=== PATIENT | female | born 1945 | race Caucasian/White ===

== ENCOUNTER → 2019-06-10 | Outpatient (CLI) | payer MEDICARE, OTHER, SELFPAY | PROVIDERS: Family Provider Internal Medicine; Visit Provider Internal Medicine Hematology & Oncology | DX: C50.112 Malignant neoplasm of central portion of left female breast (principal); Z17.1 Estrogen receptor negative status [ER-] | CPT/HCPCS: 99214 ==

== ENCOUNTER 2019-06-20 07:37 | Day surgery (SDC) | payer MEDICARE, OTHER, SELFPAY ==
[2019-06-19 15:01] VITALS: BMI 28.0
--- NOTE | 2019-06-20 | SCC_ITS ---
Procedure Done: Port-A-Cath placement into the right subclavian vein with intraoperative fluoroscopy interpretation. 2.3 seconds of fluoroscopic guidance, for a cumulative dose of 0.40 mGy, was provided to Dr. Harding by the radiology department. C-arm images of the chest were saved for the patient's permanent record. SHAVONNE
[2019-06-20 07:57] VITALS: BP 154/69; PULSE 70; RESP 18; TEMP 36.2; O2SAT 96
[2019-06-20] MEDS: sodium chloride 0.9% 1,000 ML 30 ML IV (08:36)
--- NOTE | 2019-06-20 08:41 | ANES.PREANES ---
Pre-Anesthetic Assessment Pre-Anesthetic Assessment: Height/Weight: Height 1.54 m Weight 66.224 kg Temp Pulse Resp BP Pulse Ox 97.2 F L 70 18 154/69 96 06/20/19 07:57 06/20/19 07:57 06/20/19 07:57 06/20/19 07:57 06/20/19 07:57 Proposed Procedure: Operation Date: 06/20/19 09:15 Proposed Procedures p Portacath Placement(Not Applicable) - Mahesh Harding MD Was Beta Tyler taken within 24 hours: N/A Last intake: Intake Last Liquid Date 06/19/19 Last Liquid Time 22:00 Last Solid Date 06/19/19 Last Solid Time 22:00 Social: Social History: No alcohol and No tobacco Exam: Pre-Anes Outpt Exam: alert, oriented x 3, clear to auscultation bilaterally and regular rate & rhythm Airway: Submandibular: WNL Cervical ROM: WNL MP: 2 Dentition: Full Additional comments: SMALL mouth opening Pulmonary: Pulmonary: Sleep apnea (cpap) Comments: denies sob/mcpherson CV/HEM: CV/HEM: None reported : : None reported Hepatic: Hepatic: None reported GI: GI: GERD Comments: controlled with meds Metabolic: Metabolic: DM and Thyroid Comments: hypo Musc/skel: Musc/skel: None reported Neuropsych: Neuropsych: None reported Anesthetic Plan: ASA status: II Anesthesia: MAC Risk of > 500 ml blood loss (7ml/kg in children): No Meds/Allergies Current Medications: Current Medications Generic Name Dose Route Start Last Admin Trade Name Freq PRN Reason Stop Dose Admin Sodium Chloride 1,000 mls @ 30 ml s/hr 06/20/19 06:15 06/20/19 08:36 Sodium Chloride 0.9% IV 06/21/19 06:14 30 mls/hr .Q24H PEDRO Administration PFSH Anesthesia PFSH: Medical History (Updated 06/20/19 @ 08:42 by Wayne Murillo MD) History of depression (Acute) History of gastroesophageal reflux (GERD) (Acute) History of skin cancer (Acute) History of sleep apnea (Acute) Hx of breast cancer (Acute) Hx of irritable bowel syndrome (Acute) Hx of osteoporosis (Acute) Hx of thyroid disease (Acute) Left ear hearing loss (Acute) Surgical History (Updated 06/20/19 @ 08:42 by Wayne Murillo MD) History of 2 sections (Acute) History of bladder suspension procedure (Acute) History of lobectomy of thyroid (Acute) Hx of breast biopsy (Acute) Hx of elbow surgery (Acute) Hx of hand surgery (Acute) Hx of thyroidectomy (Acute) Hx of tonsillectomy (Acute) Social History (Updated 06/19/19 @ 14:50 by Jillian Balbuena) Smoking and tobacco status: never smoked Substance/Drug Use: never Data Anesthesia Cardiac Studies: No Data to Display
--- NOTE | 2019-06-20 08:41 | PM.HPUD ---
H&P update H&P Update: DATE OF SURGERY/PROCEDURE: 06/20/19 DATE H&P PERFORMED: 06/20/19 PLANNED PROCEDURE: Operation Date: 06/20/19 09:15 Proposed Procedures p Portacath Placement(Not Applicable) - Mahesh Harding MD Full H&P Medications/Allergies: Current Medications: Current Medications Generic Name Dose Route Start Last Admin Trade Name Freq PRN Reason Stop Dose Admin Sodium Chloride 1,000 mls @ 30 ml s/hr 06/20/19 06:15 06/20/19 08:36 Sodium Chloride 0.9% IV 06/21/19 06:14 30 mls/hr .Q24H PEDRO Administration Perinent History: Family History: Family History (Updated 06/19/19 @ 08:46 by Isadora Bennett RN) Mother Colon cancer Other IBS (irritable bowel syndrome) Social History: Social History Smoking and tobacco status: never smoked Substance/Drug Use: never
[2019-06-20] MEDS: clindamycin 900 MG/50 ML PREMIX 100 MG IV (08:55)
[2019-06-20] MEDS: cetylpyridinium Lozenge 1 EACH MUCOUS MEM (09:08)
--- NOTE | 2019-06-20 09:11 | SC_ITS ---
WS: [id number] INTRAOPERATIVE TECHNIQUE: 2 Spot fluoroscopic images for intraoperative purposes. FLUOROSCOPY TIME: 2.3 seconds CLINICAL INFORMATION: surgery COMPARISON: None. FINDINGS: Right Port-A-Cath with tip in the SVC. No pneumothorax. SC/C-arm FL for CVA [id number] IMPRESSION: Images obtained for intraoperative purposes.
[2019-06-20] MEDS: heparin, porcine 1,000 unit/mL INJ 10 mL 10000 UNIT INJECTION (09:15)
[2019-06-20] MEDS: sodium chloride 0.9% SDV 10 mL 20 ML IVP (09:15)
--- NOTE | 2019-06-20 09:24 | P.OP_ITS ---
Operative Report Post-Operative Note: Date of procedure: 06/20/19 Preop Diagnosis: Left breast cancer. Post-op diagnosis: same Procedure Done: Port-A-Cath placement into the right subclavian vein with intraoperative fluoroscopy interpretation. Pathology: none sent Surgeon: Mahesh Harding Anesthesia: MAC Estimated blood loss (mL): 5 Complications: None. Condition: stable Disposition: same day Operative Report: Procedure: The patient was brought to the Operating Room and was placed in a supine position on the operating room table. A monitored anesthetic was induced. The shoulders were extended by means of a posterior shoulder roll. The anterior surface of the chest and neck were prepped and draped in a sterile fashion. 1% lidocaine was used to anesthetize a small area underneath the right clavicle. The subclavian vein was accessed on the first pass with a needle and syringe as evidenced by the return of dark nonpulsatile blood. The J-wire was passed down the needle and the needle was removed. The C-arm was positioned and showed the wire extending down the vena cava. A site just inferiorly on the chest wall was anesthetized using a combination of 1% lidocaine and 0.5% bupivacaine with 1:200,000 parts of epinephrine. A transverse incision was made and an inferior pocket was created in the subcutaneous layer using cautery in preparation for port placement. The Port-A-Cath tubing was passed from the incision through the subcutaneous layer to the exit point of the J-wire. The tubing was attached to the port and was cut to an appropriate length. The introducer and sheath were passed over the J-wire, and the introducer and J-wire were removed. The Port-A-Cath tubing was passed down the sheath, which was torn away. The C-arm was positioned and showed good placement of the Port-A-Cath tubing tip in the superior vena cava. The port aspirated easily and flushed well with hep flush solution. The port was sewn in place with some interrupted sutures of 3-0 PDS. The transverse incision was closed at the dermis using a single inverted suture of 3-0 Vicryl and the skin was approximated using a running subcuticular suture of 4-0 Vicryl. The small incision under the clavicle at the previous insertion site of the J wire was closed using a single inverted suture of 4-0 Vicryl. Benzoin and Steri-Strips were placed over the incisions and a sterile bandage followed. The patient was taken to the recovery area in stable condition postoperatively. INTRAOPERATIVE FLUOROSCOPY FINDINGS: Intraoperative fluoroscopic images of a Port-A-Cath placement were reviewed. An initial image reveals a J-wire entering the right subclavian vein and extending down the vena cava. Subsequent images reveal a Port-A-Cath on t hat side of the chest with its tubing tip in good location in the superior vena cava. No obvious pneumothorax is identified. 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
[2019-06-20 09:31] VITALS: BP 125/62; PULSE 78; RESP 18; TEMP 36.1; O2SAT 93
[2019-06-20 10:01] VITALS: BP 126/60; PULSE 67; RESP 18; O2SAT 96
--- NOTE | 2019-06-20 14:26 | P.PCN_ITS ---
PACU note Post-Anesthesia Exam: awake Disposition: discharged
--- NOTE | 2019-06-20 14:26 | PM.PACU ---
PACU note Post-Anesthesia Exam: awake Disposition: discharged
== END 2019-06-20 10:16 | disposition home or self-care (01) ==
PROVIDERS: Family Provider Internal Medicine; PCP Internal Medicine; Visit Provider Surgery
PROC: (CPT 36561; principal; 2019-06-20 08:45)
DX: C50.112 Malignant neoplasm of central portion of left female breast (principal); E11.9 Type 2 diabetes mellitus without complications; E03.9 Hypothyroidism, unspecified; K21.9 Gastro-esophageal reflux disease without esophagitis; G47.30 Sleep apnea, unspecified; M81.0 Age-related osteoporosis without current pathological fracture
CPT/HCPCS: 36561; 76000; 77001; 99221; C1788; J1644; J2001; J2704; J3010; J3490; J7030

== ENCOUNTER 2019-07-09 05:45 | Outpatient (RCR) | payer MEDICARE, OTHER, SELFPAY ==
[2019-06-24 13:35] LABS: Basophils # 0.1 10^3/uL (0.0-0.1); Basophils % 0.6 %; Eosinophils # 0.1 10^3/uL (0.0-0.8); Eosinophils % 0.7 %; Hematocrit 40.2 % (37.0-47.0); Hemoglobin 13.1 g/dL (11.5-15.3); Lymphocytes % 11.1 %; Mean Corpuscular HGB Conc 32.6 g/dL (30.0-36.0); Mean Corpuscular Volume 85.9 fL (81-99); Mean Platelet Volume 10.1 fL (7.4-10.4); Monocytes # 0.3 10^3/uL (0.2-0.9); Neutrophils # 7.4 10^3/uL (1.8-7.7); Neutrophils % 84.5 %; Nucleated Red Blood Cells % 0 %; Platelet Count 369 10^3/cmm (130-400); Red Blood Count 4.68 10^6/uL (4.1-5.3); Red Cell Distribution Width 12.4 % (12.1-15.1); White Blood Count 8.7 10^3/uL (4.0-10.0)
[2019-06-24 13:49] LABS: Alanine Aminotransferase 19 U/L (0-33); Albumin Level 4.4 g/dL (3.5-5.2); Alkaline Phosphatase 118 IU/L (35-105); Aspartate Amino Transferase 24 U/L (0-32); Blood Urea Nitrogen 15 mg/dL (8-23); Calcium 10.5 mg/Dl (8.8-10.2); Carbon Dioxide 30 mmol/L (22-29); Chloride 99 mmol/L (98-107); Globulin 2.5 g/dL (1.3-4.6); Glucose 118 mg/dL (74-106); Sodium 139 mmol/L (136-145); Total Bilirubin 0.3 mg/dL (0.15-1.2); Total Protein 6.9 g/dL (6.6-8.7)
[2019-06-25] MEDS: sodium chloride 0.9% 500 ML 999 ML IV (10:15)
[2019-07-02 12:13] LABS: Basophils % 2.1 %; Eosinophils % 4.1 %; Hematocrit 35.2 % (37.0-47.0); Hemoglobin 11.6 g/dL (11.5-15.3); Lymphocytes # 0.8 10^3/uL (0.8-4.8); Lymphocytes % 78.4 %; Mean Corpuscular Hemoglobin 28.9 pg (28.0-34.0); Mean Corpuscular Volume 87.8 fL (81-99); Mean Platelet Volume 10.6 fL (7.4-10.4); Monocytes % 4.1 %; Neutrophils % 11.3 %; Nucleated Red Blood Cells % 0 %; Platelet Count 312 10^3/cmm (130-400); Red Blood Count 4.01 10^6/uL (4.1-5.3); Red Cell Distribution Width 11.9 % (12.1-15.1)
[2019-07-02 12:17] LABS: Alanine Aminotransferase 56 U/L (0-33); Albumin Level 3.4 g/dL (3.5-5.2); Alkaline Phosphatase 135 IU/L (35-105); Aspartate Amino Transferase 40 U/L (0-32); Blood Urea Nitrogen 10 mg/dL (8-23); Calcium 9.9 mg/Dl (8.8-10.2); Carbon Dioxide 29 mmol/L (22-29); Chloride 98 mmol/L (98-107); Globulin 3.1 g/dL (1.3-4.6); Glucose 153 mg/dL (74-106); Sodium 138 mmol/L (136-145); Total Bilirubin 0.4 mg/dL (0.15-1.2); Total Protein 6.5 g/dL (6.6-8.7)
[2019-07-02 12:41] LABS: Urine Appearance Clear (CLEAR); Urine Color Orange (Yellow); pH Urine 5 (5-7)
[2019-07-02 12:42] LABS: Add Urine Microscopic? YES; Bilirubin Urine 2+ (NEGATIVE); Blood Urine Neg (Negative); Glucose Urine UA Norm (Normal); Ketones Urine Negative (Negative); Leukocyte Esterase Urine Negative (Negative); Nitrate Urine Positive (Negative); Protein Urine 2+ (Negative); Urobilinogen Urine 4 mg/dL (Negative)
[2019-07-02 12:45] LABS: Bacteria Urine TRACE; Calcium Oxalate Crystals Urine 0-4 /hpf; Squamous Epithelial Cell Urine 0-4 (0-5)
[2019-07-02 12:46] LABS: Add Urine Culture? No
[2019-07-02 13:37] LABS: Slide Review Slide Review Perform
[2019-07-02 13:39] LABS: Neutrophils # 0.1 10^3/uL (1.8-7.7)
--- NOTE | 2019-07-02 16:42 | ONC FU_ITS ---
Dr. Randolph follow up note Patient: Anita Tyler Unit #: [id number]: [id number] Dicatated By: Radhika Randolph M.D.Date of Visit:Jul 02, 2019 Onc Med Follow-up/Prog Note History of Present Illness: Mrs. Anita Harmon, is a 73-year-old female, with a short history of left breast mass for which she underwent mammogram which confirmed a mass in left breast subsequently underwent sonogram guided biopsy on 04/07/2019 which confirmed infiltrating ductal carcinoma, ER/AL negative, HER-2/michael negative patient was referred to surgery and on 04/25/2019 underwent left breast lumpectomy and sentinel lymph node biopsy which showed infiltrating ductal carcinoma, 2 x 1.6 cm, grade 2, with positive surgical margins and sentinel lymph node was negative for metastatic disease. Patient underwent reexcision of positive surgical margins on 05/16/2019 and pathology confirmed clear margins. Pathological stage TIc, N0, grade 2, triple negative stage IB.Started on adjuvant chemotherapy with Cytoxan/Taxotere ???4 on 06/25/2019 Patient denies any nipple discharge, denies any bony pains, denies any weight loss, denies any poor appetite, denies any other significant medical illness. Came for follow-up denies any specific complaint except occasionally lower abdominal cramps but no fever or chills, no nausea or vomiting, no mouth sores, no diarrhea constipation, no shortness of breath, no lightheadedness or dizziness. No dysuria or hematuria. Tolerated first cycle of chemotherapy with Cytoxan/Taxotere well. Medications: Apple Cider Vinegar 1 Capsule Oral daily, [place] 1 Capsule (of 3 mg) Oral daily, Calcium 1 Tablet (of 600 mg) Oral daily, Cranberry 1 Tablet Oral daily, Dicyclomine HCl 1 Tablet (of 20 mg) Oral four times a day PRN, Glucosamine Chondr Complex 1 Capsule (of 500-400 mg) Oral b.i.d., HYDROcodone-Acetaminophen 1 Tablet (of 5-325 mg) Oral q 5 hours PRN, Levothyroxine Sodium 1 Tablet (of 100 mg) Oral daily, Magnesium 1 Tablet (of 400 mg) Oral daily, Multivitamin Adult 1 Tablet Oral daily, Omeprazole 1 Capsule (of 20 mg) Capsule Delayed Release Oral daily, Potassium 1 Tablet (of 99 mg) Oral daily, Sertraline HCl 1 Tablet (of 50 mg) Oral daily, super strength water pills 1 Capsule daily, Turmeric 1 Tablet (of 500 mg) Oral daily, Vision Formula 2 1 Capsule Oral daily, Vitamin C 1 Capsule Oral daily, Vitamin D3 1 Tablet Oral daily, Vitamin E 1 Capsule Oral daily Allergies: Cephalexin, Ibuprofen, Nitrofurantoin Macrocrystal, Penicillins, red dye, and Sulfa Antibiotics. Review of Systems: Review of Systems is not available for this patient. Vital Signs: Performed on Jul 02, 2019 13:08 Height - 66.00 in Weight - 151.4 lbs (LOW) BSA - 1.78 sq.m BMI - 24.44 Temperature - 97.9 F (LOW) Pulse - 86 /min Respiration - 18 /min BP - 140/66 mm(hg) O2 Sat - 95 % (LOW) Pain - 0 Performance Status: 1 - No physically strenuous activity, but ambulatory and able to carry out light or sedentary work (e.g. office work, light house work). (ECOG) Physical Examination: Respiratory - Lungs are clear to auscultation without rhonchi or wheezing, Cardiovascular - Regular rate and rhythm of heart, Extremities - no edema. Lab/Imaging: Test performed on Jun 24, 2019 12:50 Glucose 118 mg/dL BUN 15 mg/dL Creatinine 0.5 mg/dL Cr Clearance (Est) 105.68 mL/min Sodium 139 mmol/L Potassium 4.0 mmol/L Chloride 99 mmol/L CO2 30 mmol/L Calcium 10.5 mg/dL Protein, Total 6.9 g/dL Albumin 4.4 g/dL Globulin 2.5 g/dL Bilirubin, Total 0.3 mg/dL Alkaline Phosphatase 118 IU/L AST (SGOT) 24 IU/L ALT (SGPT) 19 IU/L WBC 8.7 10^9/L RBC 4.68 10^12/L HGB 13.1 g/dL HCT 40.2 % MCV 85.9 fl MCH 28.0 pg MCHC 32.6 g/dL RDW 12.4 % Platelet Count 369 10^9/L MPV 10.1 fL Neutrophils (Gran) 7.4 10^9/L Lymphocytes 1.0 10^9/L Monocytes 0.3 10^9/L Eosinophils 0.1 10^9/L Basophils 0.1 10^9/L Neutrophil % 0.7 % Manual Lymphocytes 11.1 % Manual Monocytes 3.0 % Manual Eosinophils 0.7 % Manual Basophils 0.6 % NRBCs 0.0 /100 WBC Impression: Invasive ductal carcinoma involving left breast status post left breast lumpectomy with sentinel lymph node done on 04/25/2019, final pathology report showed, grade 2, 2 x 1.6 cm invasive tumor with positive surgical margins subsequently patient underwent reexcision on 05/16/2019 and obtain clear margins, pT1c, sentinel lymph node negative for metastatic disease pN0 ER/AL negative, HER-2/michael negative Stage IB ( pT1c, N0, grade 2, ER/AL negative, HER-2/michael negative) Started on adjuvant therapy with Cytoxan/Taxotere every 3 weeks ???4 on 06/25/2019 Plan: Discussed with patient regarding her labs white blood count 1000, hemoglobin 11.6 hematocrit 35.2 platelets 312,000 CMP within normal limits except ALT 56 AST 40 compared to on 06/24/2019. Clinically, patient is doing well tolerating her first cycle of adjuvant chemotherapy with Cytoxan/Taxotere well but with expected side effects e.g. now with progressive leukopenia/neutropenia. Patient has history of recurrent UTI in the past and now with occasionally abdominal cramps, and being neutropenic we will consider starting on ciprofloxacin 500 mg by mouth twice a day as prophylactic. Patient was advised in case she has any fever or mental status changes are denies weakness or fatigue or sweating, she needed to go to emergency room immediately otherwise avoid public places and fresh vegetable and fruits. And we'll see her back in 1 week with CBC CMP and also consider Neulasta support with next and subsequent cycles of chemotherapy to prevent chemotherapy-induced leukopenia/neutropenia. Signed By: Radhika Randolph M.D. <<Signature on File>>
[2019-07-09 11:27] LABS: Basophils % 0.6 %; Eosinophils % 0.3 %; Hematocrit 35.6 % (37.0-47.0); Hemoglobin 11.7 g/dL (11.5-15.3); Lymphocytes # 1.4 10^3/uL (0.8-4.8); Lymphocytes % 38.9 %; Mean Corpuscular HGB Conc 32.9 g/dL (30.0-36.0); Mean Corpuscular Volume 88.3 fL (81-99); Mean Platelet Volume 9.4 fL (7.4-10.4); Monocytes # 0.9 10^3/uL (0.2-0.9); Monocytes % 26.5 %; Neutrophils # 1.1 10^3/uL (1.8-7.7); Neutrophils % 31.1 %; Nucleated Red Blood Cells % 0.6 %; Platelet Count 412 10^3/cmm (130-400); Red Blood Count 4.03 10^6/uL (4.1-5.3); White Blood Count 3.5 10^3/uL (4.0-10.0)
[2019-07-09 11:41] LABS: Alanine Aminotransferase 38 U/L (0-33); Alkaline Phosphatase 156 IU/L (35-105); Aspartate Amino Transferase 31 U/L (0-32); Blood Urea Nitrogen 14 mg/dL (8-23); Calcium 10.3 mg/dL (8.5-10.5); Carbon Dioxide 28 mmol/L (22-29); Chloride 102 mmol/L (98-107); Globulin 2.9 g/dL (1.3-4.6); Glucose 96 mg/dL (74-106); Sodium 141 mmol/L (136-145); Total Bilirubin 0.2 mg/dL (0.15-1.2); Total Protein 6.9 g/dL (6.6-8.7)
--- NOTE | 2019-07-09 16:45 | ONC FU_ITS ---
Dr. Randolph follow up note Patient: Anita Tyler Unit #: [id number]: 1945 Dicatated By: Radhika Randolph M.D.Date of Visit:Jul 09, 2019 Onc Med Follow-up/Prog Note History of Present Illness: Mrs. Anita Harmon, is a 73-year-old female, with a short history of left breast mass for which she underwent mammogram which confirmed a mass in left breast subsequently underwent sonogram guided biopsy on 04/07/2019 which confirmed infiltrating ductal carcinoma, ER/MS negative, HER-2/michael negative patient was referred to surgery and on 04/25/2019 underwent left breast lumpectomy and sentinel lymph node biopsy which showed infiltrating ductal carcinoma, 2 x 1.6 cm, grade 2, with positive surgical margins and sentinel lymph node was negative for metastatic disease. Patient underwent reexcision of positive surgical margins on 05/16/2019 and pathology confirmed clear margins. Pathological stage TIc, N0, grade 2, triple negative stage IB.Started on adjuvant chemotherapy with Cytoxan/Taxotere ???4 on 06/25/2019 Patient denies any nipple discharge, denies any bony pains, denies any weight loss, denies any poor appetite, denies any other significant medical illness came for follow-up, denies any specific complaints, no fever or chills, no nausea vomiting, no diarrhea constipation, no mouth sores, no dysuria or hematuria, no abdominal pain. Medications: Apple Cider Vinegar 1 Capsule Oral daily, [place] 1 Capsule (of 3 mg) Oral daily, Calcium 1 Tablet (of 600 mg) Oral daily, Cranberry 1 Tablet Oral daily, Dicyclomine HCl 1 Tablet (of 20 mg) Oral four times a day PRN, Glucosamine Chondr Complex 1 Capsule (of 500-400 mg) Oral b.i.d., HYDROcodone-Acetaminophen 1 Tablet (of 5-325 mg) Oral q 5 hours PRN, Levothyroxine Sodium 1 Tablet (of 100 mg) Oral daily, Magnesium 1 Tablet (of 400 mg) Oral daily, Multivitamin Adult 1 Tablet Oral daily, Omeprazole 1 Capsule (of 20 mg) Capsule Delayed Release Oral daily, Potassium 1 Tablet (of 99 mg) Oral daily, Sertraline HCl 1 Tablet (of 50 mg) Oral daily, super strength water pills 1 Capsule daily, Turmeric 1 Tablet (of 500 mg) Oral daily, Vision Formula 2 1 Capsule Oral daily, Vitamin C 1 Capsule Oral daily, Vitamin D3 1 Tablet Oral daily, Vitamin E 1 Capsule Oral daily Allergies: Cephalexin, Ibuprofen, Nitrofurantoin Macrocrystal, Penicillins, red dye, and Sulfa Antibiotics. Review of Systems: Constitutional - Appetite is good and weight is stable. No fever, chills, hot flashes, or night sweats. Energy level is fair, ENMT - No sinus congestion/drainage. No mouth sores. No sore throat or difficulty swallowing, Hematologic/Lymphatic - No abnormal bruising or bleeding, Respiratory - No shortness of breath. No cough. No pleuritic pain or hemoptysis, Cardiovascular - No angina pain. No palpitations, Gastrointestinal - No nausea or vomiting. No heartburn or acid reflux. No diarrhea or constipation. No blood in the stool or black stools, Genitourinary (F) - No dysuria or hematuria. No urinary frequency. No urgency or incontinence, Musculoskeletal - No joint or bone pain, Neurologic - No headache or dizziness. No numbness/paresthesias or other focal neurologic symptoms, Psychiatric - No anxiety or depression. No insomnia. Vital Signs: Performed on Jul 09, 2019 12:42 Height - 66.00 in Weight - 152.4 lbs (HIGH) BSA - 1.78 sq.m BMI - 24.60 Temperature - 97.7 F (LOW) Pulse - 82 /min Respiration - 18 /min BP - 141/59 mm(hg) (HIGH) O2 Sat - 98 % Pain - 0 Performance Status: 1 - No physically strenuous activity, but ambulatory and able to carry out light or sedentary work (e.g. office work, light house work). (ECOG) Physical Examination: Respiratory - Lungs are clear to auscultation without rhonchi or wheezing, Cardiovascular - Regular rate and rhythm of heart, Extremities - no edema. Lab/Imaging: Test performed on Jul 02, 2019 11:28 Sodium 138 mmol/L Potassium 4.0 mmol/L Chloride 98 mmol/L CO2 29 mmol/L Anion Gap 15.0 BUN 10 mg/dL Creatinine 0.4 mg/dL Cr Clearance (Est) 132.0900 mL/min Glucose 153 mg/dL Calcium 9.9 mg/Dl Protein, Total 6.5 g/dL Albumin 3.4 g/dL Globulin 3.1 g/dL Bilirubin, Total 0.4 mg/dL ALT (SGPT) 56 U/L AST (SGOT) 40 U/L WBC 1.0 10 3/uL RBC 4.01 10 6/uL HGB 11.6 g/dL HCT 35.2 % MCV 87.8 fL MCH 28.9 pg MCHC 33.0 g/dL RDW 11.9 % Platelet Count 312 10 3/cmm MPV 10.6 fL Neutrophils 0.1 10 3/uL Lymphocytes 0.8 10 3/uL Monocytes 0.0 10 3/uL Eosinophils 0.0 10 3/uL Basophils 0.0 10 3/uL Neutrophil % 11.3 % Lymphocyte % 78.4 % Monocyte % 4.1 % Eosinophil % 4.1 % Basophils % 2.1 % CBC Slide Review Slide Review Perform SLIDE REVIEW AGREES WITH AUTOMATED RESULTS ST Test performed on Jul 01, 2019 11:44 Ua Micro: Ca Oxalate Crystals 0-4 /hpf Ua Micro: WBC 10-15 /hpf Ua Micro: RBC NONE /hpf Ua Micro: Squam Epith Cells 0-4 Ua Micro: Bacteria TRACE Test performed on Jun 24, 2019 12:50 Alkaline Phosphatase 118 IU/L Manual Lymphocytes 11.1 % Manual Monocytes 3.0 % Manual Eosinophils 0.7 % Manual Basophils 0.6 % NRBCs 0.0 /100 WBC Impression: Invasive ductal carcinoma involving left breast status post left breast lumpectomy with sentinel lymph node done on 04/25/2019, final pathology report showed, grade 2, 2 x 1.6 cm invasive tumor with positive surgical margins subsequently patient underwent reexcision on 05/16/2019 and obtain clear margins, pT1c, sentinel lymph node negative for metastatic disease pN0 ER/MS negative, HER-2/michael negative Stage IB ( pT1c, N0, grade 2, ER/MS negative, HER-2/michael negative) Started on adjuvant therapy with Cytoxan/Taxotere every 3 weeks ???4 on 06/25/2019 Plan: Discussed with patient regarding her labs white blood count 3.5 hemoglobin 11.7 crit 35.6 platelets 412,000 ANC 1100, CMP within normal limits Clinically, patient is doing well, now recovering from neutropenia/UTI. On oral antibiotics ciprofloxacin. Return to clinic in 1 week with CBC CMP if it shows further recovery we'll consider next cycle #2/4 of chemotherapy with Cytoxan/Taxotere with Neulasta support to prevent chemotherapy-induced neutropenia and to maintain chemotherapy schedule. Signed By: Radhika Randolph M.D. <<Signature on File>>
== END 2019-07-12 23:59 | disposition home or self-care (01) ==
LOC: ONCMED 05:45
PROVIDERS: Family Provider Internal Medicine; PCP Internal Medicine; Visit Provider Internal Medicine Hematology & Oncology
DX: Z51.11 Encounter for antineoplastic chemotherapy (principal); C50.112 Malignant neoplasm of central portion of left female breast; Z17.1 Estrogen receptor negative status [ER-]; D70.1 Agranulocytosis secondary to cancer chemotherapy; T45.1X5A Adverse effect of antineoplastic and immunosuppressive drugs, initial encounter; N39.0 Urinary tract infection, site not specified; Z79.899 Other long term (current) drug therapy; Z87.440 Personal history of urinary (tract) infections
CPT/HCPCS: 36591; 80053; 81003; 85025; 86300; 96361; 96367; 96413; 96417; 99214; J1100; J1200; J2469; J3490; J7040; J7050; J9070; J9171

== ENCOUNTER 2019-08-06 05:35 | Outpatient (RCR) | payer MEDICARE, OTHER, SELFPAY ==
[2019-07-16 11:17] LABS: Basophils % 0.1 %; Hematocrit 34.8 % (37.0-47.0); Hemoglobin 11.5 g/dL (11.5-15.3); Lymphocytes # 1.5 10^3/uL (0.8-4.8); Lymphocytes % 7.3 %; Mean Corpuscular Volume 87.9 fL (81-99); Mean Platelet Volume 9.8 fL (7.4-10.4); Monocytes # 1.5 10^3/uL (0.2-0.9); Neutrophils # 17.8 10^3/uL (1.8-7.7); Neutrophils % 84.4 %; Nucleated Red Blood Cells % 0 %; Platelet Count 494 10^3/cmm (130-400); Red Blood Count 3.96 10^6/uL (4.1-5.3); Red Cell Distribution Width 13.4 % (12.1-15.1); White Blood Count 21.1 10^3/uL (4.0-10.0)
[2019-07-16 11:30] LABS: Alanine Aminotransferase 26 U/L (0-33); Albumin Level 3.9 g/dL (3.5-5.2); Alkaline Phosphatase 132 IU/L (35-105); Anion Gap 16.1 (5-19); Aspartate Amino Transferase 18 U/L (0-32); Blood Urea Nitrogen 15 mg/dL (8-23); Calcium 10.2 mg/dL (8.5-10.5); Carbon Dioxide 27 mmol/L (22-29); Chloride 101 mmol/L (98-107); Globulin 3.5 g/dL (1.3-4.6); Glucose 137 mg/dL (74-106); Potassium 4.1 mmol/L (3.5-5.1); Sodium 140 mmol/L (136-145); Total Bilirubin 0.2 mg/dL (0.15-1.2); Total Protein 7.4 g/dL (6.6-8.7)
--- NOTE | 2019-07-16 13:08 | ONC FU_ITS ---
Dr. Randolph follow up note Patient: Anita Tyler Unit #: [id number]: 1945 Dicatated By: Radhika Randolph M.D.Date of Visit:Jul 16, 2019 Onc Med Follow-up/Prog Note History of Present Illness: Mrs. Anita Harmon, is a 73-year-old female, with a short history of left breast mass for which she underwent mammogram which confirmed a mass in left breast subsequently underwent sonogram guided biopsy on 04/07/2019 which confirmed infiltrating ductal carcinoma, ER/PA negative, HER-2/michael negative patient was referred to surgery and on 04/25/2019 underwent left breast lumpectomy and sentinel lymph node biopsy which showed infiltrating ductal carcinoma, 2 x 1.6 cm, grade 2, with positive surgical margins and sentinel lymph node was negative for metastatic disease. Patient underwent reexcision of positive surgical margins on 05/16/2019 and pathology confirmed clear margins. Pathological stage TIc, N0, grade 2, triple negative stage IB.Started on adjuvant chemotherapy with Cytoxan/Taxotere ???4 on 06/25/2019 Patient denies any nipple discharge, denies any bony pains, denies any weight loss, denies any poor appetite, denies any other significant medical illness Came for follow-up, denies any specific complaints, no fever no chills no nausea vomiting no diarrhea constipation, no burning micturition or dysuria, tolerated first cycle of chemotherapy reasonably well but complicated by progressive severe neutropenia/leukopenia, now Neulasta support is under consideration to prevent chemotherapy-induced neutropenia and leukopenia as patient has history of chronic cystitis and to maintain chemotherapy scheduled. Medications: Apple Cider Vinegar 1 Capsule Oral daily, [place] 1 Capsule (of 3 mg) Oral daily, Calcium 1 Tablet (of 600 mg) Oral daily, Cranberry 1 Tablet Oral daily, Dicyclomine HCl 1 Tablet (of 20 mg) Oral four times a day PRN, Glucosamine Chondr Complex 1 Capsule (of 500-400 mg) Oral b.i.d., HYDROcodone-Acetaminophen 1 Tablet (of 5-325 mg) Oral q 5 hours PRN, Levothyroxine Sodium 1 Tablet (of 100 mg) Oral daily, Magnesium 1 Tablet (of 400 mg) Oral daily, Multivitamin Adult 1 Tablet Oral daily, Omeprazole 1 Capsule (of 20 mg) Capsule Delayed Release Oral daily, Potassium 1 Tablet (of 99 mg) Oral daily, Sertraline HCl 1 Tablet (of 50 mg) Oral daily, super strength water pills 1 Capsule daily, Turmeric 1 Tablet (of 500 mg) Oral daily, Vision Formula 2 1 Capsule Oral daily, Vitamin C 1 Capsule Oral daily, Vitamin D3 1 Tablet Oral daily, Vitamin E 1 Capsule Oral daily Allergies: Cephalexin, Ibuprofen, Nitrofurantoin Macrocrystal, Penicillins, red dye, and Sulfa Antibiotics. Review of Systems: Constitutional - Appetite is good and weight is stable. No fever, chills, hot flashes, or night sweats. Energy level is fair, ENMT - No sinus congestion/drainage. No mouth sores. No sore throat or difficulty swallowing, Hematologic/Lymphatic - No abnormal bruising or bleeding, Respiratory - No shortness of breath. No cough. No pleuritic pain or hemoptysis, Cardiovascular - No angina pain. No palpitations, Gastrointestinal - No nausea or vomiting. No heartburn or acid reflux. No diarrhea or constipation. No blood in the stool or black stools, Genitourinary (F) - No dysuria or hematuria. No urinary frequency. No urgency or incontinence, Musculoskeletal - No joint or bone pain, Neurologic - No headache or dizziness. No numbness/paresthesias or other focal neurologic symptoms, Psychiatric - No anxiety or depression. Positive for insomnia. Vital Signs: Performed on Jul 16, 2019 12:36 Height - 66.00 in Weight - 154.2 lbs (HIGH) BSA - 1.79 sq.m BMI - 24.89 Temperature - 97.0 F (LOW) Pulse - 85 /min Respiration - 18 /min BP - 138/69 mm(hg) O2 Sat - 95 % (LOW) Pain - 0 Performance Status: 0 - Fully active, able to carry on all predisease activities without restrictions. (ECOG) Physical Examination: Respiratory - Lungs are clear to auscultation, Cardiovascular - Regular rate and rhythm of heart, Extremities - No edema . Lab/Imaging: Test performed on Jul 02, 2019 11:28 Sodium 138 mmol/L Potassium 4.0 mmol/L Chloride 98 mmol/L CO2 29 mmol/L Anion Gap 15.0 BUN 10 mg/dL Creatinine 0.4 mg/dL Cr Clearance (Est) 132.0900 mL/min Glucose 153 mg/dL Calcium 9.9 mg/Dl Protein, Total 6.5 g/dL Albumin 3.4 g/dL Globulin 3.1 g/dL Bilirubin, Total 0.4 mg/dL ALT (SGPT) 56 U/L AST (SGOT) 40 U/L WBC 1.0 10 3/uL RBC 4.01 10 6/uL HGB 11.6 g/dL HCT 35.2 % MCV 87.8 fL MCH 28.9 pg MCHC 33.0 g/dL RDW 11.9 % Platelet Count 312 10 3/cmm MPV 10.6 fL Neutrophils 0.1 10 3/uL Lymphocytes 0.8 10 3/uL Monocytes 0.0 10 3/uL Eosinophils 0.0 10 3/uL Basophils 0.0 10 3/uL Neutrophil % 11.3 % Lymphocyte % 78.4 % Monocyte % 4.1 % Eosinophil % 4.1 % Basophils % 2.1 % CBC Slide Review Slide Review Perform SLIDE REVIEW AGREES WITH AUTOMATED RESULTS ST Test performed on Jul 01, 2019 11:44 Ua Micro: Ca Oxalate Crystals 0-4 /hpf Ua Micro: WBC 10-15 /hpf Ua Micro: RBC NONE /hpf Ua Micro: Squam Epith Cells 0-4 Ua Micro: Bacteria TRACE Test performed on Jun 24, 2019 12:50 Alkaline Phosphatase 118 IU/L Manual Lymphocytes 11.1 % Manual Monocytes 3.0 % Manual Eosinophils 0.7 % Manual Basophils 0.6 % NRBCs 0.0 /100 WBC Impression: Invasive ductal carcinoma involving left breast status post left breast lumpectomy with sentinel lymph node done on 04/25/2019, final pathology report showed, grade 2, 2 x 1.6 cm invasive tumor with positive surgical margins subsequently patient underwent reexcision on 05/16/2019 and obtain clear margins, pT1c, sentinel lymph node negative for metastatic disease pN0 ER/PA negative, HER-2/michael negative Stage IB ( pT1c, N0, grade 2, ER/PA negative, HER-2/michael negative) Started on adjuvant therapy with Cytoxan/Taxotere every 3 weeks ???4 on 06/25/2019 Plan: Discussed with patient regarding her labs white blood count 21.1 hemoglobin 11.5 hematocrit 34.8 platelets 494,000 CMP within normal limits Clinically, patient is doing well tolerated first cycle of chemotherapy with Cytoxan/docetaxel well but with expected side effects e.g. progressive leukopenia/neutropenia and mild anemia We'll proceed with cycle #2/4 with Cytoxan/docetaxel but this time with Neulasta support to prevent chemotherapy-induced leukopenia/neutropenia and to maintain chemotherapy schedule. She will return to clinic in 10 days with CBC CMP. Signed By: Radhika Randolph M.D. <<Signature on File>>
[2019-07-16] MEDS: sodium chloride 0.9% 500 ML 800 ML IV (15:59)
[2019-07-16] MEDS: pegfilgrastim 6 mg/0.6 mL Kit (onpro) SUBCUT (16:35)
[2019-07-25 12:20] LABS: Basophils % 0.1 %; Eosinophils # 0.2 10^3/uL (0.0-0.8); Eosinophils % 0.4 %; Hematocrit 34.4 % (37.0-47.0); Hemoglobin 11.1 g/dL (11.5-15.3); Lymphocytes # 2.3 10^3/uL (0.8-4.8); Lymphocytes % 5.7 %; Mean Corpuscular HGB Conc 32.3 g/dL (30.0-36.0); Mean Corpuscular Hemoglobin 27.8 pg (28.0-34.0); Mean Platelet Volume 10.5 fL (7.4-10.4); Monocytes # 2.6 10^3/uL (0.2-0.9); Monocytes % 6.5 %; Neutrophils # 28.3 10^3/uL (1.8-7.7); Neutrophils % 71.1 %; Nucleated Red Blood Cells # 0.4 /100WBC; Nucleated Red Blood Cells % 0.9 %; Platelet Count 338 10^3/cmm (130-400); Red Cell Distribution Width 13.7 % (12.1-15.1)
[2019-07-25 12:33] LABS: Albumin Level 3.6 g/dL (3.5-5.2); Alkaline Phosphatase 255 IU/L (35-105); Anion Gap 17.3 (5-19); Aspartate Amino Transferase 40 U/L (0-32); Blood Urea Nitrogen 9 mg/dL (8-23); Carbon Dioxide 26 mmol/L (22-29); Chloride 100 mmol/L (98-107); Globulin 3.5 g/dL (1.3-4.6); Glucose 127 mg/dL (65-115); Potassium 4.3 mmol/L (3.5-5.1); Sodium 139 mmol/L (136-145); Total Bilirubin 0.2 mg/dL (0.15-1.2); Total Protein 7.1 g/dL (6.6-8.7)
[2019-07-25 12:49] LABS: Alanine Aminotransferase 37 U/L (0-33)
[2019-07-25 13:17] LABS: Slide Review Slide Review Perform; White Blood Count 39.9 10^3/uL (4.0-10.0)
--- NOTE | 2019-07-28 21:39 | ONC FU_ITS ---
[facility] Patient Note Patient: Anita Renae Unit #: [id number]: 1945 Dictated By: Maurice JamaDate of Visit: Jul 25, 2019 Onc MED Follow-Up/Prog Note Chief Complaint: Left breast cancer History of Present Illness: Mrs. Harmon is a 73-year-old female with a short history of left breast mass. She underwent mammogram which confirmed a mass in left breast and she subsequently underwent sonogram guided biopsy on 04/07/2019. The biopsy confirmed infiltrating ductal carcinoma, ER/LA negative, HER-2/michael negative. She was referred to Dr Harding for possible surgery and on 04/25/2019 underwent left breast lumpectomy and sentinel lymph node biopsy. The biopsy reported infiltrating ductal carcinoma, 2 x 1.6 cm, grade 2, with positive surgical margins. The sentinel lymph node was negative for metastatic disease. Mrs Rneae underwent reexcision of positive surgical margins on 05/16/2019. This pathology confirmed clear margins. Pathological stage TIc, N0, grade 2, triple negative, stage IB. Her other medical illnesses include a history of thyroid disease, sleep apnea, osteoporosis, irritable bowel syndrome, history of basal cell carcinoma, GERD and depression. Mrs Renae was offered further treatment with chemotherapy. She started on adjuvant chemotherapy with Cytoxan/Taxotere ???4 on 06/25/2019. She is tolerated chemotherapy well thus far. She did have chemotherapy-induced neutropenia with cycle 1 with an ANC of 100 on day 8. She was authorized for Neulasta with cycle 2. She is tolerated it well. She did have a slight bone pain but states that Tylenol took care of her pain. She had no other complaints. Mrs Renae is here today for followup 10 days post cycle 2. She denies any fever or chills. She denies any nausea or vomiting. She states she is eating good. Energy is good. She is only concern is that she has had slight rash that has come up since her last treatment. She states that slightly itchy but not dramatic. She has not tried any over the counter antihistamines. She did try little cortisone on the rash and that seemed to help. She denies any fever or chills. She is had no diarrhea or constipation. She denies any neuropathy symptoms. She states her energy is good and her appetite is good. She states she has had some fatigue but overall it resolves well with rest. Other than the rash, she has no new concerns today. Her ECOG is 1. Past Medical History: Depression Gastroesophageal reflux disease History of basal cell carcinoma Irritable bowel syndrome Osteoporosis Sleep apnea Thyroid disease Past Surgical History: Bladder suspension Breast biopsy - left Cataract excision - x2 Excision of basal cell carcinoma from chin Left breast lumpectomy Repair of right elbow fracture Right ring finger trigger finger release Allergies: Cephalexin, Ibuprofen, Nitrofurantoin Macrocrystal, Penicillins, red dye, and Sulfa Antibiotics. Medications: Apple Cider Vinegar 1 Capsule Oral daily [place] 1 Capsule (of 3 mg) Oral daily Calcium 1 Tablet (of 600 mg) Oral daily Cranberry 1 Tablet Oral daily Dicyclomine HCl 1 Tablet (of 20 mg) Oral four times a day PRN Glucosamine Chondr Complex 1 Capsule (of 500-400 mg) Oral b.i.d. HYDROcodone-Acetaminophen 1 Tablet (of 5-325 mg) Oral q 5 hours PRN Levothyroxine Sodium 1 Tablet (of 100 mg) Oral daily Magnesium 1 Tablet (of 400 mg) Oral daily Multivitamin Adult 1 Tablet Oral daily Omeprazole 1 Capsule (of 20 mg) Capsule Delayed Release Oral daily Potassium 1 Tablet (of 99 mg) Oral daily Sertraline HCl 1 Tablet (of 50 mg) Oral daily super strength water pills 1 Capsule daily Turmeric 1 Tablet (of 500 mg) Oral daily Vision Formula 2 1 Capsule Oral daily Vitamin C 1 Capsule Oral daily Vitamin D3 1 Tablet Oral daily Vitamin E 1 Capsule Oral daily Family History: Ms. Renae's mother at age 86: gallbladder cancer. Ms. Renae's father at age 75: bladder cancer. Social History: Ms. Renae is and she is retired. Ms. Renae has never smoked. She is a former drinker. Ms. Renae reports the following support systems: lives with spouse, significant other, family, or friends, lives in own house, and supportive family/friends willing to assist with needs. Her diet consists of regular meals. She indicates her activity level as: regular exercise. Review Of Symptoms: Constitutional Denies fevers, chills, night sweats, excessive fatigue or weight loss. Allergic/Immunologic No reactions. Eyes Denies significant visual changes. No diplopia. No amaurosis. ENMT Denies changes in hearing, sore throat, mouth sores, difficulty or changes in swallowing ability, and/or sinus drainage. Endocrine No diabetes, thyroid disease or hormone replacement. Denies hot flashes or night sweats. Hematologic/Lymphatic Denies easy bruising or bleeding. The patient denies any tender or palpable lymph nodes. Breasts Respiratory Denies dyspnea on exertion, chest pain, cough or hemoptysis. Denies orthopnea. Cardiovascular Denies anginal chest pain, palpitations or orthopnea. Gastrointestinal Denies nausea, vomiting, diarrhea, GI bleeding, or constipation. Denies change in bowel habits and/or stool color, no heartburn or early satiety. Genitourinary (F) No hematuria, hesitancy, incontinence, vaginal bleeding, discharge or other problems with urination. Musculoskeletal Denies joint pain, swelling or redness. No decreased range of motion. Some bone pain with Neulasta but did not need to take pain medication for it. Integumentary Denies chronic rashes, inflammation, ulcerations or skin changes. Has new rash on neck, arms and upper chest since last treatment. It is itchy but not bad . Has not tried antihistamine. Neurologic Denies headache, blurred vision, and no areas of focal weakness or numbness. Normal gait. No sensory problems. Psychiatric Denies insomnia, depression, shaheen or mood swings. Vital Signs: Performed on Jul 25, 2019 13:29 Height - 66.00 in Weight - 154.4 lbs (HIGH) BSA - 1.79 sq.m BMI - 24.92 Temperature - 98.9 F (HIGH) Pulse - 96 /min Respiration - 20 /min BP - 139/74 mm(hg) O2 Sat - 98 % Pain - 1,1 - No physically strenuous activity, but ambulatory and able to carry out light or sedentary work (e.g. office work, light house work). (ECOG) Physical Examination: Constitutional Alert, oriented, no acute distress. Skin pink, warm and dry. Head Normocephalic; atraumatic. Eyes Conjunctivae and sclerae are clear and without icterus. Pupils are reactive and equal. ENMT No oral exudates, ulcers, masses, thrush or mucositis. Oropharynx clear. Tongue normal. Neck Supple without masses or thyromegaly. No jugular venous distension. Hematologic/Lymphatic No petechiae or purpura. No tender or palpable lymph nodes in the cervical or supraclavicular areas. Respiratory Lungs are clear to auscultation without rhonchi or wheezing. Cardiovascular Regular rate and rhythm of heart without murmurs,clicks, gallops or rubs. Abdomen Non-tender, non-distended, no masses or ascites. Good bowel sounds noted in all quads. No guarding or rebound tenderness. No pulsatile masses. Back/Spine Non-tender to palpation. Extremities No visible deformities, no cyanosis, clubbing or edema. Musculoskeletal No tenderness or swelling, normal range of motion without obvious weakness. Integumentary Scattered faint, red, raised lesions on scalp, chest, neck and forearms-no pustules. Neurologic No sensory or motor deficits, normal cerebellar function, normal gait. Psychiatric Alert and oriented times three. Coherent speech. Verbalizes understanding of our discussions today. Laboratory:Test performed on Jul 25, 2019 11:52 Sodium 139 mmol/L Potassium 4.3 mmol/L Chloride 100 mmol/L CO2 26 mmol/L Anion Gap 17.3 BUN 9 mg/dL Creatinine 0.5 mg/dL Cr Clearance (Est) 105.6800 mL/min Glucose 127 mg/dL Calcium 10.0 mg/dL Protein, Total 7.1 g/dL Albumin 3.6 g/dL Globulin 3.5 g/dL Bilirubin, Total 0.2 mg/dL ALT (SGPT) 37 U/L AST (SGOT) 40 U/L Alkaline Phosphatase 255 IU/L WBC 39.9 10 3/uL RBC 4.00 10 6/uL HGB 11.1 g/dL HCT 34.4 % MCV 86.0 fL MCH 27.8 pg MCHC 32.3 g/dL RDW 13.7 % Platelet Count 338 10 3/cmm MPV 10.5 fL Neutrophils 28.3 10 3/uL Lymphocytes 2.3 10 3/uL Monocytes 2.6 10 3/uL Eosinophils 0.2 10 3/uL Basophils 0.0 10 3/uL Neutrophil % 71.1 % Lymphocyte % 5.7 % Monocyte % 6.5 % Eosinophil % 0.4 % Basophils % 0.1 % CBC Slide Review Slide Review Perform Impression: Invasive ductal carcinoma involving left breast status post left breast lumpectomy with sentinel lymph node done on 04/25/2019, final pathology report showed, grade 2, 2 x 1.6 cm invasive tumor with positive surgical margins subsequently patient underwent reexcision on 05/16/2019 and obtain clear margins, pT1c, sentinel lymph node negative for metastatic disease pN0 ER/LA negative, HER-2/michael negative Stage IB ( pT1c, N0, grade 2, ER/LA negative, HER-2/michael negative) Mrs Renae started on adjuvant therapy with Cytoxan/Taxotere every 3 weeks ???4 on 06/25/2019. She is tolerating it well but did have chemotherapy induced neutropenia with cycle 1 and was supported with Neulasta with cycle 2. Plan: 1. Continue with cycle 2-this is day 10. 2. She may try fluocinonide 0.05% (she has this at home) for the rash or triamcinolone cream-which she also has at home. I suspect the rash is related to the Taxotere but not a typical drug allergy rash. 3. Encourage Claritin for itching and for bone pain as needed for Neulasta. 4. Today's labs reviewed in detail and discussed with and Mrs. renae and a copy was given to her. WBC is 39.9 hemoglobin 11.1 platelets 338,000 ANC is 28,000 (Neulasta was given 10 days ago). Potassium 4.3 creatinine 0.5 LFTs are normal alk phos is elevated at 255 presumably due to the Neulasta 5. We will plan to see Mrs. Renae in 11 days for her next cycle of docetaxel Cytoxan. She will be due for CBC, CMP and follow-up at that time. 6. Mrs. Renae was instructed to contact us in the interim should questions or problems arise. Signed By: Crystal Jama.Channing.Amanda-, AOCNP Radhika Randolph MD <<Signature on File>>
[2019-08-06 12:14] LABS: Basophils % 0.1 %; Hematocrit 32.9 % (37.0-47.0); Hemoglobin 10.8 g/dL (11.5-15.3); Lymphocytes # 0.9 10^3/uL (0.8-4.8); Lymphocytes % 6.5 %; Mean Corpuscular HGB Conc 32.8 g/dL (30.0-36.0); Mean Corpuscular Hemoglobin 29.6 pg (28.0-34.0); Mean Corpuscular Volume 90.1 fL (81-99); Mean Platelet Volume 9.5 fL (7.4-10.4); Monocytes # 0.7 10^3/uL (0.2-0.9); Monocytes % 5.3 %; Neutrophils # 11.9 10^3/uL (1.8-7.7); Neutrophils % 87.5 %; Nucleated Red Blood Cells % 0 %; Platelet Count 712 10^3/cmm (130-400); Red Blood Count 3.65 10^6/uL (4.1-5.3); Red Cell Distribution Width 14.8 % (12.1-15.1); White Blood Count 13.6 10^3/uL (4.0-10.0)
[2019-08-06 12:25] LABS: Alanine Aminotransferase 18 U/L (0-33); Albumin Level 4.1 g/dL (3.5-5.2); Alkaline Phosphatase 154 IU/L (35-105); Anion Gap 17.1 (5-19); Aspartate Amino Transferase 18 U/L (0-32); Blood Urea Nitrogen 18 mg/dL (8-23); Carbon Dioxide 25 mmol/L (22-29); Chloride 100 mmol/L (98-107); Globulin 2.9 g/dL (1.3-4.6); Glucose 146 mg/dL (65-115); Potassium 4.1 mmol/L (3.5-5.1); Sodium 138 mmol/L (136-145); Total Bilirubin 0.2 mg/dL (0.15-1.2)
[2019-08-06] MEDS: sodium chloride 0.9% 500 ML 999 ML IV (14:08)
[2019-08-06] MEDS: palonosetron 0.25 MG in sodium chloride 0.9% 50 ML 187 MG IV (15:00)
[2019-08-06] MEDS: pegfilgrastim 6 mg/0.6 mL Kit (onpro) SUBCUT (17:34)
--- NOTE | 2019-08-10 15:33 | ONC FU_ITS ---
[facility] Patient Note Patient: Anita Renae Unit #: [id number]: 1945 Dictated By: Maurice JamaDate of Visit: Aug 06, 2019 Onc MED Follow-Up/Prog Note Chief Complaint: Left breast cancer History of Present Illness: Mrs. Harmon is a 73-year-old female with a short history of left breast mass. She underwent mammogram which confirmed a mass in left breast and she subsequently underwent sonogram guided biopsy on 04/07/2019. The biopsy confirmed infiltrating ductal carcinoma, ER/PA negative, HER-2/michael negative. She was referred to Dr Harding for possible surgery and on 04/25/2019 underwent left breast lumpectomy and sentinel lymph node biopsy. The biopsy reported infiltrating ductal carcinoma, 2 x 1.6 cm, grade 2, with positive surgical margins. The sentinel lymph node was negative for metastatic disease. Mrs Renae underwent reexcision of positive surgical margins on 05/16/2019. This pathology confirmed clear margins. Pathological stage TIc, N0, grade 2, triple negative, stage IB. Her other medical illnesses include a history of thyroid disease, sleep apnea, osteoporosis, irritable bowel syndrome, history of basal cell carcinoma, GERD and depression. Mrs Renae was offered further treatment with chemotherapy. She started on adjuvant chemotherapy with Cytoxan/Taxotere ???4 on 06/25/2019. She is tolerated chemotherapy well thus far. She did have chemotherapy-induced neutropenia with cycle 1 with an ANC of 100 on day 8. She was authorized for Neulasta with cycle 2. She is tolerated it well. She did have a slight bone pain but states that Tylenol took care of her pain. She had no other complaints. Mrs Renae is here today for followup. She is due for cycle 3 day 1 treatment. When ask about her steroid compliance for premedication, she states she did take the eveing dose but forgot the am dose. She denies any fever or chills. She denies any nausea or vomiting. She states she is eating good. Energy is good. Bret zepeda had slight rash that has come up since her last treatment. She states that slightly itchy but not dramatic. She has not tried any over the counter antihistamines. She did try little cortisone on the rash and that seemed to help. She denies any fever or chills. She is had no diarrhea or constipation. She denies any neuropathy symptoms. She states her energy is good and her appetite is good. She states she has had some fatigue but overall it resolves well with rest. Other than the rash, she has no new concerns today. Her ECOG is 1. Past Medical History: Depression Gastroesophageal reflux disease History of basal cell carcinoma Irritable bowel syndrome Osteoporosis Sleep apnea Thyroid disease Past Surgical History: Bladder suspension Breast biopsy - left Cataract excision - x2 Excision of basal cell carcinoma from chin Left breast lumpectomy Repair of right elbow fracture Right ring finger trigger finger release Allergies: Cephalexin, Ibuprofen, Nitrofurantoin Macrocrystal, Penicillins, red dye, and Sulfa Antibiotics. Medications: Apple Cider Vinegar 1 Capsule Oral daily [place] 1 Capsule (of 3 mg) Oral daily Calcium 1 Tablet (of 600 mg) Oral daily Cranberry 1 Tablet Oral daily Dicyclomine HCl 1 Tablet (of 20 mg) Oral four times a day PRN Glucosamine Chondr Complex 1 Capsule (of 500-400 mg) Oral b.i.d. HYDROcodone-Acetaminophen 1 Tablet (of 5-325 mg) Oral q 5 hours PRN Levothyroxine Sodium 1 Tablet (of 100 mg) Oral daily Magnesium 1 Tablet (of 400 mg) Oral daily Multivitamin Adult 1 Tablet Oral daily Omeprazole 1 Capsule (of 20 mg) Capsule Delayed Release Oral daily Potassium 1 Tablet (of 99 mg) Oral daily Sertraline HCl 1 Tablet (of 50 mg) Oral daily super strength water pills 1 Capsule daily Turmeric 1 Tablet (of 500 mg) Oral daily Vision Formula 2 1 Capsule Oral daily Vitamin C 1 Capsule Oral daily Vitamin D3 1 Tablet Oral daily Vitamin E 1 Capsule Oral daily Family History: Ms. Renae's mother at age 86: gallbladder cancer. Ms. Renae's father at age 75: bladder cancer. Social History: Ms. Renae is and she is retired. Ms. Renae has never smoked. She is a former drinker. Ms. Renae reports the following support systems: lives with spouse, significant other, family, or friends, lives in own house, and supportive family/friends willing to assist with needs. Her diet consists of regular meals. She indicates her activity level as: regular exercise. Review Of Symptoms: Constitutional Denies fevers, chills, night sweats, excessive fatigue or weight loss. Allergic/Immunologic No reactions. Eyes Denies significant visual changes. No diplopia. No amaurosis. ENMT Denies changes in hearing, sore throat, mouth sores, difficulty or changes in swallowing ability, and/or sinus drainage. Endocrine No diabetes, thyroid disease or hormone replacement. Denies hot flashes or night sweats. Hematologic/Lymphatic Denies easy bruising or bleeding. The patient denies any tender or palpable lymph nodes. Respiratory Denies dyspnea on exertion, chest pain, cough or hemoptysis. Denies orthopnea. Cardiovascular Denies anginal chest pain, palpitations or orthopnea. Gastrointestinal Denies nausea, vomiting, diarrhea, GI bleeding, or constipation. Denies change in bowel habits and/or stool color, no heartburn or early satiety. Genitourinary (F) No hematuria, hesitancy, incontinence, vaginal bleeding, discharge or other problems with urination. Musculoskeletal Denies joint pain, swelling or redness. No decreased range of motion. Integumentary Denies chronic rashes, inflammation, ulcerations or skin changes. Neurologic Denies headache, blurred vision, and no areas of focal weakness or numbness. Normal gait. No sensory problems. Psychiatric Denies insomnia, depression, shaheen or mood swings. Vital Signs: Performed on Aug 06, 2019 13:14 Height - 66.00 in Weight - 154.4 lbs BSA - 1.79 sq.m BMI - 24.92 Temperature - 98.5 F Pulse - 89 /min Respiration - 18 /min BP - 143/65 mm(hg) (HIGH) O2 Sat - 96 % Pain - 0,1 - No physically strenuous activity, but ambulatory and able to carry out light or sedentary work (e.g. office work, light house work). (ECOG) Physical Examination: Constitutional Alert, oriented, no acute distress. Skin pink, warm and dry. Head Normocephalic; atraumatic. Eyes Conjunctivae and sclerae are clear and without icterus. Pupils are reactive and equal. ENMT No oral exudates, ulcers, masses, thrush or mucositis. Oropharynx clear. Tongue normal. Neck Supple without masses or thyromegaly. No jugular venous distension. Hematologic/Lymphatic No petechiae or purpura. No tender or palpable lymph nodes in the cervical or supraclavicular areas. Respiratory Lungs are clear to auscultation without rhonchi or wheezing. Cardiovascular Regular rate and rhythm of heart without murmurs,clicks, gallops or rubs. Abdomen Non-tender, non-distended, no masses or ascites. Good bowel sounds noted in all quads. No guarding or rebound tenderness. No pulsatile masses. Back/Spine Non-tender to palpation. Extremities No visible deformities, no cyanosis, clubbing or edema. Musculoskeletal No tenderness or swelling, normal range of motion without obvious weakness. Integumentary Scattered faint, red, raised lesions on scalp, chest, neck and forearms-no pustules. Neurologic No sensory or motor deficits, normal cerebellar function, normal gait. Psychiatric Alert and oriented times three. Coherent speech. Verbalizes understanding of our discussions today. Laboratory:Test performed on Aug 06, 2019 11:35 Sodium 138 mmol/L Potassium 4.1 mmol/L Chloride 100 mmol/L CO2 25 mmol/L Anion Gap 17.1 BUN 18 mg/dL Creatinine 0.5 mg/dL Cr Clearance (Est) 105.6800 mL/min Glucose 146 mg/dL Calcium 10.0 mg/dL Protein, Total 7.0 g/dL Albumin 4.1 g/dL Globulin 2.9 g/dL Bilirubin, Total 0.2 mg/dL ALT (SGPT) 18 U/L AST (SGOT) 18 U/L Alkaline Phosphatase 154 IU/L WBC 13.6 10 3/uL RBC 3.65 10 6/uL HGB 10.8 g/dL HCT 32.9 % MCV 90.1 fL MCH 29.6 pg MCHC 32.8 g/dL RDW 14.8 % Platelet Count 712 10 3/cmm MPV 9.5 fL Neutrophils 11.9 10 3/uL Lymphocytes 0.9 10 3/uL Monocytes 0.7 10 3/uL Eosinophils 0.0 10 3/uL Basophils 0.0 10 3/uL Neutrophil % 87.5 % Lymphocyte % 6.5 % Monocyte % 5.3 % Eosinophil % 0.0 % Basophils % 0.1 % Test performed on Jul 25, 2019 11:52 CBC Slide Review Slide Review Perform Test performed on Jul 01, 2019 11:44 Ua Micro: Ca Oxalate Crystals 0-4 /hpf Ua Micro: WBC 10-15 /hpf Ua Micro: RBC NONE /hpf Ua Micro: Squam Epith Cells 0-4 Ua Micro: Bacteria TRACE Test performed on Jun 24, 2019 12:50 Manual Lymphocytes 11.1 % Manual Monocytes 3.0 % Manual Eosinophils 0.7 % Manual Basophils 0.6 % NRBCs 0.0 /100 WBC Impression: Invasive ductal carcinoma involving left breast status post left breast lumpectomy with sentinel lymph node done on 04/25/2019, final pathology report showed, grade 2, 2 x 1.6 cm invasive tumor with positive surgical margins subsequently patient underwent reexcision on 05/16/2019 and obtain clear margins, pT1c, sentinel lymph node negative for metastatic disease pN0 ER/PA negative, HER-2/michael negative Stage IB ( pT1c, N0, grade 2, ER/PA negative, HER-2/michael negative) Started on adjuvant therapy with Cytoxan/Taxotere every 3 weeks ???4 on 06/25/2019. She is tolerating it well but did have chemotherapy induced neutropenia with cycle 1 and was supported with Neulasta with cycle 2. Plan: 1. Continue with cycle 3-this is day 1. 2. Premedication with steroids confirmed for pm dose. She did not take her am dose today. We will premedicated her with Solumderol. 3. Encourage Claritin for itching and for bone pain as needed for Neulasta. 4. Today's labs reviewed in detail and discussed with and Mrs. renae and a copy was given to her. WBC is 13.6 hemoglobin 10.8 platelets 714,000 ANC is 11,900 (Neulasta was given 21 days ago). Potassium 4.1 creatinine 0.5 LFTs are normal; alk phos is normal at 154. 5. We will plan to see Mrs. Renae in 3 weeks for her next cycle of docetaxel Cytoxan. She will be due for CBC, CMP and follow-up at that time. She will be due for cycle 4 day 1 at that time. 6. Mrs. Renae was instructed to contact us in the interim should questions or problems arise. Signed By: Maurice Jama_BC, AOCNP Radhika Randolph MD <<Signature on File>>
== END 2019-08-10 23:59 | disposition home or self-care (01) ==
LOC: ONCMED 05:35
PROVIDERS: Internal Medicine Hematology & Oncology; Family Provider Internal Medicine; PCP Internal Medicine; Visit Provider Nurse Practitioner
DX: Z51.11 Encounter for antineoplastic chemotherapy (principal); C50.112 Malignant neoplasm of central portion of left female breast; D70.1 Agranulocytosis secondary to cancer chemotherapy; T45.1X5A Adverse effect of antineoplastic and immunosuppressive drugs, initial encounter; Z17.1 Estrogen receptor negative status [ER-]; N30.20 Other chronic cystitis without hematuria; G47.00 Insomnia, unspecified; E03.9 Hypothyroidism, unspecified; M81.0 Age-related osteoporosis without current pathological fracture; K58.9 Irritable bowel syndrome, unspecified; K21.9 Gastro-esophageal reflux disease without esophagitis; F32.9 Major depressive disorder, single episode, unspecified; Z79.891 Long term (current) use of opiate analgesic; Z85.828 Personal history of other malignant neoplasm of skin; Z87.891 Personal history of nicotine dependence
CPT/HCPCS: 36591; 80053; 85025; 96361; 96367; 96372; 96375; 96413; 96417; 99214; J1100; J1200; J2469; J2505; J2920; J3490; J7040; J7050; J9070; J9171

== ENCOUNTER 2019-08-28 08:13 | Outpatient (RCR) | payer MEDICARE, OTHER, SELFPAY ==
[2019-08-13 11:14] LABS: Basophils # 0.1 10^3/uL (0.0-0.1); Basophils % 0.9 %; Eosinophils # 0.3 10^3/uL (0.0-0.8); Eosinophils % 3.6 %; Hematocrit 31.4 % (37.0-47.0); Hemoglobin 10.1 g/dL (11.5-15.3); Lymphocytes % 13.7 %; Mean Corpuscular HGB Conc 32.2 g/dL (30.0-36.0); Mean Corpuscular Hemoglobin 28.9 pg (28.0-34.0); Mean Platelet Volume 10.5 fL (7.4-10.4); Monocytes # 1.4 10^3/uL (0.2-0.9); Neutrophils # 3.8 10^3/uL (1.8-7.7); Neutrophils % 50.2 %; Nucleated Red Blood Cells % 0.4 %; Platelet Count 329 10^3/cmm (130-400); Red Blood Count 3.49 10^6/uL (4.1-5.3); Red Cell Distribution Width 14.6 % (12.1-15.1); White Blood Count 7.5 10^3/uL (4.0-10.0)
[2019-08-13 11:26] LABS: Alanine Aminotransferase 18 U/L (0-33); Albumin Level 3.6 g/dL (3.5-5.2); Alkaline Phosphatase 149 IU/L (35-105); Anion Gap 14.8 (5-19); Aspartate Amino Transferase 20 U/L (0-32); Blood Urea Nitrogen 12 mg/dL (8-23); Calcium 10.1 mg/dL (8.5-10.5); Carbon Dioxide 28 mmol/L (22-29); Chloride 100 mmol/L (98-107); Globulin 2.7 g/dL (1.3-4.6); Glucose 158 mg/dL (65-115); Potassium 3.8 mmol/L (3.5-5.1); Sodium 139 mmol/L (136-145); Total Bilirubin 0.3 mg/dL (0.15-1.2); Total Protein 6.3 g/dL (6.6-8.7)
[2019-08-13 11:35] LABS: Slide Review Slide Review Perform
[2019-08-20 11:38] LABS: Basophils # 0.1 10^3/uL (0.0-0.1); Basophils % 0.5 %; Eosinophils # 0.1 10^3/uL (0.0-0.8); Eosinophils % 0.7 %; Hematocrit 31.9 % (37.0-47.0); Hemoglobin 10.2 g/dL (11.5-15.3); Lymphocytes # 1.1 10^3/uL (0.8-4.8); Lymphocytes % 9.8 %; Mean Corpuscular Hemoglobin 29.7 pg (28.0-34.0); Mean Corpuscular Volume 92.7 fL (81-99); Mean Platelet Volume 9.8 fL (7.4-10.4); Monocytes # 0.7 10^3/uL (0.2-0.9); Monocytes % 6.5 %; Neutrophils # 8.7 10^3/uL (1.8-7.7); Neutrophils % 81.8 %; Nucleated Red Blood Cells % 0 %; Platelet Count 317 10^3/cmm (130-400); Red Blood Count 3.44 10^6/uL (4.1-5.3); Red Cell Distribution Width 16.6 % (12.1-15.1); White Blood Count 10.7 10^3/uL (4.0-10.0)
[2019-08-20 11:48] LABS: Alanine Aminotransferase 16 U/L (0-33); Albumin Level 3.8 g/dL (3.5-5.2); Alkaline Phosphatase 137 IU/L (35-105); Anion Gap 15.8 (5-19); Aspartate Amino Transferase 20 U/L (0-32); Blood Urea Nitrogen 16 mg/dL (8-23); Calcium 9.7 mg/dL (8.5-10.5); Carbon Dioxide 28 mmol/L (22-29); Chloride 102 mmol/L (98-107); Globulin 2.6 g/dL (1.3-4.6); Glucose 128 mg/dL (65-115); Osmolality Calculated 292 mOsm/kg (285-295); Potassium 3.8 mmol/L (3.5-5.1); Sodium 142 mmol/L (136-145); Total Bilirubin 0.3 mg/dL (0.15-1.2); Total Protein 6.4 g/dL (6.6-8.7)
[2019-08-20 13:35] LABS: Thyroid Stimulating Hormone 1.59 uIU/mL (0.27-4.20)
[2019-08-27 08:55] LABS: Basophils % 0.2 %; Hematocrit 31.6 % (37.0-47.0); Hemoglobin 10.3 g/dL (11.5-15.3); Lymphocytes # 0.7 10^3/uL (0.8-4.8); Lymphocytes % 5.8 %; Mean Corpuscular HGB Conc 32.6 g/dL (30.0-36.0); Mean Corpuscular Hemoglobin 29.9 pg (28.0-34.0); Mean Corpuscular Volume 91.6 fL (81-99); Mean Platelet Volume 9.4 fL (7.4-10.4); Monocytes # 0.3 10^3/uL (0.2-0.9); Monocytes % 2.6 %; Neutrophils # 11.1 10^3/uL (1.8-7.7); Neutrophils % 91.1 %; Nucleated Red Blood Cells % 0 %; Platelet Count 560 10^3/cmm (130-400); Red Blood Count 3.45 10^6/uL (4.1-5.3); Red Cell Distribution Width 17.2 % (12.1-15.1); White Blood Count 12.1 10^3/uL (4.0-10.0)
[2019-08-27 09:08] LABS: Alanine Aminotransferase 19 U/L (0-33); Albumin Level 3.7 g/dL (3.5-5.2); Alkaline Phosphatase 93 IU/L (35-105); Aspartate Amino Transferase 25 U/L (0-32); Blood Urea Nitrogen 15 mg/dL (8-23); Calcium 9.3 mg/dL (8.5-10.5); Carbon Dioxide 27 mmol/L (22-29); Chloride 105 mmol/L (98-107); Globulin 3.1 g/dL (1.3-4.6); Glucose 160 mg/dL (65-115); Osmolality Calculated 294 mOsm/kg (285-295); Sodium 142 mmol/L (136-145); Total Bilirubin 0.3 mg/dL (0.15-1.2); Total Protein 6.8 g/dL (6.6-8.7)
[2019-08-27] MEDS: sodium chloride 0.9% 500 ML 100 ML IV (11:10)
[2019-08-27] MEDS: palonosetron 0.25 MG in sodium chloride 0.9% 50 ML 187 MG IV (11:47)
[2019-08-27] MEDS: pegfilgrastim 6 mg/0.6 mL Kit (onpro) SUBCUT (14:09)
--- NOTE | 2019-08-29 14:36 | ONC FU_ITS ---
Dr. Randolph follow up note Patient: Anita Tyler Unit #: [id number]: 1945 Dicatated By: Radhika Randolph M.D.Date of Visit:Aug 27, 2019 Onc Med Follow-up/Prog Note History of Present Illness: Mrs. Harmon is a 73-year-old female with a short history of left breast mass. She underwent mammogram which confirmed a mass in left breast and she subsequently underwent sonogram guided biopsy on 04/07/2019. The biopsy confirmed infiltrating ductal carcinoma, ER/NJ negative, HER-2/michael negative. She was referred to Dr Harding for possible surgery and on 04/25/2019 underwent left breast lumpectomy and sentinel lymph node biopsy. The biopsy reported infiltrating ductal carcinoma, 2 x 1.6 cm, grade 2, with positive surgical margins. The sentinel lymph node was negative for metastatic disease. Mrs Tyler underwent reexcision of positive surgical margins on 05/16/2019. This pathology confirmed clear margins. Pathological stage TIc, N0, grade 2, triple negative, stage IB. Her other medical illnesses include a history of thyroid disease, sleep apnea, osteoporosis, irritable bowel syndrome, history of basal cell carcinoma, GERD and depression. Mrs Tyler was offered further treatment with chemotherapy. She started on adjuvant chemotherapy with Cytoxan/Taxotere ???4 on 06/25/2019. Came for follow-up, denies any specific complaint except generalized weakness and fatigue but no nausea or vomiting no diarrhea constipation, no fever or chills . Mild peripheral numbness otherwise tolerating systemic chemotherapy with docetaxel/cyclophosphamide well Medications: Apple Cider Vinegar 1 Capsule Oral daily, [place] 1 Capsule (of 3 mg) Oral daily, Calcium 1 Tablet (of 600 mg) Oral daily, Cranberry 1 Tablet Oral daily, Dicyclomine HCl 1 Tablet (of 20 mg) Oral four times a day PRN, Glucosamine Chondr Complex 1 Capsule (of 500-400 mg) Oral b.i.d., HYDROcodone-Acetaminophen 1 Tablet (of 5-325 mg) Oral q 5 hours PRN, Levothyroxine Sodium 1 Tablet (of 100 mg) Oral daily, Magnesium 1 Tablet (of 400 mg) Oral daily, Multivitamin Adult 1 Tablet Oral daily, Omeprazole 1 Capsule (of 20 mg) Capsule Delayed Release Oral daily, Potassium 1 Tablet (of 99 mg) Oral daily, Sertraline HCl 1 Tablet (of 50 mg) Oral daily, super strength water pills 1 Capsule daily, Turmeric 1 Tablet (of 500 mg) Oral daily, Vision Formula 2 1 Capsule Oral daily, Vitamin C 1 Capsule Oral daily, Vitamin D3 1 Tablet Oral daily, Vitamin E 1 Capsule Oral daily Allergies: Cephalexin, Ibuprofen, Nitrofurantoin Macrocrystal, Penicillins, red dye, and Sulfa Antibiotics. Review of Systems: Constitutional - Appetite is good and weight is stable. No fever, chills, hot flashes, or night sweats. Energy level is fair, ENMT - No sinus congestion/drainage. No mouth sores. No sore throat or difficulty swallowing, Hematologic/Lymphatic - No abnormal bruising or bleeding, Respiratory - No shortness of breath. No cough. No pleuritic pain or hemoptysis, Cardiovascular - No angina pain. No palpitations, Gastrointestinal - No nausea or vomiting. No heartburn or acid reflux. No diarrhea or constipation. No blood in the stool or black stools, Genitourinary (F) - No dysuria or hematuria. No urinary frequency. No urgency or incontinence, Musculoskeletal - No joint or bone pain, Neurologic - No headache or dizziness. No numbness/paresthesias or other focal neurologic symptoms, Psychiatric - No anxiety or depression. Positive for insomnia. Vital Signs: Performed on Aug 27, 2019 10:23 Height - 66.00 in Weight - 153.6 lbs (LOW) BSA - 1.79 sq.m BMI - 24.79 Temperature - 98.6 F Pulse - 96 /min Respiration - 22 /min BP - 150/68 mm(hg) (HIGH) O2 Sat - 97 % Pain - 0 Performance Status: 0 - Fully active, able to carry on all predisease activities without restrictions. (ECOG) Physical Examination: Respiratory - Lungs are clear to auscultation without rhonchi or wheezing, Cardiovascular - Regular rate and rhythm of heart, Extremities - no edema. Lab/Imaging: Test performed on Aug 06, 2019 11:35 Sodium 138 mmol/L Potassium 4.1 mmol/L Chloride 100 mmol/L CO2 25 mmol/L Anion Gap 17.1 BUN 18 mg/dL Creatinine 0.5 mg/dL Cr Clearance (Est) 105.6800 mL/min Glucose 146 mg/dL Calcium 10.0 mg/dL Protein, Total 7.0 g/dL Albumin 4.1 g/dL Globulin 2.9 g/dL Bilirubin, Total 0.2 mg/dL ALT (SGPT) 18 U/L AST (SGOT) 18 U/L Alkaline Phosphatase 154 IU/L WBC 13.6 10 3/uL RBC 3.65 10 6/uL HGB 10.8 g/dL HCT 32.9 % MCV 90.1 fL MCH 29.6 pg MCHC 32.8 g/dL RDW 14.8 % Platelet Count 712 10 3/cmm MPV 9.5 fL Neutrophils 11.9 10 3/uL Lymphocytes 0.9 10 3/uL Monocytes 0.7 10 3/uL Eosinophils 0.0 10 3/uL Basophils 0.0 10 3/uL Neutrophil % 87.5 % Lymphocyte % 6.5 % Monocyte % 5.3 % Eosinophil % 0.0 % Basophils % 0.1 % Test performed on Jul 25, 2019 11:52 CBC Slide Review Slide Review Perform Test performed on Jul 01, 2019 11:44 Ua Micro: Ca Oxalate Crystals 0-4 /hpf Ua Micro: WBC 10-15 /hpf Ua Micro: RBC NONE /hpf Ua Micro: Squam Epith Cells 0-4 Ua Micro: Bacteria TRACE Test performed on Jun 24, 2019 12:50 Manual Lymphocytes 11.1 % Manual Monocytes 3.0 % Manual Eosinophils 0.7 % Manual Basophils 0.6 % NRBCs 0.0 /100 WBC Impression: Invasive ductal carcinoma involving left breast status post left breast lumpectomy with sentinel lymph node done on 04/25/2019, final pathology report showed, grade 2, 2 x 1.6 cm invasive tumor with positive surgical margins subsequently patient underwent reexcision on 05/16/2019 and obtain clear margins, pT1c, sentinel lymph node negative for metastatic disease pN0 ER/NJ negative, HER-2/michael negative Stage IB ( pT1c, N0, grade 2, ER/NJ negative, HER-2/michael negative) Started on adjuvant therapy with Cytoxan/Taxotere every 3 weeks ???4 on 06/25/2019. She is tolerating it well but did have chemotherapy induced neutropenia with cycle 1 and was supported with Neulasta with cycle 2. Plan: Discussed with patient regarding her labs white blood count 12.1 hemoglobin 10.3 crit 31.6 platelets 5 60,000 CMP within normal limits Clinically, patient is doing well, tolerating adjuvant chemotherapy with docetaxel/Cytoxan well but with expected side effects e.g. generalized weakness and fatigue [id number] anemia. At this point we'll proceed with cycle #4/final dose of docetaxel/cyclophosphamide with Neulasta support with that she will conclude her adjuvant chemotherapy and then she will return to clinic in 2 weeks with CBC CMP at that time we'll refer her to radiation for postlumpectomy radiation therapy. Signed By: Radhika Randolph M.D. <<Signature on File>>
--- NOTE | 2019-09-02 13:31 | N.ONRAD NP_ITS ---
Radiation Oncology New Patient Visit Patient: Anita Tyler MR#: [id number] : 1945> Age: 73> Sex: Female> Dictated by: Dr. Genaro Cabrales Date of Service: 09/02/2019 Referring Physician(s) : Dr. Mahesh Harding Diagnosis: Z17.1 - estrogen receptor negative status [er-], Diagnosed 05/29/2019 (active) and C50.112 - malignant neoplasm of central portion of left female breast, Diagnosed 05/29/2019 (active). Radiotherapy to date: Summary > No prior radiation therapy. Chief Complaint / History of Present Illness: Mrs. Tyler is a 73-year-old lady who underwent screening mammography in mid-February 2019.. The study showed increasing tissue density, asymmetry, and calcifications in the central left breast posterior and slightly superior to the nipple. Additional views were obtained and the findings revealed suspicious calcifications in the area. On needle biopsy, she was found to have atriple negative invasive ductal carcinoma. She chose breast conservation. She had a negative sentinel node. The lumpectomy specimen revealed positive margins. A reexcision was done. Residual carcinoma was present, but negative margins were obtained. The final diagnosis is infiltrating ductal carcinoma, grade 2, stage T1c N0, triple negative. Mrs. tyler received postoperative chemotherapy. She tolerated that well except for some fatigue and low white blood cell counts. She did not experience any serious complications. She completed chemotherapy 1 week ago and is referred for evaluation and preparation for radiation as part of breast conservation. Current Medications: Alox[place], apple Cider Vinegar, boron, calcium, cranberry, cyclophosphamide, dexamethasone, dexamethasone Sodium Phosphate, dicyclomine HCl, diphenhydrAMINE HCl, dOCEtaxel, famotidine, fluocinonide, glucosamine Chondr Complex, hYDROcodone-Acetaminophen, levothyroxine Sodium, magnesium, mometasone Furoate, multivitamin Adult, omeprazole, potassium, prochlorperazine Maleate, sertraline HCl, super strength water pills, turmeric, vision Formula 2, vitamin C, vitamin D3, vitamin E. Allergies: Penicillins, Cephalexin, Nitrofurantoin Macrocrystal, Ibuprofen, red dye and Sulfa Antibiotics. Medical History: - Depression, - gastroesophageal reflux disease, - history of basal cell carcinoma, - irritable bowel syndrome, - osteoporosis, - sleep apnea, - thyroid disease. No history of collagen vascular disease. No previous radiation therapy. Surgical History: Bladder suspension, breast biopsy (left), cataract excision (x2), colonoscopy, excision of basal cell carcinoma from chin, left breast lumpectomy, repair of right elbow fracture and right ring finger trigger finger release. Family History: Father is at age 75 having experienced bladder cancer. Mother is at age 86 having experienced gallbladder cancer. Social History: Last screened on 09/02/2019 - Never smoked. Last screened on 09/02/2019 - Past drinker. Patient indicated access to the following support systems: Lives in own house, Lives with spouse, significant other, family, or friends, and Supportive family/friends willing to assist with needs. Patient indicated the following nutritional habits: Regular meals. Patient indicated participation in the following forms of activity: Regular exercise. Current Complaints / Review of Systems: . Vital Signs: Performed on 09/02/2019 11:30 AM BMI - 24.34 kg/m2 (high), Height - 66.00 in, Weight - 150.8 lbs, Temperature - 97.7 f, Pulse - 88, Respiration - 18, O2 Sat - 96 %, Pain - 0 and BP - 127/ 57 mm(hg)(/low). Physical Exam: Alert, oriented, no acute distress. No cervical, supraclavicular, or axillary lymphadenopathy. Lungs clear to percussion. On auscultation no rales, rhonchi, or wheezes. Heart rhythm regular. No murmur, gallop, or rub. The right breast is normal in appearance. No masses or tenderness noted. On the left the patient has a good cosmetic result. She does have some volume loss from undergoing 2 operations. There is some dimpling of the lumpectomy scar. There is mild induration in the tumor bed. No masses detected in the tumor bed area or elsewhere in the breast. The abdomen is without distention. No organomegaly, mass, or tenderness. Musculoskeletal: Normal gait. Good range of motion at the left shoulder. No lymphedema. No bone tenderness. Performance Status: 1 - No physically strenuous activity, but ambulatory and able to carry out light or sedentary work (e.g. office work, light house work). (ECOG) Pathology: Primary, z17.1 - estrogen receptor negative status [er-], Diagnosed 05/29/2019 (active) and Primary, c50.112 - malignant neoplasm of central portion of left female breast, Diagnosed 05/29/2019 (active). Lab: Test performed on 06/24/2019 12:50 PM Manual Lymphocytes - 11.1 % (low), Manual Monocytes - 3.0 % (low), Test performed on 08/06/2019 11:35 AM WBC - 13.6 10 3/ul (high), RBC - 3.65 10 6/ul (low), HGB - 10.8 g/dl (low), HCT - 32.9 % (low), Platelet Count - 712 10 3/cmm (high), Neutrophils - 11.9 10 3/ul (high), Glucose - 146 mg/dl (high) and Alkaline Phosphatase - 154 iu/l (high). Imaging: See HPI Impression: Mrs. tyler has undergone a lumpectomy with negative margins and postoperative chemotherapy. She is now a candidate for postoperative radiation to complete her course of treatment. She finished chemotherapy 1 week ago. She has a good cosmetic result at this time. She is a candidate for hypo-fractionation. I discussed the recommended course of treatment delivering a 3-week course of radiation to the whole breast followed by a 1 week boost to the tumor bed. I discussed the day-to-day aspect of radiation. I reviewed the side effects and possible complications. I discussed the low but real risk of rib fracture, pneumonitis, and severe skin reaction. I discussed that we do our best to block the heart but that it is likely to receive some radiation. I also discussed she may experience further volume loss of the breast. She has small breasts and I do not feel that she would be a good candidate for prone technique. Plan: Simulation will be planned in the next 1 to 2 weeks. Signed by: 09/02/2019 1:28:55 PM <<Signature on File>> Time spent with patient: CPT Code: CPT Code:
== END 2019-09-10 23:59 | disposition home or self-care (01) ==
LOC: ONCMED 08:13
PROVIDERS: Nurse Practitioner; Family Provider Internal Medicine; PCP Internal Medicine; Visit Provider Internal Medicine Hematology & Oncology
DX: Z51.11 Encounter for antineoplastic chemotherapy (principal); C50.112 Malignant neoplasm of central portion of left female breast; D70.1 Agranulocytosis secondary to cancer chemotherapy; G62.0 Drug-induced polyneuropathy; R53.83 Other fatigue; D64.9 Anemia, unspecified; T45.1X5A Adverse effect of antineoplastic and immunosuppressive drugs, initial encounter; Z17.1 Estrogen receptor negative status [ER-]; E07.9 Disorder of thyroid, unspecified; G47.33 Obstructive sleep apnea (adult) (pediatric); M81.0 Age-related osteoporosis without current pathological fracture; K58.9 Irritable bowel syndrome, unspecified; F32.9 Major depressive disorder, single episode, unspecified; K21.9 Gastro-esophageal reflux disease without esophagitis; Z79.899 Other long term (current) drug therapy; Z79.891 Long term (current) use of opiate analgesic; Z85.828 Personal history of other malignant neoplasm of skin
CPT/HCPCS: 36415; 36591; 80053; 84443; 85025; 96367; 96372; 96375; 96413; 96417; 99204; 99214; J1200; J2469; J2505; J2920; J3490; J7040; J7050; J9070; J9171

== ENCOUNTER 2019-10-03 09:49 | Day surgery (SDC) | payer MEDICARE, OTHER, SELFPAY ==
[2019-10-02 14:12] VITALS: BMI 24.2
[2019-10-03 10:08] VITALS: BP 138/79; PULSE 85; RESP 16; TEMP 36.8; O2SAT 96
--- NOTE | 2019-10-03 10:18 | W.PM.OPSUD ---
Surgery/Procedure H&P Update DATE OF PROCEDURE: October 03, 2019 DATE H&P PERFORMED: 09/30/19 H&P UPDATE INFORMATION: I have examined patient prior to procedure and No changes to prior documentation PREOP DIAGNOSIS: Left breast cancer. PLANNED PROCEDURE: Operation Date: 10/03/19 11:10 Proposed Procedures p Portacath Removal(Not Applicable) - Mahesh Harding MD
[2019-10-03] MEDS: sodium chloride 0.9% 1,000 ML 30 ML IV (10:20)
--- NOTE | 2019-10-03 10:28 | P.ANESASSM_ITS ---
Pre-Anesthetic Assessment Pre-Anesthetic Assessment: Height/Weight: Height 1.68 m Weight 68.039 kg Temp Pulse Resp BP Pulse Ox 98.3 F 85 16 138/79 96 10/03/19 10:08 10/03/19 10:08 10/03/19 10:08 10/03/19 10:08 10/03/19 10:08 Preop Diagnosis: Left breast cancer. Proposed Procedure: Operation Date: 10/03/19 11:10 Proposed Procedures p Portacath Removal(Not Applicable) - Mahesh Harding MD Last intake: Intake Last Liquid Date 10/03/19 Last Liquid Time 07:15 Last Solid Date 10/02/19 Last Solid Time 22:30 Social: Social History: No alcohol and No tobacco Exam: Pre-Anes Outpt Exam: alert, oriented x 3, clear to auscultation bilatera lly and regular rate & rhythm Airway: Submandibular: WNL Cervical ROM: WNL MP: 2 Dentition: Other (poor dentation) History/ROS: No significant history except as noted Pulmonary: Pulmonary: Sleep apnea CV/HEM: CV/HEM: None reported : : None reported Hepatic: Hepatic: None reported GI: GI: GERD Comments: IBS Metabolic: Metabolic: Thyroid Musc/skel: Musc/skel: None reported Neuropsych: Neuropsych: Depression Anesthetic Plan: ASA status: 2 Anesthesia: Anesthesia Evaluation and MAC Risk of > 500 ml blood loss (7ml/kg in children): No PFSH Anesthesia PFSH: Medical History History of depression History of gastroesophageal reflux (GERD) History of skin cancer History of sleep apnea Hx of breast cancer Hx of irritable bowel syndrome Hx of osteoporosis Hx of thyroid disease Left ear hearing loss Surgical History History of 2 sections History of bladder suspension procedure History of lobectomy of thyroid Hx of breast biopsy Hx of elbow surgery Hx of hand surgery Hx of thyroidectomy Hx of tonsillectomy Family History Mother Colon cancer Other IBS (irritable bowel syndrome) Social History Smoking and tobacco status: never smoked Data Anesthesia Cardiac Studies: No Data to Display
[2019-10-03] MEDS: clindamycin 900 MG/50 ML PREMIX 100 MG IV (10:37)
--- NOTE | 2019-10-03 11:00 | PM.OP ---
Operative Report Date of procedure: October 03, 2019 Pre-op Diagnosis: Status post treatment for left breast cancer, erythema and induration at Port-A-Cath site. Post-op diagnosis: same Procedure Done: Removal of Port-A-Cath. Specimens removed/disposition: Aerobic culture swab from Port-A-Cath wound. Surgeon: Mahesh Harding Anesthesia: MAC Estimated blood loss (mL): 5 Complications: None. Condition: stable Disposition: same day Brief History: This is a 73-year-old white female who had a Port-A-Cath placed in June for treatment of left breast cancer. After a chemotherapy treatment about 3 weeks ago, she developed redness and induration along the port and tubing tract. It was difficult to know if this was an infection versus a reaction secondary to extravasation of chemotherapy, but the patient never did run any fevers and the redness and induration remained about the same for 3 weeks. The patient was on a couple courses of different antibiotics during that timeframe, however. Given the fact that the port is now done being used, the decision was made to remove the port expeditiously. Procedure: The patient was brought to the operating room and was placed in a supine position on the operating room table. A monitored anesthetic was induced. The port site in the right subclavian area was prepped and draped in a sterile fashion. A combination of 1% lidocaine with 1 to 100,000 parts epinephrine and 0.5% bupivacaine was used for local anesthesia throughout the procedure. The previous transverse scar at the port site was opened using a scalpel. The Port-A-Cath was mobilized from the surrounding subcutaneous tissue. There did not appear to be any purulent material anywhere along the Port-A-Cath tract, but the patient did have a capsule surrounding the port that appear to be composed of some inflammatory tissue as opposed to just a fibrous capsule. An aerobic culture swab was used to swab the port cavity and the tubing tract. The port was removed intact with his tubing as a yocghy-cm-prhvo suture of 3-0 Vicryl was tied along the tract superiorly. The posterior portion of the inflammatory tissue at the port site was removed using sharp dissection. The wound was extensively irrigated with saline. Given the erythema and induration at the previous site of the port and along the previous site of the tubing, the wound was loosely closed in the center transversely with a vertical mattress suture of 4-0 nylon. The wound was then packed on either side of the suture with a strip of quarter inch Nu Gauze. An absorptive dressing was placed over the wound and the patient was taken to the outpatient area in stable condition postoperatively.
[2019-10-03 11:06] VITALS: BP 119/50; PULSE 95; RESP 16; TEMP 36.1; O2SAT 95
[2019-10-03 11:27] VITALS: BP 116/55; PULSE 87; RESP 18; O2SAT 94
== END 2019-10-03 11:50 | disposition home or self-care (01) ==
PROVIDERS: Family Provider Internal Medicine; PCP Internal Medicine; Visit Provider Surgery
PROC: (CPT 36589; principal; 2019-10-03 11:00)
DX: C50.112 Malignant neoplasm of central portion of left female breast (principal); G47.30 Sleep apnea, unspecified; K21.9 Gastro-esophageal reflux disease without esophagitis; E03.9 Hypothyroidism, unspecified
CPT/HCPCS: 36590; 12345; 87070; 87205; J2001; J2250; J2704; J3490; J7030

== ENCOUNTER 2019-10-10 06:48 | Outpatient (RCR) | payer MEDICARE, OTHER, SELFPAY ==
[2019-09-11 13:11] LABS: Alanine Aminotransferase 14 U/L (0-33); Albumin Level 3.7 g/dL (3.5-5.2); Alkaline Phosphatase 101 IU/L (35-105); Anion Gap 14.4 (5-19); Aspartate Amino Transferase 20 U/L (0-32); Blood Urea Nitrogen 12 mg/dL (8-23); Calcium 9.3 mg/dL (8.5-10.5); Carbon Dioxide 26 mmol/L (22-29); Chloride 105 mmol/L (98-107); Globulin 1.8 g/dL (1.3-4.6); Glucose 132 mg/dL (65-115); Osmolality Calculated 290 mOsm/kg (285-295); Potassium 4.4 mmol/L (3.5-5.1); Sodium 141 mmol/L (136-145); Total Bilirubin 0.2 mg/dL (0.15-1.2); Total Protein 5.5 g/dL (6.6-8.7)
[2019-09-11 13:16] LABS: Basophils # 0.1 10^3/uL (0.0-0.1); Basophils % 0.6 %; Eosinophils % 0.2 %; Hematocrit 30.8 % (37.0-47.0); Hemoglobin 9.6 g/dL (11.5-15.3); Lymphocytes % 9.7 %; Mean Corpuscular HGB Conc 31.2 g/dL (30.0-36.0); Mean Corpuscular Hemoglobin 30.3 pg (28.0-34.0); Mean Corpuscular Volume 97.2 fL (81-99); Monocytes # 0.7 10^3/uL (0.2-0.9); Monocytes % 6.1 %; Neutrophils # 8.9 10^3/uL (1.8-7.7); Neutrophils % 82.9 %; Nucleated Red Blood Cells % 0 %; Platelet Count 306 10^3/cmm (130-400); Red Blood Count 3.17 10^6/uL (4.1-5.3); Red Cell Distribution Width 17.3 % (12.1-15.1); White Blood Count 10.7 10^3/uL (4.0-10.0)
--- NOTE | 2019-09-11 14:05 | ONC FU_ITS ---
Dr. Randolph follow up note Patient: Anita Tyler Unit #: [id number]: 1945 Dicatated By: Radhika Randolph M.D.Date of Visit:Sep 11, 2019 Onc Med Follow-up/Prog Note History of Present Illness: Mrs. Harmon is a 73-year-old female with a short history of left breast mass. She underwent mammogram which confirmed a mass in left breast and she subsequently underwent sonogram guided biopsy on 04/07/2019. The biopsy confirmed infiltrating ductal carcinoma, ER/NV negative, HER-2/michael negative. She was referred to Dr Harding for possible surgery and on 04/25/2019 underwent left breast lumpectomy and sentinel lymph node biopsy. The biopsy reported infiltrating ductal carcinoma, 2 x 1.6 cm, grade 2, with positive surgical margins. The sentinel lymph node was negative for metastatic disease. Mrs Tyler underwent reexcision of positive surgical margins on 05/16/2019. This pathology confirmed clear margins. Pathological stage TIc, N0, grade 2, triple negative, stage IB. Her other medical illnesses include a history of thyroid disease, sleep apnea, osteoporosis, irritable bowel syndrome, history of basal cell carcinoma, GERD and depression. Mrs Tyler was offered further treatment with chemotherapy. She started on adjuvant chemotherapy with Cytoxan/Taxotere ???4 on 06/25/2019 and completed 4 cycles on 08/27/2019. Came for follow-up, denies any specific complaints, no fever or chills, no nausea or vomiting, no diarrhea constipation, no sore throat no cough, no palpitation or shortness of breath at rest. Medications: Apple Cider Vinegar 1 Capsule Oral daily, [place] 1 Capsule (of 3 mg) Oral daily, Calcium 1 Tablet (of 600 mg) Oral daily, Cranberry 1 Tablet Oral daily, Dicyclomine HCl 1 Tablet (of 20 mg) Oral four times a day PRN, Glucosamine Chondr Complex 1 Capsule (of 500-400 mg) Oral b.i.d., HYDROcodone-Acetaminophen 1 Tablet (of 5-325 mg) Oral q 5 hours PRN, Levothyroxine Sodium 1 Tablet (of 100 mg) Oral daily, Magnesium 1 Tablet (of 400 mg) Oral daily, Multivitamin Adult 1 Tablet Oral daily, Omeprazole 1 Capsule (of 20 mg) Capsule Delayed Release Oral daily, Potassium 1 Tablet (of 99 mg) Oral daily, Sertraline HCl 1 Tablet (of 50 mg) Oral daily, super strength water pills 1 Capsule daily, Turmeric 1 Tablet (of 500 mg) Oral daily, Vision Formula 2 1 Capsule Oral daily, Vitamin C 1 Capsule Oral daily, Vitamin D3 1 Tablet Oral daily, Vitamin E 1 Capsule Oral daily Allergies: Cephalexin, Ibuprofen, Nitrofurantoin Macrocrystal, Penicillins, red dye, and Sulfa Antibiotics. Review of Systems: Constitutional - Appetite is good and weight is stable. No fever, chills, hot flashes, or night sweats. Energy level is fair, ENMT - No sinus congestion/drainage. No mouth sores. No sore throat or difficulty swallowing, Hematologic/Lymphatic - No abnormal bruising or bleeding, Respiratory - No shortness of breath. No cough. No pleuritic pain or hemoptysis, Cardiovascular - No angina pain. No palpitations, Gastrointestinal - No nausea or vomiting. No heartburn or acid reflux. No diarrhea or constipation. No blood in the stool or black stools, Genitourinary (F) - No dysuria or hematuria. No urinary frequency. No urgency or incontinence, Musculoskeletal - No joint or bone pain, Neurologic - No headache or dizziness. No numbness/paresthesias or other focal neurologic symptoms, Psychiatric - No anxiety or depression. Positive for insomnia. Vital Signs: Performed on Sep 11, 2019 13:42 Height - 66.00 in Weight - 155.6 lbs (HIGH) BSA - 1.80 sq.m BMI - 25.11 Temperature - 98.2 F (LOW) Pulse - 84 /min Respiration - 22 /min BP - 146/61 mm(hg) (HIGH) O2 Sat - 99 % Pain - 0 Performance Status: 0 - Fully active, able to carry on all predisease activities without restrictions. (ECOG) Physical Examination: Respiratory - Lungs are clear to auscultation without rhonchi or wheezing, Cardiovascular - Regular rate and rhythm of heart, Extremities - no edema. Lab/Imaging: Test performed on Aug 27, 2019 08:42 Sodium 142 mmol/L Potassium 4.0 mmol/L Chloride 105 mmol/L CO2 27 mmol/L Anion Gap 14.0 BUN 15 mg/dL Creatinine 0.4 mg/dL Cr Clearance (Est) 132.0900 mL/min Glucose 160 mg/dL Calcium 9.3 mg/dL Protein, Total 6.8 g/dL Albumin 3.7 g/dL Globulin 3.1 g/dL Bilirubin, Total 0.3 mg/dL ALT (SGPT) 19 U/L AST (SGOT) 25 U/L Alkaline Phosphatase 93 IU/L WBC 12.1 10 3/uL RBC 3.45 10 6/uL HGB 10.3 g/dL HCT 31.6 % MCV 91.6 fL MCH 29.9 pg MCHC 32.6 g/dL RDW 17.2 % Platelet Count 560 10 3/cmm MPV 9.4 fL Neutrophils 11.1 10 3/uL Lymphocytes 0.7 10 3/uL Monocytes 0.3 10 3/uL Eosinophils 0.0 10 3/uL Basophils 0.0 10 3/uL Neutrophil % 91.1 % Lymphocyte % 5.8 % Monocyte % 2.6 % Eosinophil % 0.0 % Basophils % 0.2 % Test performed on Jul 25, 2019 11:52 CBC Slide Review Slide Review Perform Test performed on Jul 01, 2019 11:44 Ua Micro: Ca Oxalate Crystals 0-4 /hpf Ua Micro: WBC 10-15 /hpf Ua Micro: RBC NONE /hpf Ua Micro: Squam Epith Cells 0-4 Ua Micro: Bacteria TRACE Test performed on Jun 24, 2019 12:50 Manual Lymphocytes 11.1 % Manual Monocytes 3.0 % Manual Eosinophils 0.7 % Manual Basophils 0.6 % NRBCs 0.0 /100 WBC Impression: Invasive ductal carcinoma involving left breast status post left breast lumpectomy with sentinel lymph node done on 04/25/2019, final pathology report showed, grade 2, 2 x 1.6 cm invasive tumor with positive surgical margins subsequently patient underwent reexcision on 05/16/2019 and obtain clear margins, pT1c, sentinel lymph node negative for metastatic disease pN0 ER/NV negative, HER-2/michael negative Stage IB ( pT1c, N0, grade 2, ER/NV negative, HER-2/michael negative) Started on adjuvant therapy with Cytoxan/Taxotere every 3 weeks ???4 on 06/25/2019. and completed her adjuvant chemotherapy on 08/27/2019. Plan: Discussed with patient regarding her labs white blood count 10.7 hemoglobin 9.6 hematocrit 30.8 platelets 306,000 CMP within normal limits Clinically, patient is doing well, now recovering from adjuvant chemotherapy with Cytoxan/Taxotere which she completed on 08/27/2019. Patient has already seen radiation oncology for postlumpectomy radiation therapy. As far as mild/moderate anemia is concerned probably multifactorial including due to chemotherapy or iron/B12 deficiency or considering her age underlying myelodysplasia cannot be ruled out. We will check her iron studies B12 folic acid level if low, we'll consider supplement otherwise repeat CBC in one month and she will continue with monthly port maintenance. Signed By: Radhika Randolph M.D. <<Signature on File>>
[2019-09-11 14:18] LABS: Ferritin 255 ng/mL (15-150); Iron 98 ug/dL (37-145); Percent Saturation 37.2 % (20-50); Total Iron Binding Capacity 263 mcg/dl; Unsaturated Iron Binding 165 ug/dL (112-347)
[2019-09-11 15:04] LABS: Folate Level 17.4 ng/mL (4.8-37.3)
[2019-09-11 15:11] LABS: Vitamin B12 > 2000 pg/mL (232-1245)
--- NOTE | 2019-09-17 | CT_ITS ---
Radiation Therapy Planning CT images; total exam DLP: 462.18 mGy-cm MTDD
--- NOTE | 2019-09-24 14:00 | ONCRAD TMN_ITS ---
Radiation Oncology Weekly Treatment Management Patient: Anita Tyler MR#: [id number] : 1945> Age: 73> Sex: Female Dictated by: Dr. Idris Borja Date of Service: 09/24/2019 Referring Physician(s) : Dr. Mahesh Harding Primary Diagnosis: Z17.1 - Estrogen receptor negative status [ER-], Diagnosed 05/29/2019 (Active) C50.112 - Malignant neoplasm of central portion of left female breast, Diagnosed 05/29/2019 (Active) Radiotherapy to date: Course: LT Breast Treatment Site: LT [id number], Ref. ID: [id number], Energy: 15X/6X, Dose/Fx (cGy): 266, #Fx: , Dose Correction (cGy): 0, Total Dose (cGy): 532, Start Date: 09/23/2019, Elapsed Days: 1 Current Complaints/Interval History: Constitutional Denies lack of appetite, fatigue, fever, night sweats and change in weight. Breasts Denies pain. Cardiovascular Denies chest pain. Respiratory Complains of dyspnea associated with normal activity. Denies cough and wheezing. Current Medications: Aloxi, apple Cider Vinegar, boron, calcium, cranberry, cyclophosphamide, dexamethasone, dexamethasone Sodium Phosphate, dicyclomine HCl, diphenhydrAMINE HCl, dOCEtaxel, doxycycline Monohydrate, famotidine, fluocinonide, glucosamine Chondr Complex, hYDROcodone-Acetaminophen, levothyroxine Sodium, magnesium, mometasone Furoate, multivitamin Adult, omeprazole, potassium, prochlorperazine Maleate, sertraline HCl, super strength water pills, turmeric, vision Formula 2, vitamin C, vitamin D3, vitamin E. Allergies: Penicillins, Cephalexin, Nitrofurantoin Macrocrystal, Ibuprofen, red dye and Sulfa Antibiotics. Vital Signs: Performed on 09/24/2019 1:32 PM BMI - 25.308 kg/m2 (high), Height - 66.00 in, Weight - 156.8 lbs, Temperature - 98.1 f, Pulse - 73, Respiration - 18, O2 Sat - 96 %, Pain - 0 and BP - 150/ 74 mm(hg)(high/). Physical Exam: Appears stable, no skin erythema or desquamation. Performance Status: 1 - No physically strenuous activity, but ambulatory and able to carry out light or sedentary work (e.g. office work, light house work). (ECOG) Lab: None pending in Radiation Oncology. Test performed on 06/24/2019 12:50 PM Manual Lymphocytes - 11.1 % (low), Manual Monocytes - 3.0 % (low), Test performed on 09/11/2019 12:27 PM WBC - 10.7 10 3/ul (high), RBC - 3.17 10 6/ul (low), HGB - 9.6 g/dl (low), HCT - 30.8 % (low), RDW - 17.3 % (high), Neutrophils - 8.9 10 3/ul (high), Creatinine - 0.4 mg/dl (low), Glucose - 132 mg/dl (high), Protein, Total - 5.5 g/dl (low), Ferritin - 255 ng/ml (high) and Vitamin B12 - 2000 pg/ml (high). Imaging: No new diagnostic imaging was performed since the last weekly treatment visit. All radiation therapy related imaging (including but not limited to kV, MV, and CBCT generated images) was reviewed. Appropriate changes, if any, were made to assure accurate target localization. Impression/Plan: Tolerating treatment well with expected side effects. Continue treatment as planned. CPT: 74635 Signed by: Dr. Idris Borja>09/24/2019 1:58:27 PM <<Signature on File>>
--- NOTE | 2019-10-02 16:54 | ONCRAD TMN_ITS ---
Radiation Oncology Weekly Treatment Management Patient: Anita Tyler MR#: [id number] : 1945> Age: 73> Sex: Female Dictated by: Dr. Austen Mendoza Date of Service: 10/02/2019 Referring Physician(s) : Dr. Mahesh Harding Primary Diagnosis: Z17.1 - Estrogen receptor negative status [ER-], Diagnosed 05/29/2019 (Active) C50.112 - Malignant neoplasm of central portion of left female breast, Diagnosed 05/29/2019 (Active) Radiotherapy to date: Course: LT Breast, Treatment Site: LT [id number], Ref. ID: [id number], Energy: 15X/6X, Dose/Fx (cGy): 266, #Fx: , Dose Correction (cGy): 0, Total Dose (cGy): 2,128, Start Date: 09/23/2019, End Date: 10/02/2019, Elapsed Days: 9 Current Complaints/Interval History: Minimal fatigue, less than when on chemo. No breast symptoms. Using Aquaphor. Port site red and tender x two weeks. On two cycles of antibiotics. Port removal scheduled tomorrow. No N.V. F or C. PE brisk erythema around and below ashwini cath site in right chest. Constitutional Complains of fatigue off and on. Denies lack of appetite, fever, night sweats and change in weight. ENMT Complains of altered taste. Integumentary Has redness on the right side related to an infection in the port Breasts Denies pain. Cardiovascular Denies chest pain. Respiratory Denies cough, dyspnea and wheezing. Current Medications: Aloxi, apple Cider Vinegar, boron, calcium, cranberry, cyclophosphamide, dexamethasone, dexamethasone Sodium Phosphate, dicyclomine HCl, diphenhydrAMINE HCl, dOCEtaxel, doxycycline Monohydrate, famotidine, fluocinonide, glucosamine Chondr Complex, hYDROcodone-Acetaminophen, levothyroxine Sodium, magnesium, mometasone Furoate, multivitamin Adult, omeprazole, potassium, prochlorperazine Maleate, sertraline HCl, super strength water pills, turmeric, vision Formula 2, vitamin C, vitamin D3, vitamin E. Allergies: Penicillins, Cephalexin, Nitrofurantoin Macrocrystal, Ibuprofen, red dye and Sulfa Antibiotics. Vital Signs: Performed on 10/02/2019 1:17 PM BMI - 24.953 kg/m2 (high), Height - 66.00 in, Weight - 154.6 lbs, Temperature - 97.9 f, Pulse - 77, Respiration - 18, O2 Sat - 97 %, Pain - 0 and BP - 134/ 75 mm(hg). Physical Exam: Appears stable, no skin erythema or desquamation. Performance Status: 1 - No physically strenuous activity, but ambulatory and able to carry out light or sedentary work (e.g. office work, light house work). (ECOG) Lab: None pending in Radiation Oncology. Test performed on 06/24/2019 12:50 PM Manual Lymphocytes - 11.1 % (low), Manual Monocytes - 3.0 % (low), Test performed on 09/11/2019 12:27 PM WBC - 10.7 10 3/ul (high), RBC - 3.17 10 6/ul (low), HGB - 9.6 g/dl (low), HCT - 30.8 % (low), RDW - 17.3 % (high), Neutrophils - 8.9 10 3/ul (high), Creatinine - 0.4 mg/dl (low), Glucose - 132 mg/dl (high), Protein, Total - 5.5 g/dl (low), Ferritin - 255 ng/ml (high) and Vitamin B12 - 2000 pg/ml (high). Imaging: No new diagnostic imaging was performed since the last weekly treatment visit. All radiation therapy related imaging (including but not limited to kV, MV, and CBCT generated images) was reviewed. Appropriate changes, if any, were made to assure accurate target localization. Impression/Plan: Tolerating treatment well with expected side effects. Continue treatment as planned. Portacath removal planned for 10/02/2019 CPT: 87483 Signed by: Dr. Austen Mendoza>10/02/2019 4:53:40 PM <<Signature on File>>
--- NOTE | 2019-10-08 14:04 | ONCRAD TMN_ITS ---
Radiation Oncology Weekly Treatment Management Patient: Anita Tyler MR#: [id number] : 1945> Age: 73> Sex: Female Dictated by: Dr. Austen Mendoza Date of Service: 10/08/2019 Referring Physician(s) : Dr. Mahesh Harding Primary Diagnosis: Z17.1 - Estrogen receptor negative status [ER-], Diagnosed 05/29/2019 (Active) C50.112 - Malignant neoplasm of central portion of left female breast, Diagnosed 05/29/2019 (Active) Radiotherapy to date: Course: LT Breast, Treatment Site: LT [id number], Ref. ID: [id number], Energy: 15X/6X, Dose/Fx (cGy): 266, #Fx: , Dose Correction (cGy): 0, Total Dose (cGy): 3,192, Start Date: 09/23/2019, Elapsed Days: 15 Current Complaints/Interval History: Fatigue from chemo now a bit better. Eating ok. Right port removed and now on Cipro. Pain around port site is better. Using Auquaphor. Constitutional Complains of mild fatigue but is improving. Denies lack of appetite, fever and night sweats. ENMT Denies dysphagia. Integumentary Has redness to the left breast Breasts Denies pain but has tenderness to the left breast. Cardiovascular Denies arrhythmias and chest pain. Respiratory Denies dyspnea and wheezing. Current Medications: Aloxi, apple Cider Vinegar, boron, calcium, cranberry, cyclophosphamide, dexamethasone, dexamethasone Sodium Phosphate, dicyclomine HCl, diphenhydrAMINE HCl, dOCEtaxel, famotidine, fluocinonide, glucosamine Chondr Complex, hYDROcodone-Acetaminophen, levothyroxine Sodium, magnesium, mometasone Furoate, multivitamin Adult, omeprazole, potassium, prochlorperazine Maleate, sertraline HCl, super strength water pills, turmeric, vision Formula 2, vitamin C, vitamin D3, vitamin E. Allergies: Penicillins, Cephalexin, Nitrofurantoin Macrocrystal, Ibuprofen, red dye and Sulfa Antibiotics. Vital Signs: Performed on 10/08/2019 1:21 PM BMI - 25.534 kg/m2 (high), Height - 66.00 in, Weight - 158.2 lbs, Temperature - 97.6 f, Pulse - 80, Respiration - 18, O2 Sat - 96 %, Pain - 0 and BP - 132/ 74 mm(hg). Physical Exam: Right breast erythema, mild with no desquamation Performance Status: 1 - No physically strenuous activity, but ambulatory and able to carry out light or sedentary work (e.g. office work, light house work). (ECOG) Lab: None pending in Radiation Oncology. Test performed on 06/24/2019 12:50 PM Manual Lymphocytes - 11.1 % (low), Manual Monocytes - 3.0 % (low), Test performed on 09/11/2019 12:27 PM WBC - 10.7 10 3/ul (high), RBC - 3.17 10 6/ul (low), HGB - 9.6 g/dl (low), HCT - 30.8 % (low), RDW - 17.3 % (high), Neutrophils - 8.9 10 3/ul (high), Creatinine - 0.4 mg/dl (low), Glucose - 132 mg/dl (high), Protein, Total - 5.5 g/dl (low), Ferritin - 255 ng/ml (high) and Vitamin B12 - 2000 pg/ml (high). Imaging: No new diagnostic imaging was performed since the last weekly treatment visit. All radiation therapy related imaging (including but not limited to kV, MV, and CBCT generated images) was reviewed. Appropriate changes, if any, were made to assure accurate target localization. Impression/Plan: Tolerating treatment well with expected side effects. Continue treatment as planned. CPT: 05038 Signed by: Dr. Austen Mendoza>10/08/2019 2:02:27 PM <<Signature on File>>
[2019-10-10 13:28] LABS: Basophils # 0.1 10^3/uL (0.0-0.1); Basophils % 0.6 %; Eosinophils # 0.2 10^3/uL (0.0-0.8); Eosinophils % 2.3 %; Hematocrit 35.4 % (37.0-47.0); Hemoglobin 11.2 g/dL (11.5-15.3); Lymphocytes # 1.1 10^3/uL (0.8-4.8); Lymphocytes % 14.5 %; Mean Corpuscular HGB Conc 31.6 g/dL (30.0-36.0); Mean Corpuscular Hemoglobin 29.6 pg (28.0-34.0); Mean Corpuscular Volume 93.4 fL (81-99); Mean Platelet Volume 9.5 fL (7.4-10.4); Monocytes # 0.6 10^3/uL (0.2-0.9); Neutrophils # 5.8 10^3/uL (1.8-7.7); Neutrophils % 74.5 %; Nucleated Red Blood Cells % 0 %; Platelet Count 426 10^3/cmm (130-400); Red Blood Count 3.79 10^6/uL (4.1-5.3); Red Cell Distribution Width 13.6 % (12.1-15.1); White Blood Count 7.8 10^3/uL (4.0-10.0)
== END 2019-10-10 23:59 | disposition home or self-care (01) ==
LOC: ONCMED 06:48
PROVIDERS: Absent Provider Radiology Radiation Oncology; Family Provider Internal Medicine; PCP Internal Medicine; Visit Provider Internal Medicine Hematology & Oncology
DX: Z51.0 Encounter for antineoplastic radiation therapy (principal); C50.112 Malignant neoplasm of central portion of left female breast; Z17.1 Estrogen receptor negative status [ER-]; D70.1 Agranulocytosis secondary to cancer chemotherapy; T45.1X5A Adverse effect of antineoplastic and immunosuppressive drugs, initial encounter; Z90.12 Acquired absence of left breast and nipple; Z92.21 Personal history of antineoplastic chemotherapy; Z79.899 Other long term (current) drug therapy
CPT/HCPCS: 36415; 36591; 77290; 77295; 77300; 77307; 77334; 77336; 77412; 77417; 80053; 82607; 82728; 82746; 83540; 83550; 85025; 99214

== ENCOUNTER 2019-10-18 06:49 | Outpatient (RCR) | payer MEDICARE, OTHER, SELFPAY ==
--- NOTE | 2019-10-11 12:24 | ONC FU_ITS ---
Dr. Randolph follow up note Patient: Anita Tyler Unit #: [id number]: 1945 Dicatated By: Radhika Randolph M.D.Date of Visit:October 11, 2019 Onc Med Follow-up/Prog Note History of Present Illness: Mrs. Harmon is a 73-year-old female with a short history of left breast mass. She underwent mammogram which confirmed a mass in left breast and she subsequently underwent sonogram guided biopsy on 04/07/2019. The biopsy confirmed infiltrating ductal carcinoma, ER/MD negative, HER-2/michael negative. She was referred to Dr Harding for possible surgery and on 04/25/2019 underwent left breast lumpectomy and sentinel lymph node biopsy. The biopsy reported infiltrating ductal carcinoma, 2 x 1.6 cm, grade 2, with positive surgical margins. The sentinel lymph node was negative for metastatic disease. Mrs Tyler underwent reexcision of positive surgical margins on 05/16/2019. This pathology confirmed clear margins. Pathological stage TIc, N0, grade 2, triple negative, stage IB. Her other medical illnesses include a history of thyroid disease, sleep apnea, osteoporosis, irritable bowel syndrome, history of basal cell carcinoma, GERD and depression. Mrs Tyler was offered further treatment with chemotherapy. She started on adjuvant chemotherapy with Cytoxan/Taxotere ???4 on 06/25/2019 and completed 4 cycles on 08/27/2019. Now being treated with postlumpectomy radiation therapy Due to port infection, Port-A-Cath was taken out on 10/04/2019 Came for follow-up, denies any specific complaints, no fever or chills, no nausea or vomiting, no diarrhea constipation, more energetic, no palpitation. Port-A-Cath was removed recently due to infection and now with minimum drainage, Dr. Harding is following. Also tolerating postlumpectomy radiation therapy, as per patient she will conclude her radiation therapy on 10/18/2019 Medications: Apple Cider Vinegar 1 Capsule Oral daily, [place] 1 Capsule (of 3 mg) Oral daily, Calcium 1 Tablet (of 600 mg) Oral daily, Cranberry 1 Tablet Oral daily, Dicyclomine HCl 1 Tablet (of 20 mg) Oral four times a day PRN, Glucosamine Chondr Complex 1 Capsule (of 500-400 mg) Oral b.i.d., HYDROcodone-Acetaminophen 1 Tablet (of 5-325 mg) Oral q 5 hours PRN, Levothyroxine Sodium 1 Tablet (of 100 mg) Oral daily, Magnesium 1 Tablet (of 400 mg) Oral daily, Multivitamin Adult 1 Tablet Oral daily, Omeprazole 1 Capsule (of 20 mg) Capsule Delayed Release Oral daily, Potassium 1 Tablet (of 99 mg) Oral daily, Sertraline HCl 1 Tablet (of 50 mg) Oral daily, super strength water pills 1 Capsule daily, Turmeric 1 Tablet (of 500 mg) Oral daily, Vision Formula 2 1 Capsule Oral daily, Vitamin C 1 Capsule Oral daily, Vitamin D3 1 Tablet Oral daily, Vitamin E 1 Capsule Oral daily Allergies: Cephalexin, Nitrofurantoin Macrocrystal, Penicillins, red dye, and Sulfa Antibiotics. Review of Systems: Review of Systems is not available for this patient. Vital Signs: Performed on October 11, 2019 11:39 Height - 66.00 in Weight - 152.6 lbs (LOW) BSA - 1.78 sq.m BMI - 24.63 Temperature - 98.6 F Pulse - 82 /min Respiration - 17 /min BP - 130/65 mm(hg) O2 Sat - 96 % Pain - 0 Performance Status: 0 - Fully active, able to carry on all predisease activities without restrictions. (ECOG) Physical Examination: Respiratory - Lungs are clear, Cardiovascular - Regular rate and rhythm of heart, Extremities - no visible edema or rash. Lab/Imaging: Test performed on Sep 11, 2019 12:27 Ferritin 255 ng/mL Iron 98 mcg/dL Sodium 141 mmol/L Vitamin B12 > 2000 pg/mL Iron Binding Capacity (TIBC) 263 mcg/dl Potassium 4.4 mmol/L % Iron Saturation 37.2 % Chloride 105 mmol/L CO2 26 mmol/L UIBC 165 mcg/dL Anion Gap 14.4 BUN 12 mg/dL Creatinine 0.4 mg/dL Cr Clearance (Est) 132.0900 mL/min Glucose 132 mg/dL Calcium 9.3 mg/dL Protein, Total 5.5 g/dL Albumin 3.7 g/dL Globulin 1.8 g/dL Bilirubin, Total 0.2 mg/dL ALT (SGPT) 14 U/L AST (SGOT) 20 U/L Alkaline Phosphatase 101 IU/L WBC 10.7 10 3/uL RBC 3.17 10 6/uL HGB 9.6 g/dL HCT 30.8 % MCV 97.2 fL MCH 30.3 pg MCHC 31.2 g/dL RDW 17.3 % Platelet Count 306 10 3/cmm MPV 10.0 fL Neutrophils 8.9 10 3/uL Lymphocytes 1.0 10 3/uL Monocytes 0.7 10 3/uL Eosinophils 0.0 10 3/uL Basophils 0.1 10 3/uL Neutrophil % 82.9 % Lymphocyte % 9.7 % Monocyte % 6.1 % Eosinophil % 0.2 % Basophils % 0.6 % Test performed on Jul 25, 2019 11:52 CBC Slide Review Slide Review Perform Test performed on Jul 01, 2019 11:44 Ua Micro: Ca Oxalate Crystals 0-4 /hpf Ua Micro: WBC 10-15 /hpf Ua Micro: RBC NONE /hpf Ua Micro: Squam Epith Cells 0-4 Ua Micro: Bacteria TRACE Test performed on Jun 24, 2019 12:50 Manual Lymphocytes 11.1 % Manual Monocytes 3.0 % Manual Eosinophils 0.7 % Manual Basophils 0.6 % NRBCs 0.0 /100 WBC Impression: Invasive ductal carcinoma involving left breast status post left breast lumpectomy with sentinel lymph node done on 04/25/2019, final pathology report showed, grade 2, 2 x 1.6 cm invasive tumor with positive surgical margins subsequently patient underwent reexcision on 05/16/2019 and obtain clear margins, pT1c, sentinel lymph node negative for metastatic disease pN0 ER/MD negative, HER-2/michael negative Stage IB ( pT1c, N0, grade 2, ER/MD negative, HER-2/michael negative) Started on adjuvant therapy with Cytoxan/Taxotere every 3 weeks ???4 on 06/25/2019. She is tolerating it well but did have chemotherapy induced neutropenia with cycle 1 and was supported with Neulasta with cycle 2. Plan: Discussed with patient regarding her labs white blood count 7.8 hemoglobin 11.2 hematocrit 35.4 platelets 426,000 and iron studies done on 09/11/2019 shows ferritin was 255, iron 98, TIBC 253, B12 more than 2000 Clinically, patient is doing well, no signs symptoms suggestive of recurrence of disease, now recovering from adjuvant chemotherapy, her anemia is improving, hemoglobin 11.2 g today compared to 9.6 g on 09/11/2019. Her anemia workup was inconclusive, so anemia could be due to chemotherapy or considering her age underlying myelodysplasia cannot be ruled out but less likely. Patient is undergoing postlumpectomy radiation therapy, tolerating well, as per patient she will conclude her radiation therapy next week, in the meantime we'll continue to monitor and She will return to clinic in 3 months with CBC CMP Signed By: Radhika Randolph M.D. <<Signature on File>>
--- NOTE | 2019-10-16 15:55 | ONCRAD TMN_ITS ---
Radiation Oncology Weekly Treatment Management Patient: Anita Tyler MR#: [id number] : 1945> Age: 73> Sex: Female Dictated by: Dr. Austen Mendoza Date of Service: 10/16/2019 Referring Physician(s) : Dr. Mahesh Harding Primary Diagnosis: Z17.1 - Estrogen receptor negative status [ER-], Diagnosed 05/29/2019 (Active) C50.112 - Malignant neoplasm of central portion of left female breast, Diagnosed 05/29/2019 (Active) Radiotherapy to date: Course: LT Breast, Treatment Site: Boost 10Gy, Ref. ID: [id number], Energy: 15X/6X, Dose/Fx (cGy): 250, #Fx: 2 / 4, Dose Correction (cGy): 0, Total Dose (cGy): 500, Start Date: 10/15/2019, End Date: 10/16/2019, Elapsed Days: 1 Treatment Site: LT [id number], Ref. ID: [id number], Energy: 15X/6X, Dose/Fx (cGy): 266, #Fx: , Dose Correction (cGy): 0, Total Dose (cGy): 4,256, Start Date: 09/23/2019, Elapsed Days: 21 Current Complaints/Interval History: Some fatigue. Less fatigue than experienced with chemo. Eating ok. Some breast tenderness. Constitutional Denies lack of appetite, fatigue, fever, night sweats and change in weight. ENMT Denies dysphagia. Integumentary Has redness and a rash on the left breast Breasts Denies pain. Cardiovascular Denies chest pain. Respiratory Denies cough, dyspnea and wheezing. Current Medications: [place], apple Cider Vinegar, boron, calcium, cranberry, cyclophosphamide, dexamethasone, dexamethasone Sodium Phosphate, dicyclomine HCl, diphenhydrAMINE HCl, dOCEtaxel, famotidine, fluocinonide, glucosamine Chondr Complex, hYDROcodone-Acetaminophen, levothyroxine Sodium, magnesium, mometasone Furoate, multivitamin Adult, omeprazole, potassium, prochlorperazine Maleate, sertraline HCl, super strength water pills, turmeric, vision Formula 2, vitamin C, vitamin D3, vitamin E. Allergies: Penicillins, Cephalexin, Nitrofurantoin Macrocrystal, red dye and Sulfa Antibiotics. Vital Signs: Performed on 10/16/2019 1:28 PM BMI - 24.76 kg/m2 (high), Height - 66.00 in, Weight - 153.4 lbs, Temperature - 97.8 f, Pulse - 79, Respiration - 20, O2 Sat - 97 %, Pain - 0 and BP - 124/ 70 mm(hg). Physical Exam: Brisk erythema over breast with no desquamation seen Performance Status: 0 - Fully active, able to carry on all predisease activities without restrictions. (ECOG) Lab: None pending in Radiation Oncology. Test performed on 06/24/2019 12:50 PM Manual Lymphocytes - 11.1 % (low), Manual Monocytes - 3.0 % (low), Test performed on 09/11/2019 12:27 PM Creatinine - 0.4 mg/dl (low), Glucose - 132 mg/dl (high), Protein, Total - 5.5 g/dl (low), Ferritin - 255 ng/ml (high), Vitamin B12 - 2000 pg/ml (high), Test performed on 10/10/2019 1:17 PM RBC - 3.79 10 6/ul (low), HGB - 11.2 g/dl (low), HCT - 35.4 % (low) and Platelet Count - 426 10 3/cmm (high). Imaging: No new diagnostic imaging was performed since the last weekly treatment visit. All radiation therapy related imaging (including but not limited to kV, MV, and CBCT generated images) was reviewed. Appropriate changes, if any, were made to assure accurate target localization. Impression/Plan: Tolerating treatment well with expected side effects. Continue treatment as planned. CPT: 97092 Signed by: Dr. Austen Mendoza>10/16/2019 3:53:56 PM <<Signature on File>>
== END 2019-11-10 23:59 | disposition home or self-care (01) ==
LOC: ONCMED 06:49
PROVIDERS: Family Provider Internal Medicine; PCP Internal Medicine; Visit Provider Radiology Radiation Oncology
DX: Z51.0 Encounter for antineoplastic radiation therapy (principal); C50.112 Malignant neoplasm of central portion of left female breast; Z17.1 Estrogen receptor negative status [ER-]; D70.1 Agranulocytosis secondary to cancer chemotherapy; T45.1X5A Adverse effect of antineoplastic and immunosuppressive drugs, initial encounter; Z92.21 Personal history of antineoplastic chemotherapy
CPT/HCPCS: 77336; 77412; 77417; G0463

== ENCOUNTER 2019-10-19 09:32 | Emergency (ER) | payer MEDICARE, OTHER, SELFPAY ==
[2019-10-19 09:41] VITALS: BP 136/90; PULSE 77; RESP 18; TEMP 36.8; O2SAT 99; BMI 25.0
--- NOTE | 2019-10-19 10:14 | CT_ITS ---
WS: [id number] CT chest w con* [id number] REASON FOR EXAM: chest wall infection IV CONTRAST ADMINISTERED: Omnipaque 300 95 mL TOTAL EXAM DLP: 638.[address] scans at [facility] use at least one of these dose optimization techniques: automat ed exposure control; mA and/or kV adjustment per patient size (includes targeted exams where dose is matched to clinical indication); or iterative reconstruction. FINDINGS: A hypodense areas noted along the left breast area which appears to be a postop hematoma me asured 3.89 cm. The left breast this appears to show a round configuration lesion thickened wall suggesting an area o f infected port solid configuration extends to the periphery is noted. Soft tissue inflammatory oseguera es are noted extends down to the muscle but not through the muscularis area. The remaining chest show normal appearance the mediastinum was normal normal appearance of the aorta is seen. The peripheral lungs show no inflammatory changes. The port appears to be in infected near the entrance superior to the distal aspects of the port in th e subcutaneous area. CT/CT chest w con* [id number] IMPRESSION: Inflammatory changes are noted on the right side along the skin surface consist ent with the port infection. There is evidence of a hematoma in the operative site of the left breast. The remaining chest appear to be essentially normal.
[2019-10-19 10:46] VITALS: BP 142/78; PULSE 77; RESP 18; O2SAT 93
[2019-10-19 11:24] LABS: Basophils % 0.6 %; Eosinophils # 0.2 10^3/uL (0.0-0.8); Eosinophils % 2.1 %; Hematocrit 37.8 % (37.0-47.0); Hemoglobin 11.9 g/dL (11.5-15.3); Lymphocytes # 0.9 10^3/uL (0.8-4.8); Lymphocytes % 12.8 %; Mean Corpuscular HGB Conc 31.5 g/dL (30.0-36.0); Mean Corpuscular Volume 92.2 fL (81-99); Mean Platelet Volume 9.5 fL (7.4-10.4); Monocytes # 0.5 10^3/uL (0.2-0.9); Monocytes % 6.7 %; Neutrophils # 5.6 10^3/uL (1.8-7.7); Neutrophils % 77.5 %; Nucleated Red Blood Cells % 0 %; Platelet Count 416 10^3/cmm (130-400); White Blood Count 7.2 10^3/uL (4.0-10.0)
--- NOTE | 2019-10-19 11:35 | ED_ITS ---
HPI - Skin/Abscess/Foreign Bdy General: Chief complaint: Skin/Abscess/Foreign Body Stated complaint: INFECTED PORT SITE Time Seen by Provider: 10/19/19 09:42 History of Present Illness: HPI narrative: 69-year-old female presents to the emergency room with complaint of redness and swelling around a previous port site. She has a history of triple negative breast cancer which is stage I she had a lumpectomy and then underwent for cycles of chemotherapy and also underwent radiation there is no extension to the lymph nodes per the patient's report. After she completed her course of chemo and radiation she had some swelling and erythema around the port they are concerned about being infected she was started on doxycycline for 7 days it did not improve she was then changed to Cipro for 10 days it still did not improve and ultimately Dr. Harding removed to the port. He then she was placed on another course of doxycycline for 10 more days which she finished last weekend. Despite this there is still redness and erythema around the port. She denies any fever sweats or chills recently the area is tender to the touch she had followed up with Dr. Harding after his last round of antibiotics and he had thought it was possible that somebody with was localized irritation from extravasated chemotherapeutic agents. It is persisting and seems to have increased in size a little bit lately. MD complaint: lesion and discoloration Onset (ago): week(s) Location: chest (Right upper chest at the incision site of the port) Severity: mild Quality: dull Pain Consistency: intermittent Relieving factors: none Context: other (See history of present illness) Associated symptoms: Reports no associated symptoms; Deny chills, fever(s), nausea or vomiting Review of Systems Const: Denies: fever, chills, body aches, change in appetite, fatigue or malaise ENMT: Denies: throat pain, ear pain, nasal discharge or nasal congestion Card: Denies: chest pain, edema, shortness of breath on exertion or shortness of breath when lying down Resp: Denies: shortness of breath, productive cough or non-productive cough GI: Denies: abdominal pain, nausea, vomiting, vomiting blood, coffee grounds in vomit, diarrhea, constipation, bloating, blood in stool or black tarry stool : Denies: flank pain, difficulty urinating, painful urination, urinary frequency or urinary urgency Skin/Breast: Reports: redness, skin tenderness and skin swelling; Denies: rash PFSH ED PFSH: Social History Smoking and tobacco status: never smoked Physical Exam Const: COMMON NORMALS: no apparent distress GENERAL APPEARANCE: cooperative and comfortable ORIENTATION/CONSCIOUSNESS: Yes awake, Yes oriented to person, Yes oriented to place and Yes oriented to time HENMT: COMMON NORMALS: normocephalic, head/scalp atraumatic, hearing grossly normal bilaterally, external ears normal, EAC's normal, TM's normal bilaterally, nasal mucous membranes and turbinates normal, moist oral mucous membranes and oropharynx normal HEAD & SCALP: normocephalic and atraumatic NOSE: nasal mucous membranes and turbinates normal EXTERNAL EAR: Yes external ears normal EXTERNAL AUDITORY CANAL: EAC's normal TYMPANIC MEMBRANE: TM's normal bilaterally Eye: COMMON NORMALS: PERRL, EOMs intact bilaterally, conjunctivae normal and no scleral icterus CONJUNCTIVA: Yes conjunctivae normal PUPIL: Yes PERRL Neck/C-Spine: COMMON NORMALS: full ROM, no lymphadenopathy, supple and no JVD Lymph: LYMPHATIC: no lymphadenopathy noted and no lymphedema noted Resp: COMMON NORMALS: normal respiratory effort, no retractions, no use of accessory muscles and clear to auscultation bilaterally AUSCULTATION: clear to auscultation bilaterally Cardio: COMMON NORMALS: no JVD, regular rate, regular rhythm and no murmurs RATE: regular rate RHYTHM: regular rhythm GI: COMMON NORMALS: soft to palpation and no hepatosplenomegaly AUSCULTATION: Yes normoactive bowel sounds PALPATION: Yes soft, No tender, No guarding and Yes no hepatosplenomegaly Extremity: COMMON NORMALS: normal to inspection, normal capillary refill, no clubbing, cyanosis or edema, no calf tenderness and no pedal edema Neuro: SENSORIUM/ORIENTATION: Yes oriented to person, Yes oriented to place and Yes oriented to time Skin: NARRATIVE SKIN EXAM: Reddened erythematous irregular area about the port in the right upper chest there is mild induration there is no fluctuation. No drainage. Course Vital Signs: Vital signs: Vital Signs Temperature 98.2 F 10/19/19 09:41 Pulse Rate 81 10/19/19 12:27 Respiratory Rate 18 10/19/19 12:27 Blood Pressure 141/67 10/19/19 12:27 Pulse Oximetry 93 10/19/19 12:27 MDM - Skin/Abscess/Foreign Bdy MDM Narrative: Medical decision making narrative: No signs on imaging of any abscess. She previously had tissue biopsy done which was negative for any bacteria. Discussed Dr. medel both in agreement is most likely extravasation from chemotherapeutic agent we will go ahead and start her on some steroid she can apply moist heat follow-up with Dr. Harding this coming week in the office. Return to the ER if worsens. Lab Data: Labs: Lab Results 10/19/19 10/19/19 Range/Units 11:12 11:12 WBC 7.2 (4.0-10.0) 10^3/ uL RBC 4.10 (4.1-5.3) 10^6/u L Hgb 11.9 (11.5-15.3) g/dL Hct 37.8 (37.0-47.0) % MCV 92.2 (81-99) fL MCH 29.0 (28.0-34.0) pg MCHC 31.5 (30.0-36.0) g/dL RDW 13.0 (12.1-15.1) % Plt Count 416 H (130-400) 10^3/c mm MPV 9.5 (7.4-10.4) fL Neut % (Auto) 77.5 % Lymph % (Auto) 12.8 % [place] % (Auto) 6.7 % Eos % (Auto) 2.1 % Baso % (Auto) 0.6 % Neut # (Auto) 5.6 (1.8-7.7) 10^3/u L Lymph # (Auto) 0.9 (0.8-4.8) 10^3/u L [place] # (Auto) 0.5 (0.2-0.9) 10^3/u L Eos # (Auto) 0.2 (0.0-0.8) 10^3/u L Baso # (Auto) 0.0 (0.0-0.1) 10^3/u L Nucleated RBC % (a uto) 0 % Nucleated RBCs # 0.0 /100WBC Sodium 141 (136-145) mmol/L Potassium 4.1 (3.5-5.1) mmol/L Chloride 102 (98-107) mmol/L Carbon Dioxide 27 (22-29) mmol/L Anion Gap 16.1 (5-19) BUN 13 (8-23) mg/dL Creatinine 0.5 (0.5-0.9) mg/dL Glucose 107 (65-115) mg/dL Calculated Osmolal ity 289 (285-295) mOsm/k g Calcium 9.8 (8.5-10.5) mg/dL Total Bilirubin 0.3 (0.15-1.2) mg/dL AST 23 (0-32) U/L ALT 15 (0-33) U/L Alkaline Phosphata se 113 H (35-105) IU/L Total Protein 7.1 (6.6-8.7) g/dL Albumin 4.3 (3.5-5.2) g/dL Globulin 2.8 (1.3-4.6) g/dL Discharge Plan Discharge Patient Disposition: Home, Self-Care Clinical Impression: Extravasation, infusion or chemotherapeutic agent Condition: Stable Prescriptions: New hydrocodone-acetaminophen 5-325 mg tablet 1 tab PO Q6H PRN (Reason: pain) Qty: 15 RF: 0 Medrol (Jeremias) 4 mg tablets,dose pack See Rx Instructions .ROUTE .COMPLEX Qty: 21 RF: 0 No Action potassium chloride 99 mg PO BID RF: 0 Tylenol 325 mg Tablet 325 mg PO QID PRN (Reason: Pain) RF: 0 Multiple Vitamin, Womens Tablet 1 tab PO DAILY RF: 0 sertraline 100 mg tablet 50 mg PO DAILY RF: 0 levothyroxine 100 mcg tablet 100 mcg PO DAILY RF: 0 magnesium oxide 400 mg magnesium Capsule 400 mg PO DAILY RF: 0 Glucosamine Chondroitin 250 mg tablet 5,000 mg PO DAILY RF: 0 calcium carbonate [Calcium 600] 600 mg calcium (1,500 mg) Tablet 600 mg PO DAILY RF: 0 dicyclomine 20 mg Tablet 20 mg PO QID PRN (Reason: Diarrhea) RF: 0 omeprazole 20 mg capsule,delayed release(DR/EC) 20 mg PO DAILY RF: 0 Discharge Orders: Discharge Order (Routine); Ordered 10/19/19 Ordered By: Prosper Juarez Referrals: Manuel Andrews DO [Primary Care Provider] - Discharge Diet: Usual diet Discharge Activity: Increase activity as tolerated Activity Restrictions/Additional Instructions: Follow-up with Dr. 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
[2019-10-19 11:41] LABS: Alanine Aminotransferase 15 U/L (0-33); Albumin Level 4.3 g/dL (3.5-5.2); Alkaline Phosphatase 113 IU/L (35-105); Anion Gap 16.1 (5-19); Aspartate Amino Transferase 23 U/L (0-32); Blood Urea Nitrogen 13 mg/dL (8-23); Calcium 9.8 mg/dL (8.5-10.5); Carbon Dioxide 27 mmol/L (22-29); Chloride 102 mmol/L (98-107); Globulin 2.8 g/dL (1.3-4.6); Glucose 107 mg/dL (65-115); Osmolality Calculated 289 mOsm/kg (285-295); Potassium 4.1 mmol/L (3.5-5.1); Sodium 141 mmol/L (136-145); Total Bilirubin 0.3 mg/dL (0.15-1.2); Total Protein 7.1 g/dL (6.6-8.7)
[2019-10-19] MEDS: iohexol 300 mg/mL 100 mL Btl IV (11:50)
[2019-10-19 12:27] VITALS: BP 141/67; PULSE 81; RESP 18; O2SAT 93
== END 2019-10-19 12:28 | disposition home or self-care (01) ==
PROVIDERS: Emergency Provider Family Medicine; Family Provider Internal Medicine; PCP Internal Medicine
DX: T80.89XA Other complications following infusion, transfusion and therapeutic injection, initial encounter (principal)
CPT/HCPCS: 12345; 36415; 71260; 80053; 85025; 87040; 99282; 99283; Q9967

== ENCOUNTER 2020-01-22 08:30 | Outpatient (RCR) | payer MEDICARE, OTHER, SELFPAY ==
[2020-01-15 14:17] LABS: Basophils # 0.1 10^3/uL (0.0-0.1); Basophils % 0.8 %; Eosinophils # 0.1 10^3/uL (0.0-0.8); Hematocrit 40.9 % (37.0-47.0); Hemoglobin 13.1 g/dL (11.5-15.3); Lymphocytes # 1.3 10^3/uL (0.8-4.8); Lymphocytes % 21.5 %; Mean Corpuscular Hemoglobin 27.9 pg (28.0-34.0); Mean Corpuscular Volume 87.2 fL (81-99); Mean Platelet Volume 10.4 fL (7.4-10.4); Monocytes # 0.5 10^3/uL (0.2-0.9); Monocytes % 8.3 %; Neutrophils # 3.97 10^3/uL (1.8-7.7); Neutrophils % 67.2 %; Nucleated Red Blood Cells % 0 %; Platelet Count 356 10^3/cmm (130-400); Red Blood Count 4.69 10^6/uL (4.1-5.3); Red Cell Distribution Width 13.6 % (12.1-15.1); White Blood Count 5.9 10^3/uL (4.0-10.0)
[2020-01-15 19:16] LABS: Alanine Aminotransferase 20 U/L (0-33); Albumin Level 4.3 g/dL (3.5-5.2); Alkaline Phosphatase 97 IU/L (35-105); Aspartate Amino Transferase 23 U/L (0-32); Blood Urea Nitrogen 13 mg/dL (8-23); Calcium 9.5 mg/dL (8.5-10.5); Carbon Dioxide 30 mmol/L (22-29); Chloride 101 mmol/L (98-107); Globulin 2.1 g/dL (1.3-4.6); Glucose 58 mg/dL (65-115); Osmolality Calculated 290 mOsm/kg (285-295); Sodium 143 mmol/L (136-145); Total Bilirubin 0.2 mg/dL (0.15-1.2); Total Protein 6.4 g/dL (6.6-8.7)
--- NOTE | 2020-01-16 14:54 | ONC FU_ITS ---
Dr. Randolph follow up note Patient: Anita Tyler Unit #: [id number]: 1945 Dicatated By: Radhika Randolph M.D.Date of Visit:Jan 16, 2020 Onc Med Follow-up/Prog Note History of Present Illness: Mrs. Harmon is a 74-year-old female with a short history of left breast mass. She underwent mammogram which confirmed a mass in left breast and she subsequently underwent sonogram guided biopsy on 04/07/2019. The biopsy confirmed infiltrating ductal carcinoma, ER/PA negative, HER-2/michael negative. She was referred to Dr Harding for possible surgery and on 04/25/2019 underwent left breast lumpectomy and sentinel lymph node biopsy. The biopsy reported infiltrating ductal carcinoma, 2 x 1.6 cm, grade 2, with positive surgical margins. The sentinel lymph node was negative for metastatic disease. Mrs Tyler underwent reexcision of positive surgical margins on 05/16/2019. This pathology confirmed clear margins. Pathological stage TIc, N0, grade 2, triple negative, stage IB. Her other medical illnesses include a history of thyroid disease, sleep apnea, osteoporosis, irritable bowel syndrome, history of basal cell carcinoma, GERD and depression. Mrs Tyler was offered further treatment with chemotherapy. She started on adjuvant chemotherapy with Cytoxan/Taxotere ???4 on 06/25/2019 and completed 4 cycles on 08/27/2019. Completed postlumpectomy radiation therapy On October 14, 2019 Due to port infection, Port-A-Cath was taken out on 10/04/2019 Came for follow-up, denies any specific complaint except off and on trace edema involving left leg/ankle patient said she used to take diurex [id number] diuretic for left ear water' but recently stopped taking it and noted swelling around her left ankle, denies any left calf tenderness, denies any trauma to left foot. As per patient she also noted firmness around her left breast lumpectomy site. But no discharge no overlying skin changes no nipple discharge no tenderness. Otherwise no fever chills no nausea or vomiting no diarrhea constipation. Medications: Apple Cider Vinegar 1 Capsule Oral daily, Drew 1 Capsule (of 3 mg) Oral daily, Calcium 1 Tablet (of 600 mg) Oral daily, Cranberry 1 Tablet Oral daily, Dicyclomine HCl 1 Tablet (of 20 mg) Oral four times a day PRN, Glucosamine Chondr Complex 1 Capsule (of 500-400 mg) Oral b.i.d., HYDROcodone-Acetaminophen 1 Tablet (of 5-325 mg) Oral q 5 hours PRN, Levothyroxine Sodium 1 Tablet (of 100 mg) Oral daily, Magnesium 1 Tablet (of 400 mg) Oral daily, Multivitamin Adult 1 Tablet Oral daily, Omeprazole 1 Capsule (of 20 mg) Capsule Delayed Release Oral daily, Potassium 1 Tablet (of 99 mg) Oral daily, Sertraline HCl 1 Tablet (of 50 mg) Oral daily, super strength water pills 1 Capsule daily, Turmeric 1 Tablet (of 500 mg) Oral daily, Vision Formula 2 1 Capsule Oral daily, Vitamin C 1 Capsule Oral daily, Vitamin D3 1 Tablet Oral daily, Vitamin E 1 Capsule Oral daily Allergies: Cephalexin, Nitrofurantoin Macrocrystal, Penicillins, red dye, and Sulfa Antibiotics. Review of Systems: Constitutional - Appetite is good and weight is stable. No fever, chills, hot flashes, or night sweats. Energy level is fair, ENMT - No sinus congestion/drainage. No mouth sores. No sore throat or difficulty swallowing, Hematologic/Lymphatic - No abnormal bruising or bleeding, Respiratory - No shortness of breath. No cough. No pleuritic pain or hemoptysis, Cardiovascular - No angina pain. No palpitations, Gastrointestinal - No nausea or vomiting. No heartburn or acid reflux. No diarrhea or constipation. No blood in the stool or black stools, Genitourinary (F) - No dysuria or hematuria. No urinary frequency. No urgency or incontinence, Musculoskeletal - No joint or bone pain, Neurologic - No headache or dizziness. No numbness/paresthesias or other focal neurologic symptoms, Psychiatric - No anxiety or depression. Positive for insomnia. Vital Signs: Performed on Jan 16, 2020 13:57 Height - 66.00 in Weight - 151.4 lbs (HIGH) BSA - 1.78 sq.m BMI - 24.44 Temperature - 97.8 F (LOW) Pulse - 75 /min Respiration - 20 /min BP - 129/64 mm(hg) O2 Sat - 100 % Pain - 0 Performance Status: 0 - Fully active, able to carry on all predisease activities without restrictions. (ECOG) Physical Examination: Respiratory - Lungs are clear, Cardiovascular - Regular rate and rhythm of heart, Breasts - Pain less firmness noted under left breast lumpectomy scar but no overlying skin changes, no nipple discharge, no left axillary lymphadenopathy, Gastrointestinal - Soft, bowel sounds present, Extremities - Trace edema around left ankle, no left calf tenderness. Lab/Imaging: Test performed on Jan 15, 2020 09:00 Glucose 58 mg/dL BUN 13 mg/dL Creatinine 0.5 mg/dL Cr Clearance (Est) 104.05 mL/min Sodium 143 mmol/L Potassium 4.0 mmol/L Chloride 101 mmol/L CO2 30 mmol/L Calcium 9.5 mg/dL Protein, Total 6.4 g/dL Albumin 4.3 g/dL Globulin 2.1 g/dL Bilirubin, Total 0.2 mg/dL Alkaline Phosphatase 97 IU/L AST (SGOT) 23 IU/L ALT (SGPT) 20 IU/L WBC 5.9 10^9/L RBC 4.69 10^12/L HGB 13.1 g/dL HCT 40.9 % MCV 87.2 fl MCH 27.9 pg MCHC 32.0 g/dL RDW 13.6 % Platelet Count 356 10^9/L MPV 10.4 fL Neutrophils (Gran) 3.97 10^9/L Lymphocytes 1.3 10^9/L Monocytes 0.5 10^9/L Eosinophils 0.1 10^9/L Basophils 0.1 10^9/L Manual Lymphocytes 21.5 % Manual Monocytes 8.3 % Manual Eosinophils 2.0 % Manual Basophils 0.8 % Test performed on Oct 10, 2019 13:17 Neutrophil % 74.5 % Lymphocyte % 14.5 % Monocyte % 8.0 % Eosinophil % 2.3 % Basophils % 0.6 % Test performed on Sep 11, 2019 12:27 Ferritin 255 ng/mL Iron 98 mcg/dL Vitamin B12 > 2000 pg/mL Iron Binding Capacity (TIBC) 263 mcg/dl % Iron Saturation 37.2 % UIBC 165 mcg/dL Anion Gap 14.4 Test performed on Jul 25, 2019 11:52 CBC Slide Review Slide Review Perform Impression: Invasive ductal carcinoma involving left breast status post left breast lumpectomy with sentinel lymph node done on 04/25/2019, final pathology report showed, grade 2, 2 x 1.6 cm invasive tumor with positive surgical margins subsequently patient underwent reexcision on 05/16/2019 and obtain clear margins, pT1c, sentinel lymph node negative for metastatic disease pN0 ER/PA negative, HER-2/michael negative Stage IB ( pT1c, N0, grade 2, ER/PA negative, HER-2/michael negative) Started on adjuvant therapy with Cytoxan/Taxotere every 3 weeks ???4 on 06/25/2019. Completed on August 27, 2019, followed by postlumpectomy radiation therapy starting October 10, 2019 through October 14, 2019 Plan: Discussed with patient regarding her labs white blood count 5.9 hemoglobin 13.1 hematocrit 40.9 platelets 356,000 CMP within normal limits Clinically, patient is doing well with no signs symptom suggestive of recurrence of disease, her lab work-up is within normal range. But patient is concerned about firmness around her left breast postlumpectomy scar. Patient finished her postlumpectomy radiation therapy in October 2019, it could be due to fibrosis but we will get mammogram and if it shows any abnormality may confirm further investigation. As far as left ankle swelling is concerned, etiology unclear but will get a left venous Doppler study to rule out DVT. Patient return to clinic after these tests done for further discussion. Also complaining of mild numbness in the right index finger, as per patient earlier during and after chemotherapy she did experience numbness and all the fingertips but most of them resolved except right index finger, could be due to carpal tunnel syndrome, further investigations were suggested but patient patient wants to wait, if there is no improvement may consider in the future. Signed By: Radhika Randolph M.D. <<Signature on File>>
--- NOTE | 2020-01-17 14:56 | MM_ITS ---
WS: [id number] DIAGNOSTIC LEFT DIGITAL MAMMOGRAM WITH CAD LEFT breast ultrasound, limited HISTORY: HX OF BREAST CA, prior lumpectomy. COMPARISON: 04/25/2019, 03/18/2019 and 02/28/2019 Technique: CC, MLO and ML views. Spot compression LEFT CC Breast composition: There are scattered areas of fibroglandular density. Well-circumscribed high den sity mass in the central portion of the LEFT breast measures 3.5 x 3.3 cm. This is at the site of the prior surgery. LEFT breast ultrasound. Palpable area at 12:00 corresponds to a complex mass with cystic and solid components with nonvascula rity. Mass has greater solid component than liquefication. Mass in its entirety measures 2.9 x 3.3 x 3.4 cm. This is at the site of the prior surgery. MM/[id number] IMPRESSION: BI-RADS: 3-Probably Benign FOLLOW UP: See Report Complex cystic mass at the surgical site corresponds to a large retracting and partially liquefying hematoma. There is no increased vascularity to suggest thi s is a neoplasm. Expected mass to resolve slowly. If mass does not resolve follow-up with surgeo n. BI-RADS 3 -- probably benign, 6-month follow-up
--- NOTE | 2020-01-17 15:27 | US_ITS ---
WS: [id number] DIAGNOSTIC LEFT DIGITAL MAMMOGRAM WITH CAD LEFT breast ultrasound, limited HISTORY: HX OF BREAST CA, prior lumpectomy. COMPARISON: 04/25/2019, 03/18/2019 and 02/28/2019 Technique: CC, MLO and ML views. Spot compression LEFT CC Breast composition: There are scattered areas of fibroglandular density. Well-circumscribed high den sity mass in the central portion of the LEFT breast measures 3.5 x 3.3 cm. This is at the site of the prior surgery. LEFT breast ultrasound. Palpable area at 12:00 corresponds to a complex mass with cystic and solid components with nonvascula rity. Mass has greater solid component than liquefication. Mass in its entirety measures 2.9 x 3.3 x 3.4 cm. This is at the site of the prior surgery. US/US breast LT limited* [id number] IMPRESSION: BI-RADS: 3-Probably Benign FOLLOW UP: See Report Complex cystic mass at the surgical site corresponds to a large retracting and partially liquefying hematoma. There is no increased vascularity to suggest thi s is a neoplasm. Expected mass to resolve slowly. If mass does not resolve follow-up with stas handy. BI-RADS 3 -- probably benign, 6-month follow-up
--- NOTE | 2020-01-22 08:39 | USCV_ITS ---
Anita Tyler Age: 74 Gender: F : 1945 Exam Date: 01/22/2020 08:34 Ordering Phys: Radhika Randolph MD Technologist: Ghada Jackson [place] [facility] [place]: LT LEG PAIN AND EDEMA HX OF BREAST CA HISTORY: Lower extremity edema. PROCEDURES: Venous duplex imaging was performed in only the left lower extremity. The following venous structures were evaluated: common femoral vein, profunda vein, proximal portion of the greater saphenous vein, superficial femoral vein, and the popliteal vein. In addition, the posterior tibial and peroneal trunk were evaluated. Serial compression, augmentation maneuvers, and spectral Doppler flow evaluation were performed. FINDINGS: Normal 2-D Doppler and augmentation and compressibility throughout the lower extremity venous structures. Additional imaging through the proximal calf veins also reveals no thrombus. Limited evaluation of the greater saphenous vein is patent with no thrombus.. CONCLUSIONS No evidence of left lower extremity DVT. Gregorio Lauren MD (Electronically Signed) Final Date: 22 January 2020 09:52 S
== END 2020-02-10 23:59 | disposition home or self-care (01) ==
LOC: ONCMED 08:30
PROVIDERS: Radiology Radiation Oncology; PCP Internal Medicine; Visit Provider Internal Medicine Hematology & Oncology
DX: C50.112 Malignant neoplasm of central portion of left female breast (principal); D70.1 Agranulocytosis secondary to cancer chemotherapy; Z17.1 Estrogen receptor negative status [ER-]; M79.605 Pain in left leg; R60.9 Edema, unspecified
CPT/HCPCS: 36415; 76642; 77065; 80053; 85025; 93971; 99214

== ENCOUNTER → 2020-02-08 15:00 | Outpatient (BNVA) | payer MEDICARE, OTHER, SELFPAY | PROVIDERS: PCP Internal Medicine; Visit Provider Nurse Practitioner Family | DX: R39.9 Unspecified symptoms and signs involving the genitourinary system (principal); N39.0 Urinary tract infection, site not specified | CPT/HCPCS: 80053; 81000; 87077; 87086; 87186 ==

== ENCOUNTER → 2020-03-02 09:51 | Outpatient (BNVA) | payer MEDICARE, OTHER, SELFPAY | PROVIDERS: PCP Internal Medicine; Referring Provider Dermatology; Visit Provider Dermatology | DX: Z85.828 Personal history of other malignant neoplasm of skin (principal); Z12.83 Encounter for screening for malignant neoplasm of skin; L70.0 Acne vulgaris; L66.1 Lichen planopilaris; S30.860A Insect bite (nonvenomous) of lower back and pelvis, initial encounter; W57.XXXA Bitten or stung by nonvenomous insect and other nonvenomous arthropods, initial encounter; X58.XXXA Exposure to other specified factors, initial encounter; L82.1 Other seborrheic keratosis | CPT/HCPCS: 99203; 99204 ==

== ENCOUNTER 2020-03-03 05:59 | Outpatient (RCR) | payer MEDICARE, OTHER, SELFPAY ==
[2020-03-03 14:11] LABS: Basophils # 0.1 10^3/uL (0.0-0.1); Basophils % 0.9 %; Eosinophils # 0.1 10^3/uL (0.0-0.8); Eosinophils % 1.8 %; Hematocrit 38.3 % (37.0-47.0); Hemoglobin 12.2 g/dL (11.5-15.3); Lymphocytes # 1.5 10^3/uL (0.8-4.8); Lymphocytes % 26.2 %; Mean Corpuscular HGB Conc 31.9 g/dL (30.0-36.0); Mean Corpuscular Hemoglobin 28.3 pg (28.0-34.0); Mean Corpuscular Volume 88.9 fL (81-99); Mean Platelet Volume 9.3 fL (7.4-10.4); Monocytes # 0.5 10^3/uL (0.2-0.9); Monocytes % 8.9 %; Neutrophils # 3.43 10^3/uL (1.8-7.7); Nucleated Red Blood Cells % 0 %; Platelet Count 350 10^3/cmm (130-400); Red Blood Count 4.31 10^6/uL (4.1-5.3); Red Cell Distribution Width 13.2 % (12.1-15.1); White Blood Count 5.5 10^3/uL (4.0-10.0)
[2020-03-03 14:32] LABS: Alanine Aminotransferase 21 U/L (0-33); Albumin Level 4.3 g/dL (3.5-5.2); Alkaline Phosphatase 103 IU/L (35-105); Anion Gap 14.4 (5-19); Aspartate Amino Transferase 25 U/L (0-32); Blood Urea Nitrogen 13 mg/dL (8-23); Calcium 10.2 mg/dL (8.5-10.5); Carbon Dioxide 29 mmol/L (22-29); Chloride 101 mmol/L (98-107); Globulin 2.7 g/dL (1.3-4.6); Glucose 123 mg/dL (65-115); Osmolality Calculated 291 mOsm/kg (285-295); Potassium 4.4 mmol/L (3.5-5.1); Sodium 140 mmol/L (136-145); Total Bilirubin 0.3 mg/dL (0.15-1.2)
--- NOTE | 2020-03-03 17:04 | ONC FU_ITS ---
Dr. Randolph follow up note Patient: Anita Tyler Unit #: [id number]: 1945 Dicatated By: Radhika Randolph M.D.Date of Visit:Mar 03, 2020 Onc Med Follow-up/Prog Note History of Present Illness: Mrs. Harmon is a 74-year-old female with a short history of left breast mass. She underwent mammogram which confirmed a mass in left breast and she subsequently underwent sonogram guided biopsy on 04/07/2019. The biopsy confirmed infiltrating ductal carcinoma, ER/VA negative, HER-2/michael negative. She was referred to Dr Harding for possible surgery and on 04/25/2019 underwent left breast lumpectomy and sentinel lymph node biopsy. The biopsy reported infiltrating ductal carcinoma, 2 x 1.6 cm, grade 2, with positive surgical margins. The sentinel lymph node was negative for metastatic disease. Mrs Tyler underwent reexcision of positive surgical margins on 05/16/2019. This pathology confirmed clear margins. Pathological stage TIc, N0, grade 2, triple negative, stage IB. Her other medical illnesses include a history of thyroid disease, sleep apnea, osteoporosis, irritable bowel syndrome, history of basal cell carcinoma, GERD and depression. Mrs Tyler was offered further treatment with chemotherapy. She started on adjuvant chemotherapy with Cytoxan/Taxotere ???4 on 06/25/2019 and completed 4 cycles on 08/27/2019. Completed postlumpectomy radiation therapy On October 14, 2019 Due to port infection, Port-A-Cath was taken out on 10/04/2019 Left breast mammogram/sonogram done on January 17, 2020 showed complex cystic mass at surgical site corresponds to large retracting and partially liquefying hematoma. There is no increased vascularity to suggest neoplasm. Venous Doppler study of left leg done on January 22, 2020 showed no evidence of lower extremity DVT .Came for follow-up, denies any specific complaint except generalized weakness and fatigue and mild left leg trace edema otherwise no pain in the leg no calf tenderness. And also has persistent left breast mass no pain, no nipple discharge., No fever chills, no nausea or vomiting, no diarrhea or constipation Medications: Apple Cider Vinegar 1 Capsule Oral daily, Aurora 1 Capsule (of 3 mg) Oral daily, Calcium 1 Tablet (of 600 mg) Oral daily, Cranberry 1 Tablet Oral daily, Dicyclomine HCl 1 Tablet (of 20 mg) Oral four times a day PRN, Glucosamine Chondr Complex 1 Capsule (of 500-400 mg) Oral b.i.d., HYDROcodone-Acetaminophen 1 Tablet (of 5-325 mg) Oral q 5 hours PRN, Levothyroxine Sodium 1 Tablet (of 100 mg) Oral daily, Magnesium 1 Tablet (of 400 mg) Oral daily, Multivitamin Adult 1 Tablet Oral daily, Omeprazole 1 Capsule (of 20 mg) Capsule Delayed Release Oral daily, Potassium 1 Tablet (of 99 mg) Oral daily, Sertraline HCl 1 Tablet (of 50 mg) Oral daily, super strength water pills 1 Capsule daily, Turmeric 1 Tablet (of 500 mg) Oral daily, Vision Formula 2 1 Capsule Oral daily, Vitamin C 1 Capsule Oral daily, Vitamin D3 1 Tablet Oral daily, Vitamin E 1 Capsule Oral daily Allergies: Cefdinir, Cephalexin, Nitrofurantoin Macrocrystal, Penicillins, red dye, and Sulfa Antibiotics. Review of Systems: Review of Systems is not available for this patient. Vital Signs: Performed on Mar 03, 2020 15:50 Height - 66.00 in Weight - 150.8 lbs (LOW) BSA - 1.77 sq.m BMI - 24.34 Temperature - 97.4 F (LOW) Pulse - 73 /min Respiration - 18 /min BP - 120/60 mm(hg) O2 Sat - 97 % Pain - 0 Performance Status: 0 - Fully active, able to carry on all predisease activities without restrictions. (ECOG) Physical Examination: Respiratory - Lungs are clear to auscultation, Cardiovascular - Regular rate and rhythm of heart, Gastrointestinal - Soft, bowel sounds present, Extremities - Trace edema left leg. Lab/Imaging: Test performed on Jan 15, 2020 09:00 Glucose 58 mg/dL BUN 13 mg/dL Creatinine 0.5 mg/dL Cr Clearance (Est) 104.05 mL/min Sodium 143 mmol/L Potassium 4.0 mmol/L Chloride 101 mmol/L CO2 30 mmol/L Calcium 9.5 mg/dL Protein, Total 6.4 g/dL Albumin 4.3 g/dL Globulin 2.1 g/dL Bilirubin, Total 0.2 mg/dL Alkaline Phosphatase 97 IU/L AST (SGOT) 23 IU/L ALT (SGPT) 20 IU/L WBC 5.9 10^9/L RBC 4.69 10^12/L HGB 13.1 g/dL HCT 40.9 % MCV 87.2 fl MCH 27.9 pg MCHC 32.0 g/dL RDW 13.6 % Platelet Count 356 10^9/L MPV 10.4 fL Neutrophils (Gran) 3.97 10^9/L Lymphocytes 1.3 10^9/L Monocytes 0.5 10^9/L Eosinophils 0.1 10^9/L Basophils 0.1 10^9/L Manual Lymphocytes 21.5 % Manual Monocytes 8.3 % Manual Eosinophils 2.0 % Manual Basophils 0.8 % Test performed on Oct 10, 2019 13:17 Neutrophil % 74.5 % Lymphocyte % 14.5 % Monocyte % 8.0 % Eosinophil % 2.3 % Basophils % 0.6 % Test performed on Sep 11, 2019 12:27 Ferritin 255 ng/mL Iron 98 mcg/dL Vitamin B12 > 2000 pg/mL Iron Binding Capacity (TIBC) 263 mcg/dl % Iron Saturation 37.2 % UIBC 165 mcg/dL Anion Gap 14.4 Impression: Invasive ductal carcinoma involving left breast status post left breast lumpectomy with sentinel lymph node done on 04/25/2019, final pathology report showed, grade 2, 2 x 1.6 cm invasive tumor with positive surgical margins subsequently patient underwent reexcision on 05/16/2019 and obtain clear margins, pT1c, sentinel lymph node negative for metastatic disease pN0 ER/VA negative, HER-2/michael negative Stage IB ( pT1c, N0, grade 2, ER/VA negative, HER-2/michael negative) Started on adjuvant therapy with Cytoxan/Taxotere every 3 weeks ???4 on 06/25/2019. Completed on August 27, 2019, followed by postlumpectomy radiation therapy starting October 10, 2019 through October 14, 2019 Plan: Discussed with patient regarding her labs white blood count 5.5 hemoglobin 12.2 hematocrit 38.3 platelets 350,000 CMP within normal limits Left breast mammogram/sonogram done on January 17, 2020 showed complex mass at surgical site in the left breast consistent with resolving hematoma. And left leg venous Doppler study done on January 22, 2020 showed no evidence of DVT Clinically, patient is doing well with no new signs symptom suggestive of recurrence of disease her lab work-up is within normal range and her follow-up mammogram with special attention to left breast mass at surgical site is consistent with hematoma and follow-up mammogram/sonogram of left breast is recommended in 6 months. And venous Doppler study of left leg showed no evidence of DVT. Patient was reassured and lab work-up and mammogram/sonogram/venous Doppler study was discussed in detail and we will consider repeating her mammogram/sonogram of left breast in 6 months and plan accordingly. Signed By: Radhika Randolph M.D. <<Signature on File>>
== END 2020-03-11 23:59 | disposition home or self-care (01) ==
LOC: ONCMED 05:59
PROVIDERS: PCP Internal Medicine; Visit Provider Internal Medicine Hematology & Oncology
DX: C50.112 Malignant neoplasm of central portion of left female breast (principal); Z17.1 Estrogen receptor negative status [ER-]; D70.1 Agranulocytosis secondary to cancer chemotherapy; T45.1X5A Adverse effect of antineoplastic and immunosuppressive drugs, initial encounter
CPT/HCPCS: 36415; 80053; 85025; G0463

== ENCOUNTER 2020-07-15 09:04 | Outpatient (CLI) | payer MEDICARE, OTHER, SELFPAY ==
--- NOTE | 2020-07-15 09:38 | MM_ITS ---
WS: [id number] BILATERAL DIGITAL DIAGNOSTIC MAMMOGRAM MAMMOGRAPHY WITH CAD CLINICAL INFORMATION: HX OF INTRADUCT CA INSITU. LEFT BREAST LUMP. COMPARISON: January 17, 2020 and 2018 TECHNIQUE: Bilateral CC, MLO, and ML views. FINDINGS: Scattered fibroglandular densities bilaterally. Again seen is the well-circumscribed increased densit y ovoid lesion in the central left breast measuring approximately 3.3 x 3.0 cm unchanged in appearanc e from previous. This in the setting of prior surgery. Ultrasound is pending. Benign punctate calcifications right breast. Right breast is otherwise unremarkable. ULTRASOUND BREAST LEFT TECHNIQUE: Ultrasound left breast focused area of concern. CLINICAL INFORMATION: HX OF INTRADUCT CA INSITU FINDINGS: Again seen is the complex cystic mass at the surgical resection site similar in appearance to the dominique or examination. This is essentially unchanged in size. No internal vascularity. This most likely repr esents postoperative seroma/complex hematoma. This is probably benign and recommend 6 month follow-up imaging. However, also consider breast surgical consultation for resection in the interim el david the lack of improvement MM/[place] [id number] IMPRESSION: BI-RADS: 3-Probably Benign FOLLOW UP: 6 Month Follow-up Recommend breast surgery consultation for surgical consideration considering th e lack of resolution Otherwise, Recommend 6 month follow-up left diagnostic mammography and ultrasou nd
--- NOTE | 2020-07-15 10:00 | US_ITS ---
WS: [id number] BILATERAL DIGITAL DIAGNOSTIC MAMMOGRAM MAMMOGRAPHY WITH CAD CLINICAL INFORMATION: HX OF INTRADUCT CA INSITU. LEFT BREAST LUMP. COMPARISON: January 17, 2020 and 2018 TECHNIQUE: Bilateral CC, MLO, and ML views. FINDINGS: Scattered fibroglandular densities bilaterally. Again seen is the well-circumscribed increased densit y ovoid lesion in the central left breast measuring approximately 3.3 x 3.0 cm unchanged in appearanc e from previous. This in the setting of prior surgery. Ultrasound is pending. Benign punctate calcifications right breast. Right breast is otherwise unremarkable. ULTRASOUND BREAST LEFT TECHNIQUE: Ultrasound left breast focused area of concern. CLINICAL INFORMATION: HX OF INTRADUCT CA INSITU FINDINGS: Again seen is the complex cystic mass at the surgical resection site similar in appearance to the dominique or examination. This is essentially unchanged in size. No internal vascularity. This most likely repr esents postoperative seroma/complex hematoma. This is probably benign and recommend 6 month follow-up imaging. However, also consider breast surgical consultation for resection in the interim el david the lack of improvement US/US breast LT limited* [id number] IMPRESSION: BI-RADS: 3-Probably Benign FOLLOW UP: 6 Month Follow-up Recommend breast surgery consultation for surgical consideration considering th e lack of resolution Otherwise, Recommend 6 month follow-up left diagnostic mammography and ultrasou nd
== END 2020-07-15 09:05 | disposition home or self-care (01) ==
PROVIDERS: PCP Internal Medicine; Visit Provider Internal Medicine
DX: Z85.3 Personal history of malignant neoplasm of breast (principal); N63.20 Unspecified lump in the left breast, unspecified quadrant
CPT/HCPCS: 76642; 77066

== ENCOUNTER 2020-08-27 08:30 | Outpatient (CLI) | payer MEDICARE, OTHER, SELFPAY ==
[2020-08-27 09:17] LABS: Basophils # 0.1 10^3/uL (0.0-0.1); Eosinophils # 0.1 10^3/uL (0.0-0.8); Eosinophils % 2.3 %; Hematocrit 39.3 % (37.0-47.0); Hemoglobin 12.8 g/dL (11.5-15.3); Lymphocytes # 1.4 10^3/uL (0.8-4.8); Lymphocytes % 29.6 %; Mean Corpuscular HGB Conc 32.6 g/dL (30.0-36.0); Mean Corpuscular Volume 89.1 fL (81-99); Monocytes # 0.5 10^3/uL (0.2-0.9); Monocytes % 9.2 %; Neutrophils # 2.81 10^3/uL (1.8-7.7); Neutrophils % 57.7 %; Nucleated Red Blood Cells % 0 %; Platelet Count 293 10^3/cmm (130-400); Red Blood Count 4.41 10^6/uL (4.1-5.3); Red Cell Distribution Width 12.6 % (12.1-15.1); White Blood Count 4.9 10^3/uL (4.0-10.0)
[2020-08-27 09:32] LABS: Alanine Aminotransferase 13 U/L (0-33); Albumin Level 4.1 g/dL (3.5-5.2); Alkaline Phosphatase 86 IU/L (35-105); Anion Gap 11.1 (5-19); Aspartate Amino Transferase 17 U/L (0-32); Blood Urea Nitrogen 16 mg/dL (8-23); Calcium 9.5 mg/dL (8.5-10.5); Carbon Dioxide 29 mmol/L (22-29); Chloride 103 mmol/L (98-107); Globulin 2.5 g/dL (1.3-4.6); Glucose 90 mg/dL (65-115); Osmolality Calculated 289 mOsm/kg (285-295); Potassium 4.1 mmol/L (3.5-5.1); Sodium 139 mmol/L (136-145); Total Bilirubin 0.4 mg/dL (0.15-1.2); Total Protein 6.6 g/dL (6.6-8.7)
== END 2020-08-27 08:31 | disposition home or self-care (01) ==
LOC: ONCMED 08:33
PROVIDERS: PCP Internal Medicine; Visit Provider Internal Medicine Hematology & Oncology
DX: C50.112 Malignant neoplasm of central portion of left female breast (principal); Z17.1 Estrogen receptor negative status [ER-]; D70.1 Agranulocytosis secondary to cancer chemotherapy; T45.1X5A Adverse effect of antineoplastic and immunosuppressive drugs, initial encounter
CPT/HCPCS: 36415; 80053; 85025

== ENCOUNTER 2020-08-28 05:40 | Outpatient (CLI) | payer MEDICARE, OTHER, SELFPAY ==
--- NOTE | 2020-08-28 09:38 | ONC FU_ITS ---
Dr. Randolph follow up note Patient: Anita Tyler Unit #: [id number]: 1945 Dicatated By: Radhika Randolph M.D.Date of Visit:Aug 28, 2020 Onc Med Follow-up/Prog Note History of Present Illness: Mrs. Harmon is a 74-year-old female with a short history of left breast mass. She underwent mammogram which confirmed a mass in left breast and she subsequently underwent sonogram guided biopsy on 04/07/2019. The biopsy confirmed infiltrating ductal carcinoma, ER/GA negative, HER-2/michael negative. She was referred to Dr Harding for possible surgery and on 04/25/2019 underwent left breast lumpectomy and sentinel lymph node biopsy. The biopsy reported infiltrating ductal carcinoma, 2 x 1.6 cm, grade 2, with positive surgical margins. The sentinel lymph node was negative for metastatic disease. Mrs Tyler underwent reexcision of positive surgical margins on 05/16/2019. This pathology confirmed clear margins. Pathological stage TIc, N0, grade 2, triple negative, stage IB. Her other medical illnesses include a history of thyroid disease, sleep apnea, osteoporosis, irritable bowel syndrome, history of basal cell carcinoma, GERD and depression. Mrs Tyler was offered further treatment with chemotherapy. She started on adjuvant chemotherapy with Cytoxan/Taxotere ???4 on 06/25/2019 and completed 4 cycles on 08/27/2019. Completed postlumpectomy radiation therapy On October 14, 2019 Due to port infection, Port-A-Cath was taken out on 10/04/2019 Left breast mammogram/sonogram done on January 17, 2020 showed complex cystic mass at surgical site corresponds to large retracting and partially liquefying hematoma. There is no increased vascularity to suggest neoplasm. Venous Doppler study of left leg done on January 22, 2020 showed no evidence of lower extremity DVT Repeat mammogram done on August 12, 2020 showed persistent complex cystic mass at the surgical resection site similar in appearance to the prior examination. Essentially unchanged in size. Most likely represents postoperative seroma/complex hematoma, follow-up mammogram in 6-month was recommended. Came for follow-up, denies any specific complaints, no fever chills, no nausea or vomiting, no diarrhea constipation, no nipple discharge, no new bony pains, no pain or discomfort in left breast. As per patient she has seen Dr. Harding about 3 weeks ago regarding this left breast swelling, patient said he was not too concerned and told her intervention at this time will not be helpful unless until she has symptoms especially pain or discomfort or increase in size. Medications: Apple Cider Vinegar 1 Capsule Oral daily, [place] 1 Capsule (of 3 mg) Oral daily, Calcium 1 Tablet (of 600 mg) Oral daily, Cranberry 1 Tablet Oral daily, Dicyclomine HCl 1 Tablet (of 20 mg) Oral four times a day PRN, Glucosamine Chondr Complex 1 Capsule (of 500-400 mg) Oral b.i.d., HYDROcodone-Acetaminophen 1 Tablet (of 5-325 mg) Oral q 5 hours PRN, Levothyroxine Sodium 1 Tablet (of 100 mg) Oral daily, Magnesium 1 Tablet (of 400 mg) Oral daily, Multivitamin Adult 1 Tablet Oral daily, Omeprazole 1 Capsule (of 20 mg) Capsule Delayed Release Oral daily, Potassium 1 Tablet (of 99 mg) Oral daily, Sertraline HCl 1 Tablet (of 50 mg) Oral daily, super strength water pills 1 Capsule daily, Turmeric 1 Tablet (of 500 mg) Oral daily, Vision Formula 2 1 Capsule Oral daily, Vitamin C 1 Capsule Oral daily, Vitamin D3 1 Tablet Oral daily, Vitamin E 1 Capsule Oral daily Allergies: Cefdinir, Cephalexin, Nitrofurantoin Macrocrystal, Penicillins, red dye, and Sulfa Antibiotics. Review of Systems: Review of Systems is not available for this patient. Vital Signs: Performed on Aug 28, 2020 09:01 Height - 66.00 in Weight - 151.8 lbs (HIGH) BSA - 1.78 sq.m BMI - 24.50 Temperature - 97.3 F (LOW) Pulse - 72 /min Respiration - 18 /min BP - 155/72 mm(hg) (HIGH) O2 Sat - 99 % Pain - 0 Performance Status: 0 - Fully active, able to carry on all predisease activities without restrictions. (ECOG) Physical Examination: Respiratory - Lungs are clear to auscultation, Cardiovascular - Regular rate and rhythm of heart, Gastrointestinal - Soft, bowel sounds present, Extremities - No visible edema. Lab/Imaging: Test performed on Mar 03, 2020 14:02 Sodium 140 mmol/L Potassium 4.4 mmol/L Chloride 101 mmol/L CO2 29 mmol/L Anion Gap 14.4 BUN 13 mg/dL Creatinine 0.6 mg/dL Cr Clearance (Est) 86.7100 mL/min Glucose 123 mg/dL Osmolality - Calculated 291 mOsm/kg Calcium 10.2 mg/dL Protein, Total 7.0 g/dL Albumin 4.3 g/dL Globulin 2.7 g/dL Bilirubin, Total 0.3 mg/dL ALT (SGPT) 21 U/L AST (SGOT) 25 U/L Alkaline Phosphatase 103 IU/L WBC 5.5 10 3/uL RBC 4.31 10 6/uL HGB 12.2 g/dL HCT 38.3 % MCV 88.9 fL MCH 28.3 pg MCHC 31.9 g/dL RDW 13.2 % Platelet Count 350 10 3/cmm MPV 9.3 fL Neutrophils 3.43 10 3/uL Lymphocytes 1.5 10 3/uL Monocytes 0.5 10 3/uL Eosinophils 0.1 10 3/uL Basophils 0.1 10 3/uL Neutrophil % 62.0 % Lymphocyte % 26.2 % Monocyte % 8.9 % Eosinophil % 1.8 % Basophils % 0.9 % NRBC % 0 % Impression: Invasive ductal carcinoma involving left breast status post left breast lumpectomy with sentinel lymph node done on 04/25/2019, final pathology report showed, grade 2, 2 x 1.6 cm invasive tumor with positive surgical margins subsequently patient underwent reexcision on 05/16/2019 and obtain clear margins, pT1c, sentinel lymph node negative for metastatic disease pN0 ER/GA negative, HER-2/michael negative Stage IB ( pT1c, N0, grade 2, ER/GA negative, HER-2/michael negative) Started on adjuvant therapy with Cytoxan/Taxotere every 3 weeks ???4 on 06/25/2019. Completed on August 27, 2019, followed by postlumpectomy radiation therapy starting October 10, 2019 through October 14, 2019 Mammogram done on July 15, 2020 showed persistent complex cystic mass at the surgical resection site similar in appearance to previous mammogram, essentially unchanged. Most likely represents postoperative seroma/complex hematoma, follow-up mammogram in 6 months recommended Plan: Discussed with patient regarding her mammogram done on July 15, 2020 which showed persistent complex cystic mass, unchanged, most likely represent postoperative seroma/complex hematoma Her labs shows white blood count 4.9 hemoglobin 12.8 hematocrit 39.3 platelets 293k CMP within normal limits Clinically, patient is doing well with no new signs symptom suggestive of disease progression, her follow-up mammogram shows persistent left breast cystic mass probably due to postop seroma or hematoma, now being followed by Dr. Harding. As per recommendations we will repeat mammogram in 6 months and patient return to clinic after mammogram. Signed By: Radhika Randolph M.D. <<Signature on File>>
== END 2020-08-28 05:41 | disposition home or self-care (01) ==
LOC: ONCMED 05:44
PROVIDERS: PCP Internal Medicine; Visit Provider Internal Medicine Hematology & Oncology
DX: C50.112 Malignant neoplasm of central portion of left female breast (principal); Z17.1 Estrogen receptor negative status [ER-]; N60.02 Solitary cyst of left breast; Z92.3 Personal history of irradiation; Z92.21 Personal history of antineoplastic chemotherapy
CPT/HCPCS: G0463

== ENCOUNTER 2020-10-09 13:55 | Outpatient (CLI) | payer MEDICARE, OTHER, SELFPAY ==
--- NOTE | 2020-10-09 14:05 | XR_ITS ---
WS: [id number] SCREENING DEXA SCAN eSNF CLINICAL INFORMATION: OSTEOPOROSIS COMPARISON: None. FINDINGS: The L1-L4 bone mineral density measures 0.945 g/cm2. This corresponds to a T score score of -2.0 and Z score of -0.2. Left femoral neck bone mineral density measures 0.744. This corresponds to a T score of -2.1 and Z sc ore of -0.3. XR/XR DEXA axial skeleton* 13354 IMPRESSION: Osteopenia Patient's FRAX calculated 10 year probability for major osteoporotic fracture i s 17.1 % and osteoporotic hip fracture is 5.5%.
== END 2020-10-09 13:56 | disposition home or self-care (01) ==
LOC: RADWPI 14:02
PROVIDERS: PCP Internal Medicine; Visit Provider Internal Medicine
DX: M81.0 Age-related osteoporosis without current pathological fracture (principal); M85.89 Other specified disorders of bone density and structure, multiple sites
CPT/HCPCS: 77080

== ENCOUNTER 2020-10-27 12:55 | Outpatient (CLI) | payer MEDICARE, OTHER, SELFPAY ==
[2020-10-27 13:14] VITALS: BP 145/72; PULSE 79; RESP 18; TEMP 36.3; O2SAT 97
[2020-10-27] MEDS: denosumab 60 mg SDV SUBCUT (13:22)
== END 2020-10-27 12:56 | disposition home or self-care (01) ==
LOC: ONCMED 13:00
PROVIDERS: PCP Internal Medicine; Visit Provider Internal Medicine
DX: M81.0 Age-related osteoporosis without current pathological fracture (principal)
CPT/HCPCS: 96372; J0897

== ENCOUNTER 2021-03-05 14:16 | Outpatient (CLI) | payer MEDICARE, OTHER, SELFPAY ==
--- NOTE | 2021-03-05 14:29 | MM_ITS ---
WS: [id number] LEFT DIGITAL MAMMOGRAPHY WITH CAD CLINICAL INFORMATION: 6 MO F/U ABNORMAL MAMMOGRAM LT BREAST HISTORY: Six-month follow-up COMPARISON: July 15, 2020 TECHNIQUE: 5 views of the left breast were obtained. FINDINGS: Scattered fibroglandular densities of the left breast. Again seen is the well-circumscribed increased density ovoid lesion in the central left breast measur ing approximately 2.8 x 2.8 cm compared to 2.9 x 3.3 cm previous. This in the setting of prior surger y. Ultrasound is pending. Benign punctate calcifications right breast. Right breast is otherwise unremarkable. ULTRASOUND BREAST LEFT TECHNIQUE: Ultrasound left breast focused area of concern. CLINICAL INFORMATION: 6 MO F/U ABNORMAL MAMMOGRAM LT BREAST COMPARISON: None. FINDINGS: Ultrasound left breast just beneath the surgical scar. Ultrasound performed at the 1:00 position. Aga in seen is the complex cystic mass in the surgical resection site similar in appearance the prior exa mination. Today's measures 3.0 x 2.3 x 3.0 cm compared 3.6 x 3.0 x 3.2 cm. This is slightly smaller c ompared to previous. Considering persistence and overall lack of improvement recommend further evalua tion with breast surgery versus ultrasound-guided biopsy to exclude recurrent neoplasm. No internal v ascularity. MM/[place] [id number] IMPRESSION: BI-RADS: 4-Suspicious Finding-Biopsy Should Be Considered FOLLOW UP: See Report RECOMMEND SURGICAL RESECTION OR ULTRASOUND-GUIDED BIOPSY LEFT BREAST COMPLEX CY STIC MASS CONSIDERING RELATIVE LACK OF IMPROVEMENT OVER THE PRIOR 6 MONTHS.
== END 2021-03-05 14:17 | disposition home or self-care (01) ==
PROVIDERS: PCP Internal Medicine; Visit Provider Internal Medicine
DX: R92.8 Other abnormal and inconclusive findings on diagnostic imaging of breast (principal); N63.21 Unspecified lump in the left breast, upper outer quadrant
CPT/HCPCS: 76642; 77065

== ENCOUNTER 2021-03-16 13:53 | Outpatient (CLI) | payer MEDICARE, OTHER, SELFPAY ==
--- NOTE | 2021-03-16 14:53 | ONC FU_ITS ---
Dr. Randolph follow up note Patient: Anita Tyler Unit #: [id number]: 1945 Dicatated By: Radhika Randolph M.D.Date of Visit:Mar 16, 2021 Onc Med Follow-up/Prog Note History of Present Illness: Mrs. Harmon is a 75-year-old female with a short history of left breast mass. She underwent mammogram which confirmed a mass in left breast and she subsequently underwent sonogram guided biopsy on 04/07/2019. The biopsy confirmed infiltrating ductal carcinoma, ER/[place] negative, HER-2/michael negative. She was referred to Dr Harding for possible surgery and on 04/25/2019 underwent left breast lumpectomy and sentinel lymph node biopsy. The biopsy reported infiltrating ductal carcinoma, 2 x 1.6 cm, grade 2, with positive surgical margins. The sentinel lymph node was negative for metastatic disease. Mrs Tyler underwent reexcision of positive surgical margins on 05/16/2019. This pathology confirmed clear margins. Pathological stage TIc, N0, grade 2, triple negative, stage IB. Her other medical illnesses include a history of thyroid disease, sleep apnea, osteoporosis, irritable bowel syndrome, history of basal cell carcinoma, GERD and depression. Mrs Tyler was offered further treatment with chemotherapy. She started on adjuvant chemotherapy with Cytoxan/Taxotere ???4 on 06/25/2019 and completed 4 cycles on 08/27/2019. Completed postlumpectomy radiation therapy On October 14, 2019 Due to port infection, Port-A-Cath was taken out on 10/04/2019 Left breast mammogram/sonogram done on January 17, 2020 showed complex cystic mass at surgical site corresponds to large retracting and partially liquefying hematoma. There is no increased vascularity to suggest neoplasm. Venous Doppler study of left leg done on January 22, 2020 showed no evidence of lower extremity DVT Repeat mammogram done on jul 15, 2020 showed persistent complex cystic mass at the surgical resection site similar in appearance to the prior examination. Essentially unchanged in size. Most likely represents postoperative seroma/complex hematoma, follow-up mammogram in 6-month was recommended.Follow-up mammogram done on 03/05/2021 shows persistent, well circumscribed increased density ovoid lesion in the central left breast measuring about 2.8 x 2.8 cm compared to 2.9 x 3.3 previously on 07/15/2020. Benign punctate calcifications right breast otherwise unremarkable Came for follow-up, denies any specific complaints, no new bony pains, no nipple discharge from left side, no fever chills, no nausea or vomiting, no new bony pains but persistent mass in her left breast, recently underwent mammogram showed persistent mass in her left breast, BI-RADS 4 suspicious finding, biopsy recommended Medications: Apple Cider Vinegar 1 Capsule Oral daily, [place] 1 Capsule (of 3 mg) Oral daily, Calcium 1 Tablet (of 600 mg) Oral daily, Cranberry 1 Tablet Oral daily, Dicyclomine HCl 1 Tablet (of 20 mg) Oral four times a day PRN, Glucosamine Chondr Complex 1 Capsule (of 500-400 mg) Oral b.i.d., HYDROcodone-Acetaminophen 1 Tablet (of 5-325 mg) Oral q 5 hours PRN, Levothyroxine Sodium 1 Tablet (of 100 mg) Oral daily, Magnesium 1 Tablet (of 400 mg) Oral daily, Multivitamin Adult 1 Tablet Oral daily, Omeprazole 1 Capsule (of 20 mg) Capsule Delayed Release Oral daily, Potassium 1 Tablet (of 99 mg) Oral daily, Sertraline HCl 1 Tablet (of 50 mg) Oral daily, super strength water pills 1 Capsule daily, Turmeric 1 Tablet (of 500 mg) Oral daily, Vision Formula 2 1 Capsule Oral daily, Vitamin C 1 Capsule Oral daily, Vitamin D3 1 Tablet Oral daily, Vitamin E 1 Capsule Oral daily Allergies: Cefdinir, Cephalexin, Nitrofurantoin Macrocrystal, Penicillins, red dye, and Sulfa Antibiotics. Review of Systems: Review of Systems is not available for this patient. Vital Signs: Performed on Mar 16, 2021 14:37 Height - 66.00 in Weight - 148.8 lbs (LOW) BSA - 1.76 sq.m BMI - 24.02 Temperature - 97.9 F (LOW) Pulse - 70 /min Respiration - 18 /min BP - 138/81 mm(hg) O2 Sat - 95 % (LOW) Pain - 0 Fatigue - 5 Performance Status: 0 - Fully active, able to carry on all predisease activities without restrictions. (ECOG) Physical Examination: Respiratory - Lungs are clear to auscultation, Cardiovascular - Regular rate and rhythm of heart, Breasts - Left breast exam shows no nipple retraction well-healed surgical scar in the center part with fullness underneath, nontender no overlying skin changes no left axillary lymphadenopathy, Extremities - No visible edema. Lab/Imaging: Most recent lab results are not available for this patient. Impression: Invasive ductal carcinoma involving left breast status post left breast lumpectomy with sentinel lymph node done on 04/25/2019, final pathology report showed, grade 2, 2 x 1.6 cm invasive tumor with positive surgical margins subsequently patient underwent reexcision on 05/16/2019 and obtain clear margins, pT1c, sentinel lymph node negative for metastatic disease pN0 ER/OH negative, HER-2/michael negative Stage IB ( pT1c, N0, grade 2, ER/[place] negative, HER-2/michael negative) Started on adjuvant therapy with Cytoxan/Taxotere every 3 weeks ???4 on 06/25/2019. Completed on August 27, 2019, followed by postlumpectomy radiation therapy starting October 10, 2019 through October 14, 2019 Mammogram done on July 15, 2020 showed persistent complex cystic mass at the surgical resection site similar in appearance to previous mammogram, essentially unchanged. Most likely represents postoperative seroma/complex hematoma, follow-up mammogram in 6 months recommended Plan: Discussed with patient regarding her 6 monthly follow-up mammogram which was done on 03/05/2021 which showed persistent left breast central, well-circumscribed increased density size about 2.8 x 2.8 cm compared to 2.9 x 3.3 cm previously, ultrasound-guided biopsy is recommended considering lack of improvement over the period of 6 months. We will discuss with Dr. Harding regarding further intervention eg ultrasound-guided biopsy or observation Signed By: Radhika Randolph M.D. <<Signature on File>>
--- NOTE | 2021-04-15 08:57 | PC.NURSE ---
Called Dr. Harding's office about consult for surgical resection. Taya, confirmed patient was to continue to monitor breast lump. Will follow up in 6 months. Lenard SAMPSON
== END 2021-03-16 13:54 | disposition home or self-care (01) ==
LOC: ONCMED 13:59
PROVIDERS: PCP Internal Medicine; Visit Provider Internal Medicine Hematology & Oncology
DX: C50.812 Malignant neoplasm of overlapping sites of left female breast (principal); Z17.1 Estrogen receptor negative status [ER-]; Z92.3 Personal history of irradiation; Z79.811 Long term (current) use of aromatase inhibitors; Z79.899 Other long term (current) drug therapy
CPT/HCPCS: 99214

== ENCOUNTER 2021-05-11 11:09 | Outpatient (CLI) | payer MEDICARE, OTHER, SELFPAY ==
[2021-05-11 11:23] VITALS: BP 135/68; PULSE 75; RESP 18; TEMP 36.1; O2SAT 97
[2021-05-11] MEDS: denosumab 60 mg SDV SUBCUT (11:45)
[2021-05-11 11:50] VITALS: BP 138/68; PULSE 70; RESP 18; TEMP 36.4; O2SAT 94
== END 2021-05-11 11:10 | disposition home or self-care (01) ==
LOC: ONCMED 11:16
PROVIDERS: PCP Internal Medicine; Referring Provider Internal Medicine; Visit Provider Internal Medicine
DX: M81.0 Age-related osteoporosis without current pathological fracture (principal)
CPT/HCPCS: 96372; J0897

== ENCOUNTER → 2021-09-06 10:32 | Outpatient (BNVA) | payer MEDICARE, OTHER, SELFPAY | PROVIDERS: PCP Internal Medicine; Visit Provider Nurse Practitioner | DX: R05.9 Cough, unspecified (principal) | CPT/HCPCS: 87400 ==

== ENCOUNTER 2021-11-10 10:51 | Outpatient (CLI) | payer MEDICARE, OTHER, SELFPAY ==
[2021-11-10 11:14] VITALS: BP 129/61; PULSE 76; RESP 18; TEMP 36.7; O2SAT 97
[2021-11-10] MEDS: denosumab 60 mg SDV SUBCUT (11:22)
[2021-11-10 11:38] VITALS: BP 123/59; PULSE 70; RESP 18; TEMP 36.3; O2SAT 97
== END 2021-11-10 10:52 | disposition home or self-care (01) ==
LOC: ONCMED 10:51
PROVIDERS: PCP Internal Medicine; Referring Provider Internal Medicine; Visit Provider Internal Medicine
DX: M81.0 Age-related osteoporosis without current pathological fracture (principal)
CPT/HCPCS: 96372; J0897

== ENCOUNTER 2021-11-18 15:21 | Outpatient (CLI) | payer MEDICARE, OTHER, SELFPAY ==
--- NOTE | 2021-11-18 15:24 | MM_ITS ---
WS: [id number] BILATERAL 3D TOMOSYNTHESIS DIGITAL DIAGNOSTIC MAMMOGRAPHY WITH CAD CLINICAL INFORMATION: HX OF BREAST CANCER COMPARISON: March 05, 2021 TECHNIQUE: Bilateral CC, MLO, and ML views. FINDINGS: Scattered fibroglandular densities bilaterally. Previously described ovoid lesion LEFT breast though t to represent postoperative hematoma is a few millimeters smaller today. No other significant changes compared to previous. A few punctate calcifications. Postoperative oseguera es LEFT breast with parenchymal volume loss and lumpectomy. MM/[place] [id number] IMPRESSION: BI-RADS: 2-Benign FOLLOW UP: 1 Year Follow-up Recommend return to annual diagnostic mammography.
== END 2021-11-18 15:22 | disposition home or self-care (01) ==
PROVIDERS: PCP Internal Medicine; Visit Provider Internal Medicine
DX: Z85.3 Personal history of malignant neoplasm of breast (principal)
CPT/HCPCS: 77062

== ENCOUNTER 2021-12-07 11:58 | Outpatient (CLI) | payer MEDICARE, OTHER, SELFPAY ==
[2021-12-07 12:21] LABS: Basophils # 0.1 10^3/uL (0.0-0.1); Basophils % 0.7 %; Eosinophils # 0.1 10^3/uL (0.0-0.8); Eosinophils % 1.8 %; Hematocrit 38.2 % (37.0-47.0); Hemoglobin 13.1 g/dL (11.5-15.3); Lymphocytes # 1.7 10^3/uL (0.8-4.8); Lymphocytes % 24.6 %; Mean Corpuscular HGB Conc 34.3 g/dL (30.0-36.0); Mean Corpuscular Hemoglobin 29.8 pg (28.0-34.0); Mean Platelet Volume 9.8 fL (7.4-10.4); Monocytes # 0.6 10^3/uL (0.2-0.9); Monocytes % 8.7 %; Neutrophils # 4.29 10^3/uL (1.8-7.7); Neutrophils % 64.1 %; Nucleated Red Blood Cells % 0 %; Platelet Count 317 10^3/cmm (130-400); Red Blood Count 4.39 10^6/uL (4.1-5.3); Red Cell Distribution Width 12.2 % (12.1-15.1); White Blood Count 6.7 10^3/uL (4.0-10.0)
[2021-12-07 12:38] LABS: Alanine Aminotransferase 15 U/L (0-33); Albumin Level 4.2 g/dL (3.5-5.2); Alkaline Phosphatase 77 IU/L (35-105); Anion Gap 12.2 (5-19); Aspartate Amino Transferase 15 U/L (0-32); Blood Urea Nitrogen 18 mg/dL (8-23); Calcium 9.6 mg/dL (8.5-10.5); Carbon Dioxide 30 mmol/L (22-29); Chloride 102 mmol/L (98-107); Globulin 2.3 g/dL (1.3-4.6); Glucose 101 mg/dL (65-115); Osmolality Calculated 292 mOsm/kg (285-295); Potassium 4.2 mmol/L (3.5-5.1); Sodium 140 mmol/L (136-145); Total Bilirubin 0.2 mg/dL (0.15-1.2); Total Protein 6.5 g/dL (6.6-8.7)
== END 2021-12-07 11:59 | disposition home or self-care (01) ==
LOC: LAB 12:02
PROVIDERS: Internal Medicine Hematology & Oncology; PCP Internal Medicine; Visit Provider Internal Medicine Gastroenterology
DX: C50.112 Malignant neoplasm of central portion of left female breast (principal)
CPT/HCPCS: 80053; 85025

== ENCOUNTER 2021-12-07 13:34 | Oncology outpatient (recurring) (ONCR) | payer MEDICARE, OTHER, SELFPAY | END 2021-12-09 23:59 | disposition home or self-care (01) | LOC: ONCMED 13:36 | PROVIDERS: PCP Internal Medicine; Visit Provider Internal Medicine Hematology & Oncology | DX: C50.912 Malignant neoplasm of unspecified site of left female breast (principal); Z17.1 Estrogen receptor negative status [ER-]; Z85.828 Personal history of other malignant neoplasm of skin | CPT/HCPCS: 99214 ==

== ENCOUNTER 2022-05-16 09:06 | Outpatient (CLI) | payer MEDICARE, OTHER, SELFPAY ==
[2022-05-16 09:18] VITALS: BP 115/70; PULSE 75; RESP 18; TEMP 36.4; O2SAT 97
[2022-05-16] MEDS: denosumab 60 mg SDV SUBCUT (09:25)
[2022-05-16 09:32] VITALS: BP 123/70; PULSE 70; RESP 18; TEMP 36.4; O2SAT 95
== END 2022-05-16 09:07 | disposition home or self-care (01) ==
LOC: ONCMED 09:07
PROVIDERS: PCP Internal Medicine; Visit Provider Internal Medicine
DX: M81.0 Age-related osteoporosis without current pathological fracture (principal)
CPT/HCPCS: 96372; J0897

== ENCOUNTER 2022-05-26 10:18 | Oncology outpatient (recurring) (ONCR) | payer MEDICARE, OTHER, SELFPAY ==
[2022-05-26 11:11] LABS: Basophils # 0.1 10^3/uL (0.0-0.1); Basophils % 0.8 %; Eosinophils # 0.2 10^3/uL (0.0-0.8); Eosinophils % 3.3 %; Hematocrit 39.8 % (37.0-47.0); Hemoglobin 13.1 g/dL (11.5-15.3); Lymphocytes # 1.5 10^3/uL (0.8-4.8); Mean Corpuscular HGB Conc 32.9 g/dL (30.0-36.0); Mean Corpuscular Hemoglobin 29.4 pg (28.0-34.0); Mean Corpuscular Volume 89.4 fl (81-99); Mean Platelet Volume 9.9 fL (7.4-10.4); Monocytes # 0.6 10^3/uL (0.2-0.9); Monocytes % 9.5 %; Neutrophils # 4.08 10^3/uL (1.8-7.7); Neutrophils % 63.2 %; Nucleated Red Blood Cells % 0 %; Platelet Count 331 10^3/cmm (130-400); Red Blood Count 4.45 10^6/uL (4.1-5.3); White Blood Count 6.4 10^3/uL (4.0-10.0)
[2022-05-26 11:32] LABS: Alanine Aminotransferase 23 U/L (0-33); Albumin Level 3.9 g/dL (3.5-5.2); Alkaline Phosphatase 96 U/L (35-105); Anion Gap 11.3 (5-19); Aspartate Amino Transferase 23 U/L (0-32); Blood Urea Nitrogen 15 mg/dL (8-23); Calcium 9.9 mg/dL (8.5-10.5); Carbon Dioxide 32 mmol/L (22-29); Chloride 104 mmol/L (98-107); Globulin 2.8 g/dL (1.3-4.6); Glucose 92 mg/dL (65-115); Osmolality Calculated 296 mOsm/kg (285-295); Potassium 4.3 mmol/L (3.5-5.1); Sodium 143 mmol/L (136-145); Total Bilirubin 0.3 mg/dL (0.15-1.2); Total Protein 6.7 g/dL (6.6-8.7)
== END 2022-06-11 23:59 | disposition home or self-care (01) ==
PROVIDERS: PCP Internal Medicine; Visit Provider Internal Medicine Hematology & Oncology
DX: Z08 Encounter for follow-up examination after completed treatment for malignant neoplasm (principal); Z85.828 Personal history of other malignant neoplasm of skin; Z92.21 Personal history of antineoplastic chemotherapy; Z85.3 Personal history of malignant neoplasm of breast
CPT/HCPCS: 36415; 80053; 85025; 99214

== ENCOUNTER 2022-11-21 08:16 | Outpatient (CLI) | payer MEDICARE, OTHER, SELFPAY ==
--- NOTE | 2022-11-21 08:22 | MM_ITS ---
WS: [id number] DIAGNOSTIC BILATERAL DIGITAL BREAST TOMOSYNTHESIS MAMMOGRAPHY WITH CAD HISTORY: History of cancer. COMPARISON: 11/18/2021, 03/05/2021 and 07/15/2020 TECHNIQUE: Bilateral craniocaudad, mediolateral oblique, and mediolateral views are submitted with to mosynthesis and SM. Computer aided detection utilized. Breast composition: There are scattered areas of fibroglandular density. Postsurgical changes with vo lume loss and distortion in the posterior LEFT breast. There is a postoperative seroma which has been present since 01/17/2020 and slight decreased in size. Maximum diameter has decreased from 3.5 to 2.7 cm today. No suspicious mass identified. No suspicious developing calcifications. MM/[place] [id number] IMPRESSION: BI-RADS: 2-Benign FOLLOW UP: 1 Year Follow-up
== END 2022-11-21 08:17 | disposition home or self-care (01) ==
PROVIDERS: PCP Internal Medicine; Visit Provider Internal Medicine Hematology & Oncology
DX: Z85.3 Personal history of malignant neoplasm of breast (principal); M96.843 Postprocedural seroma of a musculoskeletal structure following other procedure; Z98.890 Other specified postprocedural states
CPT/HCPCS: 77062; G0279

== ENCOUNTER 2022-11-22 13:00 | Oncology outpatient (recurring) (ONCR) | payer MEDICARE, OTHER, SELFPAY ==
[2022-11-22 13:49] VITALS: BP 119/76; PULSE 75; RESP 18; TEMP 36.3; O2SAT 98
[2022-11-22 13:54] LABS: Basophils % 0.6 %; Eosinophils # 0.1 10^3/uL (0.0-0.8); Eosinophils % 1.4 %; Hemoglobin 12.9 g/dL (11.5-15.3); Lymphocytes # 1.6 10^3/uL (0.8-4.8); Lymphocytes % 23.5 %; Mean Corpuscular HGB Conc 32.3 g/dL (30.0-36.0); Mean Corpuscular Hemoglobin 28.3 pg (28.0-34.0); Mean Corpuscular Volume 87.7 fl (81-99); Mean Platelet Volume 9.6 fL (7.4-10.4); Monocytes # 0.7 10^3/uL (0.2-0.9); Monocytes % 9.4 %; Neutrophils # 4.48 10^3/uL (1.8-7.7); Nucleated Red Blood Cells % 0 %; Platelet Count 319 10^3/cmm (130-400); Red Blood Count 4.56 10^6/uL (4.1-5.3); Red Cell Distribution Width 12.8 % (12.1-15.1); White Blood Count 6.9 10^3/uL (4.0-10.0)
[2022-11-22 14:22] LABS: Alanine Aminotransferase 14 U/L (0-33); Albumin Level 4.1 g/dL (3.5-5.2); Alkaline Phosphatase 77 U/L (35-105); Anion Gap 12.5 (5-19); Aspartate Amino Transferase 18 U/L (0-32); Blood Urea Nitrogen 16 mg/dL (8-23); Calcium 9.5 mg/dL (8.5-10.5); Carbon Dioxide 30 mmol/L (22-29); Chloride 104 mmol/L (98-107); Globulin 2.2 g/dL (1.3-4.6); Glucose 100 mg/dL (65-115); Osmolality Calculated 295 mOsm/kg (285-295); Potassium 4.5 mmol/L (3.5-5.1); Sodium 142 mmol/L (136-145); Total Bilirubin 0.3 mg/dL (0.15-1.2); Total Protein 6.3 g/dL (6.6-8.7)
[2022-11-22 14:27] LABS: Creatinine Clr Calc Pharmacy 56.6891
== END 2022-12-09 23:59 | disposition home or self-care (01) ==
PROVIDERS: PCP Internal Medicine; Visit Provider Internal Medicine Hematology & Oncology
DX: Z08 Encounter for follow-up examination after completed treatment for malignant neoplasm (principal); Z85.828 Personal history of other malignant neoplasm of skin; Z92.21 Personal history of antineoplastic chemotherapy; Z85.3 Personal history of malignant neoplasm of breast
CPT/HCPCS: 36415; 80053; 85025; 99214

== ENCOUNTER 2022-12-15 07:56 | Oncology outpatient (recurring) (ONCR) | payer MEDICARE, OTHER, SELFPAY ==
[2022-12-15] MEDS: denosumab 60 mg SDV SUBCUT (08:14)
[2022-12-15 08:16] VITALS: BP 130/59; PULSE 63; RESP 16; TEMP 36.2; O2SAT 95
== END 2023-01-09 23:59 | disposition home or self-care (01) ==
PROVIDERS: PCP Internal Medicine; Visit Provider Internal Medicine Hematology & Oncology
DX: Z08 Encounter for follow-up examination after completed treatment for malignant neoplasm (principal); Z85.828 Personal history of other malignant neoplasm of skin; Z92.21 Personal history of antineoplastic chemotherapy; Z85.3 Personal history of malignant neoplasm of breast
CPT/HCPCS: 96372; J0897

== ENCOUNTER → 2023-02-27 08:47 | Outpatient (BNVA) | payer MEDICARE, OTHER, SELFPAY | PROVIDERS: PCP Internal Medicine; Visit Provider Nurse Practitioner Family | DX: L21.8 Other seborrheic dermatitis (principal); L57.0 Actinic keratosis; L82.1 Other seborrheic keratosis; L81.4 Other melanin hyperpigmentation; L57.8 Other skin changes due to chronic exposure to nonionizing radiation; L65.9 Nonscarring hair loss, unspecified; Z85.828 Personal history of other malignant neoplasm of skin | CPT/HCPCS: 17000; 99214 ==

== ENCOUNTER 2023-05-29 12:50 | Oncology outpatient (recurring) (ONCR) | payer MEDICARE, OTHER, SELFPAY ==
[2023-05-29 12:53] VITALS: BP 131/70; PULSE 81; RESP 16; TEMP 36.3; O2SAT 94
[2023-05-29 13:09] LABS: Basophils # 0.1 10^3/uL (0.0-0.1); Basophils % 0.7 %; Eosinophils # 0.1 10^3/uL (0.0-0.8); Eosinophils % 1.7 %; Hematocrit 39.3 % (36-47); Lymphocytes # 1.5 10^3/uL (0.8-4.8); Lymphocytes % 21.8 %; Mean Corpuscular HGB Conc 33.1 g/dL (30-55); Mean Corpuscular Volume 87.5 fl (85-98); Mean Platelet Volume 9.6 fL (7.4-10.4); Monocytes # 0.6 10^3/uL (0.2-0.9); Monocytes % 8.1 %; Neutrophils # 4.64 10^3/uL (1.8-7.7); Neutrophils % 67.4 %; Nucleated Red Blood Cells % 0 %; Platelet Count 324 10^3/cmm (157-399); Red Blood Count 4.49 10^6/uL (3.85-5.65); Red Cell Distribution Width 12.7 % (12.1-15.1); White Blood Count 6.89 10^3/uL (3.29-11.43)
[2023-05-29 13:29] LABS: Alanine Aminotransferase 20 U/L (0-33); Albumin Level 4.1 g/dL (3.5-5.2); Alkaline Phosphatase 84 U/L (35-105); Anion Gap 10.4 (5-19); Aspartate Amino Transferase 22 U/L (0-32); Blood Urea Nitrogen 14 mg/dL (8-23); Calcium 9.3 mg/dL (8.5-10.5); Carbon Dioxide 29 mmol/L (22-29); Chloride 104 mmol/L (98-107); Globulin 2.2 g/dL (1.3-4.6); Glucose 114 mg/dL (65-115); Osmolality Calculated 289 mOsm/kg (285-295); Potassium 4.4 mmol/L (3.5-5.1); Sodium 139 mmol/L (136-145); Total Bilirubin 0.2 mg/dL (0.15-1.2); Total Protein 6.3 g/dL (6.6-8.7)
== END 2023-06-11 23:59 | disposition home or self-care (01) ==
PROVIDERS: PCP Internal Medicine; Visit Provider Internal Medicine Hematology & Oncology
DX: Z08 Encounter for follow-up examination after completed treatment for malignant neoplasm (principal); Z85.828 Personal history of other malignant neoplasm of skin; Z92.21 Personal history of antineoplastic chemotherapy; Z85.3 Personal history of malignant neoplasm of breast; C50.912 Malignant neoplasm of unspecified site of left female breast; Z53.9 Procedure and treatment not carried out, unspecified reason
CPT/HCPCS: 36415; 80053; 85025; 99214

== ENCOUNTER → 2023-06-13 14:17 | Outpatient (BNVA) | payer MEDICARE, OTHER, SELFPAY | PROVIDERS: PCP Internal Medicine; Visit Provider Nurse Practitioner Family | DX: J06.9 Acute upper respiratory infection, unspecified (principal) | CPT/HCPCS: 87400; 87426 ==

== ENCOUNTER 2023-08-15 08:49 | Oncology outpatient (recurring) (ONCR) | payer MEDICARE, OTHER, SELFPAY ==
[2023-08-15] MEDS: denosumab 60 mg SDV SUBCUT (09:51)
== END 2023-09-10 23:59 | disposition home or self-care (01) ==
PROVIDERS: PCP Internal Medicine; Visit Provider Internal Medicine Medical Oncology
DX: Z08 Encounter for follow-up examination after completed treatment for malignant neoplasm (principal); Z85.828 Personal history of other malignant neoplasm of skin; Z92.21 Personal history of antineoplastic chemotherapy; Z85.3 Personal history of malignant neoplasm of breast; C50.912 Malignant neoplasm of unspecified site of left female breast; Z53.9 Procedure and treatment not carried out, unspecified reason
CPT/HCPCS: 96372; J0897

== ENCOUNTER 2023-08-16 21:53 | Emergency (ER) | payer MEDICARE, OTHER, SELFPAY ==
--- NOTE | 2023-08-16 21:55 | XRR_ITS ---
PROCEDURE INFORMATION: Exam: XR Chest Exam date and time: 08/16/2023 10:11 PM Age: 77 years old Clinical indication: Chest wall pain; Additional info: Chest pain TECHNIQUE: Imaging protocol: Radiologic exam of the chest. Views: 1 view. COMPARISON: CT chest w con* [id number] 10/19/2019 11:46 AM FINDINGS: Lungs: Unremarkable. No consolidation. Pleural spaces: Unremarkable. No pleural effusion. No pneumothorax. Heart/Mediastinum: Unremarkable. No cardiomegaly. Bones/joints: Unremarkable. XR/XR chest 1V portable [id number] IMPRESSION: No acute findings.
[2023-08-16 21:56] VITALS: BP 183/102; PULSE 88; RESP 16; TEMP 37.5; O2SAT 93; BMI 25.0
--- NOTE | 2023-08-16 21:58 | ECG_ITS ---
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 Measurements Intervals [place] Rate: 91 P: 66 MD: 161 QRS: 84 QRSD: 75 T: 213 QT: 327 QTc: 402 Interpretive Statements SINUS RHYTHM ST DEVIATION AND MODERATE T-WAVE ABNORMALITY, CONSIDER INFERIOR ISCHEMIA [-0.1+ mV T-WAVE IN II/aVF] No previous ECG available for comparison Electronically Signed On 08-17-2023 14:46:05 KARATE BLACK BELT by Lino Kemp M.D. [id number] f
--- NOTE | 2023-08-16 21:58 | ECG_ITS ---
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 Measurements Intervals [place] Rate: 91 P: 66 MO: 161 QRS: 84 QRSD: 75 T: 213 QT: 327 QTc: 402 Interpretive Statements SINUS RHYTHM ST DEVIATION AND MODERATE T-WAVE ABNORMALITY, CONSIDER INFERIOR ISCHEMIA [-0.1+ mV T-WAVE IN II/aVF] No previous ECG available for comparison Electronically Signed On 08-17-2023 14:46:00 MACHINE PULLER by Lino Kemp M.D. [id number]
--- NOTE | 2023-08-16 22:13 | W.ED.CHESTPA ---
HPI - Chest Pain General: Chief Complaint: Chest Pain Stated Complaint: Chest pain and arms sob indigestion Time Seen by Provider: 08/16/23 21:56 History of Present Illness: Patient presents to the ER with complaints of substernal chest pain shortness of breath and indigestion. Patient says she has been having it off and on for quite some time. Patient denies any cardiac history. Patient does take 81 mg aspirin daily. Pain did not radiate except to her back. Patient tried taking some Tums and it did not help. Patient has never had this before. Review of Systems General: Reports: 10 or more systems reviewed and unremarkable except in HPI and below PFSH ED PFSH: Medical History Breast cancer, left breast History of nonmelanoma skin cancer Hx of breast cancer History of depression History of gastroesophageal reflux (GERD) Hx of irritable bowel syndrome Hx of osteoporosis History of skin cancer History of sleep apnea Hx of thyroid disease Left ear hearing loss Surgical History Hx of breast biopsy History of 2 sections Hx of hand surgery Hx of thyroidectomy History of lobectomy of thyroid Hx of tonsillectomy Hx of elbow surgery History of bladder suspension procedure Family History Mother Colon cancer CAD (coronary artery disease) Colon cancer Hyperlipidemia Father CAD (coronary artery disease) Cancer Bladder cancer Lung disease Other IBS (irritable bowel syndrome) Denies family history of Diabetes Clotting disorder Dementia Psychiatric illness Chronic kidney disease (CKD) Suicide Anesthesia complication Bleeding disorder Hypertension Stroke Social History Smoking and tobacco/nicotine status: never used tobacco/nicotine Alcohol intake: never Substance/Drug Use: never Physical Exam Const: COMMON NORMALS: no acute distress, average body habitus, patient oriented x3, no limitations, healthy appearing, alert and well nourished HENMT: COMMON NORMALS: normocephalic, hearing grossly normal bilaterally, external ears normal, Normal external nose present, moist oral mucous membranes and oropharynx normal HEAD & SCALP: normocephalic NOSE: Normal external nose present EXTERNAL EAR: Yes external ears normal Neck/C-Spine: COMMON NORMALS: no JVD Chest: COMMONS NORMALS: normal inspection of the chest and normal palpation of entire chest wall Resp: COMMON NORMALS: normal respiratory effort, No retractions, No use of accessory muscles and clear to auscultation bilaterally AUSCULTATION: clear to auscultation bilaterally Cardio: COMMON NORMALS: no JVD, regular rate, regular rhythm, S1 normal heart sound present, S2 normal heart sound present, No gallops present (Cardio), No clicks present (Cardio), No murmurs present (Cardio) and No rub (Cardio) RATE: regular rate RHYTHM: regular rhythm HEART SOUNDS: S1 normal heart sound present and S2 normal heart sound present GI: COMMON NORMALS: Normal to inspection, nondistended, normoactive bowel sounds present, Soft to palpation, non-tender, No hepatosplenomegaly present and no masses PALPATION: Yes Soft to palpation and Yes No hepatosplenomegaly present Neuro: COMMON NORMALS: patient oriented x3 SENSORIUM/ORIENTATION: Yes alert Course Vital Signs: Vital signs: Vital Signs Temperature 99.5 F 08/16/23 21:56 Pulse Rate 68 08/17/23 00:27 Respiratory Rate 20 H 08/17/23 00:27 Blood Pressure 133/65 08/17/23 00:27 Pulse Oximetry 97 08/17/23 00:27 Oxygen Delivery Me thod Room Air 08/16/23 21:56 MDM - Chest Pain Medical Decision Making Patient presented to the ER with chest pain. Patient was worked up in a standard chest pain fashion with serial EKGs serial enzymes and chest x-ray. Initial troponin was 45, 2-hour troponin was about 48 for delta of about 3. Patient was chest pain-free during her entire time here. Patient be discharged home to follow-up with her PCP Differential Diagnosis Unlikely acute massive pulmonary embolism, acute respiratory failure, acute myocardial infarction, cardiac arrest or sudden cardiac Medical Records I reviewed the patient's medical records. Lab Data I reviewed the patient's lab results. 08/16/23 22:03 08/16/23 22:03 Radiology Impressions Chest X-Ray 08/16/23 21:55 IMPRESSION: No acute findings. Laboratory Results WBC 7.70 10^3/uL (3.29-11.43) 08/16/23 22:03 RBC 4.68 10^6/uL (3.85-5.65) 08/16/23 22:03 Hgb 13.80 g/dL (11.27-16.99) 08/16/23 22:03 Hct 40.5 % (36-47) 08/16/23 22:03 MCV 86.5 fl (85-98) 08/16/23 22:03 MCH 29.5 pg (27-33) 08/16/23 22:03 MCHC 34.1 g/dL (30-55) 08/16/23 22:03 RDW 12.6 % (12.1-15.1) 08/16/23 22:03 Plt Count 328 10^3/cmm (157-399) 08/16/23 22:03 MPV 10.1 fL (7.4-10.4) 08/16/23 22:03 Neut % (Auto) 60.3 % 08/16/23 22:03 Lymph % (Auto) 27.5 % 08/16/23 22:03 [place] % (Auto) 9.2 % 08/16/23 22:03 Eos % (Auto) 2.2 % 08/16/23 22:03 Baso % (Auto) 0.5 % 08/16/23 22:03 Neut # (Auto) 4.64 10^3/uL (1.8-7.7) 08/16/23 22:03 Lymph # (Auto) 2.1 10^3/uL (0.8-4.8) 08/16/23 22:03 [place] # (Auto) 0.7 10^3/uL (0.2-0.9) 08/16/23 22:03 Eos # (Auto) 0.2 10^3/uL (0.0-0.8) 08/16/23 22:03 Baso # (Auto) 0.0 10^3/uL (0.0-0.1) 08/16/23 22:03 Nucleated RBC % (auto) 0 % 08/16/23 22:03 Nucleated RBCs # 0.0 /100WBC 08/16/23 22:03 Sodium 143 mmol/L (136-145) 08/16/23 22:03 Potassium 3.9 mmol/L (3.5-5.1) 08/16/23 22:03 Chloride 101 mmol/L (98-107) 08/16/23 22:03 Carbon Dioxide 30 mmol/L (22-29) H 08/16/23 22:03 Anion Gap 15.9 (5-19) 08/16/23 22:03 BUN 19 mg/dL (8-23) 08/16/23 22:03 Creatinine 0.5 mg/dL (0.5-0.9) 08/16/23 22:03 GFR Calculation Not Reportable 08/16/23 22:03 Glucose 111 mg/dL (65-115) 08/16/23 22:03 Calculated Osmolality 299 mOsm/kg (285-295) H 08/16/23 22:03 Calcium 10.2 mg/dL (8.5-10.5) 08/16/23 22:03 Total Bilirubin 0.2 mg/dL (0.15-1.2) 08/16/23 22:03 AST 21 U/L (0-32) 08/16/23 22:03 ALT 17 U/L (0-33) 08/16/23 22:03 Alkaline Phosphatase 88 U/L (35-105) 08/16/23 22:03 Troponin T Baseline 45 ng/L (0-10) H 08/16/23 22:03 Troponin T 120 Minute 48.75 ng/L (0-10) H 08/16/23 23:39 Delta Troponin T 3.75 ABS# (0-10) 08/16/23 23:39 Total Protein 6.8 g/dL (6.6-8.7) 08/16/23 22:03 Albumin 4.5 g/dL (3.5-5.2) 08/16/23 22:03 Globulin 2.3 g/dL (1.3-4.6) 08/16/23 22:03 All radiology interpretation(s) finalized by discharge EKG Data EKG 1: I personally reviewed and interpreted this EKG as follows: EKG interpretation date: 08/16/23 EKG interpretation time: 21:58 Prior EKG tracings: not available for review Interpretation: Ventricular rate 91 bpm, [place] interval 161, QRS duration 75, QTc 375, sinus rhythm EKG 2: I personally reviewed and interpreted this EKG as follows: EKG interpretation date: 08/16/23 EKG interpretation time: 23:37 Prior EKG tracings: available for review Interpretation: Ventricular rate 72 bpm, IL interval 152, QRS duration 74, QTc of 405, sinus rhythm Discharge Plan Discharge Patient Disposition: Home Clinical Impression: Atypical chest pain Condition: Stable Prescriptions: No Action neomycin-polymyxin B-dexameth [Maxitrol] 3.5mg/mL-10,000 unit/mL-0.1 % drops,suspension 1 drp ophthalmic (eye) Q8H Qty: 5 0RF triamcinolone acetonide 0.1 % cream 1 applic topical BID MDD 14 days Qty: 15 0RF Rx Instructions: Thin layer to area twice daily. Rub in well. Wash hands after use. mometasone 0.1 % solution 1 applic TOPICAL DAILY Qty: 60 6RF Rx Instructions: to scalp M-F potassium chloride 99 mg PO BID Tylenol 325 mg Tablet 325 mg PO QID PRN (Reason: Pain) Multiple Vitamin, Womens Tablet 1 tab PO DAILY magnesium oxide 400 mg magnesium Capsule 400 mg PO DAILY Glucosamine Chondroitin 250 mg tablet 5,000 mg PO DAILY calcium carbonate [Calcium 600] 600 mg calcium (1,500 mg) Tablet 600 mg PO DAILY dicyclomine 20 mg Tablet 20 mg PO QID PRN (Reason: Diarrhea) sertraline 100 mg tablet 100 mg PO DAILY levothyroxine 100 mcg tablet 75 mcg PO DAILY Discharge Orders: Discharge ED (Routine); Ordered 08/17/23 Ordered By: Doc Coffman Referrals: Manuel Andrews DO [Primary Care Provider] - 1 week Patient Instructions: Chest Pain (ED) Activity Restrictions/Additional Instructions: Your workup in ER did not show any acute cardiac cause of your chest pain. It is felt to be noncardiac in nature. Please follow-up with your primary care physician for further evaluation and treatment. If your chest pain worsens or returns please feel free to return to the ER. Coding Level of Care Code ED Production Statistical Clerk for Mary Vela
[2023-08-16 22:21] LABS: Basophils % 0.5 %; Eosinophils # 0.2 10^3/uL (0.0-0.8); Eosinophils % 2.2 %; Hematocrit 40.5 % (36-47); Lymphocytes # 2.1 10^3/uL (0.8-4.8); Lymphocytes % 27.5 %; Mean Corpuscular HGB Conc 34.1 g/dL (30-55); Mean Corpuscular Hemoglobin 29.5 pg (27-33); Mean Corpuscular Volume 86.5 fl (85-98); Mean Platelet Volume 10.1 fL (7.4-10.4); Monocytes # 0.7 10^3/uL (0.2-0.9); Monocytes % 9.2 %; Neutrophils # 4.64 10^3/uL (1.8-7.7); Neutrophils % 60.3 %; Nucleated Red Blood Cells % 0 %; Platelet Count 328 10^3/cmm (157-399); Red Blood Count 4.68 10^6/uL (3.85-5.65); Red Cell Distribution Width 12.6 % (12.1-15.1)
[2023-08-16] MEDS: famotidine 20 mg/2 mL INJ IVP (22:22)
[2023-08-16 22:35] LABS: Troponin(5th) Baseline 45 ng/L (0-10)
[2023-08-16 22:37] LABS: Alanine Aminotransferase 17 U/L (0-33); Albumin Level 4.5 g/dL (3.5-5.2); Alkaline Phosphatase 88 U/L (35-105); Anion Gap 15.9 (5-19); Aspartate Amino Transferase 21 U/L (0-32); Blood Urea Nitrogen 19 mg/dL (8-23); Calcium 10.2 mg/dL (8.5-10.5); Carbon Dioxide 30 mmol/L (22-29); Chloride 101 mmol/L (98-107); Creatinine Clr Calc Pharmacy 55.2847; Globulin 2.3 g/dL (1.3-4.6); Glucose 111 mg/dL (65-115); Osmolality Calculated 299 mOsm/kg (285-295); Potassium 3.9 mmol/L (3.5-5.1); Sodium 143 mmol/L (136-145); Total Bilirubin 0.2 mg/dL (0.15-1.2); Total Protein 6.8 g/dL (6.6-8.7)
[2023-08-16 22:44] VITALS: BP 154/77; PULSE 73; RESP 20
[2023-08-16 23:01] VITALS: BP 155/68; PULSE 71; RESP 22
[2023-08-16 23:06] VITALS: BP 155/68
--- NOTE | 2023-08-16 23:06 | PC.NURSE ---
Per Dr Coffman, hold the Clonidine. BP 155/68
[2023-08-16 23:30] VITALS: BP 142/72; PULSE 75; RESP 19
--- NOTE | 2023-08-16 23:55 | ECG_ITS ---
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 Measurements Intervals [place] Rate: 72 P: 39 MO: 152 QRS: 56 QRSD: 74 T: 61 QT: 380 QTc: 418 Interpretive Statements SINUS RHYTHM NONSPECIFIC ST & T-WAVE ABNORMALITY No previous ECG available for comparison Electronically Signed On 08-17-2023 14:51:44 CIGAR MACHINE FEEDER by Lino Kemp M.D. [id number]
[2023-08-17 00:11] LABS: Troponin 5 2HR 48.75 ng/L (0-10); Troponin 5 2HR Delta 3.75 ABS# (0-10)
[2023-08-17 00:27] VITALS: BP 133/65; PULSE 68; RESP 20; O2SAT 97
== END 2023-08-17 00:27 | disposition home or self-care (01) ==
PROVIDERS: Emergency Provider Emergency Medicine; PCP Internal Medicine
DX: R07.89 Other chest pain (principal); Z85.3 Personal history of malignant neoplasm of breast
CPT/HCPCS: 71045; 80053; 84484; 85025; 93005; 96374; 99285; J3490

== ENCOUNTER 2023-08-21 12:03 | Outpatient (CLI) | payer MEDICARE, OTHER, SELFPAY ==
[2023-08-21 12:40] LABS: Add Urine Microscopic? NO; Charge for UA Resulting for Rev
[2023-08-21 12:53] LABS: Basophils % 0.5 %; Eosinophils # 0.1 10^3/uL (0.0-0.8); Eosinophils % 1.3 %; Hematocrit 39.6 % (36-47); Lymphocytes # 1.6 10^3/uL (0.8-4.8); Mean Corpuscular HGB Conc 33.1 g/dL (30-55); Mean Corpuscular Hemoglobin 29.2 pg (27-33); Mean Corpuscular Volume 88.2 fl (85-98); Mean Platelet Volume 10.3 fL (7.4-10.4); Monocytes # 0.7 10^3/uL (0.2-0.9); Monocytes % 8.8 %; Neutrophils # 5.14 10^3/uL (1.8-7.7); Neutrophils % 68.1 %; Nucleated Red Blood Cells % 0 %; Platelet Count 324 10^3/cmm (157-399); Red Blood Count 4.49 10^6/uL (3.85-5.65); Red Cell Distribution Width 12.8 % (12.1-15.1); White Blood Count 7.54 10^3/uL (3.29-11.43)
[2023-08-21 12:56] LABS: Bilirubin Urine Neg (Negative); Blood Urine Neg (Negative); Glucose Urine UA Norm (Normal); Ketones Urine Negative (Negative); Leukocyte Esterase Urine Negative (Negative); Nitrate Urine Negative (Negative); Protein Urine Neg (Negative); Specific Gravity, Urine 1.005 (1.005-1.030); Urine Appearance Clear (CLEAR); Urine Color Yellow (Yellow); Urobilinogen Urine Norm (Negative); pH Urine 5 (5-7)
[2023-08-21 13:12] LABS: Blood Urea Nitrogen 18 mg/dL (8-23); Calcium 9.2 mg/dL (8.5-10.5); Carbon Dioxide 28 mmol/L (22-29); Chloride 106 mmol/L (98-107); Glucose 94 mg/dL (65-115); Osmolality Calculated 298 mOsm/kg (285-295); Sodium 143 mmol/L (136-145)
== END 2023-08-21 12:04 | disposition home or self-care (01) ==
LOC: LAB 12:09
PROVIDERS: PCP Internal Medicine; Visit Provider Urology
DX: Z01.818 Encounter for other preprocedural examination (principal); R32 Unspecified urinary incontinence
CPT/HCPCS: 36415; 80048; 81003; 85025; 87086

== ENCOUNTER 2023-08-23 14:45 | Emergency (ER) | payer MEDICARE, OTHER, SELFPAY ==
--- NOTE | 2023-08-23 14:51 | ECG_ITS ---
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 Measurements Intervals [place] Rate: 85 P: 15 [place]: 141 QRS: 70 QRSD: 73 T: 234 QT: 375 QTc: 447 Interpretive Statements SINUS RHYTHM NONSPECIFIC ST & T-WAVE ABNORMALITY Compared to ECG 08/16/2023 23:37:53 No significant changes Electronically Signed On 08-23-2023 16:13:05 CDT by Lino Kemp M.D. [id number]
[2023-08-23 14:55] VITALS: BP 153/77; PULSE 81; RESP 16; TEMP 36.8; O2SAT 96
--- NOTE | 2023-08-23 14:57 | XRR_ITS ---
PROCEDURE INFORMATION: Exam: XR Chest Exam date and time: 08/23/2023 3:04 PM Age: 77 years old Clinical indication: Pain; Angina pectoris; Additional info: Chest pain TECHNIQUE: Imaging protocol: Radiologic exam of the chest. Views: 1 view. COMPARISON: CR XR chest 1V portable [id number] 08/16/2023 10:11 PM FINDINGS: Lungs: Both lungs demonstrate chronic interstitial coarsening. No lung mass or infiltrate. Pleural spaces: Unremarkable. No pleural effusion. No pneumothorax. Heart/Mediastinum: Unremarkable. No cardiomegaly. Bones/joints: Unremarkable. XR/XR chest 1V portable [id number] IMPRESSION: No acute findings.
[2023-08-23 15:42] LABS: Basophils % 0.6 %; Eosinophils # 0.1 10^3/uL (0.0-0.8); Eosinophils % 1.6 %; Hematocrit 38.6 % (36-47); Lymphocytes # 1.8 10^3/uL (0.8-4.8); Lymphocytes % 26.2 %; Mean Corpuscular HGB Conc 33.7 g/dL (30-55); Mean Corpuscular Hemoglobin 29.3 pg (27-33); Mean Corpuscular Volume 87.1 fl (85-98); Mean Platelet Volume 9.8 fL (7.4-10.4); Monocytes # 0.5 10^3/uL (0.2-0.9); Monocytes % 6.9 %; Neutrophils # 4.42 10^3/uL (1.8-7.7); Neutrophils % 64.4 %; Nucleated Red Blood Cells % 0 %; Platelet Count 312 10^3/cmm (157-399); Red Blood Count 4.43 10^6/uL (3.85-5.65); Red Cell Distribution Width 12.6 % (12.1-15.1); White Blood Count 6.86 10^3/uL (3.29-11.43)
[2023-08-23 15:59] LABS: Alanine Aminotransferase 19 U/L (0-33); Albumin Level 4.2 g/dL (3.5-5.2); Alkaline Phosphatase 84 U/L (35-105); Aspartate Amino Transferase 22 U/L (0-32); Blood Urea Nitrogen 15 mg/dL (8-23); Calcium 9.5 mg/dL (8.5-10.5); Carbon Dioxide 28 mmol/L (22-29); Chloride 100 mmol/L (98-107); Creatinine Clr Calc Pharmacy 55.2847; Glucose 101 mg/dL (65-115); Lipase 38 U/L (13-60); Osmolality Calculated 289 mOsm/kg (285-295); Sodium 139 mmol/L (136-145); Total Bilirubin 0.3 mg/dL (0.15-1.2); Total Protein 6.2 g/dL (6.6-8.7)
[2023-08-23 16:06] LABS: Troponin(5th) Baseline 80 ng/L (0-10)
[2023-08-23 16:09] VITALS: BP 133/73; PULSE 82; RESP 16; O2SAT 96
--- NOTE | 2023-08-23 16:56 | ED_ITS ---
HPI - Chest Pain 2 General: Chief Complaint: Chest Pain Stated Complaint: sob Time Seen by Provider: 08/23/23 16:56 History of Present Illness: Patient presents to the ER with complaints of chest pain with exertion. This pain is more in her shoulder region bilaterally and sometimes goes down her arms.. For instance when patient was making a bed it started hurting and she had mildly short of breath when she stopped the pain went away and her breathing was back to normal. Patient was here approximately week ago for similar atypical chest pain. Then patient had slightly elevated troponins in the 40s but a non-significant delta. Review of Systems 2 General: Reports: 10 or more systems reviewed and unremarkable except in HPI and below PFSH ED 2 PFSH: Medical History Breast cancer, left breast History of nonmelanoma skin cancer Hx of breast cancer History of depression History of gastroesophageal reflux (GERD) Hx of irritable bowel syndrome Hx of osteoporosis History of skin cancer History of sleep apnea Hx of thyroid disease Left ear hearing loss Surgical History Hx of breast biopsy History of 2 sections Hx of hand surgery Hx of thyroidectomy History of lobectomy of thyroid Hx of tonsillectomy Hx of elbow surgery History of bladder suspension procedure Family History Mother Colon cancer CAD (coronary artery disease) Colon cancer Hyperlipidemia Father CAD (coronary artery disease) Cancer Bladder cancer Lung disease Other IBS (irritable bowel syndrome) Denies family history of Diabetes Clotting disorder Dementia Psychiatric illness Chronic kidney disease (CKD) Suicide Anesthesia complication Bleeding disorder Hypertension Stroke Social History Smoking and tobacco/nicotine status: never used tobacco/nicotine Alcohol intake: never Substance/Drug Use: never Physical Exam 2 Const: COMMON NORMALS: no acute distress, average body habitus, patient oriented x3, no limitations, healthy appearing, alert and well nourished HENMT: COMMON NORMALS: normocephalic, atraumatic, hearing grossly normal bilaterally, external ears normal, Normal external nose present, moist oral mucous membranes and oropharynx normal HEAD & SCALP: normocephalic and atraumatic NOSE: Normal external nose present EXTERNAL EAR: Yes external ears normal Neck/C-Spine: COMMON NORMALS: no JVD Chest: COMMONS NORMALS: normal inspection of the chest and normal palpation of entire chest wall Resp: COMMON NORMALS: normal respiratory effort, No retractions, No use of accessory muscles and clear to auscultation bilaterally AUSCULTATION: clear to auscultation bilaterally Cardio: COMMON NORMALS: no JVD, regular rate, regular rhythm, S1 normal heart sound present, S2 normal heart sound present, No gallops present (Cardio), No clicks present (Cardio), No murmurs present (Cardio) and No rub (Cardio) R ATE: regular rate RHYTHM: regular rhythm HEART SOUNDS: S1 normal heart sound present and S2 normal heart sound present GI: COMMON NORMALS: Normal to inspection, nondistended, normoactive bowel sounds present, Soft to palpation, non-tender, No hepatosplenomegaly present and no masses PALPATION: Yes Soft to palpation and Yes No hepatosplenomegaly present Neuro: COMMON NORMALS: patient oriented x3 SENSORIUM/ORIENTATION: Yes alert Course 2 Vital Signs: Vital signs: Vital Signs Temperature 98.2 F 08/23/23 14:55 Pulse Rate 75 08/23/23 18:46 Respiratory Rate 15 08/23/23 18:46 Blood Pressure 157/69 08/23/23 18:25 Pulse Oximetry 95 08/23/23 18:46 Oxygen Delivery Me thod Room Air 08/23/23 17:26 MDM - Chest Pain Medical Decision Making Patient had chest pain workup with serial EKGs serial troponins and chest x-ray. Delta troponin was insignificant patient not have any chest pain during her time in ER. Since his pain is exertional and reproducible patient will be set up for an outpatient sestamibi stress test. Patient be discharged from the ER tonight. Differential Diagnosis Unlikely acute massive pulmonary embolism, acute respiratory failure, acute myocardial infarction, cardiac arrest or sudden cardiac Medical Records I reviewed the patient's medical records. Lab Data I reviewed the patient's lab results. 08/23/23 15:35 08/23/23 15:35 Radiology Impressions Chest X-Ray 08/23/23 14:57 IMPRESSION: No acute findings. Laboratory Results WBC 6.86 10^3/uL (3.29-11.43) 08/23/23 15:35 RBC 4.43 10^6/uL (3.85-5.65) 08/23/23 15:35 Hgb 13.00 g/dL (11.27-16.99) 08/23/23 15:35 Hct 38.6 % (36-47) 08/23/23 15:35 MCV 87.1 fl (85-98) 08/23/23 15:35 MCH 29.3 pg (27-33) 08/23/23 15: MCHC 33.7 g/dL (30-55) 08/23/23 15:35 RDW 12.6 % (12.1-15.1) 08/23/23 15:35 Plt Count 312 10^3/cmm (157-399) 08/23/23 15:35 MPV 9.8 fL (7.4-10.4) 08/23/23 15:35 Neut % (Auto) 64.4 % 08/23/23 15:35 Lymph % (Auto) 26.2 % 08/23/23 15:35 [place] % (Auto) 6.9 % 08/23/23 15:35 Eos % (Auto) 1.6 % 08/23/23 15:35 Baso % (Auto) 0.6 % 08/23/23 15:35 Neut # (Auto) 4.42 10^3/uL (1.8-7.7) 08/23/23 15:35 Lymph # (Auto) 1.8 10^3/uL (0.8-4.8) 08/23/23 15:35 [place] # (Auto) 0.5 10^3/uL (0.2-0.9) 08/23/23 15:35 Eos # (Auto) 0.1 10^3/uL (0.0-0.8) 08/23/23 15:35 Baso # (Auto) 0.0 10^3/uL (0.0-0.1) 08/23/23 15:35 Nucleated RBC % (auto) 0 % 08/23/23 15:35 Nucleated RBCs # 0.0 /100WBC 08/23/23 15:35 Sodium 139 mmol/L (136-145) 08/23/23 15:35 Potassium 4.0 mmol/L (3.5-5.1) 08/23/23 15:35 Chloride 100 mmol/L (98-107) 08/23/23 15:35 Carbon Dioxide 28 mmol/L (22-29) 08/23/23 15:35 Anion Gap 15.0 (5-19) 08/23/23 15:35 BUN 15 mg/dL (8-23) 08/23/23 15:35 Creatinine 0.5 mg/dL (0.5-0.9) 08/23/23 15:35 GFR Calculation Not Reportable 08/23/23 15:35 Glucose 101 mg/dL (65-115) 08/23/23 15:35 Calculated Osmolality 289 mOsm/kg (285-295) 08/23/23 15:35 Calcium 9.5 mg/dL (8.5-10.5) 08/23/23 15:35 Total Bilirubin 0.3 mg/dL (0.15-1.2) 08/23/23 15:35 AST 22 U/L (0-32) 08/23/23 15:35 ALT 19 U/L (0-33) 08/23/23 15:35 Alkaline Phosphatase 84 U/L (35-105) 08/23/23 15:35 Troponin T Baseline 80 ng/L (0-10) H 08/23/23 15:35 Troponin T 120 Minute 79.19 ng/L (0-10) H 08/23/23 17:42 Delta Troponin T -0.81 ABS# (0-10) L 08/23/23 17:42 Total Protein 6.2 g/dL (6.6-8.7) L 08/23/23 15:35 Albumin 4.2 g/dL (3.5-5.2) 08/23/23 15:35 Globulin 2.0 g/dL (1.3-4.6) 08/23/23 15:35 Lipase 38 U/L (13-60) 08/23/23 15:35 All radiology interpretation(s) finalized by discharge EKG Data EKG 1: I personally reviewed and interpreted this EKG as follows: EKG interpretation date: 08/23/23 EKG interpretation time: 16:59 Interpretation: Ventricular rate 73 bpm, ID interval 150, QRS duration 77, QTc of 408, sinus rhythm, Discharge Plan Discharge Patient Disposition: Home Clinical Impression: Atypical chest pain, Chest pain, exertional Condition: Stable Prescriptions: No Action neomycin-polymyxin B-dexameth [Maxitrol] 3.5mg/mL-10,000 unit/mL-0.1 % drops,suspension 1 drp ophthalmic (eye) Q8H Qty: 5 0RF triamcinolone acetonide 0.1 % cream 1 applic topical BID MDD 14 days Qty: 15 0RF Rx Instructions: Thin layer to area twice daily. Rub in well. Wash hands after use. mometasone 0.1 % solution 1 applic TOPICAL DAILY Qty: 60 6RF Rx Instructions: to scalp M-F potassium chloride 99 mg PO BID Tylenol 325 mg Tablet 325 mg PO QID PRN (Reason: Pain) Multiple Vitamin, Womens Tablet 1 tab PO DAILY magnesium oxide 400 mg magnesium Capsule 400 mg PO DAILY Glucosamine Chondroitin 250 mg tablet 5,000 mg PO DAILY calcium carbonate [Calcium 600] 600 mg calcium (1,500 mg) Tablet 600 mg PO DAILY dicyclomine 20 mg Tablet 20 mg PO QID PRN (Reason: Diarrhea) sertraline 100 mg tablet 100 mg PO DAILY levothyroxine 100 mcg tablet 75 mcg PO DAILY Discharge Orders: Discharge ED (Routine); Ordered 08/23/23 Ordered By: oDc Coffman Referrals: Manuel Andrews DO [Primary Care Provider] - 1 week Patient Instructions: Chest Pain (ED) Activity Restrictions/Additional Instructions: Your evaluation in ER did not reveal an acute cause of your atypical chest pain. Since your chest pain is exertional and reproducible we have contacted case management to set you up for a stress test. They should be calling you tomorrow to arrange this appointment. If your chest pain returns please feel free to return to the ER. Coding Level of Care Code ED Storage Consultant for Mary Vela
--- NOTE | 2023-08-23 16:59 | ECG_ITS ---
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 Measurements Intervals [place] Rate: 73 P: 21 [place]: 150 QRS: 70 QRSD: 77 T: 144 QT: 382 QTc: 423 Interpretive Statements SINUS RHYTHM NONSPECIFIC ST & T-WAVE ABNORMALITY Compared to ECG 08/23/2023 14:51:12 No significant changes Electronically Signed On 08-24-2023 8:34:37 CDT by Lino Kemp M.D. [id number]
[2023-08-23 17:26] VITALS: BP 172/82; PULSE 69; RESP 19; O2SAT 98
[2023-08-23 18:24] LABS: Troponin 5 2HR 79.19 ng/L (0-10)
[2023-08-23 18:25] VITALS: BP 157/69; PULSE 68; RESP 15; O2SAT 94
[2023-08-23 18:25] LABS: Troponin 5 2HR Delta -0.81 ABS# (0-10)
[2023-08-23 18:38] VITALS: PULSE 75; RESP 15; O2SAT 95
--- NOTE | 2023-08-23 18:40 | PC.NURSE ---
urine ordered while pt was in waiting room, delayed collection
[2023-08-23 18:46] VITALS: PULSE 75; RESP 15; O2SAT 95
--- NOTE | 2023-08-24 10:13 | DCPLANNER ---
A message was sent to heart care on 08/24/[address] [place] [address] to contact patient for appt.
--- NOTE | 2023-09-04 15:36 | DCPLANNER ---
Sent outpatient orders to [facility] per Maida's request.
== END 2023-08-23 18:47 | disposition home or self-care (01) ==
PROVIDERS: Nurse Practitioner Family; Emergency Provider Emergency Medicine; PCP Internal Medicine
DX: R07.89 Other chest pain (principal); Z85.3 Personal history of malignant neoplasm of breast
CPT/HCPCS: 36415; 71045; 80053; 83690; 84484; 85025; 93005; 99285

== ENCOUNTER → 2023-09-08 08:05 | Outpatient (BNVA) | payer MEDICARE, OTHER, SELFPAY | PROVIDERS: PCP Internal Medicine; Visit Provider Internal Medicine | DX: I20.0 Unstable angina (principal); R94.39 Abnormal result of other cardiovascular function study; Z85.3 Personal history of malignant neoplasm of breast | CPT/HCPCS: 99205 ==

== ENCOUNTER 2023-09-08 14:02 | Inpatient (IN) | payer MEDICARE, OTHER, SELFPAY ==
--- NOTE | 2023-09-08 14:08 | PM.HP ---
Providers/Chief Complaint Admitting Physician: Lino Kemp M.D Primary Care Provider: Manuel Andrews DO Chief Complaint: unstable angina History of Present Illness Anita Tyler is a 77 year old female with past medical history of breast cancer who has been having worsening chest pain symptoms since June. Minimal exertion brings chest pressure and shortness of breath. Had 2 episodes of vomiting for significant and came to emergency room. Troponins were elevated however did not trended up significantly. She was discharged home. Outpatient stress test performed recently showed significant abnormalities with large areas of george-infarct ischemia. Today she saw us in the office and has is having ongoing symptoms, we directly admitted to hospital for urgent coronary angiogram with possible percutaneous coronary intervention. Initial troponin is elevated at 105. EKG not showing acute ST-T wave changes. Review of Systems General: Denies: 10 or more systems reviewed and unremarkable except in HPI and below Const: Denies: fever(s), chills, body aches or change in appetite Eyes: Denies: change in vision or blurry vision ENMT: Denies: disequilibrium Card: Reports: chest pain and dyspnea on exertion; Denies: palpitations, irregular heart rhythm, swelling of feet/ankles or lightheadedness Resp: Reports: dyspnea GI: Denies: hematochezia : Denies: hematuria Musc: Denies: neck pain or back pain Skin/Breast: Denies: dry skin Neuro: Denies: headache(s), numbness in extremities, weakness in extremities or dizziness Psych: Denies: anxiety or depression Endo: Denies: tired all the time Otoniel/Lymph: Denies: easy bruising or easy bleeding Medications/Allergies Home Medications Medication Instructions Recorded Confirmed Last Taken Type calcium carbonate 600 mg calcium 600 mg PO DAILY 06/19/19 09/08/23 10/18/19 History (1,500 mg) tablet (Calcium) acetaminophen 325 mg tablet 325 mg PO QID PRN Pain 10/19/19 09/08/23 10/19/19 History (Tylenol) zkedptlqyuci-Qz-htas-minerals 1 tab PO DAILY 10/19/19 09/08/23 10/18/19 History (Multiple Vitamin, Womens tablet) sertraline 100 mg tablet 100 mg PO DAILY 03/02/20 09/08/23 Unknown History mometasone 0.1 % topical solution 1 applic topical DAILY #60 mL 08/29/22 09/08/23 Unknown Rx eutzfpdb-wdbxwtuqr-kmjpxhyj 3.5 1 drp ophthalmic (eye) Q8H #5 mL 02/05/23 09/08/23 Unknown Rx mg/mL-10,000 unit/mL-0.1% eye drops (Maxitrol) triamcinolone acetonide 0.1 % 1 applic topical BID rash #15 grams 05/29/23 09/08/23 Unknown Rx topical cream ascorbic acid (vitamin C) 500 mg 500 mg PO DAILY 09/08/23 09/08/23 Unknown History tablet (Vitamin C) betamethasone dipropionate 0.05 % 1 applic topical DAILY 09/08/23 09/08/23 Unknown History topical ointment carica papaya (Papaya Enzyme 1 tab PO TID PRN Indigestion 09/08/23 09/08/23 Unknown History tablet) cholecalciferol (vitamin D3) 25 25 mcg PO DAILY 09/08/23 09/08/23 Unknown History mcg (1,000 unit) capsule (Vitamin D3) cranberry concentrate-ascorbic 1 cap PO DAILY 09/08/23 09/08/23 Unknown History acid 140 mg-100 mg capsule diclofenac sodium 1 % topical gel 2 g topical QID 09/08/23 09/08/23 Unknown History (Voltaren Arthritis Pain) duloxetine 20 mg capsule,delayed 20 mg PO BID PRN irritable bowel 09/08/23 09/08/23 Unknown History release ginkgo biloba 100 mg PO DAILY 09/08/23 09/08/23 Unknown History glucosamine sulfate 500 mg tablet 1,000 mg PO DAILY 09/08/23 09/08/23 Unknown History (Glucosamine) iron-vitamin B complex with C 27 1 tab PO DAILY 09/08/23 09/08/23 Unknown History mg-300 mg tablet ketoconazole 2 % topical cream 1 applic topical DAILY 09/08/23 09/08/23 Unknown History levothyroxine 88 mcg capsule 88 mcg PO DAILY 09/08/23 09/08/23 Unknown History light mineral oil 1 %-mineral oil 1 drp ophthalmic (eye) DIRECTED 09/08/23 09/08/23 Unknown History 4.5 % eye drops (Soothe XP) PRN Dry Eyes magnesium 250 mg tablet 250 mg PO DAILY 09/08/23 09/08/23 Unknown History morinda citrifolia fruit 250 mg 250 mg PO DAILY 09/08/23 09/08/23 Unknown History capsule omega-3 fatty acids-vitamin E 2 cap PO DAILY 09/08/23 09/08/23 Unknown History 1,000 mg capsule omeprazole 20 mg capsule,delayed 20 mg PO DAILY 09/08/23 09/08/23 Unknown History release potassium gluconate 600 mg (99 mg) 600 mg PO DAILY 09/08/23 09/08/23 Unknown History tablet pumpkin seed extract-soy germ 300 1 cap PO BID 09/08/23 09/08/23 Unknown History mg capsule (Azo Bladder Control) pyridoxine (vitamin B6) 100 mg 100 mg PO DAILY 09/08/23 09/08/23 Unknown History tablet (Vitamin B-6) vit 1 cap PO DAILY 09/08/23 09/08/23 Unknown History C,E,zinc,Gr-qtswx-4-lutein-zeaxanthin 250 mg-2.5 mg-0.5 mg capsule vitamin K2 100 mcg capsule 100 mcg PO DAILY 09/08/23 09/08/23 Unknown History Allergies Allergy/AdvReac Type Severity Reaction Status Date / Time Penicillins Allergy Unknown ADR-Hyperte Verified 09/08/23 08:39 nsion cefdinir Allergy Unknown Verified 09/08/23 08:39 ibuprofen Allergy Unknown Verified 09/08/23 08:39 nitrofurantoin Allergy ALGY-Rash Verified 09/08/23 08:39 red dye Allergy ALGY-Rash Verified 09/08/23 08:39 Sulfa (Sulfonamide Allergy ALGY-Rash Verified 09/08/23 08:39 Antibiotics) PFSH Acute PFSH: Medical History Breast cancer, left breast History of nonmelanoma skin cancer Hx of breast cancer History of depression History of gastroesophageal reflux (GERD) Hx of irritable bowel syndrome Hx of osteoporosis History of skin cancer History of sleep apnea Hx of thyroid disease Left ear hearing loss Surgical History Hx of breast biopsy History of 2 sections Hx of hand surgery Hx of thyroidectomy History of lobectomy of thyroid Hx of tonsillectomy Hx of elbow surgery History of bladder suspension procedure Family History Mother Colon cancer CAD (coronary artery disease) Colon cancer Hyperlipidemia Father CAD (coronary artery disease) Cancer Bladder cancer Lung disease Other IBS (irritable bowel syndrome) Denies family history of Diabetes Clotting disorder Dementia Psychiatric illness Chronic kidney disease (CKD) Suicide Anesthesia complication Bleeding disorder Hypertension Stroke Social History Smoking and tobacco/nicotine status: never used tobacco/nicotine Alcohol intake: never Substance/Drug Use: never Physical Exam Narrative: GENERAL: Patient is alert, awake and oriented x3. [] NECK: No jugular vein distension. [] HEENT: No cyanosis. No icterus. No pallor. [] HEART: Regular S1 and S2. No murmur, rub or gallop. [] LUNGS: Clear to auscultate bilaterally. [] CENTRAL NERVOUS SYSTEM: Grossly nonfocal. [] EXTREMITIES: Lower extremities with 1+ edema bilaterally Data 09/08/23 15:18 09/08/23 15:18 A&P Assessment and plan (1) Unstable angina: (2) Abnormal stress test: Plan Patient's presentation is consistent with unstable angina. Troponin is elevated. We will trend it. Patient put on aspirin, Plavix and started on heparin. Plan for coronary angiogram with possible percutaneous coronary intervention tomorrow. N.p.o. past midnight. Risks and benefits of the procedure discussed. Echocardiogram ordered. Attestations Medical Necessity Statement*: Care expected to corss 2 midnights. Patient has been admitted for unstable angina. Plan for coronary angiogram with possible percutaneous coronary intervention tomorrow. Coding Level of Care Code Acute Code for [facility] Fwd Diagnoses Unstable angina I20.0 Abnormal stress test R94.39
[2023-09-08 14:09] VITALS: BP 140/75; PULSE 78; RESP 21; TEMP 36.5; O2SAT 92
--- NOTE | 2023-09-08 15:21 | ECG_ITS ---
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 Measurements Intervals [place] Rate: 76 P: 4 CO: 149 QRS: 73 QRSD: 81 T: 242 QT: 422 QTc: 477 Interpretive Statements SINUS RHYTHM NONSPECIFIC ST & T-WAVE ABNORMALITY Compared to ECG 08/23/2023 16:59:43 No significant changes Electronically Signed On 09-08-2023 22:53:34 CDT by Lino Kemp M.D. [id number]
[2023-09-08 15:49] VITALS: BMI 25.7
[2023-09-08 16:00] VITALS: BP 140/75; PULSE 75; RESP 28; TEMP 36.7; O2SAT 93
[2023-09-08 16:08] LABS: Basophils % 0.6 %; Eosinophils # 0.2 10^3/uL (0.0-0.8); Eosinophils % 2.3 %; Lymphocytes # 1.9 10^3/uL (0.8-4.8); Lymphocytes % 26.7 %; Mean Corpuscular HGB Conc 33.2 g/dL (30-55); Mean Corpuscular Hemoglobin 29.5 pg (27-33); Mean Corpuscular Volume 88.7 fl (85-98); Mean Platelet Volume 10.3 fL (7.4-10.4); Monocytes # 0.7 10^3/uL (0.2-0.9); Monocytes % 9.3 %; Neutrophils # 4.24 10^3/uL (1.8-7.7); Neutrophils % 60.8 %; Nucleated Red Blood Cells % 0 %; Platelet Count 339 10^3/cmm (157-399); Red Blood Count 4.17 10^6/uL (3.85-5.65); Red Cell Distribution Width 12.8 % (12.1-15.1); White Blood Count 6.97 10^3/uL (3.29-11.43)
[2023-09-08 16:27] LABS: Alanine Aminotransferase 16 U/L (0-33); Alkaline Phosphatase 85 U/L (35-105); Anion Gap 15.5 (5-19); Aspartate Amino Transferase 18 U/L (0-32); Blood Urea Nitrogen 15 mg/dL (8-23); Calcium 9.1 mg/dL (8.5-10.5); Carbon Dioxide 25 mmol/L (22-29); Chloride 104 mmol/L (98-107); Globulin 1.8 g/dL (1.3-4.6); Glucose 97 mg/dL (65-115); Osmolality Calculated 291 mOsm/kg (285-295); Potassium 4.5 mmol/L (3.5-5.1); Sodium 140 mmol/L (136-145); Total Bilirubin 0.3 mg/dL (0.15-1.2); Total Protein 5.8 g/dL (6.6-8.7)
[2023-09-08 16:29] LABS: Troponin(5th) Baseline 105 ng/L (0-10)
[2023-09-08 16:32] LABS: Troponin 5 2HR 104.7 ng/L (0-10); Troponin 5 2HR Delta -0.3 ABS# (0-10)
[2023-09-08] MEDS: heparin 5,000 unit/mL INJ 1 mL IV (17:38)
[2023-09-08] MEDS: heparin drip 25,000 UNIT/500 ML PREMIX 20 UNIT IV (17:42)
[2023-09-08] MEDS: clopidogrel 300 mg Tablet PO (18:31)
[2023-09-08] MEDS: aspirin 325 mg Tablet PO (18:31)
[2023-09-08 19:30] VITALS: BP 144/65; PULSE 77; RESP 22; TEMP 36.7; O2SAT 95
[2023-09-08 20:41] LABS: Troponin 5 6HR Delta -3.7 ng/L (0-12)
[2023-09-08 20:42] LABS: Troponin 5 6HR 101.3 ng/L (0-10)
[2023-09-08 23:18] VITALS: PULSE 74
[2023-09-08 23:26] VITALS: BP 130/70; PULSE 77; RESP 18; TEMP 37.1; O2SAT 91
[2023-09-09] VITALS (10 sets, daily range): BP systolic 105–138; BP diastolic 52–82; PULSE 69–82; RESP 13–25; TEMP 36.4–37.1; O2SAT 92–94
[2023-09-09 00:02] LABS: Partial Thromboplastin Time 76.9 SECONDS (23.9-36.7)
[2023-09-09] MEDS: sodium chloride 0.9% 1,000 ML 50 ML IV (04:32)
[2023-09-09] MEDS: diphenhydrAMINE 50 mg Capsule PO (06:30)
--- NOTE | 2023-09-09 06:33 | XACV_ITS ---
Exam Room: [facility] Ht: 165 cm Wt: 70 kg BSA: 1.80 m2 Gender: Female : 1945 Any Known Allergies: Other Exam Priority: Routine Procedure(s): Procedure Description: Diagnostic procedure Procedure Description: PCI procedure Procedure Description: Drug Eluting Coronary Stent Procedure Description: PTCA Procedure Description: Miscellaneous Procedure Description: ACT Procedure Description: Coronary Angiography Diagnostic Cath Status: Urgent Diagnostic Findings * Left Main has no significant disease. * Diffuse mild disease in LAD. Mid to distal Left Anterior Descending: severe focal 80% stenosis, PHAN: 3 flow. * Mid Right Coronary Artery: chronic total occlusion, PHAN: 0 flow. Has good collateral flow from left circumflex artery and LAD. * Left circumflex artery * continues into a large OM branch. * OM branch proximally has * 99% stenosis. * Then in mid segment of the OM branch there is another * 70 * to 80% stenosis. * Coronary angiography shows right dominance. PCI Status: Urgent PCI Indication: NSTE - ACS Interventional Findings * Mid Left Anterior Descendin% stenosis treated with a MDT R OLIVER 2.25X12 JUDE, MDT Faby OLIVER 2.25X15 JUDE, and MDElin GIL EUPHORA RX 2.77S50OK BALLOON. 0% residual stenosis, PHAN: 3 flow. * First Obtuse Marginal Branch Segment: 99% stenosis treated with a AB TREK 2.50X12 RX BALLOON, MDT NC EUPHORA RX 2.19O00ES BALLOON, MDT R OLIVER 2.75X18 JUDE, MDT R OLIVER 2.25X12 JUDE, and MDT NC EUPHORA RX 2.78L23IR BALLOON. 0% residual stenosis, PHAN: 3 flow. * Procedure detail: We engaged left main artery with XB 3.0 guide catheter. IV heparin was administered to maintain anticoagulation. 0.014 run-through guidewire was used to cross the proximal and mid OM stenosis and was put in distal vessel. We predilated the stenoses with 2.5 x 12 mm semicompliant balloon. This was followed predilation of proximal lesion with a 2.75 x 15 mm NC balloon. We then placed 2.75 x 18 mm resolute Guild drug-eluting stent. Mid lesion still had significant stenosis after ballooning. We proceeded with placing 2.25 x 12 mm resolute Oliver drug-eluting stent. Proximal OM stent was postdilated with a 2.75 x 15 mm NC balloon at high pressure. At this time final angiogram was performed that showed excellent stent expansion, PHAN-3 flow And no residual stenosis. We then turned our attention to LAD stenosis. Run-through wire was used to cross the stenosis and was put in apical LAD. We predilated the stenosis with 2.25 x 12 mm semicompliant balloon. We then placed 2.25 x 15 mm resolute Oliver drug-eluting stent. This was postdilated with 2.5 x 12 mm NC balloon at high pressure. Final angiogram was performed that showed excellent stent expansion and no residual stenosis. Guidewire and guide catheter were removed. 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 Guidewire and guide catheter were removed. Conclusions 1. Severe proximal and mid OM stenosis s/p successful revascularization with 2 stents. Severe mid LAD stenosis. S/p successful revascularization with 1 stent. RCA ANTITANK ASSAULT GUNNER with good collaterals from left system. 2. Mid Left Anterior Descending was treated with a Drug Eluting Stent, Drug Eluting Stent, and Balloon. 3. First Obtuse Marginal Branch Segment was treated with a Balloon, Balloon, Drug Eluting Stent, Drug Eluting Stent, and Balloon. Recommendations * Dual antiplatelet therapy with aspirin and Plavix for at least 1 year. * High intensity statin therapy. * Outpatient cardiology follow up in 2 weeks. Interventional RX Recommendation: PCI w/o planned CABG Diagnostic RX Recommendation: PCI w/o planned CABG Pressures Phase:Rest AO : 109 / 60 ( 83 ) @ 8:49:00 AM 107 / 51 ( 75 ) @ 8:57:00 AM 89 / 52 ( 70 ) @ 9:01:00 AM 114 / 57 ( 82 ) @ 9:12:00 AM 117 / 51 ( 79 ) @ 9:13:00 AM 120 / 51 ( 81 ) @ 9:22:00 AM 125 / 66 ( 92 ) @ 9:32:00 AM Clinical Evaluation EBL: 5mL-10mL Procedural Details Procedure Consent Obtained. Pre-Procedure Time Out. Identified patient by full name and date of as verbalized by the patient/guarantor. Does the consent match the physician's order: Yes. Accurate & Complete Informed Consent: Yes. Inpatient/Outpatient History & Physical on Chart: Yes. If H&P is completed, is and addenduem needed: No. Visualize and Verify Site with Patient/Guarantor: N/A. Relevant Radiology Images available: Yes. The risks, benefits, and alternatives of sedation and/or procedure were discussed by physician. The patient agrees to continue. Procedure started. HA Clinical Fraility Score: 3: Managing Well. Electroslag Welding Machine Operator Indications: New Onset Angina/Unstable Angina. Chest Pain Symptom Assessment: Typical Angina Symptoms. Cardiovascular Instability: No. Correct patient, site and procedure confirmed by cath team. PERRLA. Strong, equal hand human factors specialist bilaterally. Lungs clear x 5 lobes. IV Site on Arrival: 20 gauge in the right forearm. IV Fluids: 0.9% NaCl at KVO. 200 mL infused prior to rn lab. Pre Procedural Pulses: bilateral dorsalis pedis was 3+. Pre Procedural Pulses: bilateral posterior tibial was 3+. Pre Procedural Pulses: bilateral radial was 3+. Oxygen started at 2liters/min via nasal canula. right groin was prepped with chloroprep then draped in the usual sterile fashion. right radial was prepped with chloroprep then draped in the usual sterile fashion. Physician notified. Patient's family in the computer lab assistant waiting room. Dr. Kemp will update at the completion of the procedure. Equipment: 6F - Radial. Cardiac Cath Pack. ACIST Manifold Kit Model BT 2000. Heparinized Saline (2 units/mL), 1000 mL bag. Physician arrived. Baseline sample Acquired. HR: 81 BPM. Physician scrubbed in. Immediate Pre-Procedure Time Out. Correct Patient: Yes; Correct Procedure: Yes; Correct Site: Yes; Correct Patient Position: Yes; Correct Supplies: Yes; Dried Flammable Prep: Yes; Blood Products Available: N/A. Lidocaine 1% infiltrated to the right radial. Arterial access obtained. A 5 vietnamese TIG catheter in over the exchange J wire. Multiple views taken of left coronary artery. Catheter redirected to the RCA. Multiple views taken of right coronary artery. Catheter removed over the exchange J wire. Add inventory: co-ferry pilot, endoflator. ACT drawn. Results 224 seconds. Therapeutic limits - pre-heparin administration 90-150 seconds and monitoring heparin during a vascular procedure >250 seconds. 6 vietnamese XB 3 guide catheter was inserted over the exchange J wire. Runthrough guidewire was advanced through the guide catheter to lesion in the mid Circ. Inflation number : 1 A AB TREK 2.50X12 RX BALLOON was prepped and advanced across the 1st Ob Nataliia , then inflated to 8 DIXON for 0:10 seconds. Inflation number: 2 The AB TREK 2.50X12 RX BALLOON was reinflated across the 1st Ob Nataliia, to 8 DIXON for 0:19 seconds. Inflation number: 3 The AB TREK 2.50X12 RX BALLOON was reinflated across the 1st Ob Nataliia, to 10 DIXON for 0:21 seconds. Balloon out. Results checked. Inflation number : 4 A MDT NC EUPHORA RX 2.29V41ML BALLOON was prepped and advanced across the 1st Ob Nataliia , then inflated to 0 DIXON for 0:12 seconds. Inflation number: 5 The MDT NC EUPHORA RX 2.46C16VS BALLOON was reinflated across the 1st Ob Nataliia, to 12 DIXON for 0:24 seconds. Balloon out. Results checked. Inflation Number : 6 A MDT R OLIVER 2.75X18 JUDE -Lot Number# [id number] was prepped and advanced across the 1st Ob Nataliia. The stent was deployed at 12 DIXON for 0:25 seconds. Exp . Stent balloon out over wire. Results checked. Inflation Number : 7 A MDT R OLIVER 2.25X12 JUDE -Lot Number# [id number] was prepped and advanced across the 1st Ob Nataliia. The stent was deployed at 12 DIXON for 0:20 seconds. Exp.. Stent balloon out over wire. Results checked. Inflation number : 8 A MDT NC EUPHORA RX 2.60S55IL BALLOON was prepped and advanced across the 1st Ob Nataliia , then inflated to 14 DIXON for 0:25 seconds. Balloon out. Runthrough guidewire redirected to the LAD. Results checked. Inflation number: 1 The stent balloon was then re-inflated across the Mid LAD to 16 DIXON for 0:31 seconds. ACT drawn. Results out of range high. Will redraw. Stent balloon out over wire. Results checked. Inflation Number : 2 A MDT R OLIVER 2.25X15 JUDE -Lot Number# [id number] was prepped and advanced across the Mid LAD. The stent was deployed at 12 DIXON for 0:24 seconds. Exp . Stent balloon out over wire. Results checked. Inflation number : 3 A MDT NC EUPHORA RX 2.42T96GH BALLOON was prepped and advanced across the Mid LAD , then inflated to 18 DIXON for 0:23 seconds. Balloon out. Wire out. Results checked. ACT drawn. Results out of range high. Will redraw. Guide catheter out over the exchange J wire. Dr. Kemp scrubbed out. A TR Band was successful obtaining hemostatsis at the Right Radial artery insertion site. Post Procedure: Pulses reassessed and unchanged. PERRLA. Strong, equal hand human factors specialist bilaterally. No VTE prophylaxis required. PCI Indication: Unbstable Angina/New Onset Angina. Post-op diagnosis: ANTITANK ASSAULT GUNNER of the RCA, PCI of the OM s/p 2 JUDE, PCI of the mid LAD s/p 1 JUDE. Complications: none. Medication's Wasted: Nitro = 49.4 mg. Medication's Wasted: Other = Fentanyl 50 mcg. Vital chart was stopped. ACT drawn. Results 294 seconds. Therapeutic limits - pre-heparin administration 90-150 seconds and monitoring heparin during a vascular procedure >250 seconds. Total IV fluids: 120 mL. Estimated blood loss: 5mL-10mL. Responsiveness - Normal response to verbal stimuli; alert and oriented, PERRLA. Airway - Unaffected, no intervention required; spontaneous ventilation. Circulation: W/N/L, pulses unchanged. Procedure completed. Nausea/Vomiting: No. Patient transferred by bed to 1st floor. Access Site Site: Right Radial artery Sheath Size: 6 Fr Hemostasis Method: TR Band Hemostasis Success: Successful Procedure Medications Start: 7:36 AM Stop: 7:36 AM Medication: Versed Amount: 1 mg Route: I.V. Start: 7:39 AM Stop: 7:39 AM Medication: Fentanyl Amount: 25 mcg Route: I.V. Start: 7:44 AM Stop: 7:44 AM Medication: Versed Amount: 1 mg Route: I.V. Start: 7:46 AM Stop: 7:46 AM Medication: Nitrogylcerin Amount: 200 mcg Route: I.A. Start: 7:49 AM Stop: 7:49 AM Medication: Heparin Amount: 2500 units Route: I.V. Start: 7:57 AM Stop: 7:57 AM Medication: Heparin Amount: 2500 units Route: I.V. Start: 8:00 AM Stop: 8:00 AM Medication: Fentanyl Amount: 25 mcg Route: I.V. Start: 8:13 AM Stop: 8:13 AM Medication: Nitrogylcerin Amount: 200 mcg Route: I.C. Start: 8:16 AM Stop: 8:16 AM Medication: Heparin Amount: 1000 units Route: I.V. Start: 8:35 AM Stop: 8:35 AM Medication: Nitrogylcerin Amount: 200 mcg Route: I.C. Start: 8:45 AM Stop: 8:45 AM Medication: Plavix Amount: 300 mg Route: P.O. Start: 8:45 AM Stop: 8:45 AM Medication: Aspirin Amount: 81 mg Route: P.O. I, the attending physician, have reviewed and verified all procedure medications. Yes, all medications given per verbal order History/Risk Factors Hypertension: No Dyslipidemia: No Peripheral Arterial Disease (PAD): No Myocardial Infarction (ID): No Obesity: No Renal Disease: No Tobacco Use: Never Prior Interventions PCI: No CABG: No Valve Surgery: No Report Signatures Finalized by Lino Kemp MD on 09/10/2023 10:40 AM
--- NOTE | 2023-09-09 07:14 | W.PM.OPSUD ---
Surgery/Procedure H&P Update DATE OF PROCEDURE: September 09, 2023 DATE H&P PERFORMED: 09/08/23 H&P UPDATE INFORMATION: I have reviewed H&P completed within last 30 days, I have examined patient prior to procedure and No changes to prior documentation PREOP DIAGNOSIS: NSTEMI PRIMARY INDICATION FOR PROCEDURE: NSTEMI PLANNED PROCEDURE: Left heart cath with possible percutaneous coronary intervention PATIENT REASSESSED PRIOR TO SEDATION, WITH NO CHANGE NOTED: Yes PHYSICAL EXAM: alert, oriented x 3, clear to auscultation bilaterally and regular rate & rhythm AIRWAY EVAL/ANESTHESIA PLAN: normal airway, ASA III, Local Anesthesia, Risks, benefits & alternatives of sedation and/or procedure discussed and Patient agrees to continue as planned ADDITIONAL INFORMATION: Moderate sedation
--- NOTE | 2023-09-09 07:17 | USCV_ITS ---
Anita Tyler Age: 77 Gender: F : 1945 Exam Date: 09/09/2023 11:37 Ordering Phys: Lino Kemp M.D ([email or web address]) Technologist: Kole Murillo Exam Location: [facility] [place] Indication: nstemi BP: 138 / 82 HR: 78 Rhythm: Sinus Technical Quality: Adequate MEASUREMENTS (Male / Female) Normal Values 2D ECHO LVOT Diameter 2.0 cm LV Ejection Fraction MOD 2C 72.9 % LV Ejection Fraction 2C AL 73.1 % LA Diameter 3.2 cm RA Systolic Volume 4C AL 34.7 ml RA Systolic Volume 4C MOD 35.1 ml Aorta at Sinotubular Diameter 1.9 cm IVC Diameter 1.7 cm M-MODE LA Ao Ratio MM 1.5 AV Cusp Separation MM 1.9 cm DOPPLER AV Peak Velocity 159.0 cm/s LVOT Peak Velocity 103.0 cm/s AV Area Cont Eq vti 2.6 cm squared AV Area Cont Eq pk 2.1 cm squared MV Peak Velocity 120.0 cm/s MV Area PHT 6.4 cm squared Mitral E to A Ratio 2.0 TV Peak Velocity 306.0 cm/s TR Peak Velocity 362.0 cm/s TR Peak Gradient 52.4 mmHg TR Mean Velocity 293.0 cm/s TR Mean Gradient 37.4 mmHg TR Velocity Time Integral 84.8 cm PV Peak Velocity 89.0 cm/s RV Ejection Time 0.3 s FINDINGS Left Ventricle Left ventricle is normal in size. LV systolic function is normal with EF of 55 to 60%. No regional wall motion abnormalities are seen. Right Ventricle Normal in size and function Right Atrium Normal in size Left Atrium Mildly dilated Mitral Valve Mitral valve is thickened. Mild mitral regurgitation. Aortic Valve Structurally normal aortic valve. No significant stenosis or regurgitation. Tricuspid Valve Mild tricuspid regurgitation. Insufficient TR jet to calculate RVSP. Pulmonic Valve Mild pulmonic regurgitation. Pericardium Normal Aorta Normal in size IVC Appears to be normal CONCLUSIONS LV systolic function is normal with EF of 55-60% Mild mitral regurgitation Mild tricuspid regurgitation Mild pulmonic regurgitation No comparison studies are available. Lino Kemp MD (Electronically Signed) Final Date: 10 September 2023 06:58 S
--- NOTE | 2023-09-09 07:34 | PC.NURSE ---
taken pt to research lab assistant
[2023-09-09] MEDS: sodium chloride 0.9% 1,000 ML 100 ML IV (10:00)
--- NOTE | 2023-09-09 11:03 | PM.PN ---
Subjective Subjective: Patient had coronary angiogram today. Demonstrated severe mid LAD stenosis, critical OM1 serial stenosis. 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 Patient has active symptoms and history of prior chest radiation. We proceeded with PCI of large OM with 2 stents and mid LAD with 1 stent. She is chest pain free. Vitals/I&O/Wt Last Vital Signs Temp 97.6 F 09/09/23 04:00 Pulse 74 09/09/23 08:00 Resp 18 09/09/23 08:00 BP 138/82 09/09/23 08:00 Pulse Ox 92 09/09/23 08:00 O2 Del Method Nasal Cannula 09/09/23 08:00 09/08/23 09/09/23 09/09/23 22:59 06:59 14:59 Intake Total 118 / 118 140 / 258 Balance 118 / 118 140 / 258 Weight last 48 hrs Weight 154 lb 1.6 oz Weight 154 lb 5 oz Physical Exam Narrative: GENERAL: Patient is alert, awake and oriented x3. [] NECK: No jugular vein distension. [] HEENT: No cyanosis. No icterus. No pallor. [] HEART: Regular S1 and S2. No murmur, rub or gallop. [] LUNGS: Clear to auscultate bilaterally. [] CENTRAL NERVOUS SYSTEM: Grossly nonfocal. [] EXTREMITIES: Lower extremities with 1+ edema bilaterally Data 09/08/23 15:18 09/10/23 03:27 A&P Assessment and plan (1) Unstable angina: (2) Abnormal stress test: (3) NSTEMI (non-ST elevated myocardial infarction): Plan Patient underwent successful revascularization of large OM vessel with 2 stents and mid LAD with 1 stent. She is chest pain-free. Will continue with aspirin and Plavix. Will also continue with high intensity statin therapy. Will add beta blockers. ECHO pending If stable, will discharge home tomorrow. Attestations Medical Necessity Statement*: Care expected to cross 2 midnights. Patient was admitted directly from office with unstable angina/NSTEMI. Had successful revascularization of OM and LAD today. Coding Level of Care Code Acute Code for [facility] Diagnoses Unstable angina I20.0 Abnormal stress test R94.39 NSTEMI (non-ST elevated myocardial infarction) I21.4
[2023-09-09] MEDS: metoprolol tartrate 50 mg Tablet 25 MG PO (17:39)
[2023-09-09] MEDS: atorvastatin 40 mg Tablet PO (20:09)
[2023-09-09] MEDS: alum-mag-hydroxide-sime 30 mL UDC PO (20:09)
[2023-09-10 03:33] VITALS: BP 115/67; PULSE 66; RESP 22; TEMP 36.6; O2SAT 95
[2023-09-10 04:11] LABS: Anion Gap 12.6 (5-19); Blood Urea Nitrogen 12 mg/dL (8-23); Carbon Dioxide 26 mmol/L (22-29); Chloride 109 mmol/L (98-107); Creatinine Clr Calc Pharmacy 55.9544; Glucose 113 mg/dL (65-115); Osmolality Calculated 297 mOsm/kg (285-295); Potassium 4.6 mmol/L (3.5-5.1); Sodium 143 mmol/L (136-145)
[2023-09-10 05:22] VITALS: PULSE 78
[2023-09-10] MEDS: levothyroxine 88 mcg Tablet PO (05:41)
--- NOTE | 2023-09-10 07:08 | P.DS_ITS ---
Discharge Providers Date of Admission: 09/08/23 14:02 Date of Discharge: September 10, 2023 Attending Provider at Admission: Lino Kemp M.D Attending Provider at Discharge: Lino Kemp M.D Primary Care Provider: Manuel Andrews DO Diagnoses at Discharge Discharge Diagnosis (1) Unstable angina: Status: Acute (2) Abnormal stress test: Status: Acute (3) NSTEMI (non-ST elevated myocardial infarction): Status: Acute Reason for Visit Reason for Visit: unstable angina Brief History: 77 year old female with past medical history of breast cancer who has been having worsening chest pain symptoms since June. Minimal exertion brings chest pressure and shortness of breath. Was seen twice in ER this month for chest pains. Troponins were elevated however did not trended up significantly. She was discharged home. Outpatient stress test performed recently showed significant abnormalities with large areas of george-infarct ischemia. Today she saw us in the office and has is having ongoing symptoms, we directly admitted to hospital for urgent coronary angiogram with possible percutaneous coronary intervention. Initial troponin is elevated at 105. EKG not showing acute ST-T wave changes. Hospital Course Hospital Course Patient was put on ACS protocol. 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 Also had critical large OM serial stenosis that were treated with 2 stents. She stayed chest pain-free after the procedure. Will be discharged home on dual antiplatelet therapy, statin therapy and beta-blockers. ECHO showed normal LV systolic function Physical Exam Narrative: GENERAL: Patient is alert, awake and oriented x3. [] NECK: No jugular vein distension. [] HEENT: No cyanosis. No icterus. No pallor. [] HEART: Regular S1 and S2. No murmur, rub or gallop. [] LUNGS: Clear to auscultate bilaterally. [] CENTRAL NERVOUS SYSTEM: Grossly nonfocal. [] EXTREMITIES: Lower extremities with 1+ edema bilaterally Discharge Data Studies Completed and Pending Completed Studies During Hospitalization Category Date Time Status CV. echo complete* [id number] Routine Ultrasound 09/09/23 07:17 Completed Pending at discharge Category Date Time Status [employer]IAN request for service Routine Exams 09/09/23 06:33 Taken Basic Metabolic Panel AM LABS Lab 09/11/23 04:00 Ordered Laboratory Results WBC 6.97 10^3/uL (3.29-11.43) 09/08/23 15:18 RBC 4.17 10^6/uL (3.85-5.65) 09/08/23 15:18 Hgb 12.30 g/dL (11.27-16.99) 09/08/23 15:18 Hct 37.0 % (36-47) 09/08/23 15:18 MCV 88.7 fl (85-98) 09/08/23 15:18 MCH 29.5 pg (27-33) 09/08/23 15:18 MCHC 33.2 g/dL (30-55) 09/08/23 15:18 RDW 12.8 % (12.1-15.1) 09/08/23 15:18 Plt Count 339 10^3/cmm (157-399) 09/08/23 15:18 MPV 10.3 fL (7.4-10.4) 09/08/23 15:18 Neut % (Auto) 60.8 % 09/08/23 15:18 Lymph % (Auto) 26.7 % 09/08/23 15:18 [place] % (Auto) 9.3 % 09/08/23 15:18 Eos % (Auto) 2.3 % 09/08/23 15:18 Baso % (Auto) 0.6 % 09/08/23 15:18 Neut # (Auto) 4.24 10^3/uL (1.8-7.7) 09/08/23 15:18 Lymph # (Auto) 1.9 10^3/uL (0.8-4.8) 09/08/23 15:18 [place] # (Auto) 0.7 10^3/uL (0.2-0.9) 09/08/23 15:18 Eos # (Auto) 0.2 10^3/uL (0.0-0.8) 09/08/23 15:18 Baso # (Auto) 0.0 10^3/uL (0.0-0.1) 09/08/23 15:18 Nucleated RBC % (auto) 0 % 09/08/23 15:18 Nucleated RBCs # 0.0 /100WBC 09/08/23 15:18 APTT 76.9 SECONDS (23.9-36.7) H 09/08/23 23:12 Sodium 143 mmol/L (136-145) 09/10/23 03:27 Potassium 4.6 mmol/L (3.5-5.1) 09/10/23 03:27 Chloride 109 mmol/L (98-107) H 09/10/23 03:27 Carbon Dioxide 26 mmol/L (22-29) 09/10/23 03:27 Anion Gap 12.6 (5-19) 09/10/23 03:27 BUN 12 mg/dL (8-23) 09/10/23 03:27 Creatinine 0.5 mg/dL (0.5-0.9) 09/10/23 03:27 GFR Calculation Not Reportable 09/10/23 03:27 Glucose 113 mg/dL (65-115) 09/10/23 03:27 Calculated Osmolality 297 mOsm/kg (285-295) H 09/10/23 03:27 Calcium 9.0 mg/dL (8.5-10.5) 09/10/23 03:27 Total Bilirubin 0.3 mg/dL (0.15-1.2) 09/08/23 15:18 AST 18 U/L (0-32) 09/08/23 15:18 ALT 16 U/L (0-33) 09/08/23 15:18 Alkaline Phosphatase 85 U/L (35-105) 09/08/23 15:18 Troponin T Baseline 105 ng/L (0-10) H* 09/08/23 15:18 Troponin T 120 Minute 104.7 ng/L (0-10) H 09/08/23 16:00 Delta Troponin T -0.3 ABS# (0-10) L 09/08/23 16:00 Troponin T Hi Sens 6Hr 101.3 ng/L (0-10) H 09/08/23 20:03 Troponin T Hi Sens 6Hr Delta -3.7 ng/L (0-12) L 09/08/23 20:03 Total Protein 5.8 g/dL (6.6-8.7) L 09/08/23 15:18 Albumin 4.0 g/dL (3.5-5.2) 09/08/23 15:18 Globulin 1.8 g/dL (1.3-4.6) 03/29/24 15:18 Vitals Last Vital Signs Temp 97.9 F 09/10/23 03:33 Pulse 78 09/10/23 05:22 Resp 22 H 09/10/23 03:33 BP 115/67 09/10/23 03:33 Pulse Ox 95 09/10/23 03:33 O2 Del Method CPAP 09/10/23 03:33 Discharge Plan Discharge Patient Disposition: Home Condition: Stable Prescriptions: New Adult Low Dose Aspirin 81 mg tablet,delayed release (DR/EC) 81 mg PO DAILY Qty: 90 3RF atorvastatin 40 mg Tablet 40 mg PO BEDTIME Qty: 90 3RF clopidogrel 75 mg Tablet 75 mg PO DAILY Qty: 90 3RF metoprolol tartrate 50 mg Tablet 25 mg PO BID Qty: 180 3RF nitroglycerin 0.4 mg Tablet, Sublingual 0.4 mg sublingual Q5M PRN (Reason: Chest Pain) Qty: 30 0RF pantoprazole 20 mg tablet,delayed release (DR/EC) 20 mg PO DAILY Qty: 60 1RF Continued neomycin-polymyxin B-dexameth [Maxitrol] 3.5mg/mL-10,000 unit/mL-0.1 % drops,suspension 1 drp ophthalmic (eye) Q8H Qty: 5 0RF triamcinolone acetonide 0.1 % cream 1 applic topical BID MDD 14 days Qty: 15 0RF Rx Instructions: Thin layer to area twice daily. Rub in well. Wash hands after use. levothyroxine 88 mcg capsule 88 mcg PO DAILY vit C,E,Zn,Ua-wrefr5-xgr-zeax 250-2.5-0.5 mg capsule 1 cap PO DAILY diclofenac sodium [Voltaren Arthritis Pain] 1 % gel 2 g topical QID Rx Instructions: apply to single elbow, wrist or hand; for hand includes palm/fingers/back of hand ketoconazole 2 % cream 1 applic topical DAILY duloxetine 20 mg capsule,delayed release(DR/EC) 20 mg PO BID PRN (Reason: irritable bowel) mometasone 0.1 % solution 1 applic TOPICAL DAILY Qty: 60 6RF Rx Instructions: to scalp M-F acetaminophen [Tylenol] 325 mg Tablet 325 mg PO QID PRN (Reason: Pain) Multiple Vitamin, Womens Tablet 1 tab PO DAILY calcium carbonate [Calcium 600] 600 mg calcium (1,500 mg) Tablet 600 mg PO DAILY sertraline 100 mg tablet 100 mg PO DAILY Vitamin D3 25 mcg (1,000 unit) Capsule 25 mcg PO DAILY Glucosamine 500 mg Tablet 1,000 mg PO DAILY Rx Instructions: administer with a meal Vitamin B-6 100 mg Tablet 100 mg PO DAILY Papaya Enzyme Tablet 1 tab PO TID PRN (Reason: Indigestion) Rx Instructions: administer with meals ginkgo biloba Tablet 100 mg PO DAILY Rx Instructions: give with meal/snack betamethasone dipropionate 0.05 % Ointment 1 applic TOPICAL DAILY Soothe XP 1-4.5 % Drops 1 drp OPHTHALMIC (EYE) DIRECTED PRN (Reason: Dry Eyes) magnesium 250 mg Tablet 250 mg PO DAILY Azo Bladder Control 300 mg Capsule 1 cap PO BID potassium gluconate 600 mg (99 mg) Tablet 600 mg PO DAILY omega-3 fatty acids-vitamin E 1,000 mg Capsule 2 cap PO DAILY Vitamin C 500 mg Tablet 500 mg PO DAILY cranberry conc-ascorbic acid 140-100 mg Capsule 1 cap PO DAILY iron-vitamin B complex with C 27-300 mg Tablet 1 tab PO DAILY morinda citrifolia fruit 250 mg Capsule 250 mg PO DAILY Discontinued omeprazole 20 mg capsule,delayed release(DR/EC) 20 mg PO DAILY vitamin K2 100 mcg Capsule 100 mcg PO DAILY Discharge Orders: Discharge Order (Routine); Ordered 09/10/23 Ordered By: Lino Kemp Referrals: Elva Booker FNP [Nurse Practitioner] - 4-7 days (Elva Booker's Office has your information and will be calling you to schedule a follow up appointment. You can call them at [phone] with any questions or concerns. Thank you.) Manuel Andrews, [Primary Care Provider] - 4-7 days (Please call for an follow-up appointment with 4 to 7 days. Thank you! ) Discharge Diet: Cardiac Discharge Activity: Increase activity as tolerated Patient Instructions: Metoprolol (By mouth) (Lopressor, Toprol XL), Nitroglycerin (By mouth), Atorvastatin (By mouth) (Lipitor, Atorvaliq), Clopidogrel (By mouth) (Plavix), Pantoprazole (By mouth) (Protonix), Angina (DC), Coronary Angioplasty (DC), Chest Pain Stoplight, Opioid Safety, Post Angiogram Home Care Instructions Discharge Attestations Time Spent in Discharge Care*: less than 30 min Quality Metrics Clinical Quality Measures [ Acute Myocardial Infaction { Clinical Trial Participant: No; Contraindication to aspirin: None; Aspirin prescribed; Contraindication to statin: None; Statin prescribed; Contraindication to PCI: None; PCI performed;}] Coding Level of Care Code Acute Code for [facility] Diagnoses Unstable angina I20.0 Abnormal stress test R94.39 NSTEMI (non-ST elevated myocardial infarction) I21.4
[2023-09-10 07:28] VITALS: BP 126/73; PULSE 70; RESP 15; TEMP 36.7; O2SAT 94
[2023-09-10] MEDS: aspirin 81 mg EC Tablet PO (07:56)
[2023-09-10] MEDS: clopidogrel 75 mg Tablet PO (07:56)
[2023-09-10] MEDS: metoprolol tartrate 50 mg Tablet 25 MG PO (07:57)
[2023-09-10 08:17] VITALS: BP 126/73; PULSE 70; RESP 15; TEMP 36.7; O2SAT 94
== END 2023-09-10 09:01 | disposition home or self-care (01) | DRG 322 ==
PROVIDERS: Admitting Provider Internal Medicine; PCP Internal Medicine; Visit Provider Internal Medicine
PROC: 027136Z Dilation of Coronary Artery, Two Arteries with Three Drug-eluting Intraluminal Devices, Percutaneous Approach (ICD-10-PCS; principal; 2023-09-09 07:30)
PROC: 027136Z Dilation of Coronary Artery, Two Arteries with Three Drug-eluting Intraluminal Devices, Percutaneous Approach (ICD-10-PCS; 2023-09-09 07:30)
DX: I25.110 Atherosclerotic heart disease of native coronary artery with unstable angina pectoris (principal); F32.A Depression, unspecified; K21.9 Gastro-esophageal reflux disease without esophagitis; M81.0 Age-related osteoporosis without current pathological fracture; G47.30 Sleep apnea, unspecified; E89.0 Postprocedural hypothyroidism; H91.92 Unspecified hearing loss, left ear; Z85.828 Personal history of other malignant neoplasm of skin; Z85.3 Personal history of malignant neoplasm of breast
CPT/HCPCS: 36415; 78452; 80048; 80053; 84484; 85025; 85347; 85730; 93005; 93017; 93306; 93454; 96374; 96375; 96376; 99152; 99153; 99205; A9500; C1725; C1769; C1874; C1887; C1894; C9600; C9601; J1644; J2250; J2785; J3010; J3490; J7030; Q0163; Q9967

== ENCOUNTER → 2023-09-15 14:43 | Outpatient (BNVA) | payer MEDICARE, OTHER, SELFPAY | PROVIDERS: PCP Internal Medicine; Visit Provider Emergency Medicine | DX: R39.9 Unspecified symptoms and signs involving the genitourinary system (principal) | CPT/HCPCS: 81000; 87077; 87086; 87184 ==

== ENCOUNTER 2023-09-29 12:30 | Inpatient (IN) | payer MEDICARE, OTHER, SELFPAY ==
[2023-09-29] VITALS (11 sets, daily range): BP systolic 126–146; BP diastolic 71–80; PULSE 60–68; RESP 17–24; TEMP 36.3–36.8; O2SAT 87–99; BMI 25.8
--- NOTE | 2023-09-29 12:37 | ECG_ITS ---
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 Measurements Intervals [place] Rate: 64 P: 43 [place]: 173 QRS: 83 QRSD: 77 T: 5 QT: 398 QTc: 413 Interpretive Statements SINUS RHYTHM NONSPECIFIC ST & T-WAVE ABNORMALITY Compared to ECG 09/08/2023 15:21:40 No significant changes Electronically Signed On 09-29-2023 17:00:50 CDT by Tc Lui M.D. [id number] f
--- NOTE | 2023-09-29 12:49 | XR_ITS ---
WS: [id number] Exam: XR chest 1V portable [id number] Date/Time of Exam: 09/29/2023 12:49 PM Reason For Exam: cp Comparison 08/23/2023. The lungs are fully expanded. Heart size is top limits normal. Prominent hiatal hernia noted. No pleu ral effusions. The mediastinum is normal in contour. Bony structures are intact. IMPRESSION: 1. No acute cardiopulmonary finding. 2. Prominent hiatal hernia.
--- NOTE | 2023-09-29 13:38 | ED_ITS ---
HPI - SOB/Dyspnea 2 General: Chief Complaint: Shortness of Breath/Dyspnea Stated Complaint: sob Time Seen by Provider: 09/29/23 13:29 Source: patient Mode of arrival: ambulatory Limitations: no limitations History of Present Illness: HPI Narrative: 77-year-old female states she had 3 sten ts placed on September 08 states that since then she has been having some dyspnea states the last 3 days she has had worsening exertional dyspnea. She denies any chest pain she denies any fever she denies any cough. She had no vomiting or diarrhea Associated symptoms: Deny abdominal pain, chest pain, fever(s), nausea or vomiting Review of Systems 2 Const: Denies: fever(s), chills, body aches or change in appetite ENMT: Denies: throat pain or dental pain Card: Denies: chest pain Resp: Reports: dyspnea GI: Denies: abdominal pain, nausea, vomiting or diarrhea Musc: Denies: neck pain or back pain Skin/Breast: Denies: rash Neuro: Denies: headache(s) PFSH ED 2 PFSH: Medical History NSTEMI (non-ST elevated myocardial infarction) Unstable angina Breast cancer, left breast History of nonmelanoma skin cancer Hx of breast cancer History of depression History of gastroesophageal reflux (GERD) Hx of irritable bowel syndrome Hx of osteoporosis History of skin cancer History of sleep apnea Hx of thyroid disease Left ear hearing loss Surgical History Hx of breast biopsy History of 2 sections Hx of hand surgery Hx of thyroidectomy History of lobectomy of thyroid Hx of tonsillectomy Hx of elbow surgery History of bladder suspension procedure Family History Mother Colon cancer CAD (coronary artery disease) Colon cancer Hyperlipidemia Father CAD (coronary artery disease) Cancer Bladder cancer Lung disease Other IBS (irritable bowel syndrome) Denies family history of Diabetes Clotting disorder Dementia Psychiatric illness Chronic kidney disease (CKD) Suicide Anesthesia complication Bleeding disorder Hypertension Stroke Social History Smoking and tobacco/nicotine status: never used tobacco/nicotine Alcohol intake: never Substance/Drug Use: never Physical Exam 2 Const: COMMON NORMALS: no acute distress, patient oriented x3 and healthy appearing HENMT: COMMON NORMALS: normocephalic and atraumatic HEAD & SCALP: n ormocephalic and atraumatic Neck/C-Spine: COMMON NORMALS: full ROM and supple Chest: COMMONS NORMALS: normal inspection of the chest and normal palpation of entire chest wall Resp: COMMON NORMALS: normal respiratory effort, No retractions, No use of accessory muscles and clear to auscultation bilaterally AUSCULTATION: clear to auscultation bilaterally Cardio: COMMON NORMALS: regular rate, regular rhythm and No murmurs present (Cardio) RATE: regular rate RHYTHM: regular rhythm Extremity: COMMON NORMALS: normal to inspection and full ROM Neuro: COMMON NORMALS: patient oriented x3, moves all extremities and no focal motor deficits Psych: COMMON NORMALS: mental status grossly normal, Normal thought process present and cooperative THOUGHT PROCESS: Normal thought process present Skin: COMMON NORMALS: no rashes or lesions noted and no wounds GENERAL SKIN EXAM: no rashes or lesions noted Course 2 Vital Signs: Vital signs: Vital Signs Temperature 97.5 F L 09/29/23 12:32 Pulse Rate 66 09/29/23 13:11 Respiratory Rate 24 H 09/29/23 13:11 Blood Pressure 132/77 09/29/23 12:32 Pulse Oximetry 92 09/29/23 13:11 Oxygen Delivery Me thod Room Air 09/29/23 12:32 MDM - SOB/Dyspnea Medical Decision Making Patient presents here with dyspnea especially exertional dyspnea over the last 3 days she had a recent stent placement. Here she is in the low 90s on room air at rest does get dyspneic with exertion her BNP is elevated x-ray is clear will admit for observation for hypoxia and dyspnea Medical Records I reviewed the patient's medical records. Lab Data I reviewed the patient's lab results. 09/29/23 13:33 09/29/23 13:33 Labs/Radiology: Laboratory Results WBC 7.46 10^3/uL (3.29-11.43) 09/29/23 13:33 RBC 4.12 10^6/uL (3.85-5.65) 09/29/23 13:33 Hgb 11.90 g/dL (11.27-16.99) 09/29/23 13:33 Hct 36.1 % (36-47) 09/29/23 13:33 MCV 87.6 fl (85-98) 09/29/23 13:33 MCH 28.9 pg (27-33) 09/29/23 13:33 MCHC 33.0 g/dL (30-55) 09/29/23 13:33 RDW 12.9 % (12.1-15.1) 09/29/23 13:33 Plt Count 299 10^3/cmm (157-399) 09/29/23 13:33 MPV 10.2 fL (7.4-10.4) 09/29/23 13:33 Neut % (Auto) 69.6 % 09/29/23 13:33 Lymph % (Auto) 18.2 % 09/29/23 13:33 [place] % (Auto) 7.4 % 09/29/23 13:33 Eos % (Auto) 3.8 % 09/29/23 13:33 Baso % (Auto) 0.7 % 09/29/23 13:33 Neut # (Auto) 5.20 10^3/uL (1.8-7.7) 09/29/23 13:33 Lymph # (Auto) 1.4 10^3/uL (0.8-4.8) 09/29/23 13:33 [place] # (Auto) 0.6 10^3/uL (0.2-0.9) 09/29/23 13:33 Eos # (Auto) 0.3 10^3/uL (0.0-0.8) 09/29/23 13:33 Baso # (Auto) 0.1 10^3/uL (0.0-0.1) 09/29/23 13:33 Nucleated RBC % (auto) 0 % 09/29/23 13:33 Nucleated RBCs # 0.0 /100WBC 09/29/23 13:33 D-Dimer 0.51 ug/mLFEU (0-0.59) 09/29/23 13:33 Sodium 144 mmol/L (136-145) 09/29/23 13:33 Potassium 4.3 mmol/L (3.5-5.1) 09/29/23 13:33 Chloride 105 mmol/L (98-107) 09/29/23 13:33 Carbon Dioxide 30 mmol/L (22-29) H 09/29/23 13:33 Anion Gap 13.3 (5-19) 09/29/23 13:33 BUN 15 mg/dL (8-23) 09/29/23 13:33 Creatinine 0.5 mg/dL (0.5-0.9) 09/29/23 13:33 GFR Calculation Not Reportable 09/29/23 13:33 Glucose 101 mg/dL (65-115) 09/29/23 13:33 Calculated Osmolality 299 mOsm/kg (285-295) H 09/29/23 13:33 Calcium 10.1 mg/dL (8.5-10.5) 09/29/23 13:33 Total Bilirubin 0.5 mg/dL (0.15-1.2) 09/29/23 13:33 AST 17 U/L (0-32) 09/29/23 13:33 ALT 17 U/L (0-33) 09/29/23 13:33 Alkaline Phosphatase 94 U/L (35-105) 09/29/23 13:33 Troponin T Baseline 17 ng/L (0-10) H 09/29/23 13:33 NT-Pro-B Natriuret Pep 2724 pg/mL (0-450) H 09/29/23 13:33 Total Protein 6.4 g/dL (6.6-8.7) L 09/29/23 13:33 Albumin 4.3 g/dL (3.5-5.2) 09/29/23 13:33 Globulin 2.1 g/dL (1.3-4.6) 09/29/23 13:33 All radiology interpretation(s) finalized by discharge EKG Data EKG 1: I personally reviewed and interpreted this EKG as follows: EKG Interpretation Date: 09/29/23 EKG interpretation time: 12:37 Interpretation: nsr hr [address] or t wave abnormalities qrs 77 qtc 408 Discharge Plan Discharge Patient Disposition: Admitted As Inpatient Clinical Impression: Dyspnea, Hypoxia Condition: Stable Prescriptions: No Action ketoconazole 2 % cream 1 applic topical DAILY PRN (Reason: unknown) sertraline 100 mg tablet 100 mg PO DAILY levothyroxine 88 mcg tablet 88 mcg PO DAILY nitroglycerin [Nitrostat] 0.4 mg Tablet, Sublingual 0.4 mg SUBLINGUAL Q5M PRN (Reason: Chest Pain) Rx Instructions: do not exceed 3 doses per episode mometasone 0.1 % solution See Rx Instructions .ROUTE .COMPLEX Rx Instructions: APPLY TOPICALLY TO SCALP ONCE DAILY ON MONDAY-MONDAY multivitamin Tablet 1 tab PO DAILY Fish Oil Concentrate 1,000 mg Capsule 1,000 mg PO DAILY PRN (Reason: unknown) Glucosamine 500 mg Tablet 500 mg PO DAILY Calcium + D 600 mg-5 mcg (200 unit) Tablet 1 tab PO DAILY@12 ginkgo biloba 40 mg Tablet 40 mg PO DAILY iron 325 mg (65 mg iron) Tablet 325 mg PO DAILY cranberry 500 mg Capsule 500 mg PO TID potassium gluconate 595 mg (99 mg) Tablet 595 mg PO DAILY Soothe Lubricant 0.6-0.6 % Dropperette 1 drp OPHTHALMIC (EYE) DAILY PRN (Reason: Dry Eye(S)) PreserVision AREDS-2 250-90-40-1 mg Capsule 1 cap PO DAILY magnesium oxide 400 mg magnesium Tablet 400 mg PO DAILY Blue-Emu Cream See Rx Instructions .ROUTE .COMPLEX Rx Instructions: daily as needed clopidogrel 75 mg tablet 75 mg PO DAILY@12 Adult Low Dose Aspirin 81 mg tablet,delayed release (DR/EC) 81 mg PO DAILY@12 triamcinolone acetonide 0.1 % cream 1 applic topical BID MDD 14 days PRN (Reason: rash) Rx Instructions: Thin layer to area twice daily. Rub in well. Wash hands after use. pyridoxine (vitamin B6) [Vitamin B-6] 100 mg Tablet 100 mg PO DAILY Papaya Enzyme Tablet 1 tab PO TID Rx Instructions: administer with meals betamethasone dipropionate 0.05 % Ointment 1 applic TOPICAL DAILY PRN (Reason: unknown) Azo Bladder Control 300 mg Capsule 1 cap PO BID ascorbic acid (vitamin C) [Vitamin C] 500 mg Tablet 500 mg PO DAILY atorvastatin 40 mg Tablet 40 mg PO BEDTIME Qty: 90 3RF metoprolol tartrate 50 mg Tablet 25 mg PO BID Qty: 180 3RF pantoprazole 20 mg tablet,delayed release (DR/EC) 20 mg PO DAILY Qty: 60 1RF Referrals: Manuel Andrews DO [Primary Care Provider] - Coding Level of Care Code ED Lead Housekeeper for [facility]
[2023-09-29 13:46] LABS: Basophils # 0.1 10^3/uL (0.0-0.1); Basophils % 0.7 %; Eosinophils # 0.3 10^3/uL (0.0-0.8); Eosinophils % 3.8 %; Hematocrit 36.1 % (36-47); Lymphocytes # 1.4 10^3/uL (0.8-4.8); Lymphocytes % 18.2 %; Mean Corpuscular Hemoglobin 28.9 pg (27-33); Mean Corpuscular Volume 87.6 fl (85-98); Mean Platelet Volume 10.2 fL (7.4-10.4); Monocytes # 0.6 10^3/uL (0.2-0.9); Monocytes % 7.4 %; Neutrophils % 69.6 %; Nucleated Red Blood Cells % 0 %; Platelet Count 299 10^3/cmm (157-399); Red Blood Count 4.12 10^6/uL (3.85-5.65); Red Cell Distribution Width 12.9 % (12.1-15.1); White Blood Count 7.46 10^3/uL (3.29-11.43)
[2023-09-29 14:06] LABS: D Dimer 0.51 ug/mLFEU (0-0.59)
[2023-09-29 14:17] LABS: Troponin(5th) Baseline 17 ng/L (0-10)
[2023-09-29 14:22] LABS: Alanine Aminotransferase 17 U/L (0-33); Albumin Level 4.3 g/dL (3.5-5.2); Alkaline Phosphatase 94 U/L (35-105); Anion Gap 13.3 (5-19); Aspartate Amino Transferase 17 U/L (0-32); Blood Urea Nitrogen 15 mg/dL (8-23); Calcium 10.1 mg/dL (8.5-10.5); Carbon Dioxide 30 mmol/L (22-29); Chloride 105 mmol/L (98-107); Creatinine Clr Calc Pharmacy 55.2847; Globulin 2.1 g/dL (1.3-4.6); Glucose 101 mg/dL (65-115); NT Pro B Type Natriuretic Pept 2724 pg/mL (0-450); Osmolality Calculated 299 mOsm/kg (285-295); Potassium 4.3 mmol/L (3.5-5.1); Sodium 144 mmol/L (136-145); Total Bilirubin 0.5 mg/dL (0.15-1.2); Total Protein 6.4 g/dL (6.6-8.7)
--- NOTE | 2023-09-29 14:54 | ECG_ITS ---
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 Measurements Intervals [place] Rate: 60 P: 29 OR: 159 QRS: 75 QRSD: 76 T: 45 QT: 417 QTc: 420 Interpretive Statements SINUS RHYTHM NONSPECIFIC ST & T-WAVE ABNORMALITY Compared to ECG 09/29/2023 12:37:19 No significant changes Electronically Signed On 09-29-2023 17:04:04 CDT by Tc Lui M.D. [id number]
--- NOTE | 2023-09-29 15:21 | P.HP_ITS ---
Providers/Chief Complaint 2 Primary Care Provider: Manuel Andrews DO Chief Complaint: sob History of Present Illness Anita Tyler is a 77 year old female with a past medical history of CAD status post stenting about a month ago history of breast cancer, who presents [facility] due to progressive shortness of breath. Patient tells me over the last month, she has had progressive shortness of breath, shortness of breath with exertion progressing to shortness of breath at rest, trouble catching her breath no wheezing no cough she does have sinus congestion, she denies any chest pain, no palpitations, no calf pain, no calf swelling no hemoptysis, no sick contacts, no recent travel, no pleurisy, no history of smoking Review of Systems 2 Const: Denies: fever(s) Card: Denies: chest pain Resp: Reports: dyspnea and non-productive cough : Denies: flank pain Medications/Allergies Home Medications Medication Instructions Recorded Confirmed Last Taken Type sertraline 100 mg tablet 100 mg PO DAILY 03/02/20 09/29/23 Unknown History ascorbic acid (vitamin C) 500 mg 500 mg PO DAILY 09/08/23 09/29/23 Unknown History tablet (Vitamin C) betamethasone dipropionate 0.05 % 1 applic topical DAILY PRN unknown 09/08/23 09/29/23 Unknown History topical ointment carica papaya (Papaya Enzyme 1 tab PO TID 09/08/23 09/29/23 Unknown History tablet) ketoconazole 2 % topical cream 1 applic topical DAILY PRN unknown 09/08/23 09/29/23 Unknown History pumpkin seed extract-soy germ 300 1 cap PO BID 09/08/23 09/29/23 09/29/23 History mg capsule (Azo Bladder Control) pyridoxine (vitamin B6) 100 mg 100 mg PO DAILY 09/08/23 09/29/23 Unknown History tablet (Vitamin B-6) atorvastatin 40 mg tablet 40 mg PO BEDTIME #90 tabs 09/10/23 09/29/23 09/28/23 Rx metoprolol tartrate 50 mg tablet 25 mg (1/2 x 50 mg) PO BID #180 09/10/23 09/29/23 09/29/23 Rx tabs pantoprazole 20 mg tablet,delayed 20 mg PO DAILY #60 tabs 09/10/23 09/29/23 09/29/23 Rx release Blue-Emu Cream See Rx Instructions .Route .COMPLEX 09/29/23 09/29/23 09/29/23 History aspirin 81 mg tablet,delayed 81 mg PO DAILY@09/29/23 09/29/23 09/28/23 History release (Adult Low Dose Aspirin) calcium carbonate 600 mg-vitamin 1 tab PO DAILY@09/29/23 09/29/23 Unknown History D3 5 mcg (200 unit) tablet clopidogrel 75 mg tablet 75 mg PO DAILY@09/29/23 09/29/23 09/28/23 History cranberry 500 mg capsule 500 mg PO TID 09/29/23 09/29/23 Unknown History ferrous sulfate 325 mg (65 mg 325 mg PO DAILY 09/29/23 09/29/23 Unknown History iron) tablet (iron) ginkgo biloba 40 mg tablet 40 mg PO DAILY 09/29/23 09/29/23 Unknown History glucosamine sulfate 500 mg tablet 500 mg PO DAILY 09/29/23 09/29/23 Unknown History (Glucosamine) levothyroxine 88 mcg tablet 88 mcg PO DAILY 09/29/23 09/29/23 Unknown History magnesium oxide 400 mg PO DAILY 09/29/23 09/29/23 Unknown History mometasone 0.1 % topical solution See Rx Instructions .Route .COMPLEX 09/29/23 09/29/23 Unknown History multivitamin 1 tab PO DAILY 09/29/23 09/29/23 Unknown History nitroglycerin 0.4 mg sublingual 0.4 mg sublingual Q5M PRN Chest 09/29/23 09/29/23 Unknown History tablet (Nitrostat) Pain omega-3 fatty acids 1,000 mg 1,000 mg PO DAILY PRN unknown 09/29/23 09/29/23 Unknown History capsule potassium gluconate 595 mg (99 mg) 595 mg PO DAILY 09/29/23 09/29/23 Unknown History tablet propylene glycol-glycerin 0.6 1 drp ophthalmic (eye) DAILY PRN 09/29/23 09/29/23 Unknown History %-0.6 % eye drops in a dropperette Dry Eye(S) (Soothe Lubricant) triamcinolone acetonide 0.1 % 1 applic topical BID PRN rash 09/29/23 09/29/23 Unknown History topical cream vit C 250 mg-vit E 90 mg-zinc 40 1 cap PO DAILY 09/29/23 09/29/23 Unknown History mg-copper 1 [id number] capsule (PreserVision AREDS-2) Allergies Allergy/AdvReac Type Severity Reaction Status Date / Time Penicillins Allergy Unknown ADR-Hyperte Verified 09/29/23 12:42 nsion cefdinir Allergy Unknown Verified 09/29/23 12:42 ibuprofen Allergy Unknown Verified 09/29/23 12:42 nitrofurantoin Allergy ALGY-Rash Verified 09/29/23 12:42 red dye Allergy ALGY-Rash Verified 09/29/23 12:42 Sulfa (Sulfonamide Allergy ALGY-Rash Verified 09/29/23 12:42 Antibiotics) PFSH Acute 2 PFSH: Medical History NSTEMI (non-ST elevated myocardial infarction) Unstable angina Breast cancer, left breast History of nonmelanoma skin cancer Hx of breast cancer History of depression History of gastroesophageal reflux (GERD) Hx of irritable bowel syndrome Hx of osteoporosis History of skin cancer History of sleep apnea Hx of thyroid disease Left ear hearing loss Surgical History Hx of breast biopsy History of 2 sections Hx of hand surgery Hx of thyroidectomy History of lobectomy of thyroid Hx of tonsillectomy Hx of elbow surgery History of bladder suspension procedure Family History Mother Colon cancer CAD (coronary artery disease) Colon cancer Hyperlipidemia Father CAD (coronary artery disease) Cancer Bladder cancer Lung disease Other IBS (irritable bowel syndrome) Denies family history of Diabetes Clotting disorder Dementia Psychiatric illness Chronic kidney disease (CKD) Suicide Anesthesia complication Bleeding disorder Hypertension Stroke Social History Smoking and tobacco/nicotine status: never used tobacco/nicotine Alcohol intake: never Substance/Drug Use: never Vitals/I&O/Wt Last Vital Signs Temp 97.5 F L 09/29/23 12:32 Pulse 66 09/29/23 13:11 Resp 24 H 09/29/23 13:11 BP 132/77 09/29/23 12:32 Pulse Ox 92 09/29/23 13:11 O2 Del Method Room Air 09/29/23 12:32 Weight last 48 hrs Weight 68.039 kg Physical Exam 2 Const: COMMON NORMALS: no acute distress and patient oriented x3 HENMT: COMMON NORMALS: normocephalic HEAD & SCALP: normocephalic Eye: COMMON NORMALS: Equal, round and reactive pupils present Neck/C-Spine: COMMON NORMALS: no JVD Resp: COMMON NORMALS: normal respiratory effort, No retractions, No use of accessory muscles and clear to auscultation bilaterally AUSCULTATION: clear to auscultation bilaterally Cardio: RATE: regular rate RHYTHM: regular rhythm HEART SOUNDS: S1 normal heart sound present and S2 normal heart sound present GI: COMMON NORMALS: Normal to inspection, nondistended, normoactive bowel sounds present, Soft to palpation and non-tender Extremity: COMMON NORMALS: no calf tenderness and no pedal edema Neuro: COMMON NORMALS: patient oriented x3, CN's II-XII intact bilaterally and moves all extremities Psych: COMMON NORMALS: mental status grossly normal Data 09/29/23 13:33 09/29/23 13:33 A&P Assessment and plan (1) Shortness of breath: Plan Shortness of breath ? Etiology unclear, x-rays BNP is over 2000 however does not have clinical evidence of fluid overload chest x-ray no evidence of fluid overload ? Troponin 17, EKG no acute ST-T wave changes ? Plan ? Continue to monitor respiratory status closely, ? Follow troponin series, EKG series ? Cardiac echo CT angiogram the chest, ? If patient has persistent shortness of breath given her history of recent history of stent placement will speak with cardiology ?full code Lovenox for DVT prophylaxis Attestations 2 Medical Necessity Statement*: Patient requires hospitalization, outpatient observation, for shortness of breath Diagnoses Shortness of breath R06.02
--- NOTE | 2023-09-29 15:21 | CTR_ITS ---
PROCEDURE INFORMATION: Exam: CTA Chest With Contrast Exam date and time: 09/29/2023 3:26 PM Age: 77 years old Clinical indication: Shortness of breath; Prior surgery; Surgery date: <1 month; Surgery type: Heart stents 3 weeks ago; Patient HX: HX of breast cancer 2019; Additional info: SOB TECHNIQUE: Imaging protocol: Computed tomographic angiography of the chest with contrast. Exam focused on the arteries. 3D rendering (Not supervised by radiologist): MIP and/or 3D reconstructed images were created by the technologist. Radiation optimization: All CT scans at this facility use at least one of these dose optimization techniques: automated exposure control; mA and/or kV adjustment per patient size (includes targeted exams where dose is matched to clinical indication); or iterative reconstruction. Contrast material: OMNI; Contrast volume: 76 ml; Contrast route: INTRAVENOUS (IV); COMPARISON: CR XR chest 1V portable [id number] 09/29/2023 12:58 PM RADIATION DOSE METRICS: Total DLP (mGy-cm): 311.67 FINDINGS: Pulmonary arteries: The pulmonary arteries are adequately opacified for evaluation to the subsegmental level. There is no filling defect to suggest embolism. Aorta: There is mild aortic atherosclerotic disease. Lungs: There is mild bilateral diffuse pulmonary ground-glass opacity. There is diffuse interlobular septal thickening bilaterally. There is central bronchial wall thickening bilateral. No focal consolidation. Mild mosaic perfusion in both lungs suggesting air trapping. Pleural spaces: Small simple dependent bilateral pleural effusions. No pneumothorax. Heart: There is mild cardiac enlargement. There is trace pericardial effusion. Lymph nodes: There are numerous small upper mediastinal lymph nodes. No frankly pathologically enlarged nodes are seen. No axillary lymphadenopathy. Diaphragm: There is a moderate size sliding-type hiatal hernia. Intraperitoneal space: Visible structures in the upper abdomen are unremarkable. Bones/joints: No acute fracture. No suspicious bone lesions. There are multiple healed bilateral anterior rib fractures. Soft tissues: There is a 2.7 cm round fluid collection in the deep left breast suggesting a consistent with a chronic seroma, decreased in size since 10/19/2019. CT/CT angio chest PE protcl [id number] IMPRESSION: 1. No pulmonary embolism. 2. Pulmonary edema. 3. Small simple dependent bilateral pleural effusions. 4. Mild cardiac enlargement. 5. Chronic seroma in the left breast is decreased in size since 10/19/2019.
[2023-09-29] MEDS: iohexol 350 mg/mL 500 mL Btl (per mL) IV (15:33)
[2023-09-29] MEDS: aspirin 81 mg EC Tablet PO (17:06)
[2023-09-29] MEDS: metoprolol tartrate 25 mg Tablet PO (17:06)
[2023-09-29] MEDS: clopidogrel 75 mg Tablet PO (17:07)
[2023-09-29] MEDS: enoxaparin 40 mg/0.4 mL Syringe SUBCUT (17:07)
[2023-09-29] MEDS: pantoprazole 40 mg SDV IVP (17:07)
[2023-09-29 17:50] LABS: Thyroid Stimulating Hormone 2.21 uIU/mL (0.27-4.20)
--- NOTE | 2023-09-29 18:49 | ECG_ITS ---
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 Measurements Intervals Nelson Rate: 63 P: 32 WI: 170 QRS: 73 QRSD: 82 T: -34 QT: 433 QTc: 445 Interpretive Statements SINUS RHYTHM ST DEVIATION AND MODERATE T-WAVE ABNORMALITY, CONSIDER INFERIOR ISCHEMIA [-0.1+ mV T-WAVE IN II/aVF] Compared to ECG 09/29/2023 14:54:05 Possible ischemia now present T-wave abnormality still present Electronically Signed On 09-30-2023 9:19:45 CDT by Murray Teixeira M.D. [id number]
[2023-09-29 20:10] LABS: Troponin 5 6HR 17.57 ng/L (0-10); Troponin 5 6HR Delta 0.57 ng/L (0-12)
[2023-09-29] MEDS: atorvastatin 40 mg Tablet PO (20:33)
[2023-09-30] VITALS (9 sets, daily range): BP systolic 101–137; BP diastolic 58–75; PULSE 59–79; RESP 17–18; TEMP 36.4–36.7; O2SAT 93–96
[2023-09-30 03:10] LABS: Basophils % 0.6 %; Eosinophils # 0.3 10^3/uL (0.0-0.8); Eosinophils % 4.7 %; Hematocrit 34.5 % (36-47); Lymphocytes # 1.5 10^3/uL (0.8-4.8); Lymphocytes % 20.3 %; Mean Corpuscular HGB Conc 32.8 g/dL (30-55); Mean Corpuscular Hemoglobin 28.8 pg (27-33); Mean Corpuscular Volume 87.8 fl (85-98); Mean Platelet Volume 10.3 fL (7.4-10.4); Monocytes # 0.6 10^3/uL (0.2-0.9); Monocytes % 8.1 %; Neutrophils # 4.74 10^3/uL (1.8-7.7); Neutrophils % 65.9 %; Nucleated Red Blood Cells % 0 %; Platelet Count 282 10^3/cmm (157-399); Red Blood Count 3.93 10^6/uL (3.85-5.65); Red Cell Distribution Width 12.9 % (12.1-15.1); White Blood Count 7.19 10^3/uL (3.29-11.43)
[2023-09-30 03:27] LABS: Alanine Aminotransferase 14 U/L (0-33); Albumin Level 3.7 g/dL (3.5-5.2); Alkaline Phosphatase 85 U/L (35-105); Anion Gap 11.1 (5-19); Aspartate Amino Transferase 17 U/L (0-32); Blood Urea Nitrogen 14 mg/dL (8-23); Calcium 9.2 mg/dL (8.5-10.5); Carbon Dioxide 29 mmol/L (22-29); Chloride 107 mmol/L (98-107); Creatinine Clr Calc Pharmacy 56.1665; Globulin 2.4 g/dL (1.3-4.6); Glucose 106 mg/dL (65-115); Osmolality Calculated 297 mOsm/kg (285-295); Phosphorus 4.5 mg/dL (2.5-4.5); Potassium 4.1 mmol/L (3.5-5.1); Sodium 143 mmol/L (136-145); Total Bilirubin 0.5 mg/dL (0.15-1.2); Total Protein 6.1 g/dL (6.6-8.7)
--- NOTE | 2023-09-30 06:00 | USCV_ITS ---
Anita Tyler Age: 77 Gender: F : 1945 Exam Date: 09/30/2023 07:30 Ordering Phys: Medardo Martinez MD Technologist: Kole Murillo Exam Location: [facility] Indication: sob BP: 137 / 75 HR: Rhythm: Sinus Technical Quality: Adequate MEASUREMENTS (Male / Female) Normal Values 2D ECHO LVOT Diameter 2.0 cm LV Ejection Fraction MOD 2C 57.1 % LV Ejection Fraction 2C AL 58.3 % LA Diameter 3.5 cm RA Systolic Volume 4C AL 42.6 ml RA Systolic Volume 4C MOD 41.3 ml LA Sys Volume AL 61.8 cm cubed LA Sys Volume Index AL 33.7 cm cubed/m squared Aorta at Sinotubular Diameter 2.0 cm IVC Diameter 2.0 cm M-MODE LA Ao Ratio MM 1.6 MV E Point Septal Separation 1.2 cm AV Cusp Separation MM 1.7 cm FINDINGS Left Ventricle Examination is limited to a 2-dimensional study. No M-mode or Doppler was obtained. Left ventricular function and size are normal. Ejection fraction is 60%. No regional wall motion disturbances. Right Ventricle Normal right ventricular size and systolic function. Right Atrium The right atrium is normal in size. Left Atrium Moderately increased left atrial size. Mitral Valve Structurally normal mitral valve. Aortic Valve Structurally normal trileaflet aortic valve. Tricuspid Valve Structurally normal tricuspid valve. Pulmonic Valve Pulmonic valve not well visualized. Pericardium Normal pericardium without effusion. Aorta Normal ascending aorta dimension. IVC The inferior vena cava appears normal. CONCLUSIONS Examination is limited to a 2-dimensional study. No M-mode or Doppler was obtained. Left ventricular function and size are normal. Ejection fraction is 60%. No regional wall motion disturbances. Moderately increased left atrial size. Previous echo was done only 3 weeks ago. There is no change. Dr. Murray Teixeira MD (Electronically Signed) Final Date: 30 September 2023 09:15 S
[2023-09-30] MEDS: FUROsemide 10 mg/mL SDV 4mL 40 MG IVP (09:09)
[2023-09-30] MEDS: levothyroxine 88 mcg Tablet PO (09:09)
[2023-09-30] MEDS: metoprolol tartrate 25 mg Tablet PO ×2 (09:09→16:27)
[2023-09-30] MEDS: ferrous sulfate EC 325 mg Tablet PO (09:10)
[2023-09-30] MEDS: potassium chloride ER 20 mEq Tablet PO (09:10)
[2023-09-30] MEDS: sertraline 100 mg Tablet PO (09:10)
--- NOTE | 2023-09-30 14:01 | P.PN_ITS ---
Vitals/I&O/Wt Last Vital Signs Temp 98.0 F 09/30/23 11:53 Pulse 59 L 09/30/23 11:53 Resp 17 09/30/23 11:53 BP 102/58 09/30/23 11:53 Pulse Ox 94 09/30/23 11:53 O2 Del Method Nasal Cannula 09/30/23 11:53 O2 Flow Rate 2 09/30/23 08:40 09/29/23 09/30/23 09/30/23 22:59 06:59 14:59 Intake Total 120 / 120 150 / 270 600 / 600 Balance 120 / 120 150 / 270 600 / 600 Weight last 48 hrs Weight 72.212 kg Weight 70.488 kg Weight 68.039 kg Physical Exam 2 Const: COMMON NORMALS: no acute distress and patient oriented x3 Resp: COMMON NORMALS: normal respiratory effort, No retractions, No use of accessory muscles and clear to auscultation bilaterally AUSCULTATION: clear to auscultation bilaterally Cardio: COMMON NORMALS: regular rate, regular rhythm, S1 normal heart sound present and S2 normal heart sound present RATE: regular rate RHYTHM: r egular rhythm HEART SOUNDS: S1 normal heart sound present and S2 normal heart sound present GI: COMMON NORMALS: Normal to inspection, nondistended, normoactive bowel sounds present and non-tender Extremity: COMMON NORMALS: no pedal edema Neuro: COMMON NORMALS: patient oriented x3 Psych: COMMON NORMALS: mental status grossly normal Data 09/30/23 02:29 09/30/23 02:29 A&P Assessment and plan (1) Shortness of breath: (2) Diastolic CHF: Plan Shortness of breath ? Etiology unclear, x-rays BNP is over 2000, ct angio fluid overload CT/CT angio chest PE protcl [id number] IMPRESSION: 1. No pulmonary embolism. 2. Pulmonary edema. 3. Small simple dependent bilateral pleural effusions. 4. Mild cardiac enlargement. 5. Chronic seroma in the left breast is decreased in size since 10/19/2019. CONCLUSIONS Examination is limited to a 2-dimensional study. No M-mode or Doppler was obtained. Left ventricular function and size are normal. Ejection fraction is 60%. No regional wall motion disturbances. Moderately increased left atrial size. Previous echo was done only 3 weeks ago. There is no change. ? Troponin 17, EKG no acute ST-T wave changes ? Plan ? Continue to monitor respiratory status closely -likely chf exacerbation, with CT evidence of pulm edema, elevated BNP 1 dose of IV Lasix ? If patient has persistent shortness of breath given her history of recent history of stent placement will speak with cardiology -If persistent shortness of breath, can certainly refer to pulmonary for consideration of pulmonary function testing for evaluation of restrictive lung diseases ?full code Lovenox for DVT prophylaxis Attestations 2 Medical Necessity Statement*: Patient requires hospitalization for shortness of breath fluid overload inpatient, greater than 2 midnights, diastolic CHF exacerbation, requiring IV diuresis, monitor potassium monitor electrolytes monitor creatinine Diagnoses Shortness of breath R06.02 Diastolic CHF I50.30
[2023-09-30 15:28] LABS: Blood Urea Nitrogen 18 mg/dL (8-23); Calcium 9.4 mg/dL (8.5-10.5); Carbon Dioxide 30 mmol/L (22-29); Chloride 102 mmol/L (98-107); Creatinine Clr Calc Pharmacy 56.7873; Glucose 105 mg/dL (65-115); NT Pro B Type Natriuretic Pept 2896 pg/mL (0-450); Osmolality Calculated 296 mOsm/kg (285-295); Sodium 142 mmol/L (136-145)
[2023-09-30] MEDS: aspirin 81 mg EC Tablet PO (16:27)
[2023-09-30] MEDS: pantoprazole 40 mg SDV IVP (16:28)
[2023-09-30] MEDS: clopidogrel 75 mg Tablet PO (16:28)
[2023-09-30] MEDS: enoxaparin 40 mg/0.4 mL Syringe SUBCUT (16:34)
[2023-09-30] MEDS: atorvastatin 40 mg Tablet PO (20:35)
[2023-10-01] VITALS (8 sets, daily range): BP systolic 103–148; BP diastolic 64–79; PULSE 62–67; RESP 17–18; TEMP 36.6–36.8; O2SAT 91–97
[2023-10-01 05:06] LABS: Anion Gap 13.2 (5-19); Blood Urea Nitrogen 14 mg/dL (8-23); Calcium 9.4 mg/dL (8.5-10.5); Carbon Dioxide 27 mmol/L (22-29); Chloride 108 mmol/L (98-107); Creatinine Clr Calc Pharmacy 56.7873; Glucose 108 mg/dL (65-115); NT Pro B Type Natriuretic Pept 1964 pg/mL (0-450); Osmolality Calculated 299 mOsm/kg (285-295); Potassium 4.2 mmol/L (3.5-5.1); Sodium 144 mmol/L (136-145)
[2023-10-01] MEDS: sertraline 100 mg Tablet PO (09:25)
[2023-10-01] MEDS: levothyroxine 88 mcg Tablet PO (09:25)
[2023-10-01] MEDS: metoprolol tartrate 25 mg Tablet PO (09:25)
[2023-10-01] MEDS: ferrous sulfate EC 325 mg Tablet PO (09:25)
[2023-10-01] MEDS: potassium chloride ER 20 mEq Tablet PO (09:29)
[2023-10-01] MEDS: FUROsemide 10 mg/mL SDV 4mL 40 MG IVP (09:29)
--- NOTE | 2023-10-01 11:09 | PM.DCS ---
Discharge Providers Date of Admission: 09/30/23 14:00 Date of Discharge: October 01, 2023 Attending Provider at Admission: Medardo Martinez MD Attending Provider at Discharge: Medardo Martinez MD Primary Care Provider: Manuel Andrews DO Diagnoses at Discharge Discharge Diagnosis (1) Shortness of breath: Status: Acute (2) Diastolic CHF: Status: Acute Reason for Visit Reason for Visit: sob Hospital Course Hospital Course Anita Tyler is a 77 year old female with a past medical history of CAD status post stenting about a month ago history of breast cancer, who presents [facility] due to progressive shortness of breath. Patient tells me over the last month, she has had progressive shortness of breath, shortness of breath with exertion progressing to shortness of breath at rest, trouble catching her breath no wheezing no cough she does have sinus congestion, she denies any chest pain, no palpitations, no calf pain, no calf swelling no hemoptysis, no sick contacts, no recent travel, no pleurisy, no history of smoking Patient presented to [facility] for shortness of breath, secondary to diastolic CHF as exacerbation, received IV diuresis, overall clinically improved, CT angiogram negative for PE, with recent history of stenting, had troponin series with no significant delta troponin, echocardiogram no significant wall motion abnormalities EF within normal limits. I discharged her on Lasix as needed with potassium replacement therapy for shortness of breath or edema or weight gain more than 3 pounds. If patient has persistent shortness of breath, Would recommend pulmonary function testing referral to pulmonary and or event monitor Physical Exam Const: COMMON NORMALS: no acute distress and patient oriented x3 Resp: COMMON NORMALS: normal respiratory effort, No retractions, No use of accessory muscles and clear to auscultation bilaterally AUSCULTATION: clear to auscultation bilaterally Cardio: COMMON NORMALS: regular rate, regular rhythm, S1 normal heart sound present and S2 normal heart sound present RATE: regular rate RHYTHM: regular rhythm HEART SOUNDS: S1 normal heart sound present and S2 normal heart sound present GI: COMMON NORMALS: Normal to inspection, nondistended, normoactive bowel sounds present and non-tender Extremity: COMMON NORMALS: no pedal edema Neuro: COMMON NORMALS: patient oriented x3 Psych: COMMON NORMALS: mental status grossly normal Discharge Data Studies Completed and Pending Completed Studies During Hospitalization Category Date Time Status CT angio chest PE protcl [id number] Stat Cat Scan 09/29/23 15:21 Completed XR chest 1V portable [id number] Stat Exams 09/29/23 12:49 Completed CV. echo limited [id number] Routine Ultrasound 09/30/23 06:00 Completed Pending at discharge Category Date Time Status Basic Metabolic Panel AM LABS Lab 10/02/23 04:00 Ordered Basic Metabolic Panel AM LABS Lab 10/03/23 04:00 Ordered NT Pro B Type Natriuretic Pept QAM Lab 10/02/23 06:00 Ordered NT Pro B Type Natriuretic Pept QAM Lab 10/03/23 06:00 Ordered Troponin(5th) 2 Hour. Timed Lab 09/29/23 15:33 Ordered Radiology Impressions Chest CTA 09/29/23 15:21 IMPRESSION: 1. No pulmonary embolism. 2. Pulmonary edema. 3. Small simple dependent bilateral pleural effusions. 4. Mild cardiac enlargement. 5. Chronic seroma in the left breast is decreased in size since 10/19/2019. Laboratory Results WBC 7.19 10^3/uL (3.29-11.43) 09/30/23 02:29 RBC 3.93 10^6/uL (3.85-5.65) 09/30/23 02:29 Hgb 11.30 g/dL (11.27-16.99) 09/30/23 02:29 Hct 34.5 % (36-47) L 09/30/23 02:29 MCV 87.8 fl (85-98) 09/30/23 02:29 MCH 28.8 pg (27-33) 09/30/23 02:29 MCHC 32.8 g/dL (30-55) 09/30/23 02:29 RDW 12.9 % (12.1-15.1) 09/30/23 02:29 Plt Count 282 10^3/cmm (157-399) 09/30/23 02:29 MPV 10.3 fL (7.4-10.4) 09/30/23 02:29 Neut % (Auto) 65.9 % 09/30/23 02:29 Lymph % (Auto) 20.3 % 09/30/23 02:29 Dyer % (Auto) 8.1 % 09/30/23 02:29 Eos % (Auto) 4.7 % 09/30/23 02: Baso % (Auto) 0.6 % 09/30/23 02: Neut # (Auto) 4.74 10^3/uL (1.8-7.7) 09/30/23 02: Lymph # (Auto) 1.5 10^3/uL (0.8-4.8) 09/30/23 02: Dyer # (Auto) 0.6 10^3/uL (0.2-0.9) 09/30/23 02: Eos # (Auto) 0.3 10^3/uL (0.0-0.8) 09/30/23 02: Baso # (Auto) 0.0 10^3/uL (0.0-0.1) 09/30/23 02: Nucleated RBC % (auto) 0 % 09/30/23 02: Nucleated RBCs # 0.0 /100WBC 09/30/23 02: D-Dimer 0.51 ug/mLFEU (0-0.59) 09/29/23 13:33 Sodium 144 mmol/L (136-145) 10/01/23 04:05 Potassium 4.2 mmol/L (3.5-5.1) 10/01/23 04:05 Chloride 108 mmol/L (98-107) H 10/01/23 04:05 Carbon Dioxide 27 mmol/L (22-29) 10/01/23 04:05 Anion Gap 13.2 (5-19) 10/01/23 04:05 BUN 14 mg/dL (8-23) 10/01/23 04:05 Creatinine 0.5 mg/dL (0.5-0.9) 10/01/23 04:05 GFR Calculation Not Reportable 10/01/23 04:05 Glucose 108 mg/dL (65-115) 10/01/23 04:05 Calculated Osmolality 299 mOsm/kg (285-295) H 10/01/23 04:05 Calcium 9.4 mg/dL (8.5-10.5) 10/01/23 04:05 Phosphorus 4.5 mg/dL (2.5-4.5) 09/30/23 02:29 Magnesium 2.0 mg/dL (1.7-2.3) 09/30/23 02:29 Total Bilirubin 0.5 mg/dL (0.15-1.2) 09/30/23 02:29 AST 17 U/L (0-32) 09/30/23 02:29 ALT 14 U/L (0-33) 09/30/23 02:29 Alkaline Phosphatase 85 U/L (35-105) 09/30/23 02:29 Troponin T Baseline 17 ng/L (0-10) H 09/29/23 13:33 Troponin T Hi Sens 6Hr 17.57 ng/L (0-10) H 09/29/23 19:38 Troponin T Hi Sens 6Hr Delta 0.57 ng/L (0-12) 09/29/23 19:38 NT-Pro-B Natriuret Pep 1964 pg/mL (0-450) H 10/01/23 04:05 Total Protein 6.1 g/dL (6.6-8.7) L 09/30/23 02:29 Albumin 3.7 g/dL (3.5-5.2) 09/30/23 02:29 Globulin 2.4 g/dL (1.3-4.6) 09/30/23 02:29 TSH 2.21 uIU/mL (0.27-4.20) 09/29/23 17:02 Vitals Last Vital Signs Temp 97.8 F 10/01/23 04:00 Pulse 67 10/01/23 07:25 Resp 17 10/01/23 07:25 BP 122/67 10/01/23 07:25 Pulse Ox 96 10/01/23 07:25 O2 Del Method CPAP 10/01/23 07:25 O2 Flow Rate 2 09/30/23 08:40 Discharge Plan Discharge Patient Disposition: Home Condition: Stable Prescriptions: New furosemide [Lasix] 20 mg tablet 20 mg PO DAILY PRN (Reason: edema or weight gain or sob) 30 Days Qty: 30 0RF potassium chloride [Klor-Con 10] 10 mEq tablet extended release 10 meq PO DAILY PRN (Reason: with lasix) 30 Days Qty: 30 0RF Continued ketoconazole 2 % cream 1 applic topical DAILY PRN (Reason: unknown) sertraline 100 mg tablet 100 mg PO DAILY levothyroxine 88 mcg tablet 88 mcg PO DAILY nitroglycerin [Nitrostat] 0.4 mg Tablet, Sublingual 0.4 mg SUBLINGUAL Q5M PRN (Reason: Chest Pain) Rx Instructions: do not exceed 3 doses per episode mometasone 0.1 % solution See Rx Instructions .ROUTE .COMPLEX Rx Instructions: APPLY TOPICALLY TO SCALP ONCE DAILY ON MONDAY-MONDAY multivitamin Tablet 1 tab PO DAILY Fish Oil Concentrate 1,000 mg Capsule 1,000 mg PO DAILY PRN (Reason: unknown) Glucosamine 500 mg Tablet 500 mg PO DAILY Calcium + D 600 mg-5 mcg (200 unit) Tablet 1 tab PO DAILY@12 ginkgo biloba 40 mg Tablet 40 mg PO DAILY iron 325 mg (65 mg iron) Tablet 325 mg PO DAILY cranberry 500 mg Capsule 500 mg PO TID potassium gluconate 595 mg (99 mg) Tablet 595 mg PO DAILY Soothe Lubricant 0.6-0.6 % Dropperette 1 drp OPHTHALMIC (EYE) DAILY PRN (Reason: Dry Eye(S)) PreserVision AREDS-2 250-90-40-1 mg Capsule 1 cap PO DAILY magnesium oxide 400 mg magnesium Tablet 400 mg PO DAILY Blue-Emu Cream See Rx Instructions .ROUTE .COMPLEX Rx Instructions: daily as needed clopidogrel 75 mg tablet 75 mg PO DAILY@12 Adult Low Dose Aspirin 81 mg tablet,delayed release (DR/EC) 81 mg PO DAILY@12 triamcinolone acetonide 0.1 % cream 1 applic topical BID MDD 14 days PRN (Reason: rash) Rx Instructions: Thin layer to area twice daily. Rub in well. Wash hands after use. pyridoxine (vitamin B6) [Vitamin B-6] 100 mg Tablet 100 mg PO DAILY Papaya Enzyme Tablet 1 tab PO TID Rx Instructions: administer with meals betamethasone dipropionate 0.05 % Ointment 1 applic TOPICAL DAILY PRN (Reason: unknown) Azo Bladder Control 300 mg Capsule 1 cap PO BID ascorbic acid (vitamin C) [Vitamin C] 500 mg Tablet 500 mg PO DAILY atorvastatin 40 mg Tablet 40 mg PO BEDTIME Qty: 90 3RF metoprolol tartrate 50 mg Tablet 25 mg PO BID Qty: 180 3RF Discontinued pantoprazole 20 mg tablet,delayed release (DR/EC) 20 mg PO DAILY Qty: 60 1RF Discharge Orders: Discharge Order (Routine); Ordered 10/01/23 Ordered By: Medardo Martinez Referrals: Tc Lui MD [Physician] - 1-3 days Manuel Andrews DO [Primary Care Provider] - 4-7 days (Please notify your Doctors office @ [phone] to schedule a follow up for your hospital stay. ) Discharge Diet: Cardiac Discharge Activity: Resume usual activity Patient Instructions: Opioid Safety Activity Restrictions/Additional Instructions: -please use [id number] once daily with potassium for 2 more days, then stop and use as needed with instructions as below -please use lasix as needed with potassium -how i want you to take lasix is if you feel short of breath, or if you gain more than 3lbs or you develop edema, use lasix once daily with potassium for 3 days and then stop. if you still feel short of breath or edema or weight gain after 3 days go and see PMD Discharge Attestations Time Spent in Discharge Care*: greater than 30 min Quality Metrics Clinical Quality Measures [ No reported AMI, CVA or VTE this stay] Coding Level of Care Code 78566 Total time (in minutes) for Discharge: 45 Diagnoses Shortness of breath R06.02 Diastolic CHF I50.30
--- NOTE | 2023-10-01 13:45 | PC.NURSE ---
Discussed discharge follow up appointments, new medications, discontinued medications and CHF Stoplight extensively with patient. Patient and spouse verbalized understanding.
== END 2023-10-01 12:55 | disposition home or self-care (01) | DRG 293 ==
LOC: ER 14:58 → MEDSURG 15:33
PROVIDERS: Admitting Provider Family Medicine; Emergency Provider Emergency Medicine; PCP Internal Medicine; Visit Provider Family Medicine
DX: I50.33 Acute on chronic diastolic (congestive) heart failure (principal); F32.A Depression, unspecified; E03.9 Hypothyroidism, unspecified; K21.9 Gastro-esophageal reflux disease without esophagitis; Z79.02 Long term (current) use of antithrombotics/antiplatelets; Z79.82 Long term (current) use of aspirin; I25.10 Atherosclerotic heart disease of native coronary artery without angina pectoris; Z95.5 Presence of coronary angioplasty implant and graft
CPT/HCPCS: 36415; 71045; 71275; 80048; 80053; 83735; 83880; 84100; 84443; 84484; 85025; 85378; 93005; 93308; 94664; 96372; 99285; C9113; G0378; J1650; J1940; Q9967

== ENCOUNTER → 2023-10-02 15:10 | Outpatient (BNVA) | payer MEDICARE, OTHER, SELFPAY | PROVIDERS: PCP Internal Medicine; Visit Provider Nurse Practitioner Family | DX: I50.31 Acute diastolic (congestive) heart failure (principal) | CPT/HCPCS: 99213 ==

== ENCOUNTER 2023-10-12 10:17 | Outpatient (RCR) | payer MEDICARE, OTHER, SELFPAY | END 2023-11-10 23:59 | disposition home or self-care (01) | LOC: CR 10:17 | PROVIDERS: PCP Internal Medicine; Referring Provider Internal Medicine; Visit Provider Internal Medicine | DX: I21.4 Non-ST elevation (NSTEMI) myocardial infarction (principal) | CPT/HCPCS: 93798 ==

== ENCOUNTER 2023-11-12 08:57 | Outpatient (RCR) | payer MEDICARE, OTHER, SELFPAY | END 2023-12-10 23:59 | disposition home or self-care (01) | LOC: CR 08:57 | PROVIDERS: PCP Internal Medicine; Referring Provider Internal Medicine; Visit Provider Internal Medicine | DX: I21.4 Non-ST elevation (NSTEMI) myocardial infarction (principal) | CPT/HCPCS: 93798 ==

== ENCOUNTER → 2023-11-16 13:29 | Outpatient (BNVA) | payer MEDICARE, OTHER, SELFPAY | PROVIDERS: PCP Internal Medicine; Visit Provider Nurse Practitioner Family | DX: R39.9 Unspecified symptoms and signs involving the genitourinary system (principal) | CPT/HCPCS: 81000 ==

== ENCOUNTER 2023-11-23 10:23 | Outpatient (CLI) | payer MEDICARE, OTHER, SELFPAY ==
--- NOTE | 2023-11-23 10:26 | MM_ITS ---
WS: [id number] BILATERAL 3D TOMOSYNTHESIS DIGITAL DIAGNOSTIC MAMMOGRAPHY WITH CAD CLINICAL INFORMATION: annual surveillance HISTORY: History of LEFT cancer COMPARISON: None. TECHNIQUE: Bilateral CC, MLO, and ML views. FINDINGS: The breasts are composed of heterogeneous fibroglandular density, which can limit the detection of sm all underlying mass lesions. Postoperative changes lumpectomy LEFT breast with volume loss and parenc hymal scarring. Again seen is the ovoid lesion posterior depth LEFT breast at the lumpectomy site pre viously demonstrated to represent a complex seroma. This demonstrates long-term stability dating back to 2019. Today this measures approximately 2.5 cm unchanged since 2022. A few associated calcificati ons. Incidental punctate calcifications bilaterally. No suspicious focal mass, asymmetry, calcifications, or architectural distortion. No evidence of leatha gnancy. MM/[place] [id number] IMPRESSION: BI-RADS: 2-Benign FOLLOW UP: 1 Year Follow-up Recommend return to annual diagnostic mammography.
== END 2023-11-23 10:24 | disposition home or self-care (01) ==
PROVIDERS: PCP Internal Medicine; Visit Provider Nurse Practitioner Family
DX: C50.912 Malignant neoplasm of unspecified site of left female breast (principal); R92.333 Mammographic heterogeneous density, bilateral breasts; Z98.890 Other specified postprocedural states; R92.1 Mammographic calcification found on diagnostic imaging of breast; N64.89 Other specified disorders of breast
CPT/HCPCS: 77062; G0279

== ENCOUNTER 2023-11-30 12:20 | Oncology outpatient (recurring) (ONCR) | payer MEDICARE, OTHER, SELFPAY ==
[2023-11-30 12:48] LABS: Basophils # 0.1 10^3/uL (0.0-0.1); Basophils % 0.6 %; Eosinophils # 0.2 10^3/uL (0.0-0.8); Eosinophils % 2.6 %; Hematocrit 37.2 % (36-47); Lymphocytes # 1.5 10^3/uL (0.8-4.8); Lymphocytes % 17.1 %; Mean Corpuscular HGB Conc 33.1 g/dL (30-55); Mean Corpuscular Hemoglobin 28.5 pg (27-33); Mean Corpuscular Volume 86.1 fl (85-98); Mean Platelet Volume 9.8 fL (7.4-10.4); Monocytes # 0.6 10^3/uL (0.2-0.9); Monocytes % 6.7 %; Neutrophils # 6.21 10^3/uL (1.8-7.7); Neutrophils % 72.8 %; Nucleated Red Blood Cells % 0 %; Platelet Count 296 10^3/cmm (157-399); Red Blood Count 4.32 10^6/uL (3.85-5.65); Red Cell Distribution Width 12.6 % (12.1-15.1); White Blood Count 8.53 10^3/uL (3.29-11.43)
[2023-11-30 13:09] LABS: Alanine Aminotransferase 17 U/L (0-33); Albumin Level 4.1 g/dL (3.5-5.2); Alkaline Phosphatase 71 U/L (35-105); Anion Gap 12.3 (5-19); Aspartate Amino Transferase 21 U/L (0-32); Blood Urea Nitrogen 13 mg/dL (8-23); Calcium 9.4 mg/dL (8.5-10.5); Carbon Dioxide 30 mmol/L (22-29); Chloride 105 mmol/L (98-107); Globulin 2.2 g/dL (1.3-4.6); Glucose 98 mg/dL (65-115); Osmolality Calculated 296 mOsm/kg (285-295); Potassium 4.3 mmol/L (3.5-5.1); Sodium 143 mmol/L (136-145); Total Bilirubin 0.5 mg/dL (0.15-1.2); Total Protein 6.3 g/dL (6.6-8.7)
== END 2023-12-10 23:59 | disposition home or self-care (01) ==
PROVIDERS: Nurse Practitioner Family; PCP Internal Medicine; Visit Provider Internal Medicine Medical Oncology
DX: Z85.828 Personal history of other malignant neoplasm of skin; Z92.21 Personal history of antineoplastic chemotherapy; C50.912 Malignant neoplasm of unspecified site of left female breast
CPT/HCPCS: 36415; 80053; 85025; 99213

== ENCOUNTER → 2023-12-01 12:34 | Outpatient (BNVA) | payer MEDICARE, OTHER, SELFPAY | PROVIDERS: PCP Internal Medicine; Visit Provider Emergency Medicine | DX: R39.9 Unspecified symptoms and signs involving the genitourinary system (principal) | CPT/HCPCS: 81000; 87086 ==

== ENCOUNTER → 2023-12-11 08:50 | Outpatient (BNVA) | payer MEDICARE, OTHER, SELFPAY | PROVIDERS: PCP Internal Medicine; Visit Provider Nurse Practitioner Family | DX: I25.10 Atherosclerotic heart disease of native coronary artery without angina pectoris (principal) | CPT/HCPCS: 99213 ==

== ENCOUNTER 2023-12-12 13:23 | Outpatient (RCR) | payer MEDICARE, OTHER, SELFPAY | END 2024-01-10 23:59 | disposition home or self-care (01) | LOC: CR 13:23 | PROVIDERS: PCP Internal Medicine; Referring Provider Internal Medicine; Visit Provider Internal Medicine | DX: I21.4 Non-ST elevation (NSTEMI) myocardial infarction (principal) | CPT/HCPCS: 93798 ==

== ENCOUNTER 2024-01-11 15:00 | Outpatient (RCR) | payer MEDICARE, OTHER, SELFPAY | END 2024-02-15 09:10 | disposition home or self-care (01) | LOC: CR 15:00 | PROVIDERS: PCP Internal Medicine; Referring Provider Internal Medicine; Visit Provider Internal Medicine | DX: I21.4 Non-ST elevation (NSTEMI) myocardial infarction (principal) | CPT/HCPCS: 93798 ==

== ENCOUNTER → 2024-02-14 13:45 | Outpatient (BNVA) | payer MEDICARE, OTHER, SELFPAY | PROVIDERS: PCP Internal Medicine; Visit Provider Nurse Practitioner Family | DX: L57.0 Actinic keratosis (principal); L82.0 Inflamed seborrheic keratosis; L91.8 Other hypertrophic disorders of the skin; L57.8 Other skin changes due to chronic exposure to nonionizing radiation; L81.4 Other melanin hyperpigmentation | CPT/HCPCS: 11200; 17000; 99213 ==

== ENCOUNTER → 2024-04-16 12:40 | Outpatient (BNVA) | payer MEDICARE, OTHER, SELFPAY | PROVIDERS: PCP Internal Medicine; Visit Provider Nurse Practitioner Family | DX: Z85.828 Personal history of other malignant neoplasm of skin (principal); L57.8 Other skin changes due to chronic exposure to nonionizing radiation | CPT/HCPCS: 17000; 17110; 99213 ==

== ENCOUNTER 2024-06-06 08:18 | Oncology outpatient (recurring) (ONCR) | payer MEDICARE, OTHER, SELFPAY ==
[2024-06-06 08:37] LABS: Basophils # 0.1 10^3/uL (0.0-0.1); Basophils % 0.8 %; Eosinophils # 0.3 10^3/uL (0.0-0.8); Eosinophils % 3.8 %; Hematocrit 39.1 % (36-47); Lymphocytes # 1.7 10^3/uL (0.8-4.8); Lymphocytes % 25.8 %; Mean Corpuscular Hemoglobin 28.7 pg (27-33); Mean Corpuscular Volume 86.9 fl (85-98); Mean Platelet Volume 9.6 fL (7.4-10.4); Monocytes # 0.5 10^3/uL (0.2-0.9); Monocytes % 7.4 %; Neutrophils % 61.9 %; Nucleated Red Blood Cells % 0 %; Platelet Count 275 10^3/cmm (157-399); Red Cell Distribution Width 12.4 % (12.1-15.1); White Blood Count 6.62 10^3/uL (3.29-11.43)
[2024-06-06 08:54] LABS: Alanine Aminotransferase 21 U/L (0-33); Alkaline Phosphatase 148 U/L (35-105); Anion Gap 13.8 (5-19); Aspartate Amino Transferase 23 U/L (0-32); Blood Urea Nitrogen 13 mg/dL (8-23); Calcium 9.6 mg/dL (8.5-10.5); Carbon Dioxide 29 mmol/L (22-29); Chloride 104 mmol/L (98-107); Globulin 2.3 g/dL (1.3-4.6); Glucose 108 mg/dL (65-115); Osmolality Calculated 297 mOsm/kg (285-295); Potassium 3.8 mmol/L (3.5-5.1); Sodium 143 mmol/L (136-145); Total Bilirubin 0.4 mg/dL (0.15-1.2); Total Protein 6.3 g/dL (6.6-8.7)
== END 2024-06-11 23:59 | disposition home or self-care (01) ==
PROVIDERS: Internal Medicine; PCP Internal Medicine; Visit Provider Internal Medicine Medical Oncology
DX: C50.912 Malignant neoplasm of unspecified site of left female breast (principal); M54.9 Dorsalgia, unspecified; Z92.21 Personal history of antineoplastic chemotherapy
CPT/HCPCS: 36415; 80053; 85025; 99214

== ENCOUNTER 2024-06-10 11:14 | Outpatient (CLI) | payer MEDICARE, OTHER, SELFPAY ==
--- NOTE | 2024-06-10 11:18 | XR_ITS ---
WS: [id number] Thoracic spine, 3 views, 06/10/2024 Clinical Data: upper backpain Comparison: None. Findings: No compression fractures are seen. The disc heights are normal. There is osteoporosis of the thoracic vertebral bodies. There is minimal osteoarthritis. The paravert ebral regions are normal. There is a slight levoscoliosis of the lower thoracic spine. XR/XR thoracic spine 3V* [id number] Impression: Osteoporosis, osteoarthritis and slight levoscoliosis of the thoracic spine.
== END 2024-06-10 11:15 | disposition home or self-care (01) ==
LOC: RAD 11:17
PROVIDERS: PCP Nurse Practitioner Family; Visit Provider Nurse Practitioner Family
DX: M47.814 Spondylosis without myelopathy or radiculopathy, thoracic region (principal); C50.912 Malignant neoplasm of unspecified site of left female breast; M81.0 Age-related osteoporosis without current pathological fracture
CPT/HCPCS: 72072

== ENCOUNTER → 2024-06-17 15:20 | Outpatient (BNVA) | payer MEDICARE, OTHER, SELFPAY | PROVIDERS: PCP Nurse Practitioner Family; Visit Provider Internal Medicine | DX: I25.10 Atherosclerotic heart disease of native coronary artery without angina pectoris (principal); R94.39 Abnormal result of other cardiovascular function study; Z85.3 Personal history of malignant neoplasm of breast | CPT/HCPCS: 99214 ==

== ENCOUNTER 2024-07-22 14:04 | Outpatient (CLI) | payer MEDICARE, OTHER, SELFPAY ==
--- NOTE | 2024-07-22 14:06 | XR_ITS ---
WS: [id number] SCREENING DEXA SCAN [facility] CLINICAL INFORMATION: POSTMENOPAUSAL COMPARISON: 2020 FINDINGS: The L1-L4 bone mineral density measures 0.958 g/cm2. This corresponds to a T score score of -1.9 and Z score of -0.2. Left femoral neck bone mineral density measures 0.758 g/cm2. This corresponds to a T score of -2.0 and Z score of -0.1. Right femoral neck bone mineral density measures 0.754 g/cm2. This corresponds to a T score -2.0of and Z score of -0.1. Mean femoral neck bone mineral density measures 0.756 g/cm2. This corresponds to a T score of -2.0 and Z score of -0.1. XR/XR DEXA axial skeleton* [id number] IMPRESSION: Osteopenia lumbar spine. Osteopenia femoral necks. Patient's FRAX calculated 10 year probability for major osteoporotic fracture i s 25.1% and osteoporotic hip fracture is 7.6%. Bone mineral density in the lumbar spine increased 1.4%
== END 2024-07-22 14:05 | disposition home or self-care (01) ==
PROVIDERS: PCP Nurse Practitioner Family; Visit Provider Family Medicine
DX: Z78.0 Asymptomatic menopausal state (principal); M85.89 Other specified disorders of bone density and structure, multiple sites
CPT/HCPCS: 77080

== ENCOUNTER 2024-09-09 07:57 | Oncology outpatient (recurring) (ONCR) | payer MEDICARE, OTHER, SELFPAY ==
[2024-09-09 08:35] LABS: Basophils # 0.1 10^3/uL (0.0-0.1); Basophils % 0.8 %; Eosinophils # 0.2 10^3/uL (0.0-0.8); Eosinophils % 3.7 %; Hematocrit 38.9 % (36-47); Lymphocytes # 1.9 10^3/uL (0.8-4.8); Lymphocytes % 29.3 %; Mean Corpuscular HGB Conc 33.4 g/dL (30-55); Mean Corpuscular Hemoglobin 29.5 pg (27-33); Mean Corpuscular Volume 88.4 fl (85-98); Mean Platelet Volume 9.6 fL (7.4-10.4); Monocytes # 0.5 10^3/uL (0.2-0.9); Monocytes % 8.4 %; Neutrophils % 57.5 %; Nucleated Red Blood Cells % 0 %; Platelet Count 292 10^3/cmm (157-399); Red Cell Distribution Width 12.6 % (12.1-15.1); White Blood Count 6.44 10^3/uL (3.29-11.43)
[2024-09-09 08:51] LABS: Alanine Aminotransferase 17 U/L (0-33); Albumin Level 4.1 g/dL (3.5-5.2); Alkaline Phosphatase 103 U/L (35-105); Aspartate Amino Transferase 18 U/L (0-32); Blood Urea Nitrogen 15 mg/dL (8-23); Calcium 9.6 mg/dL (8.5-10.5); Carbon Dioxide 31 mmol/L (22-29); Chloride 102 mmol/L (98-107); Globulin 2.5 g/dL (1.3-4.6); Glucose 95 mg/dL (65-115); Osmolality Calculated 293 mOsm/kg (285-295); Sodium 141 mmol/L (136-145); Total Bilirubin 0.4 mg/dL (0.15-1.2); Total Protein 6.6 g/dL (6.6-8.7)
== END 2024-09-09 23:59 | disposition home or self-care (01) ==
PROVIDERS: Nurse Practitioner Family; PCP Nurse Practitioner Family; Visit Provider Internal Medicine Medical Oncology
DX: Z08 Encounter for follow-up examination after completed treatment for malignant neoplasm (principal); Z85.3 Personal history of malignant neoplasm of breast; Z92.21 Personal history of antineoplastic chemotherapy; M81.0 Age-related osteoporosis without current pathological fracture; Z79.899 Other long term (current) drug therapy
CPT/HCPCS: 36415; 80053; 85025; 99214

== ENCOUNTER → 2024-10-28 11:30 | Outpatient (BNVA) | payer MEDICARE, OTHER, SELFPAY | PROVIDERS: PCP Nurse Practitioner Family; Visit Provider Nurse Practitioner | DX: R39.9 Unspecified symptoms and signs involving the genitourinary system (principal) | CPT/HCPCS: 81000; 87086 ==

== ENCOUNTER 2024-11-01 06:19 | Emergency (ER) | payer MEDICARE, OTHER, SELFPAY ==
[2024-11-01 06:24] VITALS: BMI 25.0
[2024-11-01 06:39] VITALS: BP 171/74; PULSE 68; RESP 16; O2SAT 96
[2024-11-01] MEDS: tetracaine 0.5% Op Soln 4 mL Btl 1 DROP EYE-LEFT (06:48)
[2024-11-01] MEDS: fluorescein 1 mg Strip EYE-LEFT (06:48)
--- NOTE | 2024-11-01 07:14 | W.ED.EYEPROB ---
HPI - Eye Problem General: Chief complaint: Eye Problems Stated complaint: lt eye swollen / sensistive to light Time Seen by Provider: 11/01/24 06:30 Source: patient Mode of arrival: ambulatory Limitations: no limitations History of Present Illness: 78-year-old female states she woke up this morning with left eye pain states her pain has been red and sensitive to light. States pain is currently a 3 out of 10 denies any severe vision changes she typically wears contacts is not wearing contacts currently. Associated symptoms: Denies fever(s), headache(s), nausea, neck pain or vomiting Related Data Home Medications ?Medication ?Instructions ?Recorded ?Confirmed sertraline 100 mg tablet 100 mg PO DAILY 03/02/20 10/28/24 ascorbic acid (vitamin C) 500 mg 500 mg PO DAILY 09/08/23 10/28/24 tablet (Vitamin C) betamethasone dipropionate 0.05 % 1 applic topical DAILY PRN unknown 09/08/23 10/28/24 topical ointment ketoconazole 2 % topical cream 1 applic topical DAILY PRN unknown 09/08/23 10/28/24 pyridoxine (vitamin B6) 100 mg 100 mg PO DAILY 09/08/23 10/28/24 tablet (Vitamin B-6) aspirin 81 mg tablet,delayed 81 mg PO DAILY@12 09/29/23 10/28/24 release (Adult Low Dose Aspirin) calcium 600 mg (as 1 tab PO DAILY@12 09/29/23 10/28/24 carbonate)-vitamin D3 5 mcg (200 unit) tablet cranberry 500 mg capsule 500 mg PO TID 09/29/23 10/28/24 glucosamine sulfate 500 mg tablet 500 mg PO DAILY 09/29/23 10/28/24 (Glucosamine) levothyroxine 88 mcg tablet 88 mcg PO DAILY 09/29/23 10/28/24 magnesium oxide 400 mg PO DAILY 09/29/23 10/28/24 mometasone 0.1 % topical solution See Rx Instructions .Route .COMPLEX 09/29/23 10/28/24 multivitamin 1 tab PO DAILY 09/29/23 10/28/24 nitroglycerin 0.4 mg sublingual 0.4 mg sublingual Q5M PRN Chest 09/29/23 10/28/24 tablet (Nitrostat) Pain potassium gluconate 595 mg (99 mg) 595 mg PO DAILY 09/29/23 10/28/24 tablet propylene glycol-glycerin 0.6 1 drp ophthalmic (eye) DAILY PRN 09/29/23 10/28/24 %-0.6 % eye drops in a dropperette Dry Eye(S) (Soothe Lubricant) vit C 250 mg-vit E 90 mg-zinc 40 1 cap PO DAILY 09/29/23 10/28/24 mg-copper 1 [id number] capsule (PreserVision AREDS-2) pumpkin seed extract-soy germ 300 1 cap PO BID PRN 06/17/24 10/28/24 mg capsule (Azo Bladder Control) Previous Rx's ?Medication ?Instructions ?Recorded furosemide 20 mg tablet (Lasix) 20 mg PO DAILY PRN edema or weight 12/11/23 gain or sob #90 tabs prednisone 20 mg tablet 20 mg PO DAILY #5 tabs 08/18/24 atorvastatin 40 mg tablet See Rx Instructions .Route 09/03/24 .COMPLEX #90 tabs clopidogrel 75 mg tablet 75 mg PO DAILY@12 #90 tabs 09/06/24 metoprolol tartrate 50 mg tablet 25 mg (1/2 x 50 mg) PO BID #180 09/27/24 tabs ciprofloxacin HCl 250 mg tablet 250 mg PO BID 7 days #14 tabs 10/28/24 levofloxacin 250 mg tablet 250 mg PO DAILY 3 days #3 tabs 10/31/24 moxifloxacin 0.5 % eye drops 1 drp ophthalmic (eye) TID 7 days 11/01/24 (Vigamox) #3 mL Allergies Allergy/AdvReac Type Severity Reaction Status Date / Time Penicillins Allergy Unknown ADR-Hyperte Verified 11/01/24 06:27 nsion cefdinir Allergy Unknown Verified 11/01/24 06:27 ibuprofen Allergy Unknown Verified 11/01/24 06:27 nitrofurantoin Allergy ALGY-Rash Verified 11/01/24 06:27 red dye Allergy ALGY-Rash Verified 11/01/24 06:27 Sulfa (Sulfonamide Allergy ALGY-Rash Verified 11/01/24 06:27 Antibiotics) Review of Systems Const: Denies: fever(s), chills, body aches or change in appetite Eyes: Reports: eye discomfort ENMT: Denies: throat pain or dental pain Card: Denies: chest pain Resp: Denies: dyspnea GI: Denies: abdominal pain, nausea, vomiting or diarrhea Musc: Denies: neck pain or back pain Skin/Breast: Denies: rash Neuro: Denies: headache(s) All/Imm: Denies: urticaria PFSH ED PFSH: Medical History Coronary artery disease NSTEMI (non-ST elevated myocardial infarction) Unstable angina Breast cancer, left breast History of nonmelanoma skin cancer Hx of breast cancer History of depression History of gastroesophageal reflux (GERD) Hx of irritable bowel syndrome Hx of osteoporosis History of skin cancer History of sleep apnea Hx of thyroid disease Left ear hearing loss Surgical History Hx of breast biopsy History of 2 sections Hx of hand surgery Hx of thyroidectomy History of lobectomy of thyroid Hx of tonsillectomy Hx of elbow surgery History of bladder suspension procedure Family History Mother Colon cancer CAD (coronary artery disease) Colon cancer Hyperlipidemia Father CAD (coronary artery disease) Cancer Bladder cancer Lung disease Other IBS (irritable bowel syndrome) Denies family history of Diabetes Clotting disorder Dementia Psychiatric illness Chronic kidney disease (CKD) Suicide Anesthesia complication Bleeding disorder Hypertension Stroke Social History Smoking and tobacco/nicotine status: never used tobacco/nicotine Alcohol intake: never Substance/Drug Use: never Physical Exam Const: COMMON NORMALS: no acute distress, patient oriented x3 and healthy appearing HENMT: COMMON NORMALS: normocephalic and atraumatic HEAD & SCALP: normocephalic and atraumatic Eye: COMMON NORMALS: Equal, round and reactive pupils present and EOMs intact bilaterally PUPIL: Yes Equal, round and reactive pupils present OTHER: Erythema noted to left eye no ulcer or abrasion intraocular pressures 24 mmHg Neck/C-Spine: COMMON NORMALS: full ROM and supple Chest: COMMONS NORMALS: normal inspection of the chest and normal palpation of entire chest wall Resp: COMMON NORMALS: normal respiratory effort Cardio: COMMON NORMALS: regular rate RATE: regular rate Extremity: COMMON NORMALS: normal to inspection and full ROM Neuro: COMMON NORMALS: patient oriented x3, moves all extremities and no focal motor deficits Psych: COMMON NORMALS: mental status grossly normal, Normal thought process present and cooperative THOUGHT PROCESS: Normal thought process present Skin: COMMON NORMALS: no rashes or lesions noted and no wounds GENERAL SKIN EXAM: no rashes or lesions noted Course Vital Signs: Vital signs: Vital Signs Pulse Rate 68 11/01/24 06:39 Respiratory Rate 16 11/01/24 06:39 Blood Pressure 171/74 11/01/24 06:39 Pulse Oximetry 96 11/01/24 06:39 Oxygen Delivery Me thod Room Air 11/01/24 06:39 MDM - Eye Problem Medical Decision Making Patient presents here with conjunctivitis left eye no signs of acute angle glaucoma she is to follow-up with ophthalmology return if worsening will start her on Vigamox Medical Records I reviewed the patient's medical records. No radiology studies performed this visit Discharge Plan Discharge Patient Disposition: Home Clinical Impression: Conjunctivitis Condition: Stable Prescriptions: New moxifloxacin [Vigamox] 0.5 % drops 1 drp ophthalmic (eye) TID 7 Days Qty: 3 0RF No Action Lasix 20 mg tablet 20 mg PO DAILY PRN (Reason: edema or weight gain or sob) Qty: 90 1RF prednisone 20 mg tablet 20 mg PO DAILY Qty: 5 0RF ciprofloxacin HCl 250 mg tablet 250 mg PO BID 7 Days Qty: 14 0RF ketoconazole 2 % cream 1 applic topical DAILY PRN (Reason: unknown) atorvastatin 40 mg tablet See Rx Instructions .ROUTE .COMPLEX Qty: 90 3RF Dose Instruction: TAKE 1 TABLET BY MOUTH AT BEDTIME Rx Instructions: TAKE 1 TABLET BY MOUTH AT BEDTIME clopidogrel 75 mg tablet 75 mg PO DAILY@12 Qty: 90 3RF metoprolol tartrate 50 mg tablet 25 mg PO BID Qty: 180 3RF levofloxacin 250 mg tablet 250 mg PO DAILY 3 Days Qty: 3 0RF sertraline 100 mg tablet 100 mg PO DAILY levothyroxine 88 mcg tablet 88 mcg PO DAILY nitroglycerin [Nitrostat] 0.4 mg Tablet, Sublingual 0.4 mg SUBLINGUAL Q5M PRN (Reason: Chest Pain) Rx Instructions: do not exceed 3 doses per episode mometasone 0.1 % solution See Rx Instructions .ROUTE .COMPLEX Rx Instructions: APPLY TOPICALLY TO SCALP ONCE DAILY ON MONDAY-MONDAY multivitamin Tablet 1 tab PO DAILY Glucosamine 500 mg Tablet 500 mg PO DAILY calcium carbonate-vitamin D3 600 mg-5 mcg (200 unit) Tablet 1 tab PO DAILY@12 cranberry 500 mg Capsule 500 mg PO TID potassium gluconate 595 mg (99 mg) Tablet 595 mg PO DAILY Soothe Lubricant 0.6-0.6 % Dropperette 1 drp OPHTHALMIC (EYE) DAILY PRN (Reason: Dry Eye(S)) PreserVision AREDS-2 250-90-40-1 mg Capsule 1 cap PO DAILY magnesium oxide 400 mg magnesium Tablet 400 mg PO DAILY Adult Low Dose Aspirin 81 mg tablet,delayed release (DR/EC) 81 mg PO DAILY@12 pyridoxine (vitamin B6) [Vitamin B-6] 100 mg Tablet 100 mg PO DAILY betamethasone dipropionate 0.05 % Ointment 1 applic TOPICAL DAILY PRN (Reason: unknown) ascorbic acid (vitamin C) [Vitamin C] 500 mg Tablet 500 mg PO DAILY Azo Bladder Control 300 mg capsule 1 cap PO BID PRN Discharge Orders: Discharge ED (Routine); Ordered 11/01/24 Ordered By: Cierra Zheng Referrals: Craig Nelson MD [Primary Care Provider, Family Practice] - 4-7 days Discharge Diet: Advance as tolerated Discharge Activity: Resume usual activity Patient Instructions: Conjunctivitis (ED) Print Language: Somali Coding Level of Care Code ED [employer] for Mary Vela
[2024-11-01 07:32] VITALS: PULSE 60; O2SAT 89
== END 2024-11-01 07:33 | disposition home or self-care (01) ==
PROVIDERS: Emergency Provider Emergency Medicine; PCP Family Medicine
DX: H10.9 Unspecified conjunctivitis (principal)
CPT/HCPCS: 99283; J9999

== ENCOUNTER 2024-11-25 09:54 | Outpatient (CLI) | payer MEDICARE, OTHER, SELFPAY ==
--- NOTE | 2024-11-25 10:00 | MM_ITS ---
WS: [id number] DIAGNOSTIC BILATERAL DIGITAL BREAST TOMOSYNTHESIS MAMMOGRAPHY WITH CAD HISTORY: breast cancer COMPARISON: 11/23/2023, 11/21/2022, 07/15/2020 TECHNIQUE: Bilateral craniocaudad, mediolateral oblique, and mediolateral views are submitted with tomosynthesis and SM. Computer aided detection utilized. Breast composition: There are scattered areas of fibroglandular density. Postoperative lumpectomy site LEFT breast. In the lumpectomy site is a long-term stability high density mass with peripheral calcification measuring 2.1 x 2.5 x 2.6 cm. Consistent with a postoperative seroma which is unchanged over several years. No suspicious masses or calcifications within either breast. Benign calcifications in each breast. MM/MM diag BI tomosynthesis [id number] IMPRESSION: BI-RADS: 2 - Benign. FOLLOW UP: 1 Year Follow-up
== END 2024-11-25 09:55 | disposition home or self-care (01) ==
PROVIDERS: PCP Family Medicine; Visit Provider Internal Medicine Medical Oncology
DX: Z08 Encounter for follow-up examination after completed treatment for malignant neoplasm (principal); Z85.3 Personal history of malignant neoplasm of breast
CPT/HCPCS: 77062; G0279

== ENCOUNTER → 2024-12-16 14:51 | Outpatient (BNVA) | payer MEDICARE, OTHER, SELFPAY | PROVIDERS: PCP Family Medicine; Visit Provider Internal Medicine | DX: I25.10 Atherosclerotic heart disease of native coronary artery without angina pectoris (principal); R94.39 Abnormal result of other cardiovascular function study; Z79.02 Long term (current) use of antithrombotics/antiplatelets; Z79.82 Long term (current) use of aspirin; Z85.3 Personal history of malignant neoplasm of breast; I25.2 Old myocardial infarction | CPT/HCPCS: 99214 ==

== ENCOUNTER 2024-12-23 09:53 | Outpatient (CLI) | payer MEDICARE, OTHER, SELFPAY ==
[2024-12-23 11:26] LABS: Cholesterol 140 mg/dL (0-200); HDL Cholesterol 55 mg/dL (60-100); Triglycerides 136 mg/dL (0-150)
== END 2024-12-23 09:54 | disposition home or self-care (01) ==
LOC: LAB 09:54
PROVIDERS: PCP Family Medicine; Visit Provider Internal Medicine
DX: I25.10 Atherosclerotic heart disease of native coronary artery without angina pectoris (principal)
CPT/HCPCS: 36415; 80061

== ENCOUNTER → 2025-02-13 08:36 | Outpatient (BNVA) | payer MEDICARE, OTHER, SELFPAY | PROVIDERS: PCP Family Medicine; Visit Provider Nurse Practitioner Family | DX: L21.8 Other seborrheic dermatitis (principal); I87.2 Venous insufficiency (chronic) (peripheral); L82.1 Other seborrheic keratosis; L57.8 Other skin changes due to chronic exposure to nonionizing radiation; L81.4 Other melanin hyperpigmentation; D18.01 Hemangioma of skin and subcutaneous tissue; Z08 Encounter for follow-up examination after completed treatment for malignant neoplasm; Z85.828 Personal history of other malignant neoplasm of skin; L82.0 Inflamed seborrheic keratosis; L53.8 Other specified erythematous conditions; Z78.9 Other specified health status; R20.8 Other disturbances of skin sensation | CPT/HCPCS: 17110; 99214 ==

== ENCOUNTER 2025-02-20 12:10 | Oncology outpatient (recurring) (ONCR) | payer MEDICARE, OTHER, SELFPAY ==
[2025-02-20 12:33] LABS: Hematocrit 37.7 % (36-47); Hemoglobin 12.60 g/dL (11.27-16.99); Mean Corpuscular HGB Conc 33.4 g/dL (30-55); Mean Corpuscular Hemoglobin 28.7 pg (27-33); Mean Corpuscular Volume 85.9 fl (85-98); Nucleated Red Blood Cells % 0 %; Platelet Count 292 10^3/cmm (157-399); Red Blood Count 4.39 10^6/uL (3.85-5.65); White Blood Count 6.42 10^3/uL (3.29-11.43)
[2025-02-20 12:52] LABS: Alanine Aminotransferase 15 U/L (0-33); Albumin Level 4.0 g/dL (3.5-5.2); Alkaline Phosphatase 107 U/L (35-105); Anion Gap 15.1 (5-19); Aspartate Amino Transferase 19 U/L (0-32); Blood Urea Nitrogen 15 mg/dL (8-23); Calcium 9.6 mg/dL (8.5-10.5); Carbon Dioxide 26 mmol/L (22-29); Chloride 104 mmol/L (98-107); Globulin 2.4 g/dL (1.3-4.6); Glucose 96 mg/dL (65-115); Osmolality Calculated 293 mOsm/kg (285-295); Potassium 4.1 mmol/L (3.5-5.1); Sodium 141 mmol/L (136-145); Total Protein 6.4 g/dL (6.6-8.7)
[2025-02-20] MEDS: denosumab 60 mg SDV (Infusion Clinic Only) SUBCUT (14:12)
[2025-02-20 14:16] VITALS: BP 146/74; PULSE 76; TEMP 36.3; O2SAT 95
== END 2025-03-11 23:59 | disposition home or self-care (01) ==
PROVIDERS: PCP Nurse Practitioner Family; Visit Provider Internal Medicine Medical Oncology
DX: Z08 Encounter for follow-up examination after completed treatment for malignant neoplasm (principal); Z85.3 Personal history of malignant neoplasm of breast; M81.0 Age-related osteoporosis without current pathological fracture; Z92.21 Personal history of antineoplastic chemotherapy; Z79.899 Other long term (current) drug therapy
CPT/HCPCS: 80053; 85025; 96372; 99214; J0897

== ENCOUNTER 2025-03-24 13:18 | Emergency (ER) | payer MEDICARE, OTHER, SELFPAY ==
[2025-03-24 13:21] VITALS: BP 157/77; PULSE 61; RESP 18; TEMP 36.4; O2SAT 99; BMI 25.0
--- NOTE | 2025-03-24 13:29 | W.ED.FALL ---
HPI - Fall General: Chief Complaint: Fall Stated Complaint: Fall and hit head Time Seen by Provider: 03/24/25 13:29 History of Present Illness: 79-year-old female with a history of coronary artery disease status post stents with anticoagulation on Plavix, history of breast cancer, depression, GERD, osteoporosis, sleep apnea and thyroid disease who presents to the emergency room after having had a fall and hitting her head. She has some bleeding from the right posterior scalp. She tripped and fell. No loss of consciousness but she did feel a bit woozy after the event. No nausea or vomiting. No altered mental status. No focal motor deficits. No chest pain. No abdominal pain. No extremity injuries. Related Data Home Medications ?Medication ?Instructions ?Recorded ?Confirmed sertraline 100 mg tablet 100 mg PO DAILY 03/02/20 03/24/25 ascorbic acid (vitamin C) 500 mg 500 mg PO DAILY 09/08/23 03/24/25 tablet (Vitamin C) aspirin 81 mg tablet,delayed 81 mg PO DAILY@12 09/29/23 03/24/25 release (Adult Low Dose Aspirin) calcium 600 mg (as 1 tab PO DAILY@12 09/29/23 03/24/25 carbonate)-vitamin D3 5 mcg (200 unit) tablet cranberry 500 mg capsule 500 mg PO TID 09/29/23 03/24/25 levothyroxine 88 mcg tablet 88 mcg PO QAM 09/29/23 03/24/25 magnesium oxide 400 mg PO DAILY 09/29/23 03/24/25 mometasone 0.1 % topical solution See Rx Instructions .Route .COMPLEX 09/29/23 03/24/25 multivitamin 1 tab PO DAILY 09/29/23 03/24/25 nitroglycerin 0.4 mg sublingual 0.4 mg sublingual Q5M PRN Chest 09/29/23 03/24/25 tablet (Nitrostat) Pain potassium gluconate 595 mg (99 mg) 595 mg PO DAILY 09/29/23 03/24/25 tablet propylene glycol-glycerin 0.6 1 drp ophthalmic (eye) DAILY PRN 09/29/23 03/24/25 %-0.6 % eye drops in a dropperette Dry Eye(S) (Soothe Lubricant) vit C 250 mg-vit E 90 mg-zinc 40 1 cap PO DAILY 09/29/23 03/24/25 mg-copper 1 [id number] capsule (PreserVision AREDS-2) atorvastatin 40 mg tablet 40 mg PO BEDTIME 03/24/25 03/24/25 pantoprazole 40 mg tablet,delayed 40 mg PO DAILY 03/24/25 03/24/25 release Previous Rx's ?Medication ?Instructions ?Recorded clopidogrel 75 mg tablet 75 mg PO DAILY@12 #90 tabs 09/06/24 metoprolol tartrate 50 mg tablet 25 mg (1/2 x 50 mg) PO BID #180 09/27/24 tabs Allergies Allergy/AdvReac Type Severity Reaction Status Date / Time Penicillins Allergy Unknown ADR-Hyperte Verified 03/24/25 13:28 nsion cefdinir Allergy Unknown Verified 03/24/25 13:28 ibuprofen Allergy Unknown Verified 03/24/25 13:28 nitrofurantoin Allergy ALGY-Rash Verified 03/24/25 13:28 red dye Allergy ALGY-Rash Verified 03/24/25 13:28 Sulfa (Sulfonamide Allergy ALGY-Rash Verified 03/24/25 13:28 Antibiotics) Review of Systems Narrative: Constitutional symptoms: Negative except as documented in HPI. Skin symptoms: Negative except as documented in HPI. Eye symptoms: Negative except as documented in HPI. ENMT symptoms: Negative except as documented in HPI. Respiratory symptoms: Negative except as documented in HPI. Cardiovascular symptoms: Negative except as documented in HPI. Gastrointestinal symptoms: Negative except as documented in HPI. Genitourinary symptoms: Negative except as documented in HPI. Musculoskeletal symptoms: Negative except as documented in HPI. Neurologic symptoms: Negative except as documented in HPI. Psychiatric symptoms: Negative except as documented in HPI. Endocrine symptoms: Negative except as documented in HPI. PFSH ED PFSH: Medical History (Updated 03/24/25 @ 15:05 by Rita Loja MD) Coronary artery disease NSTEMI (non-ST elevated myocardial infarction) Unstable angina Breast cancer, left breast History of nonmelanoma skin cancer Hx of breast cancer History of depression History of gastroesophageal reflux (GERD) Hx of irritable bowel syndrome Hx of osteoporosis History of skin cancer History of sleep apnea Hx of thyroid disease Left ear hearing loss Surgical History Hx of breast biopsy History of 2 sections Hx of hand surgery Hx of thyroidectomy History of lobectomy of thyroid Hx of tonsillectomy Hx of elbow surgery History of bladder suspension procedure Family History Mother Colon cancer CAD (coronary artery disease) Colon cancer Hyperlipidemia Father CAD (coronary artery disease) Cancer Bladder cancer Lung disease Other IBS (irritable bowel syndrome) Denies family history of Diabetes Clotting disorder Dementia Psychiatric illness Chronic kidney disease (CKD) Suicide Anesthesia complication Bleeding disorder Hypertension Stroke Social History Smoking and tobacco/nicotine status: never used tobacco/nicotine Alcohol intake: never Substance/Drug Use: never Physical Exam Narrative: EXAM NARRATIVE: General: Alert, no acute distress. Skin: Warm, dry. Head: Normocephalic, atraumatic. Neck: Supple, trachea midline. Eye: Extraocular movements are intact. Ears, nose, mouth and throat: mucosa moist. Cardiovascular: Regular, Normal peripheral perfusion. Respiratory: Lungs are clear to auscultation, respirations are non-labored, breath sounds are equal, Symmetrical chest wall expansion. Gastrointestinal: Soft, Nontender, Non distended Musculoskeletal: Normal ROM, no deformity. Neurological: Alert and oriented, No focal neurological deficit observed. Psychiatric: Cooperative, appropriate mood & affect. Course Vital Signs: Vital signs: Vital Signs Temperature 97.5 F L 03/24/25 13:21 Pulse Rate 61 03/24/25 13:21 Respiratory Rate 18 03/24/25 13:21 Blood Pressure 157/77 03/24/25 13:21 Pulse Oximetry 99 03/24/25 13:21 Oxygen Delivery Me thod Room Air 03/24/25 13:21 MDM - Fall Medical Decision Making Medical decision making: Differential diagnosis including but not limited to and based on the above HPI, review of systems and physical exam: patient with fall and head injury. Subdural hematoma, subarachnoid hemorrhage, concussion, skull fracture. Orders placed to evaluate differential diagnosis based on the above differential, HPI and physical exam CT scan of the head was ordered. CT head: No acute intracranial process. No intracranial hemorrhage, no evidence of infarct. No evidence of acute fracture. This was reviewed and interpreted by myself the emergency room physician. I also reviewed the radiology report. Laceration repair procedure: Time: See nursing documentation Confirmed patient, procedure, side, and site. Time out performed prior to procedure. Verbal consent was obtained by patient and/or responsible alliance party. Indication: Laceration Location: Running vertically right central occipital area. Length: 6 cm Description: Subcutaneous, linear Anesthesia: 10 mL 1% lidocaine with epinephrine Area prepared by sterile field with Betadine. #9 , jayne were utilized, simple, interrupted technique. Post procedure examination: Circulation, motor, sensory intact. Patient tolerated the procedure well. No complications, bleeding. Total time: 1o min. Pt advised to keep the area clean and dry, wash twice per day with antibacterial soap and water. Return to the ED or PCP in 7 days for staple removal. I reviewed the patient's medical record. 79-year-old female with a history of coronary artery disease status post stents with anticoagulation on Plavix, history of breast cancer, depression, GERD, osteoporosis, sleep apnea and thyroid disease Assessment and plan: Head injury Scalp laceration ?Tetanus administered. Laceration repaired. - Discharged home - Discussed plan with patient. Answered any questions. - Evaluation and treatment of this problem were appropriate in the emergency setting. Lab Data Radiology Impressions Head CT 03/24/25 13:31 IMPRESSION: 1. No acute intracranial hemorrhage or edema. 2. High RIGHT parietal scalp laceration. No skull fracture. All radiology interpretation(s) finalized by discharge Discharge Plan Discharge Patient Disposition: Home Clinical Impression: Laceration of scalp, Head injury, Chronic anticoagulation Condition: Stable Prescriptions: No Action clopidogrel 75 mg tablet 75 mg PO DAILY@12 Qty: 90 3RF metoprolol tartrate 50 mg tablet 25 mg PO BID Qty: 180 3RF sertraline 100 mg tablet 100 mg PO DAILY levothyroxine 88 mcg tablet 88 mcg PO QAM nitroglycerin [Nitrostat] 0.4 mg Tablet, Sublingual 0.4 mg SUBLINGUAL Q5M PRN (Reason: Chest Pain) Rx Instructions: do not exceed 3 doses per episode mometasone 0.1 % solution See Rx Instructions .ROUTE .COMPLEX Rx Instructions: APPLY TOPICALLY TO SCALP ONCE DAILY ON MONDAY-MONDAY NEEDED. multivitamin Tablet 1 tab PO DAILY calcium carbonate-vitamin D3 600 mg-5 mcg (200 unit) Tablet 1 tab PO DAILY@12 cranberry 500 mg Capsule 500 mg PO TID potassium gluconate 595 mg (99 mg) Tablet 595 mg PO DAILY Soothe Lubricant 0.6-0.6 % Dropperette 1 drp OPHTHALMIC (EYE) DAILY PRN (Reason: Dry Eye(S)) PreserVision AREDS-2 250-90-40-1 mg Capsule 1 cap PO DAILY magnesium oxide 400 mg magnesium Tablet 400 mg PO DAILY aspirin [Adult Low Dose Aspirin] 81 mg tablet,delayed release (DR/EC) 81 mg PO DAILY@12 ascorbic acid (vitamin C) [Vitamin C] 500 mg Tablet 500 mg PO DAILY pantoprazole 40 mg tablet,delayed release (DR/EC) 40 mg PO DAILY atorvastatin 40 mg tablet 40 mg PO BEDTIME Discharge Orders: Discharge ED (Routine); Ordered 03/24/25 Ordered By: Rita Loja Referrals: Lanie Li FNP [Primary Care Provider, Unknown] Discharge Diet: As Directed Discharge Activity: Increase activity as tolerated Patient Instructions: Staple Care (ED), Opioid Safety, Pain Management, Patient Portal & Stephanie Instructions Activity Restrictions/Additional Instructions: Keep the area clean and dry, wash twice per day with antibacterial soap and water. Return to your primary provider or the emergency room in 7 days for staple removal. Avoid any prolonged submersion in water. Avoid all brown water, pond water, streams or other untreated water. Thank you for choosing [facility] for your healthcare needs today. You have been screened and evaluated and felt safe for discharge. Health conditions do change or evolve sometimes and as such it is important that you follow up with your Primary Doctor to be re checked, 3-5 days is a general good time frame for follow up. You are always welcome to return to the ED for re assessment if your symptoms are worsening or you have new concerns Print Language: Ugandan Coding Level of Care Code ED Religious Educator for Mary Vela
--- NOTE | 2025-03-24 13:31 | CT_ITS ---
WS: [id number] CT HEAD NONCONTRAST HISTORY: fall, head injury TECHNIQUE: Contiguous axial imaging performed through the brain. Bone and soft tissue windows. Sagittal and coronal reformats reviewed. All CT scans at [facility] use at least one of these dose optimization techniques: automated exposure control; mA and/or kV adjustment per patient size (includes targeted exams where dose is matched to clinical indication); or iterative reconstruction. DLP: 1098.88 mGy.cm COMPARISON: None available. No acute intracranial hemorrhage, midline shift or mass effect. Mild symmetric atrophy and mild small vessel disease. No prior infarct. Ventricles: Normal size with no hydrocephalus. No inferior displacement of the cerebellar tonsils. Paranasal sinuses: As visualized are clear. Mastoid air cells: Well pneumatized. Calvarium and scalp: No skull fracture. Soft tissue contusion and laceration centered over the high RIGHT parietal bone. CT/CT head wo con* [id number] IMPRESSION: 1. No acute intracranial hemorrhage or edema. 2. High RIGHT parietal scalp laceration. No skull fracture.
--- OUTSIDE RECORDS SUMMARY | 2025-03-24 13:38 | XMS_ITS | Encounter Summary ---
Author Organization [employer] [facility] Address [address] [facility] Attn: [place] [address] Care Team Providers Care Flue Cleaner Name Role Phone Familia Prado MD Primary Care Provider Unava ilable Encounter Details Date Type Department Care Team (Late st Contact Info) Description 02/14/2002 Outpatient Historical Sloan Ambrosio MD [address] [place] [id number] Social History Tobacco Use Types Packs/Day Years Used Date Smoking Tobacco: Never Assessed Comments Unknown Sex and Gender Information Value Date Recorded Sex Assigned at Not on file Legal Sex Female 3:36 AM NOTE TELLER Gender Identity Not on file Sexual Orientation Not on file documented as of this encounter Plan of Treatment Not on file documented as of this encounter Visit Diagnoses Not on filedocumented in this encounter Care Teams Flue Cleaner Relationship Specialty Start Date End Date Familia Prado MD PCP - General Outpatient Scheduler 11/10/09 documented as of this encounter
--- OUTSIDE RECORDS SUMMARY | 2025-03-24 13:38 | XMS_ITS | Clinical Summary ---
Author Organization [facility] Address [address] [place] [address] Phone Care Team Providers Care Animal Husbandry Worker Name Role Phone Familia Prado MD Primary Care Provider Unava ilable Allergies Active Allergy Reactions Criticality Noted Date Comments Cefpodoxime Rash Low 11/10/2009 Nitrofurantoin Rash Low 11/10/2009 Penicillins Palpitations Low 11/10/2009 Sulfamethoxazole-Trimethoprim Rash Low 2009 Medications sertraline (ZOLOFT) 100 mg Oral tablet Take 50 mg by mouth daily. Active levofloxacin (LEVAQUIN) 500 mg Oral tablet Take 500 mg by mouth daily. Active levothyroxine (SYNTHROID) 150 mcg Oral tablet Take 150 mcg by mouth daily. Active OTHER Take 1 Tab by mouth daily. OTC Water Pill 11/10/2009 Active calcium-vitamin D3 (CALCIUM 600 + D,3,) 600 mg(1,500mg) -200 unit Oral Tab Take 1 Tab by mouth daily. 11/10/2009 Active multivitamin (MULTIPLE VITAMIN ESSENTIAL) Oral tablet Take 1 Tab by mouth daily. Active meclizine (ANTIVERT) 25 mg Oral tablet Take 12.5-25 mg by mouth daily. And prn 11/10/2009 Active hyoscyamine (LEVSIN) 0.[address] 0.125 mg under tongue every 4 hours as needed. 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 Gender Identity Not on file Sexual Orientation Not on file Last Filed Vital Signs Vital Sign Reading Time Taken Comments Blood Pressure 104/52 11/12/2009 11:36 AM CDT Pulse 69 11/12/2009 11:36 AM CDT Temperature 35.9 C (96.6 F) 11/12/2009 11:36 AM CDT Respiratory Rate 18 11/12/2009 11:36 AM CDT Oxygen Saturation 97% 11/12/2009 11:36 AM CDT Inhaled Oxygen Concentration - - Weight 66.9 kg (147 lb 6.4 oz) 11/10/2009 11:25 AM CDT Height 167.6 cm (5' 6 ) 11/10/2009 11:25 AM CDT Body Mass Index 23.79 11/10/2009 11:25 AM CDT Plan of Treatment Health Maintenance Due Date Last Done Comments DTAP/TDAP/TD VACCINES (1 - Tdap) 12/25/1962 PNEUMOCOCCAL VACCINE 50+ YEARS (1 of 1 - PCV) 12/25/18 94 ZOSTER VACCINE (1 of 2) 12/25/1993 OSTEOPOROSIS SCREENING 12/25/2008 RSV VACCINE (60+ or ) (1 - 1-dose 75+ series) 12/25/2018 INFLUENZA VACCINE (#1) 2025 03/12/2009 COLORECTAL SCREENING Discontinued 02/14/2002 Colorectal Cancer Screening Discontinued FIT-DNA Q 3 years Discontinued FIT/FOBT Q 1 year Discontinued Flex Sig/CT Colonography Q 5 years Discontinued Medical Devices Implanted Type Area Wood Milling Machine Hand Device Identifier Shelf Expiration Date Model / Serial / Lot Log [id number] - Synthes 3.5 Lcp Distal Humerus & Elbow Plate Sys - 1 - Plate Lcp Hum Post/Lat/Dis 3.5mm 241.264 Implanted:Qty: 1 on 11/11/2009 at [facility] Plate Right: Elbow SYNTHES STRATEC 241.264 / NA / NA Log [id number] - Synthes 3.5 Lcp Distal Humerus & Elbow Plate Sys - 1 - Plate Lcp Med Dis Hum 5hole Rt 241.284 Implanted:Qty: 1 on 11/11/2009 at [facility] Plate Right: Elbow SYNTHES STRATEC 241.284 / NA / NA Log [id number] - Synthes 3.5 Lcp Distal Humerus & Elbow Plate Sys - 1 - Plate Hook Lcp 3.5mm 3h 02.113.103 Implanted:Qty: 1 on 11/11/2009 at [facility] Plate Right: Elbow SYNTHES STRATEC 02.113.103 / NA / NA Log 90661 - Synthes Screw Cannulated 4.0 Set - 1 - Screw Canc Sht Thrd 4x40mm 207.64 Implanted:Qty: 1 on 11/11/2009 at [facility] Screw Right: Elbow SYNTHES STRATEC 207.640 / NA / NA Log 28782 - Synthes Small Frag Lcp Locking - 1 - Screw Michel Self Tap 3.5x24mm 204.824 Implanted:Qty: 1 on 11/11/2009 at [facility] Screw Right: Elbow SYNTHES STRATEC 204.824 / NA / NA Log 43020 - Synthes Small Frag Lcp Locking - 1 - Screw Mcihel Self Tap 3.5x26mm 204.826 Implanted:Qty: 1 on 11/11/2009 at [facility] Screw Right: Elbow SYNTHES STRATEC 204.826 / NA / NA Log 63743 - Synthes Small Frag Lcp Locking - 1 - Screw Michel Self Tap 3.5x30mm 204.830 Implanted:Qty: 1 on 11/11/2009 at [facility] Screw Right: Elbow SYNTHES STRATEC 204.830 / NA / NA Log 21260 - Synthes Small Frag Lcp Locking - 1 - Screw Michel Self Tap 3.5x50mm 204.850 Implanted:Qty: 1 on 11/11/2009 at [facility] Screw Right: Elbow SYNTHES STRATEC 204.850 / NA / NA Log 18799 - Synthes Small Frag Lcp Locking - 1 - Screw St Loc Stardr 3.5x14mm 212.103 Implanted:Qty: 2 on 11/11/2009 at [facility] Screw Right: Elbow SYNTHES STRATEC 212.103 / NA / NA Log 50625 - Synthes Small Frag Lcp Locking - 1 - Screw St Loc Stardr 3.5x22mm 212.107 Implanted:Qty: 1 on 11/11/2009 at [facility] Screw Right: Elbow SYNTHES STRATEC 212.107 / NA / NA Log 92242 - Synthes Screw Cannulated 4.5 Set - 1 - Screw Holland 4.5x50mm 214.550 Implanted:Qty: 1 on 11/11/2009 at [facility] Screw Right: Elbow SYNTHES STRATEC 214.550 / NA / NA Log 79262 - Synthes 3.5 Lcp Distal Humerus & Elbow Plate Sys - 1 - Screw Lock 2.7x12mm 202.212 Implanted:Qty: 1 on 11/11/2009 at [facility] Screw Right: Elbow SYNTHES STRATEC 202.212 / NA / NA Log 71616 - Synthes 3.5 Lcp Distal Humerus & Elbow Plate Sys - 1 - Screw Lock 2.7x14mm 202.214 Implanted:Qty: 1 on 11/11/2009 at [facility] Screw Right: Elbow SYNTHES STRATEC 202.214 / NA / NA Log 78235 - Synthes 3.5 Lcp Distal Humerus & Elbow Plate Sys - 1 - Screw Lock 2.7x16mm 202.216 Implanted:Qty: 1 on 11/11/2009 at [facility] Screw Right: Elbow SYNTHES STRATEC 202.216 / NA / NA Description:#CORRECTED PER L [employer]OHAN [employer] SHE[employer] Log 08029 - Synthes 3.5 Lcp Distal Humerus & Elbow Plate Sys - 1 - Screw Lock 2.7x18mm 202.218 Implanted:Qty: 1 on 11/11/2009 at [facility] Screw Right: Elbow SYNTHES STRATEC 202.218 / NA / NA Log 21521 - Synthes 3.5 Lcp Distal Humerus & Elbow Plate Sys - 1 - Screw Lock 2.7x22mm 202.222 Implanted:Qty: 1 on 11/11/2009 at [facility] Screw Right: Elbow SYNTHES STRATEC 202.222 / NA / NA Log 59408 - Synthes Small Frag Lcp Locking - 1 - Screw Michel Self Tap 3.5x20mm 204.820 Implanted:Qty: 1 on 11/11/2009 at [facility] Screw Right: Elbow SYNTHES STRATEC 204.820 / NA / NA Log 22839 - Synthes Small Frag Lcp Locking - 1 - Screw Michel Self Tap 3.5x22mm 204.822 Implanted:Qty: 5 on 11/11/2009 at [facility] Screw Right: Elbow SYNTHES STRATEC 204.822 / NA / NA Explanted Type Area Wood Milling Machine Hand Device Identifier Shelf Expiration Date Model / Serial / Lot Log [id number] - Synthes Small Frag Lcp Locking - 1 - Screw St Loc Stardr 3.5x50mm 212.121 Explanted:Qty: 1 on 11/11/2009 at [facility] Screw Right: Elbow SYNTHES STRATEC 212.121 / NA / NA Insurance MEDICARE PART A AND B [employer] [place] [id number] Advance Directives For more information, please contact: [phone] * Full Code (Latest Code Status on File) Date Activated Date Inactivated Comments 11/11/2009 4:11 PM 11/12/2009 5:17 PM * Full Code Date Activated Date Inactivated Comments 11/11/2009 9:27 AM 11/11/2009 4:11 PM * Full Code Date Activated Date Inactivated Comments 11/10/2009 11:31 AM 11/11/2009 9:27 AM Care Teams Animal Husbandry Worker Relationship Specialty Start Date End Date Fmailia Prado MD PCP - General Quartz Mounter 11/10/09
--- OUTSIDE RECORDS SUMMARY | 2025-03-24 13:38 | XMS_ITS | Encounter Summary ---
Author Organization [facility] Address [address] [place] [address] Care Team Providers Care Calibrator Barometers Name Role Phone Familia Prado MD Primary Care Provider Unava ilable Encounter Details Date Type Department Care Team (Latest Contact Info) Description 03/19/2002 Outpatient Historical [facility]- [place] [address] [place] [address] Sloan Ambrosio MD [address] [place] [address] IRRITABLE COLON (Primary Dx); DISACCHARIDASE DEF/MALAB Social History Tobacco Use Types Packs/Day Years Used Date Smoking Tobacco: Never Assessed Comments Unknown Sex and Gender Information Value Date Recorded Sex Assigned at Not on file Legal Sex Female 3:36 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
--- OUTSIDE RECORDS SUMMARY | 2025-03-24 13:38 | XMS_ITS | Encounter Summary ---
Author Organization [facility] Address [address] [place] [address] Care Team Providers Care Marzipan Maker Name Role Phone Familia Prado MD Primary Care Provider Unava ilable Encounter Details Date Type Department Care Team (Latest Contact Info) Description 01/20/1998 Outpatient Historical [facility] 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
--- OUTSIDE RECORDS SUMMARY | 2025-03-24 13:38 | XMS_ITS | Encounter Summary ---
Author Organization [facility] Address [address] [place] [address] Care Team Providers Care Hydraulic Barker Operator Name Role Phone Familia Prado MD Primary Care Provider Unava ilable Encounter Details Date Type Department Care Team (Latest Contact Info) Description 02/14/2002 Outpatient Historical [facility]- [place] [address] [place] [address] Sloan Ambrosio MD [address] [place] [address] DIARRHEA NOS (Primary Dx) Social History Tobacco Use Types Packs/Day Years Used Date Smoking Tobacco: Never Assessed Comments Unknown Sex and Gender Information Value Date Recorded Sex Assigned at Not on file Legal Sex Female 3:36 AM SMALL BATTERY PLATE ASSEMBLER Gender Identity Not on file Sexual Orientation Not on file documented as of this encounter Plan of Treatment Not on file documented as of this encounter Visit Diagnoses Diagnosis Diarrhea- Primary documented in this encounter Care Teams Hydraulic Barker Operator Relationship Specialty Start Date End Date Familia Prado MD PCP - General Multiple Resaw Operator 11/10/09 documented as of this encounter
--- OUTSIDE RECORDS SUMMARY | 2025-03-24 13:38 | XMS_ITS | Patient Health Record ---
Author Organization [facility], [facility] Address [address] [place] [address] Care Team Providers Care Mirror Fabrication Supervisor Name Role Phone Craig Nelson MD Primary Care Provider Nick BRICEÑOFLOWER OLMSTEAD Unavailable [phone] KRISTA BOO Unavailable [phone] Allergies Allergen (clinical drug ingredient) Drug/Non Drug Allergy documented on EMR Reaction Allergy Type Onset Date [place] [facility] [place] red dye - rash Drug Allergy Active Septra Unknown Drug Allergy Active Penicillin Unknown Drug Allergy Active Results Component Value Reference Range Notes CBC w/ Auto Diff Reviewed date:09/19/2024 04:12:27 PM Interpretation: Performing Lab: Notes/Report: Testing performed at: [address] [address] CLIA ID [id number] WBC 6.9 4.5-11.0 X10'3 RBC 4.62 4.00-5.20 X10'6 Hgb 13.3 12.0-16.0 G/DL Hct 41.4 36.0-46.0 % MCV 89.6 80.0-100.0 FL MCH 28.8 27.0-31.0 PG MCHC 32.1 31.0-37.0 G/DL Platelet 355 150-400 X10'3 RDW-SD 41.7 35.0-49.0 FL RDW-CV 12.8 12.2-15.6 % MPV 10.1 9.2-12.0 FL Neutro Auto% 62.7 40.0-70.0 % Lymph Auto% 23.9 22.0-44.0 % [place] Auto% 9.0 3.0-7.0 % Eos Auto% 3.5 2.0-4.0 % Baso Auto% 0.6 0.0-1.0 % Imm Gran% .3 .0-.4 % Neutro Abs 4.32 .80-7.70 Absolute Neutrophil Count 4320 Lymph Abs 1.65 .10-4.10 [place] Abs .62 .20-1.00 Eos Abs .24 .00-.40 Baso Abs .04 .00-.20 Imm Gran Abs .02 .00-.10 NRBC# .00 .00-.20 X10'3 NRBC% .00 .00-.20 /100 intact WBC's Basic Metabolic Panel Reviewed date:09/19/2024 04:12:27 PM Interpretation: Performing Lab: Notes/Report: Testing performed at [facility], [address] [place] [address] [place] [address]. CLIA ID#: [id number] X-adrdas-w-benzoquinone imine (NAPQI) is a metabolite of acetaminophen, NAPQI concentrations of apparoximately 10 mg/L correlation to toxic levels of acetaminophen demonstrates a greater than or equil to 10% change in results. NAPQI concentrations greater than this may lead to falsely depressed results for patient samples. Calculation performed from GFR calculator provided by the National [employer]. Glomerular Filtration rate(GRF) is the best overall index of kidney function. Normal GFR varies according to age,sex, body size, and declines with age. The National Kidney Foundation recommends using the CKD-EPI Creatinine Equation(2020) to estimate GFR. Testing performed at: [address] [place] [address] CLIA ID [id number] Use of this assay is not recommended for patients undergoing treatment with phenindione, due to the potential for falsely depressed results. Sodium 143 136-145 MMOL/L Potassium 4.2 3.5-5.1 MMOL/L Chloride 104 98-107 MMOL/L CO2 33.9 20.0-31.0 MMOL/L Glucose Serum 90 71-110 MG/DL BUN 16 7-21 MG/DL Creat .71 .51-1.17 MG/DL GFR 85.8 Anion Gap 9 5-15 BUN/Creat Ratio 22.5 12.0-20.0 % Calcium 10.5 8.7-10.4 MG/DL Osmo Serum,Calculated 297 280-300 MOSM/KG Urinalysis, Routine Reviewed date:10/17/2024 10:36:31 AM Interpretation: Performing Lab: Notes/Report: Urine-Color yellow Appearance clear Glucose - Bilirubin - Ketones - Specific [place] 1.015 Occult Blood - pH 6.0 Urine Protein - Urobilinogen,Semi-Qn - Nitrite, Urine - WBC Esterase 2+ CULTURE, URINE, ROUTINE (395 ) Reviewed date:09/19/2024 09:23:29 AM Interpretation: Performing Lab:[facility], [id number] [facility], [id number] Valorie Uribe MD Notes/Report: NON-FASTING CULTURE, URINE, ROUTINE SEE NOTE CULTURE, URINE, ROUTINE Micro Number: [id number] Test Status: Final Specimen Source: Urine Specimen Quality: Adequate Result: No Growth Urinalysis, Routine Reviewed date:09/17/2024 02:18:07 PM Interpretation: Performing Lab: Notes/Report: Urine-Color yellow Appearance clear Glucose - Bilirubin - Ketones - Specific [place] 1.015 Occult Blood trace pH 6.0 Urine Protein - Urobilinogen,Semi-Qn - Nitrite, Urine - WBC Esterase - Urinalysis Gross Exam - Urinalysis, Routine Reviewed date:08/05/2024 04:26:34 PM Interpretation: Performing Lab: Notes/Report: Urine-Color yellow Appearance clear Glucose - Bilirubin - Ketones - Specific [place] 1.015 Occult Blood - pH 6.0 Urine Protein - Urobilinogen,Semi-Qn - Nitrite, Urine - WBC Esterase - Urinalysis, Routine Reviewed date:04/22/2024 09:23:27 AM Interpretation: Performing Lab: Notes/Report: Urine-Color yellow Appearance clear Glucose - Bilirubin - Ketones - Specific [place] 1.015 Occult Blood - pH 6.0 Urine Protein - Urobilinogen,Semi-Qn - Nitrite, Urine - WBC Esterase - Urinalysis Gross Exam - Reason For Referral No Information Medications Medication SIG (Take, Route, Frequency, Duration) Notes Start Date End Date Status Levothyroxine Sodium 88 MCG/ML 1 mL in the morning before breakfast Orally Once a day Active Aspirin 81 81 MG 1 tablet Orally Once a day Active Omeprazole 20 MG 1 capsule 30 minutes before morning meal Orally Once a day Active Clopidogrel Bisulfate 75 MG 1 tablet Ora lly Once a day Active Atorvastatin Calcium 40 MG 1 tablet Oral ly Once a day Active DULoxetine HCl 20 MG 1 capsule Orally On ce a day Active Metoprolol Tartrate 50 MG 1 tablet with food Orally Twice a day Active Sertraline HCl 100 MG 1 tablet Orally On ce a day Active Social History Tobacco Use: Social History Observation Description Date Details (start date - stop date) Never Smoker NA - NA Tobacco Control (Standard) Question Answer Notes Tobacco use: Nonsmoker Problems Problem Type SNOMED Code ICD Code Onset Dates Problem Status W/U Status Risk Notes Problem Mixed incontinence (574715055) Urinary incontinence, mixed (N39.46) Active confirmed Problem Urinary incontinence (880087240) Urinary incontinence (R32) Active confirmed Problem SI - Stress incontinence (15950547) Stress incontinence (N39.3) Active confirmed Problem Coronary artery disease (11474758) CAD (coronary artery disease) (I25.10) Active confirmed Problem History of urinary tract infection (9138134131626) History of UTI (Z87.440) Active confirmed Problem Overactive urinary bladder (disorder) (616820277) OAB (overactive bladder) (N32.81) Active confirmed Problem Female cystocele (disorder) (364418679) History of cystocele (Z87.448) Active confirmed Vital Signs Heart Rate 65 /min 10/17/2024 Temperature 97.9 degrees Fahrenheit 04/22/2024 Blood pressure diastolic 64 mm Hg 10/17/2024 Height-cm 166.37 cm 10/17/2024 Weight-kg 68.04 kg 10/17/2024 Height 65.5 in 10/17/2024 Blood pressure systolic 130 mm Hg 10/17/2024 Weight 150 lbs 10/17/2024 BMI 24.58 kg/m2 10/17/2024 Procedures Procedure Date Ordered Date Performed Result Body Sit e Bladder Scan 04/22/2024 04/22/2024 N/A Bladder Scan 08/05/2024 08/05/2024 120 mL Bladder Scan 10/17/2024 10/17/2024 211 mL Encounters Encounter Location Date Provider Diagnosis [facility], [facility] [address] [place] [address] 04/22/2024 FLOWER BUSTAMANTE History of cystocele Z87.448 ; Urinary incontinence, mixed N39.46 ; History of UTI Z87.440 ; OAB (overactive bladder) N32.81 and CAD (coronary artery disease) I25.10 Diglyy, [employer] [address] [facility] [place] [address] 08/05/2024 KRISTA RAJEEV OAB (overactive bladder) N32.81 ; Stress incontinence N39.3 ; History of cystocele Z87.448 ; History of UTI Z87.440 and Surgical counseling visit Z71.89 [facility] [employer], [facility] [address] [place] [address] 09/17/2024 KRISTA BOO Stress incontinence N39.3 ; OAB (overactive bladder) N32.81 ; History of cystocele Z87.448 and History of UTI Z87.440 [employer], [facility] [address] [facility] [place] [address] 09/20/2024 FLOWER BUSTAMANTE Stress incontinence N39.3 [facility], [facility] [address] [facility] [place] [address] 10/17/2024 KRISTA BOO Stress incontinence N39.3 ; OAB (overactive bladder) N32.81 ; History of cystocele Z87.448 and History of UTI Z87.440 [facility], [facility] [address] [place] [address] 09/16/2024 FLOWER BUSTAMANTE [employer], [facility] [address] [place] [address], [place] [address] 09/17/2024 FLOWER BUSTAMANTE Pre-op testing Z01.8 18 and CAD (coronary artery disease) I25.10 Assessments Encounter Date Diagnosis (ICD Code) Assessment Notes Treatment Notes Treatment Clinical Notes Section Notes 04/22/2024 History of cystocele (ICD-10 - Z87.448) 78 yo female with mixed UI and CAD with recent stent placement. She is on ASA and plavix. PVR 6cc. Due to recent Heart stents being placed will need to obtain cardiac clearance for holding Plavix prior to proceeding with Bulkamid. She will return in with UA/PVR and reassess Bulkamid. Pt elects to plan of care and all question were answered. Return sooner with any concern. Plan: -Pt needs to obtain cardiac clearance from Cardiology to hold ASA and Plavix -RTC in 3m with UA/PVR and reassess for Bulkamid IRosa Scribe, am scribing for, and in the presence of, Dr. Bustamante. I, Dr. Flower Bustamante, personally performed the services prescribed in this documentation , as scribed by Rosa Lubin, in my presence, and it is both accurate and complete. 08/05/2024 Stress incontinence (ICD-10 - N39.3) Pt ready to re-schedule repeat Bulkamid for persistent bother from MAGALY. She has very rare UI and is currently not a bother. How procedure is performed was reviewed along with risks, benefits, alternatives, and postprocedural expectations. All questions were sought and answered to pt satisfaction and pt is agreeable to proceed. Will require formal cardiac clearance both for general anesthesia and anti-coagulation hold on her Plavix and ASA. Will send request to cardiology and then schedule accordingly. 08/05/2024 OAB (overactive bladder) (ICD-10 - N32.81) Pt with minimal bother and managing well on lifestyle modifications. 09/17/2024 Stress incontinence (ICD-10 - N39.3) Patient scheduled for Bulkamid on 09/20/[address] Bustamante. How the procedure was performed was discussed along with risks/benefits/alt ernatives and postprocedural expectations. Patient is on anticoagulation and we have clearance from cardiology to hold. Denies problems with anesthesia in the past, no new medications or diagnoses since last visit. Patient has presurgical testing today at [facility]. Urine sent for PCR/culture and we will treat as indicated preoperatively. All questions that were asked were answered and elects to proceed with procedure as scheduled. Patient will RTC postoperatively and is satisfied with plan of care. 09/17/2024 Pre-op testing (ICD-10 - Z01.818) 09/20/2024 Stress incontinence (ICD-10 - N39.3) 10/17/2024 Stress incontinence (ICD-10 - N39.3) Pt very pleased with response to Bulkamid. No postop complaints or complications. Will reassess in 6m with UA/PVR or sooner if needed. 09/17/2024 CAD (coronary artery disease) (ICD-10 - I25.10) 10/17/2024 OAB (overactive bladder) (ICD-10 - N32.81) Pt with minimal bother and managing well on lifestyle modifications. 09/17/2024 OAB (overactive bladder) (ICD-10 - N32.81) Pt with minimal bother and managing well on lifestyle modifications. 08/05/2024 History of cystocele (ICD-10 - Z87.448) 04/22/2024 History of UTI (ICD-10 - Z87.440) 78 yo female with mixed UI and CAD with recent stent placement. She is on ASA and plavix. PVR 6cc. Due to recent Heart stents being placed will need to obtain cardiac clearance for holding Plavix prior to proceeding with Bulkamid. She will return in with UA/PVR and reassess Bulkamid. Pt elects to plan of care and all question were answered. Return sooner with any concern. Plan: -Pt needs to obtain cardiac clearance from Cardiology to hold ASA and Plavix -RTC in 3m with UA/PVR and reassess for Bulkamid Rosa Hay Scribe, am scribing for, and in the presence of, Dr. Bustamante. I, Dr. Flower Bustamante, personally performed the services prescribed in this documentation , as scribed by Rosa Lubin, in my presence, and it is both accurate and complete. 04/22/2024 Urinary incontinence, mixed (ICD-10 - N39.46) 78 yo female with mixed UI and CAD with recent stent placement. She is on ASA and plavix. PVR 6cc. Due to recent Heart stents being placed will need to obtain cardiac clearance for holding Plavix prior to proceeding with Bulkamid. She will return in with UA/PVR and reassess Bulkamid. Pt elects to plan of care and all question were answered. Return sooner with any concern. Plan: -Pt needs to obtain cardiac clearance from Cardiology to hold ASA and Plavix -RTC in 3m with UA/PVR and reassess for Bulkamid Rosa Hay Scribe, am scribing for, and in the presence of, Dr. Bustamante. I, Dr. Flower Bustamante, personally performed the services prescribed in this documentation , as scribed by Rosa Lubin, in my presence, and it is both accurate and complete. 04/22/2024 OAB (overactive bladder) (ICD-10 - N32.81) 78 yo female with mixed UI and CAD with recent stent placement. She is on ASA and plavix. PVR 6cc. Due to recent Heart stents being placed will need to obtain cardiac clearance for holding Plavix prior to proceeding with Bulkamid. She will return in 3m with UA/PVR and reassess Bulkamid. Pt elects to plan of care and all question were answered. Return sooner with any concern. Plan: -Pt needs to obtain cardiac clearance from Cardiology to hold ASA and Plavix -RTC in 3m with UA/PVR and reassess for Bulkamid Rosa Hay Scribe, am scribing for, and in the presence of, Dr. Bustamante. I, Dr. Flower Bustamante, personally performed the services prescribed in this documentation , as scribed by Rosa Lubin, in my presence, and it is both accurate and complete. 08/05/2024 History of UTI (ICD-10 - Z87.440) 09/17/2024 History of cystocele (ICD-10 - Z87.448) 10/17/2024 History of cystocele (ICD-10 - Z87.448) 10/17/2024 History of UTI (ICD-10 - Z87.440) 09/17/2024 History of UTI (ICD-10 - Z87.440) 08/05/2024 Surgical counseling visit (ICD-10 - Z71.89) 04/22/2024 CAD (coronary artery disease) (ICD-10 - I25.10) 78 yo female with mixed UI and CAD with recent stent placement. She is on ASA and plavix. PVR 6cc. Due to recent Heart stents being placed will need to obtain cardiac clearance for holding Plavix prior to proceeding with Bulkamid. She will return in 3m with UA/PVR and reassess Bulkamid. Pt elects to plan of care and all question were answered. Return sooner with any concern. Plan: -Pt needs to obtain cardiac clearance from Cardiology to hold ASA and Plavix -RTC in 3m with UA/PVR and reassess for Bulkamid Rosa Hay Scribe, am scribing for, and in the presence of, Dr. Bustamante. IDr. Flower, personally performed the services prescribed in this documentation , as scribed by Rosa Lubin, in my presence, and it is both accurate and complete. Plan Of Treatment Pending Test Test Name Order Date Electrocardiogram, 12 Lead Tracing-[id number] 09/17/2024 Next Appt Details Provider Name:KRISTA FINLEY COLLEEN, 04/24/2025 11:20:00 AM, [address] [place], [address], Insurance Providers Payer Name Payer Address Payer Phone Subscriber Number Group Number Insured Name Patient Relationship to Insured Coverage Start Date Coverage End Date [place] [address] [address] [place], [place] [id number] Anita Tyler Self - patient is the insured [place] of [address] [id number] Anita Tyler Self - patient is the insured Medical (General) History Medical History History ICD Code bladder infections hx blood in urine urinary urgency urine leakage arthritis cancer Surgical History Surgery Date(Month/Year) thyroidectomy 1985 bladder lift 2019 broken elbow 2010 Left breast lumpectomy 2019 cardiac stents X3 09/09/2023 Hospitalization History Reason Date(Month/Year) CHF exacerbacion 09/2023 Chest pain 08/16/2023
--- OUTSIDE RECORDS SUMMARY | 2025-03-24 13:38 | XMS_ITS | Encounter Summary ---
Author Organization [facility] Address [address] [place] [address] Care Team Providers Care Presidential Support Specialist Name Role Phone Familia Prado MD Primary Care Provider Unava ilable Encounter Details Date Type Department Care Team (Latest Contact Info) Description 02/05/2002 Outpatient Historical [facility] Gastroenterology- [place] [address] [address] [place] [address] Sloan Ambrosio MD [address] [place] [address] DIARRHEA NOS (Primary Dx) Social History Tobacco Use Types Packs/Day Years Used Date Smoking Tobacco: Never Assessed Comments Unknown Sex and Gender Information Value Date Recorded Sex Assigned at Not on file Legal Sex Female 3:36 AM GOLD BLOWER Gender Identity Not on file Sexual Orientation Not on file documented as of this encounter Plan of Treatment Not on file documented as of this encounter Visit Diagnoses Diagnosis Diarrhea- Primary documented in this encounter Care Teams Presidential Support Specialist Relationship Specialty Start Date End Date Familia Prado MD PCP - General Hand Stonecutter 11/10/09 documented as of this encounter
--- OUTSIDE RECORDS SUMMARY | 2025-03-24 13:38 | XMS_ITS | Clinical Summary ---
Author Organization [facility] Address [address] [facility] [address] Attn: [place] [address] Care Team Providers Care Machinery Engineer Name Role Phone Familia Prado MD Primary Care Provider Unava ilable Allergies Active Allergy Reactions Criticality Noted Date Comments Cefpodoxime Rash Low 11/10/2009 Nitrofurantoin Rash Low 11/10/2009 Penicillins Palpitations Low 11/10/2009 Sulfamethoxazole-Trimethoprim Rash Low 2009 Active Problems Problem Noted Date Diagnosed Date Difficult intubation 11/11/2009 Overview (10/08/2020): required use of Glidescope Right Distal Humerus Fx, S/P ORIF 11/10/2009 Immunizations Immunization Administration Dates Next Due Influenza A (H1N1) Vaccine IM 03/12/2009 Influenza Seasonal Unspecified Formulation IM Social History Tobacco Use Types Packs/Day Years Used Date Smoking Tobacco: Never Alcohol Use Standard Drinks/Week Comments No 0 (1 standard drink = 0.6 oz pur e alcohol) Comments Unknown Sex and Gender Information Value Date Recorded Sex Assigned at Not on file Legal Sex Female 12:59 AM COUNTER MANAGER Gender Identity Not on file Sexual Orientation Not on file Plan of Treatment Health Maintenance Due Date Last Done Comments DTAP/TDAP/TD VACCINES (1 - Tdap) 12/25/1962 PNEUMOCOCCAL VACCINE 50+ YEARS (1 of 1 - PCV) 12/25/18 94 ZOSTER VACCINE (1 of 2) 12/25/1993 OSTEOPOROSIS SCREENING 12/25/2008 RSV VACCINE (60+ or ) (1 - 1-dose 75+ series) 12/25/2018 INFLUENZA VACCINE (#1) 2025 03/12/2009 Medical Devices Implanted Type Area Pit Crew Support Worker Device Identifier Shelf Expiration Date Model / Serial / Lot Log [id number] - Synthes 3.5 Lcp Distal Humerus & Elbow Plate Sys - 1 - Plate Hook Lcp 3.5mm 3h Implanted:Qty: 1 on 11/11/2009 Plate Right: Elbow SYNTHES STRATEC .113.103 / NA / NA Log 08642 - Synthes 3.5 Lcp Distal Humerus & Elbow Plate Sys - 1 - Plate Lcp Hum Post/Lat/Dis 3.5mm 241.264 Implanted:Qty: 1 on 11/11/2009 Plate Right: Elbow SYNTHES STRATEC 241.264 / NA / NA Log 52201 - Synthes 3.5 Lcp Distal Humerus & Elbow Plate Sys - 1 - Plate Lcp Med Dis Hum 5hole Rt 241.284 Implanted:Qty: 1 on 11/11/2009 Plate Right: Elbow SYNTHES STRATEC 241.284 / NA / NA Log 82519 - Synthes Screw Cannulated 4.5 Set - 1 - Screw [place] 4.5x50mm 214.550 Implanted:Qty: 1 on 11/11/2009 Screw Right: Elbow SYNTHES STRATEC 214.550 / NA / NA Log 21451 - Synthes Small Frag Lcp Locking - 1 - Screw Michel Self Tap 3.5x20mm 204.820 Implanted:Qty: 1 on 11/11/2009 Screw Right: Elbow SYNTHES STRATEC 204.820 / NA / NA Log 35515 - Synthes Small Frag Lcp Locking - 1 - Screw Michel Self Tap 3.5x22mm 204.822 Implanted:Qty: 5 on 11/11/2009 Screw Right: Elbow SYNTHES STRATEC 204.822 / NA / NA Log 22345 - Synthes Small Frag Lcp Locking - 1 - Screw Michel Self Tap 3.5x24mm 204.824 Implanted:Qty: 1 on 11/11/2009 Screw Right: Elbow SYNTHES STRATEC 204.824 / NA / NA Log 66485 - Synthes Small Frag Lcp Locking - 1 - Screw Michel Self Tap 3.5x26mm 204.826 Implanted:Qty: 1 on 11/11/2009 Screw Right: Elbow SYNTHES STRATEC 204.826 / NA / NA Log 72072 - Synthes Small Frag Lcp Locking - 1 - Screw Michel Self Tap 3.5x30mm 204.830 Implanted:Qty: 1 on 11/11/2009 Screw Right: Elbow SYNTHES STRATEC 204.830 / NA / NA Log 80552 - Synthes Small Frag Lcp Locking - 1 - Screw Michel Self Tap 3.5x50mm 204.850 Implanted:Qty: 1 on 11/11/2009 Screw Right: Elbow SYNTHES STRATEC 204.850 / NA / NA Log 43006 - Synthes Small Frag Lcp Locking - 1 - Screw St Loc Stardr 3.5x14mm 212.103 Implanted:Qty: 2 on 11/11/2009 Screw Right: Elbow SYNTHES STRATEC 212.103 / NA / NA Log 39540 - Synthes Small Frag Lcp Locking - 1 - Screw St Loc Stardr 3.5x22mm 212.107 Implanted:Qty: 1 on 11/11/2009 Screw Right: Elbow SYNTHES STRATEC 212.107 / NA / NA Log 11729 - Synthes 3.5 Lcp Distal Humerus & Elbow Plate Sys - 1 - Screw Lock 2.7x12mm 202.212 Implanted:Qty: 1 on 11/11/2009 Screw Right: Elbow SYNTHES STRATEC 202.212 / NA / NA Log 67324 - Synthes 3.5 Lcp Distal Humerus & Elbow Plate Sys - 1 - Screw Lock 2.7x14mm 202.214 Implanted:Qty: 1 on 11/11/2009 Screw Right: Elbow SYNTHES STRATEC 202.214 / NA / NA Log 89350 - Synthes 3.5 Lcp Distal Humerus & Elbow Plate Sys - 1 - Screw Lock 2.7x16mm 202.216 Implanted:Qty: 1 on 11/11/2009 Screw Right: Elbow SYNTHES STRATEC 202.216 / NA / NA Description:#CORRECTED PER L [facility] [employer] SHEET Log 65453 - Synthes 3.5 Lcp Distal Humerus & Elbow Plate Sys - 1 - Screw Lock 2.7x18mm 202.218 Implanted:Qty: 1 on 11/11/2009 Screw Right: Elbow SYNTHES STRATEC 202.218 / NA / NA Log 97170 - Synthes 3.5 Lcp Distal Humerus & Elbow Plate Sys - 1 - Screw Lock 2.7x22mm 202.222 Implanted:Qty: 1 on 11/11/2009 Screw Right: Elbow SYNTHES STRATEC 202.222 / NA / NA Log 72810 - Synthes Screw Cannulated 4.0 Set - 1 - Screw Canc Sht Thrd 4x40mm 207.64 Implanted:Qty: 1 on 11/11/2009 Screw Right: Elbow SYNTHES STRATEC 207.640 / NA / NA Explanted Type Area Pit Crew Support Worker Device Identifier Shelf Expiration Date Model / Serial / Lot Log [id number] - Synthes Small Frag Lcp Locking - 1 - Screw St Loc Stardr 3.5x50mm 212.121 Explanted:Qty: 1 on 11/11/2009 Screw Right: Elbow SYNTHES STRATEC 212.121 / NA / NA Care Teams Machinery Engineer Relationship Specialty Start Date End Date Familia Prado MD NO ADDRESS ON FILE PCP - General Harness And Bag Inspector 11/10/09
[2025-03-24] MEDS: tetanus-dipt-pertussis 0.5 mL SDV IM (14:40)
[2025-03-24] MEDS: lidocaine-epi 1% 20 mL INJ INJECTION (15:01)
== END 2025-03-24 15:20 | disposition home or self-care (01) ==
PROVIDERS: Emergency Provider Emergency Medicine; PCP Nurse Practitioner Family
DX: S01.01XA Laceration without foreign body of scalp, initial encounter (principal); S09.90XA Unspecified injury of head, initial encounter; W19.XXXA Unspecified fall, initial encounter; Z79.01 Long term (current) use of anticoagulants; Z23 Encounter for immunization
CPT/HCPCS: 12002; 70450; 90471; 90715; 99284; J9999